=== PATIENT | female | born 1955 | race Caucasian/White ===

== ENCOUNTER 2019-04-24 08:18 | Observation (INO) | payer OTHER, SELFPAY ==
[2019-04-24] VITALS (26 sets, daily range): BP systolic 116–131; BP diastolic 45–70; PULSE 64–82; RESP 9–18; TEMP 36.6; O2SAT 97; BMI 36.1
--- NOTE | 2019-04-24 06:00 | XACV_ITS ---
Ht: 152 cm Wt: 84 kg BSA: 1.93 m2 Gender: Female : 1955 Any Known Allergies: Other Exam Priority: Routine Procedure(s): Procedure Description: Diagnostic procedure Procedure Description: Left ventriculography Procedure Description: Coronary Angiography Diagnostic Cath Status: Elective Diagnostic Findings LM was practically absent. The left anterior descending artery and the circumflex artery were found to have separate ostia. LAD is a medium caliber vessel which appears to bifurcate at the mid segment. The LAD proper tapers off to his LV apex. The diagonal branch appears to be a larger caliber vessel than the LAD proper. Right after the diagonal branch, the stented segment of the LAD was found to be widely patent. No significant stenotic lesions. CX arteries relatively large dominant vessel which gives off a high obtuse marginal branch(the intermedius artery) patient has a proximal stented segment which is widely patent. The distal artery patient had no significant stenotic lesion. The circumflex artery proper and its branches were found to have no significant stenotic lesions. Ramus: Minimal luminal irregularities, JARON: 3 flow. The proximal stented segment appears to be widely patent. The right coronary artery is a relatively small nondominant vessel which has an ostial narrowing of 50%. The pressure was dampening with a catheter engagement. Coronary angiography shows left dominance. Conclusions 64-year-old white female with multiple risk factors of coronary disease, status post PCI of the LAD and intermedius artery, present with increasing episodes of chest pain. She had a myocardial perfusion imaging which revealed areas of fixed defects witha small area of reversible defect around the apex. Because of the worsening symptoms, in order to further evaluate her coronary status, a repeat cardiac catheterization was recommended. Patient underwent left heart catheterization with left and right coronary angiogram and LV angiogram today. The findings are as follows. The stented segments of the LAD and the high obtuse marginal branch were found to be patent. There was a 50% ostial narrowing in the nondominant right coronary artery. No other significant stenotic lesions were noted. The LVEDP was found to be elevated at 24 mmHg. Normal left ventricular systolic function. Ejection fraction of 55%. Recommendations Continue current medical management and risk factor modification. Diagnostic RX Recommendation: medical therapy and/or counseling LV EDP: 24 mmHg Ejection Fraction: 55.0 % Left Ventriculography Findings: The LV gram was performed in the GOLDMAN projection. The LV cavity appears to be of normal size. No filling defects were noted. The overall ejection fraction was around 55%. Pressures Phase:Rest AO : 0 mmHg / -1 mmHg ( -1 mmHg ) @ 1:37:00 AM 109 mmHg / 90 mmHg ( 91 mmHg ) @ 1:39:00 AM 90 mmHg / 60 mmHg ( 74 mmHg ) @ 1:46:00 AM 89 mmHg / 50 mmHg ( 70 mmHg ) @ 1:47:00 AM 95 mmHg / 55 mmHg ( 75 mmHg ) @ 1:51:00 AM 152 mmHg / 55 mmHg ( 62 mmHg ) @ 1:58:00 AM 142 mmHg / 69 mmHg ( 103 mmHg ) @ 1:59:00 AM 139 mmHg / 63 mmHg ( 93 mmHg ) @ 1:59:00 AM LV : 146 mmHg / 3 mmHg / @ 1:56:00 AM 153 mmHg / 11 mmHg / @ 1:58:00 AM 143 mmHg / 3 mmHg / @ 1:59:00 AM 142 mmHg / 6 mmHg / @ 1:59:00 AM Valves Phase:DefaultPhase AV : 2.0 mmHg @ 8:11:04 AM AV Mean Gradient: 0.0 mmHg @ 8:11:04 AM Clinical Evaluation EBL: 5mL-10mL Procedural Details [facility] time/date stamp having technical issues. all doucmentation and procedure done on 04/24/2019. start time 0700. Dr. Barksdale scrubbed out to review films. [id number]. Procedure Consent Obtained. Pre-Procedure Time Out. Identified patient by full name and date of as verbalized by the patient/guarantor. Does the consent match the physician's order: Yes. Accurate & Complete Informed Consent: Yes. Inpatient/Outpatient History & Physical on Chart: Yes. If H&P is completed, is and addenduem needed: N/A; If yes, is the addendum complete: N/A. Visualize and Verify Site with Patient/Guarantor: N/A. Relevant Radiology Images available: Yes. Pre-op teaching completed and patient verbalized understanding. The risks, benefits, and alternatives of sedation and/or procedure were discussed by physician. The patient agrees to continue. Procedure started. Correct patient, site and procedure confirmed by cath team. PERRLA. 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 Lungs clear x 5 lobes. IV Site on Arrival: 20 gauge in the right anticubital. IV Fluids: 0.9% NaCl at KVO. 0 mL infused prior to blood bank laboratory technician. Pre Procedural Pulses: bilateral dorsalis pedis was 3+. Pre Procedural Pulses: bilateral posterior tibial was 3+. Pre Procedural Pulses: bilateral radial was 3+. Oxygen started at 2liters/min via nasal canula. right groin was prepped with chloroprep then draped in the usual sterile fashion. right radial was prepped with chloroprep then draped in the usual sterile fashion. Physician notified. Baseline sample Acquired. HR: 69 BPM. Equipment: 6F - Radial. Cardiac Cath Pack. ACIST Manifold Kit Model BT 2000. Heparinized Saline (2 units/mL), 1000 mL bag. Physician arrived. Physician scrubbed in. Immediate Pre-Procedure Time Out. Correct Patient: Yes; Correct Procedure: Yes; Correct Site: Yes; Correct Patient Position: Yes; Correct Supplies: Yes; Dried Flammable Prep: Yes; Blood Products Available: No;. Lidocaine 1% infiltrated to the right radial. Arterial access obtained. A 5 hungarian Manan catheter in over wire. Multiple views taken of left coronary artery. Catheter out. Multiple views taken of left coronary artery. Catheter redirected to the RCA. Catheter out. A 5 hungarian JR4 catheter in over wire. Multiple views taken of right coronary artery. Catheter out. A 5 hungarian Angled Pig catheter in over wire. EDP Sample taken: LV 146/3,24; HR: 84 BPM; SpO2: 98%. LV gram performed in GOLDMAN @ 10 mL/second for a total of 30 mL. EDP Sample taken: LV 153/11,32; HR: 86 BPM; SpO2: 98%. Pullback taken: LV Off; AO Off; Mean: , Peak to Peak: , SEP: ; HR: 85 BPM; SpO2: 98%. EDP Sample taken: LV 143/3,25; HR: 83 BPM; SpO2: 98%. Pullback taken: LV 142/6,25; AO 142/69(103); Mean: 0mmHg, Peak to Peak: 2mmHg, SEP: 18sec/min; HR: 83 BPM; SpO2: 98%. Catheter out. A TR Band was successful obtaining hemostatsis at the Right Radial artery insertion site. TR band placed. Hemostasis obtained. Post Procedure: Pulses reassessed and unchanged. PERRLA. 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 No VTE prophylaxis required. Medication's Wasted: Heparin = 1000 units. Medication's Wasted: Other = versed 1 mg. Medication's Wasted: Nitro = 49.8 units. Medication's Wasted: Lidocaine 1% = 18 mL. Total IV fluids: 57.7 mL. Fluoro: 11:06. Contrast type used: Omnipaque 300 mgI/mL, 500 mL bottle. Post-op diagnosis: patent stents high LVEDP. Complications: none. Estimated blood loss: 5mL-10mL. Procedure completed. Patient transferred by wheelchair to 1st floor. [facility] Clinical Fraility Score: 3: Managing Well. Manufacturing Supervisor Indications: Worsening Angina. Chest Pain Symptom Assessment: Atypical Angina. Cardiovascular Instability: No. Site: Right Radial artery Sheath Size: 6 Fr Hemostasis Method: TR Band Hemostasis Success: Successful Procedure Medications Start: 7:29 AM Stop: 7:29 AM Medication: Versed Amount: 1 mg Route: I.V. Start: 7:29 AM Stop: 7:29 AM Medication: Fentanyl Amount: 50 mcg Route: I.V. Start: 7:34 AM Stop: 7:34 AM Medication: Versed Amount: 1 mg Route: I.V. Start: 7:34 AM Stop: 7:34 AM Medication: Fentanyl Amount: 25 mcg Route: I.V. Start: 7:35 AM Stop: 7:35 AM Medication: Verapamil Amount: 5 mg Route: I.A. Start: 7:35 AM Stop: 7:35 AM Medication: Nitrogylcerin Amount: 200 mcg Route: I.A. Start: 7:40 AM Stop: 7:40 AM Medication: Heparin Amount: 5000 units Route: I.V. Start: 7:41 AM Stop: 7:41 AM Medication: Versed Amount: 1 mg Route: I.V. Start: 7:41 AM Stop: 7:41 AM Medication: Fentanyl Amount: 25 mcg Route: I.V. I, the attending physician, have reviewed and verified all procedure medications. Yes, all medications given per verbal order History/Risk Factors Hypertension: Yes Dyslipidemia: Yes Diabetic Therapy: Insulin Peripheral Arterial Disease (PAD): No Myocardial Infarction (WV): No Obesity: No Renal Disease: No Tobacco Use: Former Prior Interventions PCI: Yes CABG: No Valve Surgery: No Date of PCI: 11/02/2016 Report Signatures Finalized by:Dr Kathryn Barksdale MD [facility] on 04/24/2019 10:15:46 AM
[2019-04-24] MEDS: diphenhydrAMINE 50 mg Capsule PO (06:26)
[2019-04-24 06:51] LABS: Basophils % 0.4 %; Eosinophils # 0.3 10^3/uL (0.0-0.8); Eosinophils % 3.1 %; Hemoglobin 11.5 g/dL (11.5-15.3); Lymphocytes # 2.1 10^3/uL (0.8-4.8); Lymphocytes % 23.4 %; Mean Corpuscular HGB Conc 31.9 g/dL (30.0-36.0); Mean Corpuscular Hemoglobin 27.6 pg (28.0-34.0); Mean Corpuscular Volume 86.5 fL (81-99); Mean Platelet Volume 10.3 fL (7.4-10.4); Monocytes # 0.7 10^3/uL (0.2-0.9); Monocytes % 7.3 %; Neutrophils # 5.8 10^3/uL (1.8-7.7); Neutrophils % 65.2 %; Nucleated Red Blood Cells % 0 %; Platelet Count 286 10^3/cmm (130-400); Red Blood Count 4.16 10^6/uL (4.1-5.3); Red Cell Distribution Width 13.8 % (12.1-15.1); White Blood Count 8.9 10^3/uL (4.0-10.0)
[2019-04-24 07:05] LABS: Anion Gap 15.3 (5-19); Blood Urea Nitrogen 15 mg/dL (8-23); Calcium 8.8 mg/dL (8.5-10.5); Carbon Dioxide 23 mmol/L (22-29); Chloride 99 mmol/L (98-107); Glomerular Filtration Rate 84.2 mL/min (90-130); Glucose 351 mg/dL (74-106); Osmolality Calculated 286 mOsm/kg (285-295); Potassium 4.3 mmol/L (3.5-5.1); Sodium 133 mmol/L (136-145)
[2019-04-24 07:18] LABS: INR 0.97 (0.8-1.2)
[2019-04-24] MEDS: cyanocobalamin 1,000 mcg Tablet 1000 MCG PO (09:14)
[2019-04-24] MEDS: pantoprazole DR 40 mg Tablet PO (09:14)
[2019-04-24] MEDS: meloxicam 7.5 mg tablet 15 MG PO (09:15)
[2019-04-24] MEDS: carvedilol 6.25 mg Tablet PO (09:15)
[2019-04-24] MEDS: aspirin 81 mg EC Tablet PO (09:15)
[2019-04-24] MEDS: clopidogrel 75 mg Tablet PO (09:15)
--- NOTE | 2019-04-24 14:43 | PC.NURSE ---
PATIENT GIVEN DISCHARGE INSTRUCTIONS AND VERBALIZED UNDERSTANDING ; PATIENT RIGHT WRIST LHC SITE DRESSING C/D/I WITH DISTAL PULSES PRESENT ; PATIENT REQUESTED TO AMBULATE TO EXIT TO POV WITH NO ISSUES
== END 2019-04-24 14:36 | disposition home or self-care (01) ==
LOC: CSU 08:21
PROVIDERS: Admitting Provider Internal Medicine Cardiovascular Disease; Family Provider Family Medicine; PCP Family Medicine; Visit Provider Internal Medicine Cardiovascular Disease
DX: I25.118 Atherosclerotic heart disease of native coronary artery with other forms of angina pectoris (principal); I25.9 Chronic ischemic heart disease, unspecified; R07.9 Chest pain, unspecified; Z79.82 Long term (current) use of aspirin; E11.40 Type 2 diabetes mellitus with diabetic neuropathy, unspecified; Z79.4 Long term (current) use of insulin; E78.2 Mixed hyperlipidemia; I10 Essential (primary) hypertension
CPT/HCPCS: 36415; 80048; 85025; 85610; 86850; 86900; 93452; C1769; C1887; C1894; G0378; J1644; J2001; J2250; J3010; J3490; J7030; Q0163; Q9967

== ENCOUNTER 2019-08-07 14:50 | Emergency (ER) | payer OTHER, SELFPAY ==
[2019-08-07 15:00] VITALS: BP 112/67; PULSE 92; RESP 14; TEMP 36.6; O2SAT 97; BMI 37.0
--- NOTE | 2019-08-07 15:10 | ED_ITS ---
HPI - Abdominal Pain General: Chief Complaint: Abdominal Pain Stated Complaint: abd pain Time Seen by Provider: 08/07/19 15:10 History of Present Illness: HPI narrative: 64-year-old female presents with complaints of left lower quadrant pain for the last 2 days with nausea and loose stools she denies any hematochezia or melanotic stools. She denies any fever no dysuria urgency or frequency or hematuria. Seems to worsen if the pain lying down seems to make it a little bit better she denies any cough or shortness of breath associated with it. MD elicited complaint: abdominal pain Onset (ago): day(s) Pain Consistency: intermittent Location: LLQ Severity: moderate Quality: cramping Radiation: none Migration to: no migration Relieving factors: rest Associated Symptoms: Reports anorexia, diarrhea, heartburn and nausea; Denies chills, coffee ground emesis, constipation, GI cramping, dysuria, fever(s), hematochezia, hematuria, hematemesis, melena, syncope and vomiting Review of Systems Const: Denies: fever(s), chills, body aches, fatigue, malaise or night sweats Eyes: Denies: change in vision or blurry vision ENMT: Denies: throat pain, oral sores, dental pain, nasal discharge or nasal congestion Card: Denies: chest pain, palpitations, irregular heart rhythm, edema, syncope, dyspnea on exertion, orthopnea or leg pain with exertion Resp: Denies: dyspnea, productive cough, non-productive cough or wheezing GI: Reports: abdominal pain, nausea, heartburn and diarrhea; Denies: vomiting, hematemesis, coffee ground emesis, dysphagia, constipation, GI cramping, hematochezia or melena : Denies: flank pain, dysuria, urinary frequency, urinary urgency, urinary incontinence or hematuria Musc: Denies: neck pain, back pain, extremity pain, extremity swelling, joint pain or joint swelling Skin/Breast: Denies: rash, pruritus or erythema Neuro: Denies: headache(s), numbness in extremities, weakness in extremities, sensory changes, lack of coordination, difficulty walking, frequent falls, dizziness, vertigo or confusion Psych: Denies: anxiety, depression, loss of interest, visual hallucinations, auditory hallucinations, suicidal ideation or homicidal ideation Endo: Denies: polyuria, polydipsia, tired all the time or cold intolerance José Miguel/Lymph: Denies: easy bruising, easy bleeding, petechiae, enlarged lymph nodes or tender lymph nodes PFSH ED PFSH: Medical History Arteriosclerosis of coronary artery Had PCI of the Diagonal and OM1 on 10/23/[address] Verdin Chest pain Diabetes Hyperlipemia Hypertension Surgical History H/O abdominal hysterectomy H/O dilation and curettage H/O foot surgery H/O laparoscopy H/O shoulder surgery Stented coronary artery Family History Other CAD (coronary artery disease) Cancer Diabetes Stroke Social History Smoking and tobacco status: never smoked Alcohol intake: never Physical Exam Const: COMMON NORMALS: no acute distress GENERAL APPEARANCE: cooperative and comfortable ORIENTATION/CONSCIOUSNESS: Yes awake, Yes oriented to person, Yes oriented to place and Yes oriented to time HENMT: COMMON NORMALS: normocephalic, atraumatic, hearing grossly normal bilaterally, external ears normal, EAC's normal, TM's normal bilaterally, Normal nasal mucous membranes and turbinates present, moist oral mucous membranes and oropharynx normal HEAD & SCALP: normocephalic and atraumatic NOSE: Normal nasal mucous membranes and turbinates present EXTERNAL EAR: Yes external ears normal EXTERNAL AUDITORY CANAL: EAC's normal TYMPANIC MEMBRANE: TM's normal bilaterally Eye: COMMON NORMALS: Equal, round and reactive pupils present, EOMs intact bilaterally, conjunctivae normal and no scleral icterus CONJUNCTIVA: Yes conjunctivae normal PUPIL: Yes Equal, round and reactive pupils present Neck/C-Spine: COMMON NORMALS: full ROM, no lymphadenopathy, supple and no JVD Lymph: LYMPHATIC: no lymphadenopathy noted and no lymphedema noted Resp: COMMON NORMALS: normal respiratory effort, No retractions, No use of accessory muscles and clear to auscultation bilaterally AUSCULTATION: clear to auscultation bilaterally Cardio: COMMON NORMALS: no JVD, regular rate, regular rhythm and No murmurs present (Cardio) RATE: regular rate RHYTHM: regular rhythm GI: COMMON NORMALS: Soft to palpation and No hepatosplenomegaly present AUSCULTATION: Yes Hypoactive bowel sounds present PALPATION: Yes Soft to p alpation, Yes Tenderness to palpation present (GI) Details: LLQ, No Guarding due to palpation present (GI) and Yes No hepatosplenomegaly present Extremity: COMMON NORMALS: normal to inspection, capillary refill normal, no clubbing, cyanosis or edema, no calf tenderness and no pedal edema Neuro: SENSORIUM/ORIENTATION: Yes oriented to person, Yes oriented to place and Yes oriented to time Skin: COMMON NORMALS: no rashes or lesions noted GENERAL SKIN EXAM: no rashes or lesions noted Course Vital Signs: Vital signs: Vital Signs Temperature 97.8 F 08/07/19 15:00 Pulse Rate 81 08/07/19 18:59 Respiratory Rate 17 08/07/19 18:59 Blood Pressure 123/66 08/07/19 18:59 Pulse Oximetry 97 08/07/19 18:59 MDM - Abdominal Pain MDM Narrative: Medical decision making narrative: Patient has a mild colitis suspect is diverticular in nature additionally she also has a small mild cystitis. We will start her on Augmentin and have her follow-up with her primary care doctor return if worsens, Lab Data: Labs: Lab Results 08/07/19 08/07/19 08/07/19 Range/Units 15:20 15:56 15:56 WBC 10.9 H (4.0-10.0) 10^3/ uL RBC 4.07 L (4.1-5.3) 10^6/u L Hgb 11.5 (11.5-15.3) g/dL Hct 36.4 L (37.0-47.0) % MCV 89.4 (81-99) fL MCH 28.3 (28.0-34.0) pg MCHC 31.6 (30.0-36.0) g/dL RDW 14.3 (12.1-15.1) % Plt Count 290 (130-400) 10^3/c mm MPV 10.5 H (7.4-10.4) fL Neut % (Auto) 73.6 % Lymph % (Auto) 17.2 % [place] % (Auto) 6.4 % Eos % (Auto) 1.8 % Baso % (Auto) 0.6 % Neut # (Auto) 8.0 H (1.8-7.7) 10^3/u L Lymph # (Auto) 1.9 (0.8-4.8) 10^3/u L [place] # (Auto) 0.7 (0.2-0.9) 10^3/u L Eos # (Auto) 0.2 (0.0-0.8) 10^3/u L Baso # (Auto) 0.1 (0.0-0.1) 10^3/u L Nucleated RBC % (a uto) 0 % Nucleated RBCs # 0.0 /100WBC Sodium 136 (136-145) mmol/L Potassium 4.1 (3.5-5.1) mmol/L Chloride 99 (98-107) mmol/L Carbon Dioxide 21 L (22-29) mmol/L Anion Gap 20.1 H (5-19) BUN 18 (8-23) mg/dL Creatinine 0.9 (0.5-0.9) mg/dL GFR Calculation 63.0 L (90-130) mL/min Glucose 382 H (65-115) mg/dL Calculated Osmolal ity 294 (285-295) mOsm/k g Lactate (0.5-2.2) mmol/L Calcium 9.0 (8.5-10.5) mg/dL Total Bilirubin 0.2 (0.15-1.2) mg/dL AST 16 (0-32) U/L ALT 14 (0-33) U/L Alkaline Phosphata se 112 H (35-105) IU/L Total Protein 6.8 (6.6-8.7) g/dL Albumin 3.9 (3.5-5.2) g/dL Globulin 2.9 (1.3-4.6) g/dL Lipase 34 (13-60) U/L Urine Color Yellow (Yellow) Urine Appearance Hazy A (CLEAR) Urine pH 5 (5-7) Ur Specific Gravit y 1.015 (1.005-1.030) Urine Protein Neg (Negative) Urine Glucose (UA) 4+ H (Normal) Urine Ketones Negative (Negative) Urine Blood 3+ H (Negative) Urine Nitrate Positive H (Negative) Urine Bilirubin Neg (NEGATIVE) Urine Urobilinogen Norm (Negative) mg/dL Ur Leukocyte Loretta ase 1+ H (Negative) Urine RBC 5-10 H (0-2) /hpf Urine WBC 40-55 H (0-5) /hpf Ur Squamous Epith Cells 0-4 H (0-5) Ur Transition Epit h Cell 0-4 /hpf Urine Bacteria 2+ H (NONE) 08/07/19 Range/Units 15:56 WBC (4.0-10.0) 10^3/ uL RBC (4.1-5.3) 10^6/u L Hgb (11.5-15.3) g/dL Hct (37.0-47.0) % MCV (81-99) fL MCH (28.0-34.0) pg MCHC (30.0-36.0) g/dL RDW (12.1-15.1) % Plt Count (130-400) 10^3/c mm MPV (7.4-10.4) fL Neut % (Auto) % Lymph % (Auto) % [place] % (Auto) % Eos % (Auto) % Baso % (Auto) % Neut # (Auto) (1.8-7.7) 10^3/u L Lymph # (Auto) (0.8-4.8) 10^3/u L [place] # (Auto) (0.2-0.9) 10^3/u L Eos # (Auto) (0.0-0.8) 10^3/u L Baso # (Auto) (0.0-0.1) 10^3/u L Nucleated RBC % (a uto) % Nucleated RBCs # /100WBC Sodium (136-145) mmol/L Potassium (3.5-5.1) mmol/L Chloride (98-107) mmol/L Carbon Dioxide (22-29) mmol/L Anion Gap (5-19) BUN (8-23) mg/dL Creatinine (0.5-0.9) mg/dL GFR Calculation (90-130) mL/min Glucose (65-115) mg/dL Calculated Osmolal ity (285-295) mOsm/k g Lactate 3.0 H (0.5-2.2) mmol/L Calcium (8.5-10.5) mg/dL Total Bilirubin (0.15-1.2) mg/dL AST (0-32) U/L ALT (0-33) U/L Alkaline Phosphata se (35-105) IU/L Total Protein (6.6-8.7) g/dL Albumin (3.5-5.2) g/dL Globulin (1.3-4.6) g/dL Lipase (13-60) U/L Urine Color (Yellow) Urine Appearance (CLEAR) Urine pH (5-7) Ur Specific Gravit y (1.005-1.030) Urine Protein (Negative) Urine Glucose (UA) (Normal) Urine Ketones (Negative) Urine Blood (Negative) Urine Nitrate (Negative) Urine Bilirubin (NEGATIVE) Urine Urobilinogen (Negative) mg/dL Ur Leukocyte Loretta ase (Negative) Urine RBC (0-2) /hpf Urine WBC (0-5) /hpf Ur Squamous Epith Cells (0-5) Ur Transition Epit h Cell /hpf Urine Bacteria (NONE) Discharge Plan Discharge Patient Disposition: Home, Self-Care Clinical Impression: Cystitis, Diverticulitis Condition: Stable Prescriptions: New Augmentin 875-125 mg tablet 1 tab PO BID Qty: 20 RF: 0 No Action ibuprofen 800 mg tablet 800 mg PO Q8H PRN (Reason: Pain) Qty: 15 RF: 0 carvedilol 6.25 mg tablet 6.25 mg PO BID RF: 0 isosorbide mononitrate 30 mg tablet extended release 24 hr 30 mg PO QAM RF: 0 clopidogrel 75 mg tablet 75 mg PO DAILY RF: 0 nitroglycerin 0.4 mg tablet, sublingual 0.4 mg SUBLINGUAL Q5M PRN (Reason: Chest Pain) RF: 0 citalopram 20 mg tablet 20 mg PO DAILY RF: 0 Humulin N NPH U-100 Insulin 100 unit/mL suspension See Rx Instructions .ROUTE .COMPLEX RF: 0 lovastatin 40 mg tablet 40 mg PO DAILY RF: 0 glipizide 10 mg tablet extended release 24hr 10 mg PO BID RF: 0 metformin 1,000 mg tablet extended release 24hr 1,000 mg PO BID RF: 0 Hold Instructions: Resume on 04/27/19. May restart the medicine on the seventh at the current dose aspirin 81 mg tablet,delayed release (DR/EC) 81 mg PO DAILY RF: 0 cyanocobalamin (vitamin B-12) [Vitamin B-12] 1,000 mcg Tablet 1,000 mcg PO DAILY RF: 0 Discharge Orders: Discharge Order (Routine); Ordered 08/07/19 Ordered By: Rosas Ortiz Referrals: Desean Conteh DO [Primary Care Provider] - Discharge Diet: Clear Liquid Discharge Activity: Increase activity as tolerated Patient Instructions: Diverticulitis (ED), Urinary Tract Infection in Women (ED) Activity Restrictions/Additional Instructions: Up with your primary care doctor if not improvingFollow-up with your primary care doctor within a week Interventions: ED Discharge Assessment Last Done: 08/07/19 18:59 ED Charges Last Done: 08/07/19 18:31 Discharge Date/Time: 08/07/19 19:30 Coding Level of Care Code ED Wood Inspector for Chg Fwd Exam Comprehensive
[2019-08-07 15:28] VITALS: BP 166/109; PULSE 88; RESP 17; O2SAT 96
--- NOTE | 2019-08-07 15:33 | CTR_ITS ---
PROCEDURE INFORMATION: Exam: CT Abdomen And Pelvis With Contrast Exam date and time: 08/07/2019 4:43 PM Age: 64 years old Clinical indication: Abdominal pain; Additional info: Abd pain TECHNIQUE: Imaging protocol: Computed tomography of the abdomen and pelvis with intravenous contrast. Radiation optimization: All CT scans at this facility use at least one of these dose optimization techniques: automated exposure control; mA and/or kV adjustment per patient size (includes targeted exams where dose is matched to clinical indication); or iterative reconstruction. Contrast material: OMNI 300; Contrast volume: 95 ml; Contrast route: IV; COMPARISON: CT Abdomen/Pelvis Renal [id number] 01/26/2016 4:33 PM RADIATION DOSE METRICS: Total DLP: 1482.84 mGy-cm FINDINGS: Lungs: There is mild ground-glass opacity in the lung bases compatible with mild pneumonitis or atelectasis. Mediastinum: There is an unchanged small hiatal hernia. Liver: There is unchanged mild fatty infiltration liver. Gallbladder and bile ducts: Normal. No calcified stones. No ductal dilation. Pancreas: Normal. No ductal dilation. Spleen: Normal. No splenomegaly. Adrenals: Normal. No mass. Kidneys and ureters: There is no evidence of hydronephrosis. There is no evidence of renal calcifications. Stomach and bowel: There is mild wall thickening in the distal descending colon and sigmoid colon concerning for mild distal colitis. Stomach and duodenum have an appropriate appearance. Some of the loops of small bowel are filled with fluid with very mild wall thickening that may reflect some very mild enteritis. Appendix: A normal appendix is identified. Intraperitoneal space: Unremarkable. No free air. No significant fluid collection. Vasculature: The aorta demonstrates mild atherosclerotic calcification. Lymph nodes: Unremarkable.No enlarged lymph nodes. Bladder: The bladder is normal. Reproductive: Unremarkable as visualized. There has been a hysterectomy. Bones/joints: There are moderate degenerative changes in the spine. No acute bony abnormality. Soft tissues: There is a fat-containing umbilical hernia. Other findings: There is no ileus or obstruction. CT/CT abdomen pelvis w con* [id number] IMPRESSION: 1. There is mild wall thickening in the distal descending colon and sigmoid colon concerning for mild distal colitis. 2. Probable mild enteritis of the small bowel. Radiation Dose CTDIVOL = (mGy): DLP = 1482.84 (mGy-cm)
[2019-08-07 16:03] LABS: Basophils # 0.1 10^3/uL (0.0-0.1); Basophils % 0.6 %; Eosinophils # 0.2 10^3/uL (0.0-0.8); Eosinophils % 1.8 %; Hematocrit 36.4 % (37.0-47.0); Hemoglobin 11.5 g/dL (11.5-15.3); Lymphocytes # 1.9 10^3/uL (0.8-4.8); Lymphocytes % 17.2 %; Mean Corpuscular HGB Conc 31.6 g/dL (30.0-36.0); Mean Corpuscular Hemoglobin 28.3 pg (28.0-34.0); Mean Corpuscular Volume 89.4 fL (81-99); Mean Platelet Volume 10.5 fL (7.4-10.4); Monocytes # 0.7 10^3/uL (0.2-0.9); Monocytes % 6.4 %; Neutrophils % 73.6 %; Nucleated Red Blood Cells % 0 %; Platelet Count 290 10^3/cmm (130-400); Red Blood Count 4.07 10^6/uL (4.1-5.3); Red Cell Distribution Width 14.3 % (12.1-15.1); White Blood Count 10.9 10^3/uL (4.0-10.0)
[2019-08-07] MEDS: sodium chloride 0.9% 1,000 ML 999 ML IV ×2 (16:06→18:18)
[2019-08-07 16:08] VITALS: RESP 17
[2019-08-07] MEDS: ondansetron 2 mg/ML SDV 2 mL 4 MG IVP (16:08)
[2019-08-07] MEDS: morphine 4 mg/mL SDV 1 mL IVP (16:08)
[2019-08-07 16:16] LABS: Alanine Aminotransferase 14 U/L (0-33); Albumin Level 3.9 g/dL (3.5-5.2); Alkaline Phosphatase 112 IU/L (35-105); Anion Gap 20.1 (5-19); Aspartate Amino Transferase 16 U/L (0-32); Blood Urea Nitrogen 18 mg/dL (8-23); Carbon Dioxide 21 mmol/L (22-29); Chloride 99 mmol/L (98-107); Globulin 2.9 g/dL (1.3-4.6); Glucose 382 mg/dL (65-115); Lipase 34 U/L (13-60); Osmolality Calculated 294 mOsm/kg (285-295); Potassium 4.1 mmol/L (3.5-5.1); Sodium 136 mmol/L (136-145); Total Bilirubin 0.2 mg/dL (0.15-1.2); Total Protein 6.8 g/dL (6.6-8.7)
[2019-08-07 16:20] VITALS: BP 139/66; PULSE 87; RESP 15; O2SAT 95
[2019-08-07 16:34] LABS: Urine Appearance Hazy (CLEAR); Urine Color Yellow (Yellow); pH Urine 5 (5-7)
[2019-08-07 16:35] LABS: Add Urine Microscopic? YES; Bilirubin Urine Neg (NEGATIVE); Blood Urine 3+ (Negative); Glucose Urine UA 4+ (Normal); Ketones Urine Negative (Negative); Leukocyte Esterase Urine 1+ (Negative); Nitrate Urine Positive (Negative); Protein Urine Neg (Negative); Specific Gravity, Urine 1.015 (1.005-1.030); Urobilinogen Urine Norm (Negative)
[2019-08-07 16:45] VITALS: RESP 15; O2SAT 93
[2019-08-07 16:48] LABS: Add Urine Culture? Yes; Bacteria Urine 2+; Squamous Epithelial Cell Urine 0-4 (0-5); Transitional Epi Cells Urine 0-4 /hpf; WBC Urine 40-55 /hpf (0-5)
[2019-08-07] MEDS: iohexol 300 mg/mL 100 mL Btl IV (17:37)
[2019-08-07] MEDS: cefTRIAXone 1,000 MG in sodium chloride 0.9% (plus) 50 ML 100 MG IV (18:18)
[2019-08-07 18:59] VITALS: BP 123/66; PULSE 81; RESP 17; O2SAT 97
== END 2019-08-07 19:30 | disposition home or self-care (01) ==
PROVIDERS: Emergency Provider Family Medicine; PCP Family Medicine
DX: N30.90 Cystitis, unspecified without hematuria (principal); K57.92 Diverticulitis of intestine, part unspecified, without perforation or abscess without bleeding; Z79.02 Long term (current) use of antithrombotics/antiplatelets; Z79.4 Long term (current) use of insulin; Z79.82 Long term (current) use of aspirin; E11.9 Type 2 diabetes mellitus without complications; E78.5 Hyperlipidemia, unspecified; I10 Essential (primary) hypertension
CPT/HCPCS: 12345; 36415; 74177; 80053; 81001; 83605; 83690; 85025; 87040; 87077; 87086; 87186; 96361; 96365; 96375; 99283; J0696; J2270; J2405; J7030; Q9967

== ENCOUNTER → 2019-08-14 11:30 | Outpatient (BNVA) | payer OTHER, SELFPAY | PROVIDERS: Family Provider Family Medicine; PCP Family Medicine; Visit Provider Internal Medicine Cardiovascular Disease | DX: I10 Essential (primary) hypertension (principal); E78.5 Hyperlipidemia, unspecified; E78.2 Mixed hyperlipidemia; I25.10 Atherosclerotic heart disease of native coronary artery without angina pectoris; E11.40 Type 2 diabetes mellitus with diabetic neuropathy, unspecified; Z79.4 Long term (current) use of insulin | CPT/HCPCS: 80061 ==

== ENCOUNTER 2019-11-07 16:03 | Emergency (ER) | payer OTHER, SELFPAY ==
[2019-11-07 16:12] VITALS: BMI 36.3
[2019-11-07 16:16] VITALS: BP 144/78; PULSE 83; RESP 16; TEMP 36.7; O2SAT 98
--- NOTE | 2019-11-07 16:23 | CT_ITS ---
WS: [id number] EXAM: CT head wo con* [id number] DATE OF EXAMINATION: 11/07/2019, 1745 hours COMPARISON: Head CT from 04/02/2016 HISTORY: 64 years old with dizziness for the last 3 days. Complaining of a headache with nausea and vomiting. TECHNIQUE: Thin slice imaging obtained through the brain. Viewed in brain, subdural and bone window with reconst ructions. DLP: 756.[address] scans at [facility] use at least one of these dose optimization techniques: automat ed exposure control; mA and/or kV adjustment per patient size (includes targeted exams where dose is matched to clinical indication); or iterative reconstruction. FINDINGS: There are generalized changes of age-related atrophy. Rankin-white differentiation is normal. There are slight changes of decreased attenuation within the white matter felt to represent sequelae from chronometer tester jamil small vessel white matter microangiopathic change. No findings of hemorrhage, hydrocephalus, mass , mass effect or abnormal extra-axial fluid collection is seen. No acute skull abnormality is demons trated. Extracalvarial soft tissues are unremarkable. Minimal chronic sinusitis changes seen. CT/CT head wo con* [id number] IMPRESSION: Atrophy and slight chronic white matter changes. No acute intracranial process.
--- NOTE | 2019-11-07 16:23 | CT_ITS ---
WS: [id number] EXAM: CT OF THE ABDOMEN AND PELVIS WITH CONTRAST DATE OF EXAMINATION: 11/07/2019, 1753 hours COMPARISON: Prior CT from 08/07/2019. HISTORY: 64 years old with nausea and vomiting para TECHNIQUE: Transaxial computed tomography images obtained through the abdomen and pelvis utilizing 95 mL of Omni paque 300 IV contrast with images acquired in the portal phase. Images viewed in multiple windows wit h reconstructions. DLP: 1284.[address] scans at [facility] use at least one of these dose optimization techniques: automat ed exposure control; mA and/or kV adjustment per patient size (includes targeted exams where dose is matched to clinical indication); or iterative reconstruction. FINDINGS: There are findings of slight infiltrate suggesting atelectasis within the medial segment of the middl e lobe and lingula. Lung bases are otherwise clear. Heart size is normal. The aorta is normal in phyllis suraj and opacifies normally. Liver attenuation is decreased consistent with some degree of fatty infiltration. There appears to be a lesion within the left lobe of the liver with vessels running through this lesion most likely a fo carlo area of more severe fatty infiltration. No definite mass lesion is seen. The gallbladder is normally distended without identifiable stones or pericholecystic inflammatory kiara nge. No biliary dilatation is seen. The portal vein is patent. Spleen is normal in size and enhancement. Pancreas is normal in appearance. Adrenal glands are normal in appearance. Both kidneys enhance normally. No mass lesion is seen. No renal or ureteral calculus or obstructive u ropathy. The bowel is normal in caliber. No bowel obstruction, free air, free fluid or inflammatory process is identified. Normal appendix in the right paracolic gutter. No intraperitoneal or retroperitoneal adenopathy or mass is identified. No umbilical hernia is seen. No inguinal hernia is seen. Uterus is absent. No adnexal mass The bladder is normal in appearance. Scattered degenerative changes are seen in the spine. No acute bony abnormality. CT/CT abdomen pelvis w con* [id number] IMPRESSION: No findings of acute intra-abdominal or retroperitoneal abnormality. Progressively worsening fatty infiltration in the liver. Other nonemergent find ings as described in the body of the report.
--- NOTE | 2019-11-07 16:36 | W.ED.DIZZY ---
HPI - Dizziness General: Chief Complaint: Dizziness Stated Complaint: vomiting/n dizzy Time Seen by Provider: 11/07/19 16:17 Source: patient Mode of arrival: ambulatory Limitations: no limitations History of Present Illness: HPI Narrative: Judy is a 64-year-old female who comes in complaining of a months worth of dizziness. She describes the dizziness as a room spinning dizziness. She has associated nausea but no vomiting. She denies any headache, blurry vision, or unilateral numbness or weakness. Patient went to see Dr. Corona today for this and because of the chronicity of this he had her present here for concern of a stroke. Patient also has been complaining of some lower abdominal pain. She has history of diverticulosis. Patient denies any other diarrhea, constipation, urinary symptoms or fever. In regards to her dizziness the patient does state that moving her head or body in certain positions makes the symptoms worse. Associated symptoms: Denies change in hearing, chest pain, chills, diaphoresis, ear discharge, headache(s), malaise, palpitations, syncope or vomiting Associated neuro symptoms: Deny confusion or numbness in extremities Review of Systems Const: Denies: fever(s), chills, body aches, fatigue, malaise or diaphoresis Eyes: Denies: change in vision, blurry vision, photophobia, eye discomfort, eye discharge or eye redness ENMT: Denies: throat pain, odynophagia, hoarseness, swelling of lips/tongue, ear or mastoid pain, ear discharge, change in hearing or nasal discharge Card: Denies: chest pain, palpitations, irregular heart rhythm, edema, lightheadedness, syncope, pre-syncope, dyspnea on exertion or orthopnea Resp: Denies: dyspnea, productive cough, non-productive cough, wheezing, hemoptysis or chest congestion GI: Denies: vomiting, hematemesis, coffee ground emesis, heartburn, diarrhea, constipation, GI cramping, hematochezia or melena : Denies: flank pain, dysuria, urinary frequency, urinary urgency or hematuria Musc: Denies: neck pain, back pain, extremity pain, extremity swelling, joint pain, joint swelling, joint redness, joint warmth or joint stiffness Skin/Breast: Denies: rash, pruritus, erythema or skin tenderness Neuro: Denies: headache(s), numbness in extremities, weakness in extremities, sensory changes, lack of coordination, difficulty walking, confusion, Slurred speech present or seizure-like activity José Miguel/Lymph: Denies: easy bruising, easy bleeding, petechiae, purpura or enlarged lymph nodes All/Imm: Denies: urticaria, throat swelling, tongue swelling, facial swelling or acute wheezing PFSH ED PFSH: Medical History Arteriosclerosis of coronary artery Had PCI of the Diagonal and OM1 on 10/23/[address] Veridn Chest pain Diabetes Hyperlipemia Hypertension Surgical History H/O abdominal hysterectomy H/O dilation and curettage H/O foot surgery H/O laparoscopy H/O shoulder surgery Stented coronary artery Family History Other CAD (coronary artery disease) Cancer Diabetes Stroke Social History Smoking and tobacco status: never smoked Alcohol intake: never Physical Exam Const: COMMON NORMALS: no acute distress, patient oriented x3, no limitations, healthy appearing and well nourished GENERAL APPEARANCE: cooperative, well kempt and well developed HENMT: COMMON NORMALS: normocephalic, atraumatic, external ears normal, EAC's normal and Normal external nose present HEAD & SCALP: normal to inspection, normocephalic and atraumatic FACE & SINUS: normal facial exam and face symmetric NOSE: Normal external nose present and Normal nares present EXTERNAL EAR: Yes external ears normal EXTERNAL AUDITORY CANAL: EAC's normal MOUTH: Normal oral and palatal mucosa present, lip normal and tongue normal Eye: COMMON NORMALS: Equal, round and reactive pupils present and conjunctivae normal GENERAL EYE: appearance normal, both eyes and all related structures ALIGNMENT: Yes alignment normal PERIORBITAL: periorbital findings normal EYELID: eyelids normal CONJUNCTIVA: Yes conjunctivae normal SCLERA: sclerae normal PUPIL: Yes Equal, round and reactive pupils present Neck/C-Spine: COMMON NORMALS: full ROM, no lymphadenopathy, supple, no meningeal signs and no JVD GENERAL: Yes normal visual inspection and Yes trachea midline Chest: COMMONS NORMALS: normal inspection of the chest and normal palpation of entire chest wall Resp: COMMON NORMALS: normal respiratory effort, No retractions, No use of accessory muscles and clear to auscultation bilaterally EFFORT & INSPECTION: Yes able to speak in complete sentences and Yes symmetric chest movement AUSCULTATION: clear to auscultation bilaterally, no crackles, no rales, no rhonchi and no wheezes Cardio: COMMON NORMALS: no JVD, regular rate, regular rhythm, S1 normal heart sound present and S2 normal heart sound present RATE: regular rate RHYTHM: regular rhythm HEART SOUNDS: S1 normal heart sound present, S2 normal heart sound present, no click, no gallops, no murmurs, no rubs and abnormal split S2 GI: COMMON NORMALS: Soft to palpation and No hepatosplenomegaly present PALPATION: Yes Soft to palpation, No Tenderness to palpation present (GI), No Guarding due to palpation present (GI), No Rigid due to palpation, Yes No hepatosplenomegaly present, No Hernia present, No Palpable mass present and No Pulsatile mass present : COMMON NORMALS: Yes no CVA tenderness BLADDER/KIDNEY EXAM: Yes no CVA tenderness EXTERNAL FEMALE EXAM: No Hernia present Back/Pelvis: COMMON NORMALS: no CVA tenderness, thoracic and lumbar spine normal to inspection, no thoracic nor lumbar tenderness and thoraco-lumbar ROM normal Extremity: COMMON NORMALS: normal to inspection, full ROM, capillary refill normal, no joint enlargement, no clubbing, cyanosis or edema and no calf tenderness Neuro: COMMON NORMALS: patient oriented x3, CN's II-XII intact bilaterally, moves all extremities, no focal motor deficits and no sensory deficits noted MENINGEAL SIGNS: Yes no meningeal signs COORDINATION/BALANCE: other (Nystagmus present) SPEECH: speech normal COORDINATION: other (Nystagmus present) Psych: COMMON NORMALS: mental status grossly normal, Normal thought process present, cooperative, normal affect, speech normal and activity/motor behavior normal APPEARANCE: Yes well kempt SPEECH: Yes normal speech THOUGHT PROCESS: Normal thought process present Skin: COMMON NORMALS: no rashes or lesions noted, turgor normal, no jaundice, no petechiae and no mottling GENERAL SKIN EXAM: no rashes or lesions noted and turgor normal Course Vital Signs: Vital signs: Vital Signs Temperature 98.0 F 11/07/19 16:16 Pulse Rate 83 08/19/20 16:16 Respiratory Rate 16 11/07/19 16:16 Blood Pressure 144/78 11/07/19 16:16 Pulse Oximetry 98 11/07/19 16:16 MDM - Dizziness MDM Narrative: Medical decision making narrative: Judy is a nice 64-year-old female who comes in complaining of room spinning dizziness for the past month. The patient does admit now that this is somewhat like her dizziness that she is had in the past. She received Valium here by mouth and is feeling much better. She states her dizziness is markedly improved although not completely gone. CT scan of her brain is normal and after a month I would expect something to show on MRI if there was a cerebellar infarct. Nonetheless I have offered to admit her for MRI but she declines. She wants to go on a vacation that is been planned for some time. I did review the case in full with Dr. Corona feels the patient can go home and if necessary an MRI can be performed as an outpatient basis. Patient agrees to do so and return here if she worsens but at this time she is ready for discharge. Lab Data: Attestation: I reviewed the patient's lab results. Labs: Lab Results 11/07/19 11/07/19 Range/Units 16:37 16:37 WBC 10.1 H (4.0-10.0) 10^3/ uL RBC 4.36 (4.1-5.3) 10^6/u L Hgb 12.6 (11.5-15.3) g/dL Hct 39.9 (37.0-47.0) % MCV 91.5 (81-99) fL MCH 28.9 (28.0-34.0) pg MCHC 31.6 (30.0-36.0) g/dL RDW 14.1 (12.1-15.1) % Plt Count 301 (130-400) 10^3/c mm MPV 10.7 H (7.4-10.4) fL Neut % (Auto) 70.4 % Lymph % (Auto) 19.7 % [place] % (Auto) 5.3 % Eos % (Auto) 3.6 % Baso % (Auto) 0.8 % Neut # (Auto) 7.11 (1.8-7.7) 10^3/u L Lymph # (Auto) 2.0 (0.8-4.8) 10^3/u L [place] # (Auto) 0.5 (0.2-0.9) 10^3/u L Eos # (Auto) 0.4 (0.0-0.8) 10^3/u L Baso # (Auto) 0.1 (0.0-0.1) 10^3/u L Nucleated RBC % (a uto) 0 % Nucleated RBCs # 0.0 /100WBC Sodium 137 (136-145) mmol/L Potassium 3.6 (3.5-5.1) mmol/L Chloride 103 (98-107) mmol/L Carbon Dioxide 22 (22-29) mmol/L Anion Gap 15.6 (5-19) BUN 15 (8-23) mg/dL Creatinine 0.6 (0.5-0.9) mg/dL GFR Calculation 100.6 (90-130) mL/min Glucose 104 (65-115) mg/dL Calculated Osmolal ity 281 L (285-295) mOsm/k g Calcium 9.1 (8.5-10.5) mg/dL Magnesium 1.1 L (1.7-2.3) mg/dL Total Bilirubin 0.3 (0.15-1.2) mg/dL AST 39 H (0-32) U/L ALT 28 (0-33) U/L Alkaline Phosphata se 97 (35-105) IU/L Total Protein 7.3 (6.6-8.7) g/dL Albumin 3.8 (3.5-5.2) g/dL Globulin 3.5 (1.3-4.6) g/dL Imaging Data^: CT Head: Radiologist's impression: [place] [address] CT Scan Report Signed Patient: Judy Rincon Unit #: [id number] : 1955 Age/Sex: 64 / F ADM Date: 11/07/19 Loc: ER Room/Bed: Attending Dr: Ordering Provider/Ordering MD: Kelsey Valenzuela DO Date of Service: 11/07/19 Procedure(s): CT head wo con* [id number] Accession Number(s): [id number] Report Number: [id number] WS: [id number] EXAM: CT head wo con* [id number] DATE OF EXAMINATION: 11/07/2019, 1745 hours COMPARISON: Head CT from 04/02/2016 HISTORY: 64 years old with dizziness for the last 3 days. Complaining of a headache with nausea and vomiting. TECHNIQUE: Thin slice imaging obtained through the brain. Viewed in brain, subdural and bone window with reconstructions. DLP: 756.[address] scans at [facility] use at least one of these dose optimization techniques: automated exposure control; mA and/or kV adjustment per patient size (includes targeted exams where dose is matched to clinical indication); or iterative reconstruction. FINDINGS: There are generalized changes of age-related atrophy. Rankin-white differentiation is normal. There are slight changes of decreased attenuation within the white matter felt to represent sequelae from chronic small vessel white matter microangiopathic change. No findings of hemorrhage, hydrocephalus, mass, mass effect or abnormal extra-axial fluid collection is seen. No acute skull abnormality is demonstrated. Extracalvarial soft tissues are unremarkable. Minimal chronic sinusitis changes seen. CT/CT head wo con* [id number] IMPRESSION: Atrophy and slight chronic white matter changes. No acute intracranial process. Dictated By: Adama Bowser MD Signed By: Adaam Bowser MD Signed Date/Time: 11/07/19 180 DD/ 1800 CT Abd/Pel: Radiologist's impression: [address] [address] [address] Scan Report Signed Patient: Judy Rincon Unit #: [id number] : 1955 Age/Sex: 64 / F ADM Date: 11/07/19 Loc: ER Room/Bed: Attending Dr: Ordering Provider/Ordering MD: Kelsey Valenzuela DO Date of Service: 11/07/19 Procedure(s): CT abdomen pelvis w con* [id number] Accession Number(s): [id number] Report Number: [id number] WS: [id number] EXAM: CT OF THE ABDOMEN AND PELVIS WITH CONTRAST DATE OF EXAMINATION: 11/07/2019, 1753 hours COMPARISON: Prior CT from 08/07/2019. HISTORY: 64 years old with nausea and vomiting para TECHNIQUE: Transaxial computed tomography images obtained through the abdomen and pelvis utilizing 95 mL of Omnipaque 300 IV contrast with images acquired in the portal phase. Images viewed in multiple windows with reconstructions. DLP: 1284.[address] scans at [facility] use at least one of these dose optimization techniques: automated exposure control; mA and/or kV adjustment per patient size (includes targeted exams where dose is matched to clinical indication); or iterative reconstruction. FINDINGS: There are findings of slight infiltrate suggesting atelectasis within the medial segment of the middle lobe and lingula. Lung bases are otherwise clear. Heart size is normal. The aorta is normal in caliber and opacifies normally. Liver attenuation is decreased consistent with some degree of fatty infiltration. There appears to be a lesion within the left lobe of the liver with vessels running through this lesion most likely a focal area of more severe fatty infiltration. No definite mass lesion is seen. The gallbladder is normally distended without identifiable stones or pericholecystic inflammatory change. No biliary dilatation is seen. The portal vein is patent. Spleen is normal in size and enhancement. Pancreas is normal in appearance. Adrenal glands are normal in appearance. Both kidneys enhance normally. No mass lesion is seen. No renal or ureteral calculus or obstructive uropathy. The bowel is normal in caliber. No bowel obstruction, free air, free fluid or inflammatory process is identified. Normal appendix in the right paracolic gutter. No intraperitoneal or retroperitoneal adenopathy or mass is identified. No umbilical hernia is seen. No inguinal hernia is seen. Uterus is absent. No adnexal mass The bladder is normal in appearance. Scattered degenerative changes are seen in the spine. No acute bony abnormality. CT/CT abdomen pelvis w con* [id number] IMPRESSION: No findings of acute intra-abdominal or retroperitoneal abnormality. Progressively worsening fatty infiltration in the liver. Other nonemergent findings as described in the body of the report. Dictated By: Adama Bowser MD Signed By: Adama Bowser MD Signed Date/Time: 11/07/191805 DD/ 01 Discharge Plan Discharge Patient Disposition: Home Clinical Impression: Vertigo Abdominal pain Qualifiers: Abdominal location: lower abdomen, unspecified Qualified Code(s): R10.30 - Lower abdominal pain, unspecified Condition: Stable Prescriptions: New diazepam 2 mg tablet 2 mg PO QID PRN (Reason: dizziness or vertigo) Qty: 30 RF: 0 No Action ibuprofen 800 mg tablet 800 mg PO Q8H PRN (Reason: Pain) Qty: 15 RF: 0 isosorbide mononitrate 30 mg tablet extended release 24 hr 30 mg PO QAM RF: 0 clopidogrel 75 mg tablet 75 mg PO DAILY RF: 0 nitroglycerin 0.4 mg tablet, sublingual 0.4 mg SUBLINGUAL Q5M PRN (Reason: Chest Pain) RF: 0 citalopram 20 mg tablet 20 mg PO DAILY RF: 0 Humulin N NPH U-100 Insulin 100 unit/mL suspension See Rx Instructions .ROUTE .COMPLEX RF: 0 lovastatin 40 mg tablet 40 mg PO DAILY RF: 0 glipizide 10 mg tablet extended release 24hr 10 mg PO BID RF: 0 metformin 1,000 mg tablet extended release 24hr 1,000 mg PO BID RF: 0 Hold Instructions: Resume on 04/27/19. May restart the medicine on the seventh at the current dose aspirin 81 mg tablet,delayed release (DR/EC) 81 mg PO DAILY RF: 0 fenofibrate nanocrystallized 48 mg tablet 48 mg PO DAILY Qty: 90 RF: 0 carvedilol 6.25 mg tablet 6.25 mg PO BID 90 Days Qty: 180 RF: 3 cyanocobalamin (vitamin B-12) [Vitamin B-12] 1,000 mcg Tablet 1,000 mcg PO DAILY RF: 0 Augmentin 875-125 mg tablet 1 tab PO BID Qty: 20 RF: 0 Discharge Orders: Discharge Order (Routine); Ordered 11/07/19 Ordered By: Kelsey Valenzuela Referrals: Desean Conteh DO [Primary Care Provider] - 1-3 days Discharge Diet: Advance as tolerated Discharge Activity: Increase activity as tolerated Patient Instructions: Vertigo (ED), Abdominal Pain (ED) Activity Restrictions/Additional Instructions: Please return to the ER immediately for any of the signs or symptoms listed on your discharge instruction sheets, worsening/changing of your symptoms, you are not getting better as quickly as expected, or for ANY other cause or concerns. Do not take meclizine while you are taking the diazepam. Return to the ER for worsening of your dizziness, double vision, or for any other cause for concerns. Be certain to follow-up with Dr. Augustine for further evaluation and care as he may want to perform further work-up including MRI to rule out stroke or other abnormalities for your vertigo. 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
[2019-11-07 16:44] LABS: Basophils # 0.1 10^3/uL (0.0-0.1); Basophils % 0.8 %; Eosinophils # 0.4 10^3/uL (0.0-0.8); Eosinophils % 3.6 %; Hematocrit 39.9 % (37.0-47.0); Hemoglobin 12.6 g/dL (11.5-15.3); Lymphocytes % 19.7 %; Mean Corpuscular HGB Conc 31.6 g/dL (30.0-36.0); Mean Corpuscular Hemoglobin 28.9 pg (28.0-34.0); Mean Corpuscular Volume 91.5 fL (81-99); Mean Platelet Volume 10.7 fL (7.4-10.4); Monocytes # 0.5 10^3/uL (0.2-0.9); Monocytes % 5.3 %; Neutrophils # 7.11 10^3/uL (1.8-7.7); Neutrophils % 70.4 %; Nucleated Red Blood Cells % 0 %; Platelet Count 301 10^3/cmm (130-400); Red Blood Count 4.36 10^6/uL (4.1-5.3); Red Cell Distribution Width 14.1 % (12.1-15.1); White Blood Count 10.1 10^3/uL (4.0-10.0)
[2019-11-07] MEDS: sodium chloride 0.9% 1,000 ML 999 ML IV (17:24)
[2019-11-07] MEDS: ondansetron 2 mg/ML SDV 2 mL 4 MG IVP (17:24)
[2019-11-07] MEDS: diazePAM 5 mg Tablet PO (17:24)
[2019-11-07 17:26] LABS: Alanine Aminotransferase 28 U/L (0-33); Albumin Level 3.8 g/dL (3.5-5.2); Alkaline Phosphatase 97 IU/L (35-105); Aspartate Amino Transferase 39 U/L (0-32); Blood Urea Nitrogen 15 mg/dL (8-23); Calcium 9.1 mg/dL (8.5-10.5); Carbon Dioxide 22 mmol/L (22-29); Chloride 103 mmol/L (98-107); Globulin 3.5 g/dL (1.3-4.6); Glomerular Filtration Rate 100.6 mL/min (90-130); Glucose 104 mg/dL (65-115); Magnesium 1.1 mg/dL (1.7-2.3); Osmolality Calculated 281 mOsm/kg (285-295); Sodium 137 mmol/L (136-145); Total Bilirubin 0.3 mg/dL (0.15-1.2); Total Protein 7.3 g/dL (6.6-8.7)
[2019-11-07 17:41] LABS: Anion Gap 15.6 (5-19); Potassium 3.6 mmol/L (3.5-5.1)
[2019-11-07] MEDS: iohexol 300 mg/mL 100 mL Btl IV (17:56)
[2019-11-07 19:24] VITALS: BP 142/72; PULSE 81; RESP 18; TEMP 36.8; O2SAT 94
== END 2019-11-07 19:26 | disposition home or self-care (01) ==
PROVIDERS: Emergency Provider Emergency Medicine; PCP Family Medicine
DX: R42 Dizziness and giddiness (principal); R10.30 Lower abdominal pain, unspecified; Z79.02 Long term (current) use of antithrombotics/antiplatelets; Z79.82 Long term (current) use of aspirin; Z79.4 Long term (current) use of insulin; E11.9 Type 2 diabetes mellitus without complications; E78.5 Hyperlipidemia, unspecified; I10 Essential (primary) hypertension
CPT/HCPCS: 12345; 36415; 70450; 74177; 80053; 83735; 85025; 96361; 96374; 96375; 99282; 99284; J2405; J7030; Q9967

== ENCOUNTER 2019-11-18 14:30 | Observation (INO) | payer OTHER, SELFPAY ==
--- NOTE | 2019-11-18 14:41 | XRR_ITS ---
PROCEDURE INFORMATION: Exam: XR Chest, 1 View Exam date and time: 11/18/2019 2:42 PM Age: 64 years old Clinical indication: Shortness of breath; Additional info: SOB TECHNIQUE: Imaging protocol: XR of the chest Views: 1 view. COMPARISON: CR Chest 2 views* [id number] 11/09/2017 10:46 AM FINDINGS: Lungs: Unremarkable. No consolidation. Pleural space: Unremarkable. No pleural effusion. No pneumothorax. Heart/Mediastinum: Unremarkable. No cardiomegaly. Bones/joints: Unremarkable. XR/XR chest 1V portable [id number] IMPRESSION: No acute findings.
[2019-11-18 14:43] VITALS: BP 139/66; PULSE 89; RESP 16; TEMP 36.9; O2SAT 99; BMI 35.9
[2019-11-18 15:29] LABS: Add Urine Microscopic? NO
[2019-11-18 15:37] LABS: Bilirubin Urine Neg (NEGATIVE); Blood Urine Neg (Negative); Glucose Urine UA 4+ (Normal); Ketones Urine Negative (Negative); Leukocyte Esterase Urine Negative (Negative); Nitrate Urine Negative (Negative); Protein Urine Neg (Negative); Urine Appearance Clear (CLEAR); Urine Color Straw (Yellow); Urobilinogen Urine Norm (Negative); pH Urine 6.5 (5-7)
[2019-11-18 16:45] LABS: Basophils # 0.1 10^3/uL (0.0-0.1); Basophils % 0.7 %; Eosinophils # 0.3 10^3/uL (0.0-0.8); Hematocrit 44.7 % (37.0-47.0); Hemoglobin 13.8 g/dL (11.5-15.3); Lymphocytes # 1.9 10^3/uL (0.8-4.8); Lymphocytes % 19.3 %; Mean Corpuscular HGB Conc 30.9 g/dL (30.0-36.0); Mean Corpuscular Volume 90.9 fL (81-99); Mean Platelet Volume 11.2 fL (7.4-10.4); Monocytes # 0.6 10^3/uL (0.2-0.9); Monocytes % 5.6 %; Neutrophils # 7.15 10^3/uL (1.8-7.7); Nucleated Red Blood Cells % 0 %; Platelet Count 330 10^3/cmm (130-400); Red Blood Count 4.92 10^6/uL (4.1-5.3); Red Cell Distribution Width 14.2 % (12.1-15.1); White Blood Count 10.1 10^3/uL (4.0-10.0)
--- NOTE | 2019-11-18 16:58 | W.ED.DIZZY ---
Documented by User: Pat Krause MD 11/21/19 18:26 HPI - Dizziness General: Chief Complaint: Dizziness Stated Complaint: SOB, DIZZINESS Time Seen by Provider: 11/18/19 16:29 History of Present Illness: HPI Narrative: This patient is a 64-year-old female who comes in today with fatigue and shortness of breath for 2 days. Additionally she has had dizziness for a month that is been worked up with CT. She is taking meclizine and something for nausea which she said helped sometimes but not usually. The dizziness continues today and is unchanged from how it has been however she has new symptoms of her head and shoulders feeling heavy and feeling short of breath and tired. She has woken up during the night trying to catch her breath but it also happens during the day when she is more sitting up. She denies chest pain. No back pain. She also has been having abdominal pain and constipation and that has also been worked up with a CT. That is improved after she took some magnesium citrate a few days ago and has been having regular bowel movements. She denies urinary symptoms. No fever and no exposure to COVID that she knows of. MD elicited complaint: dizziness and other (Weakness, shortness of breath) Pertinent past history: BPPV Onset (ago): day(s) (Dizziness for 1 month, shortness of breath and fatigue for 2 days) Timing: gradual onset Severity: moderate Description: room spinning Context: change in body position History of similar symptoms: Yes Exacerbating factors: movement/ambulation and keeping eyes open Relieving factors: keeping eyes closed Associated symptoms: Denies chest pain, chills, headache(s), malaise, nausea or vomiting Associated neuro symptoms: Deny numbness in extremities Review of Systems General: Reports: 10 or more systems reviewed and unremarkable except in HPI and below Const: Reports: fatigue; Denies: fever(s), chills or malaise Eyes: Denies: change in vision ENMT: Denies: odynophagia Card: Reports: pre-syncope and orthopnea; Denies: chest pain or swelling of feet/ankles Resp: Reports: dyspnea; Denies: productive cough or non-productive cough GI: Reports: abdominal pain and constipation; Denies: nausea or vomiting : Denies: flank pain or difficulty voiding Musc: Denies: neck pain or back pain Skin/Breast: Denies: rash Neuro: Denies: headache(s), numbness in extremities or weakness in extremities José Miguel/Lymph: Denies: easy bruising or easy bleeding PFSH ED PFSH: Medical History Arteriosclerosis of coronary artery Had PCI of the Diagonal and OM1 on 10/23/[address] Verdin Chest pain Diabetes Hyperlipemia Hypertension Surgical History H/O abdominal hysterectomy H/O dilation and curettage H/O foot surgery H/O laparoscopy H/O shoulder surgery Stented coronary artery Family History Other CAD (coronary artery disease) Cancer Diabetes Stroke Denies family history of Anesthesia complication Bleeding disorder Social History Smoking and tobacco status: never smoked Alcohol intake: never Household members: spouse Marital status: Current occupational status: employed History of recent travel: Yes Details: Went to [place] Out of state: Yes Physical Exam Const: COMMON NORMALS: no acute distress, patient oriented x3, no limitations and alert GENERAL APPEARANCE: cooperative and comfortable HENMT: HEAD & SCALP: normal to inspection FACE & SINUS: normal facial exam Eye: GENERAL EYE: appearance normal, both eyes and all related structures Neck/C-Spine: COMMON NORMALS: supple, no meningeal signs and no JVD Chest: COMMONS NORMALS: normal inspection of the chest Resp: COMMON NORMALS: normal respiratory effort, No use of accessory muscles and clear to auscultation bilaterally AUSCULTATION: clear to auscultation bilaterally Cardio: COMMON NORMALS: no JVD, regular rate, regular rhythm and No murmurs present (Cardio) RATE: regular rate RHYTHM: regular rhythm GI: COMMON NORMALS: Normal to inspection, nondistended, normoactive bowel sounds present and Soft to palpation INSPECTION: Yes normal to inspection AUSCULTATION: Yes normoactive bowel sounds PALPATION: Yes Soft to palpation and Yes Tenderness to palpation present (GI) Details: RUQ and other (Epigastric) Back/Pelvis: COMMON NORMALS: thoracic and lumbar spine normal to inspection Extremity: COMMON NORMALS: normal to inspection Neuro: COMMON NORMALS: patient oriented x3, moves all extremities, no focal motor deficits and no sensory deficits noted SENSORIUM/ORIENTATION: Yes alert MENINGEAL SIGNS: Yes no meningeal signs Psych: COMMON NORMALS: mental status grossly normal, cooperative and normal affect Skin: COMMON NORMALS: no rashes or lesions noted and turgor normal GENERAL SKIN EXAM: no rashes or lesions noted and turgor normal Course ED course: Patient comes in with multiple vague complaints. She tells me that she stopped her metformin 2 weeks ago and she is not sure why that was done. She does take glipizide and insulin. She does not check her blood sugars at home. She has had increased thirst and urination. Her blood sugar here was 700 with glucose in the urine but no ketones. Her anion gap was only 17. Her CO2 is 23. I gave her a liter of fluid and 10 units of IV insulin. I consulted Dr. Casas for admission and he requested that we wait and see how responsive she is to the insulin boluses. We do not have ICU beds and if she ends up requiring an insulin drip she will have to be transferred. He also requested that we hold the admission for Dr. Rojas as they are close to shift change and he has another admission to do. Vital Signs: Vital signs: Vital Signs Temperature 97.6 F 11/20/19 11:38 Pulse Rate 78 11/20/19 11:38 Respiratory Rate 20 H 11/20/19 11:38 Blood Pressure 153/72 11/20/19 11:38 Pulse Oximetry 97 11/20/19 11:38 MDM - Dizziness Lab Data: Labs: Lab Results 11/18/19 11/18/19 11/18/19 Range/Units 15:15 16:37 16:37 WBC 10.1 H (4.0-10.0) 10^3/ uL RBC 4.92 (4.1-5.3) 10^6/u L Hgb 13.8 (11.5-15.3) g/dL Hct 44.7 (37.0-47.0) % MCV 90.9 (81-99) fL MCH 28.0 (28.0-34.0) pg MCHC 30.9 (30.0-36.0) g/dL RDW 14.2 (12.1-15.1) % Plt Count 330 (130-400) 10^3/c mm MPV 11.2 H (7.4-10.4) fL Neut % (Auto) 71.0 % Lymph % (Auto) 19.3 % [place] % (Auto) 5.6 % Eos % (Auto) 3.0 % Baso % (Auto) 0.7 % Neut # (Auto) 7.15 (1.8-7.7) 10^3/u L Lymph # (Auto) 1.9 (0.8-4.8) 10^3/u L [place] # (Auto) 0.6 (0.2-0.9) 10^3/u L Eos # (Auto) 0.3 (0.0-0.8) 10^3/u L Baso # (Auto) 0.1 (0.0-0.1) 10^3/u L Nucleated RBC % (a uto) 0 % Nucleated RBCs # 0.0 /100WBC Sodium 128 L (136-145) mmol/L Potassium 4.4 (3.5-5.1) mmol/L Chloride 92 L (98-107) mmol/L Carbon Dioxide 23 (22-29) mmol/L Anion Gap 17.4 (5-19) BUN 18 (8-23) mg/dL Creatinine 1.0 H (0.5-0.9) mg/dL GFR Calculation 55.8 L (90-130) mL/min Glucose 700 H* (65-115) mg/dL POC Glucose (70-110) mg/dL Estimat Average Gl ucose Hemoglobin A1c (4.0-6.0) % Calculated Osmolal ity 296 H (285-295) mOsm/k g Calcium 9.8 (8.5-10.5) mg/dL Total Bilirubin 0.2 (0.15-1.2) mg/dL AST 25 (0-32) U/L ALT 29 (0-33) U/L Alkaline Phosphata se 171 H (35-105) IU/L Troponin T Baselin e (0-10) ng/L Troponin T 120 Min [place] (0-10) ng/L Delta Troponin T (0-10) ABS# Total Protein 7.9 (6.6-8.7) g/dL Albumin 3.8 (3.5-5.2) g/dL Globulin 4.1 (1.3-4.6) g/dL Triglycerides (0-150) mg/dL LDL Cholesterol Di rect (0-100) mg/dL Lipase (13-60) U/L Urine Color Straw (Yellow) Urine Appearance Clear (CLEAR) Urine pH 6.5 (5-7) Ur Specific Gravit y 1.010 (1.005-1.030) Urine Protein Neg (Negative) Urine Glucose (UA) 4+ H (Normal) Urine Ketones Negative (Negative) Urine Blood Neg (Negative) Urine Nitrate Negative (Negative) Urine Bilirubin Neg (NEGATIVE) Urine Urobilinogen Norm (Negative) mg/dL Ur Leukocyte Loretta ase Negative (Negative) 11/18/19 11/18/19 11/18/19 Range/Units 16:37 16:37 16:37 WBC (4.0-10.0) 10^3/ uL RBC (4.1-5.3) 10^6/u L Hgb (11.5-15.3) g/dL Hct (37.0-47.0) % MCV (81-99) fL MCH (28.0-34.0) pg MCHC (30.0-36.0) g/dL RDW (12.1-15.1) % Plt Count (130-400) 10^3/c mm MPV (7.4-10.4) fL Neut % (Auto) % Lymph % (Auto) % [place] % (Auto) % Eos % (Auto) % Baso % (Auto) % Neut # (Auto) (1.8-7.7) 10^3/u L Lymph # (Auto) (0.8-4.8) 10^3/u L [place] # (Auto) (0.2-0.9) 10^3/u L Eos # (Auto) (0.0-0.8) 10^3/u L Baso # (Auto) (0.0-0.1) 10^3/u L Nucleated RBC % (a uto) % Nucleated RBCs # /100WBC Sodium (136-145) mmol/L Potassium (3.5-5.1) mmol/L Chloride (98-107) mmol/L Carbon Dioxide (22-29) mmol/L Anion Gap (5-19) BUN (8-23) mg/dL Creatinine (0.5-0.9) mg/dL GFR Calculation (90-130) mL/min Glucose (65-115) mg/dL POC Glucose (70-110) mg/dL Estimat Average Gl ucose 255 Hemoglobin A1c 10.5 H (4.0-6.0) % Calculated Osmolal ity (285-295) mOsm/k g Calcium (8.5-10.5) mg/dL Total Bilirubin (0.15-1.2) mg/dL AST (0-32) U/L ALT (0-33) U/L Alkaline Phosphata se (35-105) IU/L Troponin T Baselin e 10 (0-10) ng/L Troponin T 120 Min [place] (0-10) ng/L Delta Troponin T (0-10) ABS# Total Protein (6.6-8.7) g/dL Albumin (3.5-5.2) g/dL Globulin (1.3-4.6) g/dL Triglycerides 489 H (0-150) mg/dL LDL Cholesterol Di rect 82 (0-100) mg/dL Lipase 53 (13-60) U/L Urine Color (Yellow) Urine Appearance (CLEAR) Urine pH (5-7) Ur Specific Gravit y (1.005-1.030) Urine Protein (Negative) Urine Glucose (UA) (Normal) Urine Ketones (Negative) Urine Blood (Negative) Urine Nitrate (Negative) Urine Bilirubin (NEGATIVE) Urine Urobilinogen (Negative) mg/dL Ur Leukocyte Loretta ase (Negative) 11/18/19 11/18/19 Range/Units 18:40 18:53 WBC (4.0-10.0) 10^3/ uL RBC (4.1-5.3) 10^6/u L Hgb (11.5-15.3) g/dL Hct (37.0-47.0) % MCV (81-99) fL MCH (28.0-34.0) pg MCHC (30.0-36.0) g/dL RDW (12.1-15.1) % Plt Count (130-400) 10^3/c mm MPV (7.4-10.4) fL Neut % (Auto) % Lymph % (Auto) % [place] % (Auto) % Eos % (Auto) % Baso % (Auto) % Neut # (Auto) (1.8-7.7) 10^3/u L Lymph # (Auto) (0.8-4.8) 10^3/u L [place] # (Auto) (0.2-0.9) 10^3/u L Eos # (Auto) (0.0-0.8) 10^3/u L Baso # (Auto) (0.0-0.1) 10^3/u L Nucleated RBC % (a uto) % Nucleated RBCs # /100WBC Sodium (136-145) mmol/L Potassium (3.5-5.1) mmol/L Chloride (98-107) mmol/L Carbon Dioxide (22-29) mmol/L Anion Gap (5-19) BUN (8-23) mg/dL Creatinine (0.5-0.9) mg/dL GFR Calculation (90-130) mL/min Glucose (65-115) mg/dL POC Glucose 437 (70-110) mg/dL Estimat Average Gl ucose Hemoglobin A1c (4.0-6.0) % Calculated Osmolal ity (285-295) mOsm/k g Calcium (8.5-10.5) mg/dL Total Bilirubin (0.15-1.2) mg/dL AST (0-32) U/L ALT (0-33) U/L Alkaline Phosphata se (35-105) IU/L Troponin T Baselin e (0-10) ng/L Troponin T 120 Min [place] 11.18 H (0-10) ng/L Delta Troponin T 1.18 (0-10) ABS# Total Protein (6.6-8.7) g/dL Albumin (3.5-5.2) g/dL Globulin (1.3-4.6) g/dL Triglycerides (0-150) mg/dL LDL Cholesterol Di rect (0-100) mg/dL Lipase (13-60) U/L Urine Color (Yellow) Urine Appearance (CLEAR) Urine pH (5-7) Ur Specific Gravit y (1.005-1.030) Urine Protein (Negative) Urine Glucose (UA) (Normal) Urine Ketones (Negative) Urine Blood (Negative) Urine Nitrate (Negative) Urine Bilirubin (NEGATIVE) Urine Urobilinogen (Negative) mg/dL Ur Leukocyte Loretta ase (Negative) Discharge Plan Discharge Admit Provider: Kristin Rojas Condition: Stable Discharge Orders: Discharge Order (Routine); Ordered 11/20/19 Ordered By: Kelley Mitchell Discharge Diet: Diabetic Discharge Activity: Increase activity as tolerated Discharge Date/Time: 11/18/19 20:40 Coding Level of Care Code ED Ear Nose And Throat Specialist for Chg Fwd Exam Comprehensive Documented by User: Kaiser Khan DO 11/18/19 19:53 HPI - Dizziness General: Chief Complaint: Dizziness Stated Complaint: SOB, DIZZINESS Time Seen by Provider: 11/18/19 16:29 PFSH ED PFSH: Medical History Arteriosclerosis of coronary artery Had PCI of the Diagonal and OM1 on 10/23/[address] Verdin Chest pain Diabetes Hyperlipemia Hypertension Surgical History H/O abdominal hysterectomy H/O dilation and curettage H/O foot surgery H/O laparoscopy H/O shoulder surgery Stented coronary artery Family History Other CAD (coronary artery disease) Cancer Diabetes Stroke Denies family history of Anesthesia complication Bleeding disorder Social History Smoking and tobacco status: never smoked Alcohol intake: never Household members: spouse Marital status: Current occupational status: employed History of recent travel: Yes Details: Went to [place] Out of state: Yes Course Vital Signs: Vital signs: Vital Signs Temperature 97.6 F 11/20/19 11:38 Pulse Rate 78 11/20/19 11:38 Respiratory Rate 20 H 11/20/19 11:38 Blood Pressure 153/72 11/20/19 11:38 Pulse Oximetry 97 11/20/19 11:38 MDM - Dizziness MDM Narrative: Medical decision making narrative: 64-year-old female checked out to me by Dr. Krause at shift change. This lady had a blood sugar of 700 and was dizzy. She is not acidotic. She is awake and talking. After 10 units of IV insulin, and IV fluid, her blood sugar is now 437. I talked to Dr. Rojas, who agrees we can manage this patient on the floor with a sliding scale insulin IV fluid. He has agreed to take the admission. Lab Data: Labs: Lab Results 11/18/19 11/18/19 11/18/19 Range/Units 15:15 16:37 16:37 WBC 10.1 H (4.0-10.0) 10^3/ uL RBC 4.92 (4.1-5.3) 10^6/u L Hgb 13.8 (11.5-15.3) g/dL Hct 44.7 (37.0-47.0) % MCV 90.9 (81-99) fL MCH 28.0 (28.0-34.0) pg MCHC 30.9 (30.0-36.0) g/dL RDW 14.2 (12.1-15.1) % Plt Count 330 (130-400) 10^3/c mm MPV 11.2 H (7.4-10.4) fL Neut % (Auto) 71.0 % Lymph % (Auto) 19.3 % [place] % (Auto) 5.6 % Eos % (Auto) 3.0 % Baso % (Auto) 0.7 % Neut # (Auto) 7.15 (1.8-7.7) 10^3/u L Lymph # (Auto) 1.9 (0.8-4.8) 10^3/u L [place] # (Auto) 0.6 (0.2-0.9) 10^3/u L Eos # (Auto) 0.3 (0.0-0.8) 10^3/u L Baso # (Auto) 0.1 (0.0-0.1) 10^3/u L Nucleated RBC % (a uto) 0 % Nucleated RBCs # 0.0 /100WBC Sodium 128 L (136-145) mmol/L Potassium 4.4 (3.5-5.1) mmol/L Chloride 92 L (98-107) mmol/L Carbon Dioxide 23 (22-29) mmol/L Anion Gap 17.4 (5-19) BUN 18 (8-23) mg/dL Creatinine 1.0 H (0.5-0.9) mg/dL GFR Calculation 55.8 L (90-130) mL/min Glucose 700 H* (65-115) mg/dL POC Glucose (70-110) mg/dL Estimat Average Gl ucose Hemoglobin A1c (4.0-6.0) % Calculated Osmolal ity 296 H (285-295) mOsm/k g Calcium 9.8 (8.5-10.5) mg/dL Total Bilirubin 0.2 (0.15-1.2) mg/dL AST 25 (0-32) U/L ALT 29 (0-33) U/L Alkaline Phosphata se 171 H (35-105) IU/L Troponin T Baselin e (0-10) ng/L Troponin T 120 Min [place] (0-10) ng/L Delta Troponin T (0-10) ABS# Total Protein 7.9 (6.6-8.7) g/dL Albumin 3.8 (3.5-5.2) g/dL Globulin 4.1 (1.3-4.6) g/dL Triglycerides (0-150) mg/dL LDL Cholesterol Di rect (0-100) mg/dL Lipase (13-60) U/L Urine Color Straw (Yellow) Urine Appearance Clear (CLEAR) Urine pH 6.5 (5-7) Ur Specific Gravit y 1.010 (1.005-1.030) Urine Protein Neg (Negative) Urine Glucose (UA) 4+ H (Normal) Urine Ketones Negative (Negative) Urine Blood Neg (Negative) Urine Nitrate Negative (Negative) Urine Bilirubin Neg (NEGATIVE) Urine Urobilinogen Norm (Negative) mg/dL Ur Leukocyte Loretta ase Negative (Negative) 11/18/19 11/18/19 11/18/19 Range/Units 16:37 16:37 16:37 WBC (4.0-10.0) 10^3/ uL RBC (4.1-5.3) 10^6/u L Hgb (11.5-15.3) g/dL Hct (37.0-47.0) % MCV (81-99) fL MCH (28.0-34.0) pg MCHC (30.0-36.0) g/dL RDW (12.1-15.1) % Plt Count (130-400) 10^3/c mm MPV (7.4-10.4) fL Neut % (Auto) % Lymph % (Auto) % [place] % (Auto) % Eos % (Auto) % Baso % (Auto) % Neut # (Auto) (1.8-7.7) 10^3/u L Lymph # (Auto) (0.8-4.8) 10^3/u L [place] # (Auto) (0.2-0.9) 10^3/u L Eos # (Auto) (0.0-0.8) 10^3/u L Baso # (Auto) (0.0-0.1) 10^3/u L Nucleated RBC % (a uto) % Nucleated RBCs # /100WBC Sodium (136-145) mmol/L Potassium (3.5-5.1) mmol/L Chloride (98-107) mmol/L Carbon Dioxide (22-29) mmol/L Anion Gap (5-19) BUN (8-23) mg/dL Creatinine (0.5-0.9) mg/dL GFR Calculation (90-130) mL/min Glucose (65-115) mg/dL POC Glucose (70-110) mg/dL Estimat Average Gl ucose 255 Hemoglobin A1c 10.5 H (4.0-6.0) % Calculated Osmolal ity (285-295) mOsm/k g Calcium (8.5-10.5) mg/dL Total Bilirubin (0.15-1.2) mg/dL AST (0-32) U/L ALT (0-33) U/L Alkaline Phosphata se (35-105) IU/L Troponin T Baselin e 10 (0-10) ng/L Troponin T 120 Min [place] (0-10) ng/L Delta Troponin T (0-10) ABS# Total Protein (6.6-8.7) g/dL Albumin (3.5-5.2) g/dL Globulin (1.3-4.6) g/dL Triglycerides 489 H (0-150) mg/dL LDL Cholesterol Di rect 82 (0-100) mg/dL Lipase 53 (13-60) U/L Urine Color (Yellow) Urine Appearance (CLEAR) Urine pH (5-7) Ur Specific Gravit y (1.005-1.030) Urine Protein (Negative) Urine Glucose (UA) (Normal) Urine Ketones (Negative) Urine Blood (Negative) Urine Nitrate (Negative) Urine Bilirubin (NEGATIVE) Urine Urobilinogen (Negative) mg/dL Ur Leukocyte Loretta ase (Negative) 11/18/19 11/18/19 Range/Units 18:40 18:53 WBC (4.0-10.0) 10^3/ uL RBC (4.1-5.3) 10^6/u L Hgb (11.5-15.3) g/dL Hct (37.0-47.0) % MCV (81-99) fL MCH (28.0-34.0) pg MCHC (30.0-36.0) g/dL RDW (12.1-15.1) % Plt Count (130-400) 10^3/c mm MPV (7.4-10.4) fL Neut % (Auto) % Lymph % (Auto) % [place] % (Auto) % Eos % (Auto) % Baso % (Auto) % Neut # (Auto) (1.8-7.7) 10^3/u L Lymph # (Auto) (0.8-4.8) 10^3/u L [place] # (Auto) (0.2-0.9) 10^3/u L Eos # (Auto) (0.0-0.8) 10^3/u L Baso # (Auto) (0.0-0.1) 10^3/u L Nucleated RBC % (a uto) % Nucleated RBCs # /100WBC Sodium (136-145) mmol/L Potassium (3.5-5.1) mmol/L Chloride (98-107) mmol/L Carbon Dioxide (22-29) mmol/L Anion Gap (5-19) BUN (8-23) mg/dL Creatinine (0.5-0.9) mg/dL GFR Calculation (90-130) mL/min Glucose (65-115) mg/dL POC Glucose 437 (70-110) mg/dL Estimat Average Gl ucose Hemoglobin A1c (4.0-6.0) % Calculated Osmolal ity (285-295) mOsm/k g Calcium (8.5-10.5) mg/dL Total Bilirubin (0.15-1.2) mg/dL AST (0-32) U/L ALT (0-33) U/L Alkaline Phosphata se (35-105) IU/L Troponin T Baselin e (0-10) ng/L Troponin T 120 Min [place] 11.18 H (0-10) ng/L Delta Troponin T 1.18 (0-10) ABS# Total Protein (6.6-8.7) g/dL Albumin (3.5-5.2) g/dL Globulin (1.3-4.6) g/dL Triglycerides (0-150) mg/dL LDL Cholesterol Di rect (0-100) mg/dL Lipase (13-60) U/L Urine Color (Yellow) Urine Appearance (CLEAR) Urine pH (5-7) Ur Specific Gravit y (1.005-1.030) Urine Protein (Negative) Urine Glucose (UA) (Normal) Urine Ketones (Negative) Urine Blood (Negative) Urine Nitrate (Negative) Urine Bilirubin (NEGATIVE) Urine Urobilinogen (Negative) mg/dL Ur Leukocyte Loretta ase (Negative) Discharge Plan Discharge Admit Provider: Kristin Rojas Condition: Stable Discharge Orders: Discharge Order (Routine); Ordered 11/20/19 Ordered By: Kelley Mitchell Discharge Diet: Diabetic Discharge Activity: Increase activity as tolerated Discharge Date/Time: 11/18/19 20:40 Coding Level of Care Code ED Ear Nose And Throat Specialist for Chg Fwd Exam Comprehensive
[2019-11-18 17:09] LABS: Alanine Aminotransferase 29 U/L (0-33); Albumin Level 3.8 g/dL (3.5-5.2); Alkaline Phosphatase 171 IU/L (35-105); Anion Gap 17.4 (5-19); Aspartate Amino Transferase 25 U/L (0-32); Blood Urea Nitrogen 18 mg/dL (8-23); Calcium 9.8 mg/dL (8.5-10.5); Carbon Dioxide 23 mmol/L (22-29); Chloride 92 mmol/L (98-107); Globulin 4.1 g/dL (1.3-4.6); Glomerular Filtration Rate 55.8 mL/min (90-130); Osmolality Calculated 296 mOsm/kg (285-295); Potassium 4.4 mmol/L (3.5-5.1); Sodium 128 mmol/L (136-145); Total Bilirubin 0.2 mg/dL (0.15-1.2); Total Protein 7.9 g/dL (6.6-8.7)
[2019-11-18 17:13] LABS: Glucose 700 mg/dL (65-115)
--- NOTE | 2019-11-18 17:29 | ECG_ITS ---
[facility] Test Date: 2019-11-18 Pat Name: Judy Rincon Department: Room: Gender: Female [employer]: : 1955 Requested By: Pat Nunes Order Number: [id number] Yolanda MD: Kathryn Barksdale M.D. Measurements Intervals [place] Rate: 86 P: 46 WI: 127 QRS: 56 QRSD: 91 T: 61 QT: 383 QTc: 459 Interpretive Statements SINUS RHYTHM No previous ECG available for comparison Electronically Signed On 11-19-2019 0:20:25 CDT by Kathryn Barksdale M.D. [email or web address]
[2019-11-18] MEDS: insulin regular-human 100 units/1 mL 10 UNIT IVP (17:51)
[2019-11-18 17:52] LABS: Troponin(5th) Baseline 10 ng/L (0-10)
[2019-11-18] MEDS: sodium chloride 0.9% 1,000 ML 999 ML IV ×2 (17:52→21:24)
[2019-11-18 18:57] LABS: Glucose Point of Care 437 mg/dL (70-110)
[2019-11-18 19:11] LABS: Troponin 5 2HR 11.18 ng/L (0-10); Troponin 5 2HR Delta 1.18 ABS# (0-10)
--- NOTE | 2019-11-18 19:27 | PM.HP ---
Providers/Chief Complaint Primary Care Provider: Desean Conteh DO Chief Complaint: SOB, DIZZINESS History of Present Illness Judy Rincon is a 64 year old female who carries history of type 2 diabetes, recent hemoglobin A1c level 11, patient is not on Lantus, currently managing with intermediate acting insulin and oral antihyperglycemic agents, came in with chief complaint of dizziness. She is stating that for last 1 months she has been having dizzy spells which she is describing as surroundings are spinning , mostly gets worse on changing position of head. He has started meclizine. No recent strokelike symptoms, fever, nausea, vomiting, dysuria. She is also feeling very fatigued, lethargic, polyuria, without polyphagia. She does not check her blood sugar on daily basis. She is stating that her PCP removed Lantus from her home regimen in the past. No recent falls, she is endorsing tachypnea, extreme fatigue and lethargy, mild activities would make her extremely short of breath, she feels heavy in her chest and has noticed chest discomfort on certain occasions. Currently chest pain-free Diagnosis in the ER revealed hyperglycemia, hyperosmolar, patient is not acidotic, bicarb 23, DAR, pseudohyponatremia No source of infection identified, she is afebrile, not septic, chest pain-free, urinalysis unremarkable Niels-Hallpike maneuver positive in the ER on the right Review of Systems Const: Reports: chills, body aches and fatigue; Denies: fever(s) Eyes: Denies: change in vision ENMT: Reports: disequilibrium; Denies: throat pain Card: Reports: chest pain and dyspnea on exertion; Denies: palpitations, irregular heart rhythm, pre-syncope or orthopnea Resp: Reports: dyspnea; Denies: productive cough GI: Denies: abdominal pain, nausea, vomiting, diarrhea or constipation : Denies: flank pain Musc: Denies: neck pain Skin/Breast: Denies: rash Neuro: Denies: headache(s) Psych: Reports: anxiety Endo: Reports: polyuria José Miguel/Lymph: Denies: easy bruising All/Imm: Denies: urticaria Medications/Allergies Home Medications Medication Instructions Recorded Confirmed Last Taken Type aspirin 81 mg tablet,delayed 81 mg PO DAILY tab 03/28/19 11/18/19 11/18/19 History release citalopram 20 mg tablet 40 mg PO DAILY tab 03/28/19 11/18/19 11/18/19 History clopidogrel 75 mg tablet 75 mg PO DAILY tab 03/28/19 11/18/19 11/18/19 History glipizide 10 mg tablet, extended 10 mg PO BID 03/28/19 11/18/19 08/07/19 History release 24 hr lovastatin 40 mg tablet 80 mg PO DAILY 03/28/19 11/18/19 11/17/19 History nitroglycerin 0.4 mg sublingual 0.4 mg SUBLINGUAL Q5M PRN 03/28/19 11/18/19 Unknown History tablet cyanocobalamin (vitamin B-12) 1,000 mcg PO DAILY PRN 04/23/19 11/18/19 08/06/19 History [Vitamin B-12] ibuprofen 800 mg tablet 800 mg PO Q8H PRN #15 tab 05/26/19 11/18/19 Unknown Rx fenofibrate nanocrystallized 48 mg 48 mg PO DAILY #90 tab 08/16/19 11/18/19 Unknown Rx tablet carvedilol 6.25 mg tablet 6.25 mg PO BID 90 Days #180 tab 09/19/19 11/18/19 11/18/19 04:30 Rx diazepam 2 mg PO QID PRN #30 tab 11/07/19 11/18/19 Unknown Rx insulin NPH and regular human See Rx Instructions .ROUTE .COMPLEX 11/18/19 11/18/19 11/18/19 History [Humulin 70/30 U-100 KwikPen] 50 UNITS meclizine 25 mg PO QID PRN 11/18/19 11/18/19 11/17/19 History multivitamin [Multiple Vitamins] 1 tab PO DAILY 11/18/19 11/18/19 Unknown History omeprazole 20 mg PO DAILY 11/18/19 11/18/19 11/18/19 History promethazine 25 mg PO Q4H PRN 11/18/19 11/18/19 Unknown History tramadol [Ultram] 50 - 100 mg PO PRN 11/18/19 11/18/19 Unknown History vitamin E 1 cap PO DAILY 11/18/19 11/18/19 Unknown History Allergies Allergy/AdvReac Type Severity Reaction Status Date / Time acetaminophen Allergy unknown Verified 11/14/19 13:48 [From Darvocet-N] canagliflozin [From Invokana] Allergy Unknown Verified 11/18/19 17:25 Corticosteroids Allergy nausea Verified 11/14/19 13:48 (Glucocorticoids) vomiting hydrocodone [From Vicodin] Allergy dizziness Verified 11/14/19 13:48 nausea levofloxacin [From Levaquin] Allergy dizziness Verified 11/14/19 13:48 nausea lisinopril Allergy difficulty Verified 11/14/19 13:48 breathing oxycodone [From Percocet] Allergy Unknown Verified 11/18/19 17:25 pregabalin [From Lyrica] Allergy Unknown Verified 11/18/19 17:25 propoxyphene Allergy unknown Verified 11/14/19 13:48 [From Darvocet-N] STEROIDS Allergy Unknown Uncoded 11/18/19 17:25 PFSH Acute PFSH: Medical History Arteriosclerosis of coronary artery Had PCI of the Diagonal and OM1 on 10/23/[address] Verdin Chest pain Diabetes Hyperlipemia Hypertension Surgical History H/O abdominal hysterectomy H/O dilation and curettage H/O foot surgery H/O laparoscopy H/O shoulder surgery Stented coronary artery Family History Other CAD (coronary artery disease) Cancer Diabetes Stroke Denies family history of Anesthesia complication Bleeding disorder Social History Smoking and tobacco status: never smoked Alcohol intake: never Household members: spouse Marital status: Current occupational status: employed History of recent travel: Yes Details: Went to [place] Out of state: Yes Vitals/I&O/Wt Last Vital Signs Temp 98.4 F 11/18/19 14:43 Pulse 89 11/18/19 14:43 Resp 16 11/18/19 14:43 BP 139/66 11/18/19 14:43 Pulse Ox 99 11/18/19 14:43 Weight last 48 hrs Weight 83.461 kg Physical Exam Narrative: EXAM NARRATIVE: Obese female No active chest pain Sitting at the bedside Niels-Hallpike maneuver positive Does not look fluid overloaded or dehydrated S1, S2 no tachycardia heart failure Abdomen soft nontender bowel sound present, distended Neurologically nonfocal exam no signs of neurological deficit EOMI, PERRLA GCS 15 Lower extremity no signs of edema gangrene or ulcer Appropriate mood and affect Data : 11/18/19 16:37 11/18/19 16:37 A&P Assessment and plan (1) BPPV (benign paroxysmal positional vertigo): Status: Acute (2) Hyperglycemia due to type 2 diabetes mellitus: Status: Acute (3) Hyponatremia: Status: Acute Additional A&P Information Poorly controlled type 2 diabetes causing hyperosmolar hyperglycemia without ketosis No source of infection identified, I would request lipase level, troponin X, nonsignificant delta troponin, currently chest pain-free Most likely cause of hypoglycemia is unregulated hyperglycemia, I would start her home Lantus 10 units, she had responded very well to insulin infusion in the ER her blood sugar decreased from 700-430 in 3 hours Will manage her hyperglycemia with sliding scale and long-acting insulin, continue IV insulin until her blood sugar is less than 250 Check A1c level I will give her 2 L of normal saline bolus for hyperglycemia correction Pseudohyponatremia secondary to hyperglycemia Corrected sodium is within normal range, sodium 138 Continue fluid resuscitation for now Niels-Hallpike maneuver positive, BPPV Continue meclizine, physical therapy to teach her Rosy's maneuver Full code DVT prophylaxis: Lovenox Consistent carbohydrate diet Attestations Medical Necessity Statement*: Anticipating discharge in less than 48 hours blood glucose responded very well to IV insulin in the ER, I will switch her to subcutaneous insulin along with long-acting Lantus Time Spent in Patient Care: (>than 50% of time spent in counselling and/or direct pt care on unit). 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
--- NOTE | 2019-11-18 19:29 | ECG_ITS ---
[facility] Test Date: 2019-11-18 Pat Name: Judy Rincon Department: Room: Gender: Female On Site Coordinator: : 1955 Requested By: Pat Nunes Order Number: [id number] Yolanda MD: Kathryn Barksdale M.D. Measurements Intervals [place] Rate: 78 P: 60 AK: 127 QRS: 59 QRSD: 94 T: 62 QT: 410 QTc: 467 Interpretive Statements SINUS RHYTHM Compared to ECG 11/18/2019 14:52:22 No significant changes Electronically Signed On 11-19-2019 0:42:30 CDT by Kathryn Barksdale M.D. [id number]
[2019-11-18 19:33] VITALS: BP 159/73; PULSE 83; RESP 16; O2SAT 100
--- NOTE | 2019-11-18 19:33 | PC.NURSE ---
ASSUMED CARE OF PT AT 1900.
[2019-11-18] MEDS: insulin regular-human 100 units/1 mL 6 UNIT IVP (19:43)
[2019-11-18] MEDS: ondansetron 2 mg/ML SDV 2 mL 4 MG IVP (19:45)
[2019-11-18 21:00] VITALS: BP 129/74; PULSE 84; RESP 18; TEMP 36.8; O2SAT 95
[2019-11-18 21:05] VITALS: BP 129/74; PULSE 84; RESP 18; TEMP 36.8
[2019-11-18 21:09] LABS: Glucose Point of Care 320 mg/dL (70-110)
[2019-11-18] MEDS: insulin glargine 100 units/1 mL 10 UNIT SUBCUT (21:24)
[2019-11-18] MEDS: enoxaparin 40 mg/0.4 mL Syringe SUBCUT (21:25)
[2019-11-18 21:51] LABS: Lipase 53 U/L (13-60); Triglycerides 489 mg/dL (0-150)
[2019-11-18 22:02] LABS: Estmated Average Glucose 255; Hemoglobin A1C 10.5 % (4.0-6.0)
[2019-11-18] MEDS: sodium chloride 0.9% 1,000 ML 75 ML IV (22:20)
[2019-11-18 22:30] LABS: LDL Cholesterol Direct 82 mg/dL (0-100)
[2019-11-18 23:14] LABS: Troponin 5 6HR 10.48 ng/L (0-10); Troponin 5 6HR Delta 0.48 ng/L (0-12)
[2019-11-19] VITALS: BP 124/68; PULSE 79; RESP 17; TEMP 37; O2SAT 94
[2019-11-19 00:26] LABS: Glucose Point of Care 260 mg/dL (70-110)
[2019-11-19 04:00] VITALS: BP 132/73; PULSE 73; RESP 18; TEMP 36.9; O2SAT 94
[2019-11-19 07:01] LABS: Basophils # 0.1 10^3/uL (0.0-0.1); Basophils % 0.9 %; Eosinophils # 0.4 10^3/uL (0.0-0.8); Eosinophils % 4.4 %; Hematocrit 37.1 % (37.0-47.0); Hemoglobin 11.8 g/dL (11.5-15.3); Lymphocytes # 2.3 10^3/uL (0.8-4.8); Mean Corpuscular HGB Conc 31.8 g/dL (30.0-36.0); Mean Corpuscular Volume 87.9 fL (81-99); Mean Platelet Volume 10.9 fL (7.4-10.4); Monocytes # 0.6 10^3/uL (0.2-0.9); Monocytes % 6.6 %; Neutrophils # 5.41 10^3/uL (1.8-7.7); Neutrophils % 61.6 %; Nucleated Red Blood Cells % 0 %; Platelet Count 251 10^3/cmm (130-400); Red Blood Count 4.22 10^6/uL (4.1-5.3); Red Cell Distribution Width 13.7 % (12.1-15.1); White Blood Count 8.8 10^3/uL (4.0-10.0)
[2019-11-19 07:21] LABS: Anion Gap 12.6 (5-19); Blood Urea Nitrogen 16 mg/dL (8-23); Calcium 8.9 mg/dL (8.5-10.5); Carbon Dioxide 23 mmol/L (22-29); Chloride 107 mmol/L (98-107); Glomerular Filtration Rate 84.2 mL/min (90-130); Glucose 203 mg/dL (65-115); Osmolality Calculated 290 mOsm/kg (285-295); Potassium 3.6 mmol/L (3.5-5.1); Sodium 139 mmol/L (136-145)
[2019-11-19 07:31] LABS: Glucose Point of Care 220 mg/dL (70-110)
[2019-11-19 07:44] VITALS: BP 138/76; PULSE 87; RESP 18; TEMP 36.5; O2SAT 94
[2019-11-19] MEDS: carvedilol 6.25 mg Tablet PO ×2 (08:34→16:51)
[2019-11-19] MEDS: atorvastatin 40 mg Tablet 20 MG PO (08:34)
[2019-11-19] MEDS: clopidogrel 75 mg Tablet PO (08:34)
[2019-11-19] MEDS: citalopram 20 mg Tablet 40 MG PO (08:34)
[2019-11-19] MEDS: aspirin 81 mg EC Tablet PO (08:34)
[2019-11-19] MEDS: pantoprazole DR 40 mg Tablet PO (08:34)
[2019-11-19] MEDS: sodium chloride 0.9% 1,000 ML 75 ML IV (08:43)
[2019-11-19] MEDS: fenofibrate 48 mg Tablet PO (08:44)
[2019-11-19 10:49] LABS: Glucose Point of Care 474 mg/dL (70-110)
[2019-11-19 11:22] VITALS: BP 151/70; PULSE 85; RESP 18; TEMP 36.7; O2SAT 98
--- NOTE | 2019-11-19 12:57 | PC.RESP ---
PATIENT DOES NOT HAVE A QUALIFYING HX OF LUNG DISEASE AND DOES NOT QUALIFY FOR PULMONARY REHAB AT THIS TIME.
[2019-11-19 15:26] VITALS: BP 139/64; PULSE 71; RESP 20; TEMP 36.6; O2SAT 96
[2019-11-19 16:26] LABS: Glucose Point of Care 335 mg/dL (70-110)
[2019-11-19 19:34] VITALS: BP 147/78; PULSE 80; RESP 21; TEMP 36.7; O2SAT 98
--- NOTE | 2019-11-19 20:33 | PM.PN ---
Subjective Subjective: Interval history: Chart reviewed, Accu-Cheks noted with blood sugars in the 262-470 range. Renal function and electrolytes normalized, leukocytosis resolved. Seen ambulating to and from the bathroom independently. Hemodynamically stable. Medications: Reviewed: Yes Medication Review Details: Active Medications Generic Name Dose Route Start Last Admin Trade Name Freq PRN Reason Stop Dose Admin Aspirin 81 mg 11/19/19 09:00 11/19/19 08:34 Aspirin Ec PO 81 mg DAILY TOMAS Administration Atorvastatin Calci um 20 mg 11/19/19 09:00 11/19/19 08:34 Lipitor PO 20 mg DAILY TOMAS Administration Carvedilol 6.25 mg 11/19/19 09:00 11/19/19 16:51 Coreg PO 6.25 mg BID TOMAS Administration Citalopram Hydrobr omide 40 mg 11/19/19 09:00 11/19/19 08:34 Celexa PO 40 mg DAILY TOMAS Administration Clopidogrel Bisulf ate 75 mg 11/19/19 09:00 11/19/19 08:34 Plavix PO 75 mg DAILY TOMAS Administration Cyanocobalamin 1,000 mcg 11/18/19 21:10 Vitamin B-12 PO DAILY PRN UNKNOWN Dextrose 25 ml 11/18/19 21:10 D50w IVP ONCE PRN hypoglycemia prot ocol Protocol Dextrose 50 ml 11/18/19 21:10 D50w IVP PRN PRN hypoglycemia prot ocol Protocol Dextrose 25 ml 11/18/19 21:10 D50w IVP ONCE PRN hypoglycemia prot ocol Protocol Dextrose 50 ml 11/18/19 21:10 D50w IVP PRN PRN hypoglycemia prot ocol Protocol Enoxaparin Sodium 40 mg 11/18/19 22:00 11/18/19 21:25 Lovenox SUBCUT 40 mg Q24H TOMAS Administration Fenofibrate 48 mg 11/19/19 09:00 11/19/19 08:44 Tricor PO 48 mg DAILY TOMAS Administration Glucagon 1 mg 11/18/19 21:10 Glucagen IM ONCE PRN Adult Acute Hypog lycemia Prot. Protocol Glucagon 1 mg 11/18/19 21:10 Glucagen IM ONCE PRN Adult Acute Hypog lycemia Prot Protocol Dextrose 500 mls @ 100 mls /hr 11/18/19 21:10 D5w IV ONCE PRN Adult Acute Hypog lycemia Prot Protocol Dextrose 500 mls @ 100 mls /hr 11/18/19 21:10 D5w IV ONCE PRN Adult Acute Hypog lycemia Prot Protocol Sodium Chloride 1,000 mls @ 75 ml s/hr 11/18/19 21:10 11/19/19 08:43 Sodium Chloride 0.9% IV 75 mls/hr .[id number] TOMAS Administration Insulin Aspart 0 unit 11/18/19 21:10 11/19/19 16:50 Novolog SUBCUT 14 unit WM&BEDTIME TOMAS Administration Protocol Insulin Aspart 5 unit 11/20/19 08:00 Novolog SUBCUT TIDWM TOMAS Insulin Glargine 10 unit 11/19/19 21:00 Lantus SUBCUT BEDTIME TOMAS Meclizine HCl 25 mg 11/18/19 21:10 Antivert PO QID PRN DIZZY Pantoprazole Sodiu m 40 mg 11/19/19 09:00 11/19/19 08:34 Protonix PO 40 mg DAILY TOAMS Administration Tramadol HCl 50 mg 11/18/19 21:10 Ultram PO PRN PRN PAIN acetaminophen [From Darvocet-N] Allergy (Verified 11/14/19 13:48) unknown canagliflozin [From Invokana] Allergy (Verified 11/18/19 17:25) Unknown Corticosteroids (Glucocorticoids) Allergy (Verified 11/14/19 13:48) nausea vomiting hydrocodone [From Vicodin] Allergy (Verified 11/14/19 13:48) dizziness nausea levofloxacin [From Levaquin] Allergy (Verified 11/14/19 13:48) dizziness nausea lisinopril Allergy (Verified 11/14/19 13:48) difficulty breathing oxycodone [From Percocet] Allergy (Verified 11/18/19 17:25) Unknown pregabalin [From Lyrica] Allergy (Verified 11/18/19 17:25) Unknown propoxyphene [From Darvocet-N] Allergy (Verified 11/14/19 13:48) unknown STEROIDS Allergy (Uncoded 11/18/19 17:25) Unknown Vitals/I&O/Wt Last Vital Signs Temp 98.0 F 11/19/19 19:34 Pulse 80 11/19/19 19:34 Resp 21 H 11/19/19 19:34 BP 147/78 11/19/19 19:34 Pulse Ox 98 11/19/19 19:34 11/19/19 11/19/19 11/19/19 06:59 14:59 22:59 Intake Total 1498.75 / 1498.75 240 / 1738.75 Balance 1498.75 / 1498.75 240 / 1738.75 Weight last 48 hrs Weight 83.461 kg Physical Exam Const: COMMON NORMALS: no acute distress, patient oriented x3 and alert GENERAL APPEARANCE: cooperative and comfortable ORIENTATION/CONSCIOUSNESS: Yes awake HENMT: COMMON NORMALS: normocephalic, atraumatic, hearing grossly normal bilaterally and moist oral mucous membranes HEAD & SCALP: normocephalic and atraumatic Eye: COMMON NORMALS: Equal, round and reactive pupils present, EOMs intact bilaterally and conjunctivae normal CONJUNCTIVA: Yes conjunctivae normal PUPIL: Yes Equal, round and reactive pupils present Neck/C-Spine: COMMON NORMALS: full ROM GENERAL: Yes normal visual inspection and Yes trachea midline Resp: COMMON NORMALS: normal respiratory effort, No retractions, No use of accessory muscles and clear to auscultation bilaterally EFFORT & INSPECTION: Yes able to speak in complete sentences, Yes symmetric chest movement and No tachypneic AUSCULTATION: clear to auscultation bilaterally Cardio: COMMON NORMALS: regular rate, regular rhythm, S1 normal heart sound present, S2 normal heart sound present and No murmurs present (Cardio) RATE: regular rate RHYTHM: regular rhythm HEART SOUNDS: S1 normal heart sound present and S2 normal heart sound present GI: COMMON NORMALS: Normal to inspection, nondistended, normoactive bowel sounds present, Soft to palpation and non-tender INSPECTION: Yes central obesity PALPATION: Yes Soft to palpation Extremity: COMMON NORMALS: normal to inspection, full ROM and no clubbing, cyanosis or edema; negative for no pedal edema Neuro: COMMON NORMALS: patient oriented x3, moves all extremities, no focal motor deficits, no sensory deficits noted and gait normal SENSORIUM/ORIENTATION: Yes alert Psych: COMMON NORMALS: mental status grossly normal, Normal thought process present, cooperative, normal affect and speech normal SPEECH: Yes normal speech THOUGHT PROCESS: Normal thought process present Skin: COMMON NORMALS: no rashes or lesions noted, no jaundice, no petechiae and no mottling GENERAL SKIN EXAM: no rashes or lesions noted Data : 11/19/19 06:52 08/31/20 06:52 A&P Assessment and plan (1) Hyperglycemia due to type 2 diabetes mellitus: -A1c-10.5 -Noted hyperglycemia, continue Accu-Cheks, ISS. 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 Qualified Code(s): E11.65 - Type 2 diabetes mellitus with hyperglycemia; Z79.4 - senior living (current) use of insulin (2) Hyponatremia: -Pseudohyponatremia secondary to significant hyperglycemia, now resolved Status: Resolved (3) Hypertension: -Vital signs stable, continue to monitor -Continue oral antihypertensives Status: Acute Qualifiers: Hypertension type: essential hypertension Qualified Code(s): I10 - Essential (primary) hypertension (4) Hyperlipemia: -Continue statin -Noted hypertriglyceridemia Status: Chronic Qualifiers: Hyperlipidemia type: mixed hyperlipidemia Qualified Code(s): E78.2 - Mixed hyperlipidemia (5) Diabetes: -As noted above Status: Chronic Qualifiers: Diabetes mellitus type: type 2 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: with mcfp use Diabetes mellitus complication status: with neurologic complications Diabetes mellitus complication detail: with unspecified neuropathy Qualified Code(s): E11.40 - Type 2 diabetes mellitus with diabetic neuropathy, unspecified; Z79.4 - senior living (current) use of insulin (6) Arteriosclerosis of coronary artery: -On aspirin, Plavix, statin, BB Status: Chronic Additional A&P Information -Morbid obesity: BMI-36 kg/m2 -GI ppx with PPI -DVT ppx with lovenox -Dispo: home -Code status: FULL code Attestations Medical Necessity Statement*: Patient requires hospitalization for continued monitoring and management of hyperglycemia. Time Spent in Patient Care: Greater than 35 minutes (>than 50% of time spent in counselling and/or direct pt care on unit). 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
[2019-11-19 20:47] LABS: Glucose Point of Care 312 mg/dL (70-110)
[2019-11-19] MEDS: insulin glargine 100 units/1 mL 10 UNIT SUBCUT (20:59)
[2019-11-19] MEDS: enoxaparin 40 mg/0.4 mL Syringe SUBCUT (21:00)
[2019-11-20] VITALS: BP 127/66; PULSE 80; RESP 17; TEMP 36.6; O2SAT 96
[2019-11-20 04:00] VITALS: BP 130/71; PULSE 85; RESP 18; TEMP 37; O2SAT 95
[2019-11-20 06:22] LABS: Glucose Point of Care 278 mg/dL (70-110)
[2019-11-20 07:15] VITALS: BP 126/70; PULSE 78; RESP 18; TEMP 36.8; O2SAT 97
[2019-11-20] MEDS: carvedilol 6.25 mg Tablet PO (09:22)
[2019-11-20] MEDS: citalopram 20 mg Tablet 40 MG PO (09:22)
[2019-11-20] MEDS: atorvastatin 40 mg Tablet 20 MG PO (09:22)
[2019-11-20] MEDS: clopidogrel 75 mg Tablet PO (09:22)
[2019-11-20] MEDS: pantoprazole DR 40 mg Tablet PO (09:23)
[2019-11-20] MEDS: fenofibrate 48 mg Tablet PO (09:25)
--- NOTE | 2019-11-20 09:54 | P.DS_ITS ---
Discharge Providers Date of Admission: 11/18/19 19:42 Date of Discharge: November 20, 2019 Attending Provider at Admission: Kristin Rojas MD Attending Provider at Discharge: Kelley Mitchell MD Consults: None Primary Care Provider: Desean Conteh DO Diagnoses at Discharge Discharge Diagnosis (1) Hyperglycemia due to type 2 diabetes mellitus: Status: Chronic Problem details: -A1c-10.5 -Noted hyperglycemia, continue Accu-Cheks, ISS. Add mealtime and long-acting insulin for better control -Consistent carb diet as tolerated -Hypoglycemia precautions -Has had good oral intake so off IVF Qualifiers: Diabetes mellitus longterm insulin use: with longterm use Qualified Code(s): E11.65 - Type 2 diabetes mellitus with hyperglycemia; Z79.4 - nursing home (current) use of insulin (2) Hyponatremia: Status: Resolved Problem details: -Pseudohyponatremia secondary to significant hyperglycemia resolved (3) Hypertension: Status: Chronic Problem details: -Vital signs stable, continue to monitor -Continue oral antihypertensives Qualifiers: Hypertension type: essential hypertension Qualified Code(s): I10 - Essential (primary) hypertension (4) Hyperlipemia: Status: Chronic Problem details: -Continue statin -Noted hypertriglyceridemia Qualifiers: Hyperlipidemia type: mixed hyperlipidemia Qualified Code(s): E78.2 - Mixed hyperlipidemia (5) Diabetes: Status: Chronic Problem details: -As noted above Qualifiers: Diabetes mellitus type: type 2 Diabetes mellitus intermediate accountant insulin use: with intermediate accountant use Diabetes mellitus complication status: with neurologic complications Diabetes mellitus complication detail: with unspecified neuropathy Qualified Code(s): E11.40 - Type 2 diabetes mellitus with diabetic neuropathy, unspecified; Z79.4 - nursing home (current) use of insulin (6) Arteriosclerosis of coronary artery: Status: Chronic Problem details: -Had PCI of the Diagonal and OM1 on 10/23/[address] Verdin -On aspirin, Plavix, statin, BB Other Information Additional DC diagnoses/information: -Morbid obesity: BMI-36 kg/m2 Reason for Visit Reason for Visit: SOB, DIZZINESS Hospital Course Hospital Course: Patient was admitted to the medical surgical floor and blood glucose closely monitored due to noted significant hyperglycemia on admission. She received some IV fluid hydration secondary to acute kidney injury with noted normalization of her renal function. With improved oral intake IV fluids were discontinued. With introduction of long-acting and meal time insulin her blood glucose has been more consistently controlled and A1c of 10.5 indicates that she has been poorly controlled for some time. She has been educated on need to continue to monitor her blood glucose at home consistently and to adhere to the insulin regimen. She is instructed to keep a log of her blood glucose to review with her primary care provider to determine if further adjustments to her insulin regimen are needed. She has been hemodynamically stable, afebrile, tolerating oral intake without difficulty. She will need to follow-up with her primary care physician within 1 week. Discharge Summary: -Patient to follow-up with primary care physician within 1 week Physical Exam Const: COMMON NORMALS: no acute distress, patient oriented x3 and alert GENERAL APPEARANCE: cooperative and comfortable ORIENTATION/CONSCIOUSNESS: Yes awake HENMT: COMMON NORMALS: normocephalic, atraumatic, hearing grossly normal bilaterally and moist oral mucous membranes HEAD & SCALP: normocephalic and atraumatic Eye: COMMON NORMALS: Equal, round and reactive pupils present, EOMs intact bilaterally and conjunctivae normal CONJUNCTIVA: Yes conjunctivae normal PUPIL: Yes Equal, round and reactive pupils present Neck/C-Spine: COMMON NORMALS: full ROM GENERAL: Yes normal visual inspection and Yes trachea midline Resp: COMMON NORMALS: normal respiratory effort, No retractions, No use of accessory muscles and clear to auscultation bilaterally EFFORT & INSPECTION: Yes able to speak in complete sentences, Yes symmetric chest movement and No tachypneic AUSCULTATION: clear to auscultation bilaterally Cardio: COMMON NORMALS: regular rate, regular rhythm, S1 normal heart sound present, S2 normal heart sound present and No murmurs present (Cardio) RATE: regular rate RHYTHM: regular rhythm HEART SOUNDS: S1 normal heart sound present and S2 normal heart sound present GI: COMMON NORMALS: Normal to inspection, nondistended, normoactive bowel sounds present, Soft to palpation and non-tender INSPECTION: Yes central obesity PALPATION: Yes Soft to palpation Extremity: COMMON NORMALS: normal to inspection, full ROM and no clubbing, cyanosis or edema; negative for no pedal edema Neuro: COMMON NORMALS: patient oriented x3, moves all extremities, no focal motor deficits, no sensory deficits noted and gait normal SENSORIUM/ORIENTATION: Yes alert Psych: COMMON NORMALS: mental status grossly normal, Normal thought process present, cooperative, normal affect and speech normal SPEECH: Yes normal speech THOUGHT PROCESS: Normal thought process present Skin: COMMON NORMALS: no rashes or lesions noted, no jaundice, no petechiae and no mottling GENERAL SKIN EXAM: no rashes or lesions noted Discharge Data Data Completed and Pending: Completed Studies During Hospitalization Category Date Time Status XR chest 1V jono ble [id number] Stat Exams 11/18/19 14:41 Completed Labs from last 24 hours 11/20/19 11/19/19 11/19/19 06:15 20:31 16:22 POC Glucose 278 312 335 11/19/19 10:38 POC Glucose 474 Vitals: Last Vital Signs Temp 98.3 F 11/20/19 07:15 Pulse 78 11/20/19 07:15 Resp 18 11/20/19 07:15 BP 126/70 11/20/19 07:15 Pulse Ox 97 11/20/19 07:15 Discharge Plan Discharge Patient Disposition: Home Condition: Stable Prescriptions: Continued ibuprofen 800 mg tablet 800 mg PO Q8H PRN (Reason: Pain) Qty: 15 RF: 0 clopidogrel 75 mg tablet 75 mg PO DAILY RF: 0 nitroglycerin 0.4 mg tablet, sublingual 0.4 mg SUBLINGUAL Q5M PRN (Reason: Chest Pain) RF: 0 citalopram 20 mg tablet 40 mg PO DAILY RF: 0 lovastatin 40 mg tablet 80 mg PO DAILY RF: 0 glipizide 10 mg tablet extended release 24hr 10 mg PO BID RF: 0 aspirin 81 mg tablet,delayed release (DR/EC) 81 mg PO DAILY RF: 0 fenofibrate nanocrystallized 48 mg tablet 48 mg PO DAILY Qty: 90 RF: 0 carvedilol 6.25 mg tablet 6.25 mg PO BID 90 Days Qty: 180 RF: 3 cyanocobalamin (vitamin B-12) [Vitamin B-12] 1,000 mcg Tablet 1,000 mcg PO DAILY PRN (Reason: UNKNOWN) RF: 0 diazepam 2 mg tablet 2 mg PO QID PRN (Reason: dizziness or vertigo) Qty: 30 RF: 0 Multiple Vitamins Tablet 1 tab PO DAILY RF: 0 Ultram 50 mg Tablet 50 - 100 mg PO PRN RF: 0 meclizine 25 mg Tablet 25 mg PO QID PRN (Reason: DIZZY) RF: 0 promethazine 25 mg Tablet 25 mg PO Q4H PRN (Reason: Nausea) RF: 0 omeprazole 20 mg Tablet,Delayed Release (Dr/Ec) 20 mg PO DAILY RF: 0 vitamin E 1 cap PO DAILY RF: 0 Humulin 70/30 U-100 KwikPen 100 unit/mL (70-30) insulin pen See Rx Instructions .ROUTE .COMPLEX Qty: 15 RF: 0 Discharge Orders: Discharge Order (Routine); Ordered 11/20/19 Ordered By: Kelley Mitchell Referrals: Desean Conteh DO [Primary Care Provider] - 4-7 days (Post hospital discharge follow up. ) Discharge Diet: Diabetic Discharge Activity: Increase activity as tolerated Patient Instructions: Type 2 Diabetes, How to Check Your Blood Sugar (DC), Diabetic Foot Care (DC), Basic Carbohydrate Counting (DC), Managing Diabetes During Sick Days (DC), Oral Health and Diabetes Activity Restrictions/Additional Instructions: -Please continue to monitor your blood glucose at home and keep a log for review with your primary care physician -You may return to work on Tuesday10/26/19 without restrictions Discharge Attestations Time Spent in Discharge Care*: less than 30 min Specific Discharge Activities: Specific discharge activities: educating patient, discussing with trimming caser/social workers/dc planners, documenting/other paperwork and evaluating patient/reviewing data Status at Discharge: Cognitive status at discharge: cognitively intact , Behavioral status at discharge: cooperative , Functional status at discharge: independent ambulation Overall status at discharge: patient is progressing back to baseline Quality Metrics Clinical Quality Measures During this hospital stay, did patient experience: None Coding Level of Care Code Acute Manager Intermediate for [facility] Fwd Diagnoses Hyperglycemia due to type 2 diabetes mellitus E11.65; Z79.4 Diabetes mellitus longterm insulin use: with intermediate accountant use Hyponatremia E87.1 Hypertension I10 Hypertension type: essential hypertension Hyperlipemia E78.2 Hyperlipidemia type: mixed hyperlipidemia Diabetes E11.40; Z79.4 Diabetes mellitus type: type 2 Diabetes mellitus intermediate accountant insulin use: with longterm use Diabetes mellitus complication status: with neurologic complications Diabetes mellitus complication detail: with unspecified neuropathy Arteriosclerosis of coronary artery I25.10
[2019-11-20] MEDS: aspirin 81 mg EC Tablet PO (10:24)
[2019-11-20 10:55] LABS: Glucose Point of Care 489 mg/dL (70-110)
[2019-11-20 11:02] VITALS: BP 153/72; PULSE 78; RESP 20; TEMP 36.4; O2SAT 97
[2019-11-20 11:38] VITALS: BP 153/72; PULSE 78; RESP 20; TEMP 36.4; O2SAT 97
== END 2019-11-20 11:55 | disposition home or self-care (01) ==
LOC: ER 19:52 → MEDSURG 20:00
PROVIDERS: Emergency Medicine; Nurse Practitioner Family; Admitting Provider Internal Medicine; Emergency Provider Emergency Medicine; PCP Family Medicine; Visit Provider Family Medicine
DX: E11.65 Type 2 diabetes mellitus with hyperglycemia (principal); H81.10 Benign paroxysmal vertigo, unspecified ear; E87.1 Hypo-osmolality and hyponatremia; I25.10 Atherosclerotic heart disease of native coronary artery without angina pectoris; E78.5 Hyperlipidemia, unspecified; I10 Essential (primary) hypertension; Z79.4 Long term (current) use of insulin; Z79.82 Long term (current) use of aspirin; Z82.49 Family history of ischemic heart disease and other diseases of the circulatory system; Z95.5 Presence of coronary angioplasty implant and graft; E78.2 Mixed hyperlipidemia; E11.40 Type 2 diabetes mellitus with diabetic neuropathy, unspecified; E66.01 Morbid (severe) obesity due to excess calories; Z68.36 Body mass index [BMI] 36.0-36.9, adult
CPT/HCPCS: 12345; 36415; 36416; 71045; 80048; 80053; 81003; 82962; 83036; 83690; 83721; 84478; 84484; 85025; 93005; 96360; 96361; 96372; 96374; 96375; 96376; 97110; 97112; 97161; 99283; 99285; G0378; J1650; J1815 ×2; J2405; J7030

== ENCOUNTER → 2019-12-03 08:48 | Outpatient (BNVA) | payer OTHER, SELFPAY | PROVIDERS: PCP Family Medicine; Visit Provider Internal Medicine | DX: Z11.59 Encounter for screening for other viral diseases (principal) | CPT/HCPCS: 87635 ==

== ENCOUNTER 2019-12-05 08:22 | Day surgery (SDC) | payer OTHER, SELFPAY ==
[2019-12-03 10:01] VITALS: BMI 35.7
[2019-12-05] MEDS: sodium chloride 0.9% 1,000 ML 30 ML IV (08:38)
[2019-12-05 08:39] VITALS: BP 124/79; PULSE 78; RESP 18; TEMP 36.1; O2SAT 100
[2019-12-05 08:58] LABS: Glucose Point of Care 192 mg/dL (70-110)
--- NOTE | 2019-12-05 09:01 | ANES.PREANE2 ---
Pre-Anesthetic Assessment Pre-Anesthetic Assessment: Height/Weight: Height 1.52 m Weight 83.007 kg Temp Pulse Resp BP Pulse Ox 97.0 F L 78 18 124/79 100 12/05/19 08:39 12/05/19 08:39 12/05/19 08:39 12/05/19 08:39 12/05/19 08:39 Preop Diagnosis: History of colitis Proposed Procedure: Operation Date: 12/05/19 09:30 Proposed Procedures p Colonoscopy 08708 Z87.19(Not Applicable) - David Boogie MD Familial anesthetic complications: No problems Was Beta Chip taken within 24 hours: Yes Last intake: NPO > 8 hrs Social: Social History: No alcohol and No tobacco Exam: Pre-Anes Outpt Exam: alert, oriented x 3, clear to auscultation bilaterally and regular rate & rhythm Airway: Cervical ROM: WNL MP: 3 Dentition: False CV/HEM: CV/HEM: CAD (PCI in 2016) and HTN GI: GI: GERD Metabolic: Metabolic: DM (poorly controlled) and Morbid obesity Anesthetic Plan: ASA status: 3 Anesthesia: MAC Risk of > 500 ml blood loss (7ml/kg in children): No Meds/Allergies Current Medications: Current Medications Generic Name Dose Route Start Last Admin Trade Name Freq PRN Reason Stop Dose Admin Sodium Chloride 1,000 mls @ 30 ml s/hr 12/05/19 08:30 12/05/19 08:38 Sodium Chloride 0.9% IV 12/06/19 08:29 30 mls/hr .Q24H TOMAS Administration PFSH Anesthesia PFSH: Medical History (Updated 11/21/19 @ 00:01 by ) Arteriosclerosis of coronary artery -Had PCI of the Diagonal and OM1 on 10/23/[address] Verdin -On aspirin, Plavix, statin, BB BPPV (benign paroxysmal positional vertigo) Chest pain Diabetes -As noted above Hyperglycemia due to type 2 diabetes mellitus -A1c-10.5 -Noted hyperglycemia, continue Accu-Cheks, ISS. Add mealtime and long-acting insulin for better control -Consistent carb diet as tolerated -Hypoglycemia precautions -Has had good oral intake so off IVF Hyperlipemia -Continue statin -Noted hypertriglyceridemia Hypertension -Vital signs stable, continue to monitor -Continue oral antihypertensives Surgical History H/O abdominal hysterectomy H/O dilation and curettage H/O foot surgery H/O laparoscopy H/O shoulder surgery Stented coronary artery Family History Other CAD (coronary artery disease) Cancer Diabetes Stroke Denies family history of Anesthesia complication Bleeding disorder Social History Smoking and tobacco status: never smoked Alcohol intake: never Household members: spouse Marital status: Current occupational status: employed History of recent travel: Yes Details: Went to [place] Out of state: Yes Data Anesthesia Other Labs: Laboratory Results - last 48 hr 12/05/19 08:55 POC Glucose 192 Cardiac Studies: No Data to Display
--- NOTE | 2019-12-05 09:08 | W.PM.OPSUD ---
Surgery/Procedure H&P Update DATE OF PROCEDURE: December 05, 2019 DATE H&P PERFORMED: 11/14/19 H&P UPDATE INFORMATION: I have reviewed H&P completed within last 30 days, I have examined patient prior to procedure and No changes to prior documentation PREOP DIAGNOSIS: History of colitis PRIMARY INDICATION FOR PROCEDURE: The same PLANNED PROCEDURE: Operation Date: 12/05/19 09:30 Proposed Procedures p Colonoscopy 23437 Z87.19(Not Applicable) - David Boogie MD
--- NOTE | 2019-12-05 10:05 | SUR.OPER ---
clip placed at transverse colon polyp bx site.
[2019-12-05 10:13] VITALS: BP 110/52; PULSE 72; RESP 16; TEMP 36.4; O2SAT 98
--- NOTE | 2019-12-05 10:14 | ANE.PACU2 ---
Inpatient post-anesthesia follow up: Airway intact: Yes Vital signs: Temperature 97.0 F Pulse Rate 78 Respiratory Rate 18 Blood Pressure 124/79 Pulse Oximetry 100 Oxygen Delivery Me thod Room Air Oxygen Flow Rate Fraction of Inspir ed Oxygen Hydration adequate: Yes Nausea and vomiting: No Pain level: 1 Mental status: Baseline
== END 2019-12-05 10:40 | disposition home or self-care (01) ==
PROVIDERS: PCP Family Medicine; Visit Provider Surgery
PROC: 0DJD8ZZ Inspection of Lower Intestinal Tract, Via Natural or Artificial Opening Endoscopic (ICD-10-PCS; CPT 45378; principal; 2019-12-05 09:30)
DX: Z12.11 Encounter for screening for malignant neoplasm of colon (principal); Z87.19 Personal history of other diseases of the digestive system; I10 Essential (primary) hypertension; E11.9 Type 2 diabetes mellitus without complications; I25.10 Atherosclerotic heart disease of native coronary artery without angina pectoris; E78.5 Hyperlipidemia, unspecified; E66.01 Morbid (severe) obesity due to excess calories; Z68.37 Body mass index [BMI] 37.0-37.9, adult; Z79.82 Long term (current) use of aspirin; Z79.02 Long term (current) use of antithrombotics/antiplatelets; Z88.5 Allergy status to narcotic agent; Z88.1 Allergy status to other antibiotic agents; Z79.84 Long term (current) use of oral hypoglycemic drugs
CPT/HCPCS: 12345; 36416; 45380; 82962; 88305; J2704; J7030

== ENCOUNTER 2020-01-18 18:03 | Emergency (ER) | payer OTHER, SELFPAY ==
[2020-01-18 18:10] VITALS: BP 141/70; PULSE 85; RESP 20; TEMP 36.8; O2SAT 99; BMI 36.0
--- NOTE | 2020-01-18 21:37 | ED_ITS ---
HPI - Extremity Problem General: Chief complaint: Extremity Injury, Upper Stated complaint: lac, left middle finger Time Seen by Provider: 01/18/20 18:40 History of Present Illness: HPI Narrative: 64-year-old female patient presents to the emergency department with laceration to the third digit of the left hand. She reports trying to cut vegetables when she cut her finger with a sharp knife. She reports bleeding did not stop while at home and came to the emergency department for assistance. Onset (ago): minute(s) (45) Location: left and upper extremity Relieving factors: other (pressure dressing applied) Associated symptoms: Reports no associated symptoms; Deny chest pain, fever(s) or rash Review of Systems General: Reports: 10 or more systems reviewed and unremarkable except in HPI and below Const: Denies: fever(s), chills or diaphoresis Eyes: Denies: blurry vision or eye redness ENMT: Denies: throat pain, dental pain or disequilibrium Card: Denies: chest pain, palpitations or irregular heart rhythm Resp: Denies: dyspnea, productive cough, non-productive cough or wheezing GI: Denies: abdominal pain, nausea or vomiting : Denies: difficulty voiding or dysuria Musc: Denies: back pain Skin/Breast: Reports: skin tenderness (laceration to the left 3rd digit); Denies: rash or pruritus Neuro: Denies: headache(s), weakness in extremities or behavioral changes José Miguel/Lymph: Denies: easy bruising [facility] ED PFSH: Medical History (Updated 01/18/20 @ 19:19 by ZAK Mcbride) Arteriosclerosis of coronary artery -Had PCI of the Diagonal and OM1 on 10/23/[address] Verdin -On aspirin, Plavix, statin, BB BPPV (benign paroxysmal positional vertigo) Chest pain Colon polyp Diabetes -As noted above History of colitis Hyperglycemia due to type 2 diabetes mellitus -A1c-10.5 -Noted hyperglycemia, continue Accu-Cheks, ISS. Add mealtime and long-acting insulin for better control -Consistent carb diet as tolerated -Hypoglycemia precautions -Has had good oral intake so off IVF Hyperlipemia -Continue statin -Noted hypertriglyceridemia Hypertension -Vital signs stable, continue to monitor -Continue oral antihypertensives Surgical History H/O abdominal hysterectomy H/O dilation and curettage H/O foot surgery H/O laparoscopy H/O shoulder surgery S/P colonoscopic polypectomy Stented coronary artery Family History Other CAD (coronary artery disease) Cancer Diabetes Stroke Denies family history of Anesthesia complication Bleeding disorder Social History Smoking and tobacco status: never smoked Alcohol intake: never Household members: spouse Marital status: Current occupational status: employed History of recent travel: Yes Details: Went to [place] Out of state: Yes Physical Exam Const: COMMON NORMALS: no acute distress, patient oriented x3, healthy appearing and alert GENERAL APPEARANCE: cooperative, comfortable and well hydrated HENMT: COMMON NORMALS: normocephalic, Normal external nose present and moist oral mucous membranes HEAD & SCALP: normocephalic NOSE: Normal external nose present Eye: COMMON NORMALS: Equal, round and reactive pupils present and EOMs intact bilaterally GENERAL EYE: appearance normal, both eyes and all related structures PUPIL: Yes Equal, round and reactive pupils present Neck/C-Spine: COMMON NORMALS: full ROM GENERAL: Yes normal visual inspection and Yes trachea midline Resp: COMMON NORMALS: normal respiratory effort and clear to auscultation bilaterally AUSCULTATION: clear to auscultation bilaterally Cardio: COMMON NORMALS: regular rhythm, S1 normal heart sound present, S2 normal heart sound present and Peripheral pulses 2+ throughout RHYTHM: regular rhythm HEART SOUNDS: S1 normal heart sound present and S2 normal heart sound present PERIPHERAL PULSES: Peripheral pulses 2+ throughout GI: COMMON NORMALS: Soft to palpation and non-tender INSPECTION: Yes normal to inspection PALPATION: Yes Soft to palpation : COMMON NORMALS: Yes no CVA tenderness BLADDER/KIDNEY EXAM: Yes no CVA tenderness Back/Pelvis: COMMON NORMALS: no CVA tenderness and thoracic and lumbar spine normal to inspection Extremity: COMMON NORMALS: normal to inspection and capillary refill normal GENERAL: Yes normal exam except as noted LEFT UPPER EXTREMITY: Yes hand & digits (Small laceration to the radial side distal tip third digit left hand. No bleeding, half-barreto shaped. 1 cm in length, full flexion-extension of the third PIP noted.) Neuro: COMMON NORMALS: patient oriented x3 and no focal motor deficits SENSORIUM/ORIENTATION: Yes alert Psych: COMMON NORMALS: mental status grossly normal, Normal thought process present and cooperative ACTIVITY/MOTOR BEHAVIOR: Yes appropriate eye contact THOUGHT PROCESS: Normal thought process present Skin: COMMON NORMALS: no rashes or lesions noted and turgor normal GENERAL SKIN EXAM: no rashes or lesions noted and turgor normal Procedures Laceration Laceration 1: Site: hand Side (If applicable): left Size (cm): 1 Description: linear and clean Depth: simple, single layer Pre-repair: wound explored, irrigated extensively and deep structures intact Size (cm): other (skin adhesive applied) Course Vital Signs: Vital signs: Vital Signs Temperature 98.3 F 01/18/20 18:10 Pulse Rate 85 01/18/20 18:10 Respiratory Rate 20 H 01/18/20 18:10 Blood Pressure 141/70 01/18/20 18:10 Pulse Oximetry 99 01/18/20 18:10 Discharge Plan Discharge Patient Disposition: Home Clinical Impression: Laceration of finger of left hand Qualifiers: Encounter type: initial encounter Finger: middle finger Damage to nail status: without damage Foreign body presence: without foreign body Qualified Code(s): S61.213A - Laceration without foreign body of left middle finger without damage to nail, initial encounter Condition: Stable Prescriptions: No Action ibuprofen 800 mg tablet 800 mg PO Q8H PRN (Reason: Pain) Qty: 15 RF: 0 Hold Instructions: Resume on 12/10/19. clopidogrel 75 mg tablet 75 mg PO DAILY RF: 0 Hold Instructions: Resume on 12/10/19. nitroglycerin 0.4 mg tablet, sublingual 0.4 mg SUBLINGUAL Q5M PRN (Reason: Chest Pain) RF: 0 citalopram 20 mg tablet 40 mg PO DAILY RF: 0 lovastatin 40 mg tablet 80 mg PO DAILY RF: 0 glipizide 10 mg tablet extended release 24hr 10 mg PO BID RF: 0 aspirin 81 mg tablet,delayed release (DR/EC) 81 mg PO DAILY RF: 0 Hold Instructions: Resume on 12/10/19. fenofibrate nanocrystallized 48 mg tablet 48 mg PO DAILY Qty: 90 RF: 0 carvedilol 6.25 mg tablet 6.25 mg PO BID 90 Days Qty: 180 RF: 3 cyanocobalamin (vitamin B-12) [Vitamin B-12] 1,000 mcg Tablet 1,000 mcg PO DAILY PRN (Reason: UNKNOWN) RF: 0 Lantus Solostar U-100 Insulin 100 unit/mL (3 mL) Insulin Pen 15 unit SUBCUT QPM RF: 0 diazepam 2 mg tablet 2 mg PO QID PRN (Reason: dizziness or vertigo) Qty: 30 RF: 0 multivitamin [Multiple Vitamins] Tablet 1 tab PO DAILY RF: 0 tramadol [Ultram] 50 mg Tablet 50 - 100 mg PO PRN RF: 0 meclizine 25 mg Tablet 25 mg PO QID PRN (Reason: DIZZY) RF: 0 promethazine 25 mg Tablet 25 mg PO Q4H PRN (Reason: Nausea) RF: 0 omeprazole 20 mg Tablet,Delayed Release (Dr/Ec) 20 mg PO DAILY RF: 0 vitamin E 1 cap PO DAILY RF: 0 Humulin 70/30 U-100 KwikPen 100 unit/mL (70-30) insulin pen See Rx Instructions .ROUTE .COMPLEX Qty: 15 RF: 0 Discharge Orders: Discharge Order (Routine); Ordered 01/18/20 Ordered By: Zeinab Villarreal Referrals: Desean Conteh DO [Primary Care Provider] - Discharge Diet: Usual diet Discharge Activity: Limit activity as instructed Patient Instructions: Finger Laceration (ED), Skin Adhesive Care (ED) Activity Restrictions/Additional Instructions: Monitor for signs and symptoms of infection Keep the finger dry for the next several days, do not submerge in water, may keep covered Return to the emergency department if you develop bleeding, symptoms of infection or other concerning symptoms. Discharge Date/Time: 01/18/20 19:32 Coding Level of Care Code ED Forming Process Line Worker for Brady Gu
== END 2020-01-18 19:32 | disposition home or self-care (01) ==
PROVIDERS: Emergency Provider Nurse Practitioner Family; PCP Family Medicine
DX: S61.213A Laceration without foreign body of left middle finger without damage to nail, initial encounter (principal); Z79.02 Long term (current) use of antithrombotics/antiplatelets; Z79.82 Long term (current) use of aspirin; Z79.4 Long term (current) use of insulin; E11.9 Type 2 diabetes mellitus without complications; E78.5 Hyperlipidemia, unspecified; I10 Essential (primary) hypertension; W26.0XXA Contact with knife, initial encounter
CPT/HCPCS: 12001; 12345; 99281

== ENCOUNTER 2020-02-01 13:57 | Emergency (ER) | payer OTHER, SELFPAY ==
[2020-02-01 14:28] VITALS: BP 136/59; PULSE 68; RESP 18; TEMP 36.9; O2SAT 98; BMI 35.9
--- NOTE | 2020-02-01 15:01 | ECG_ITS ---
[facility] Test Date: 2020-02-01 Pat Name: Judy Rincon Department: Room: Gender: Female Insurance Sales Specialist: : 1955 Requested By: Tarsha Wen Order Number: [id number] Yolanda MD: Anmol Gardiner M.D. Measurements Intervals [place] Rate: 71 P: 51 OR: 141 QRS: 60 QRSD: 104 T: 53 QT: 419 QTc: 458 Interpretive Statements SINUS RHYTHM Compared to ECG 11/18/2019 19:17:42 No significant changes Electronically Signed On 02-01-2020 19:48:25 DISTRIBUTION OPERATIONS SUPERVISOR by Anmol Gardiner M.D. [email or web address]
--- NOTE | 2020-02-01 15:01 | W.ED.BACK ---
HPI - Back Pain/Injury General: Chief Complaint: Back Pain/Injury Stated Complaint: BACK PAIN Time Seen by Provider: 02/01/20 14:37 Source: patient Mode of arrival: ambulatory Limitations: no limitations History of Present Illness: HPI Narrative: 64 yo female patient states she did a lot of lifting and twisting yesterday while at work and woke up today with right side back pain that radiates down her rght leg. Pt c/o nausea. Pt denies any hx of cancer, IV drug abuse, loss of bowel or bladder does have histroy of HTn. pt denies any fever. Pt denies any urinary symptoms MD elicited complaint: back pain Quality: burning and sharp Location: lumbar spine Radiation: right upper leg Exacerbating factors: none Relieving factors: none Context: while lifting and turning/twisting Associated symptoms: Reports nausea; Deny no associated symptoms, abdominal pain, arthralgias, chills, change in bowel habits, difficulty walking, dysuria, fatigue, fecal incontinence, hematuria, myalgias, numbness, syncope, tingling/numbness/burning, urinary urgency, vomiting or weakness Review of Systems Const: Denies: chills, body aches, change in appetite, change in weight, fatigue, malaise or diaphoresis Card: Denies: chest pain, palpitations, irregular heart rhythm, edema, swelling of feet/ankles, syncope, pre-syncope, dyspnea on exertion or orthopnea Resp: Denies: dyspnea, productive cough, non-productive cough or wheezing GI: Reports: nausea; Denies: abdominal pain, vomiting, fecal incontinence or change in bowel habits : Denies: dysuria, urinary urgency or hematuria Neuro: Denies: difficulty walking PFSH ED PFSH: Medical History (Updated 02/01/20 @ 16:37 by Tarsha Wen) Arteriosclerosis of coronary artery -Had PCI of the Diagonal and OM1 on 10/23/[address] Verdin -On aspirin, Plavix, statin, BB BPPV (benign paroxysmal positional vertigo) Chest pain Colon polyp Diabetes -As noted above History of colitis Hyperglycemia due to type 2 diabetes mellitus -A1c-10.5 -Noted hyperglycemia, continue Accu-Cheks, ISS. Add mealtime and long-acting insulin for better control -Consistent carb diet as tolerated -Hypoglycemia precautions -Has had good oral intake so off IVF Hyperlipemia -Continue statin -Noted hypertriglyceridemia Hypertension -Vital signs stable, continue to monitor -Continue oral antihypertensives Surgical History H/O abdominal hysterectomy H/O dilation and curettage H/O foot surgery H/O laparoscopy H/O shoulder surgery S/P colonoscopic polypectomy Stented coronary artery Family History Other CAD (coronary artery disease) Cancer Diabetes Stroke Denies family history of Anesthesia complication Bleeding disorder Social History Smoking and tobacco status: never smoked Alcohol intake: never Household members: spouse Marital status: Current occupational status: employed History of recent travel: Yes Details: Went to [place] Out of state: Yes Physical Exam Const: COMMON NORMALS: no acute distress and no limitations GENERAL APPEARANCE: cooperative ORIENTATION/CONSCIOUSNESS: Yes awake, Yes oriented to person, Yes oriented to place and Yes oriented to time HENMT: COMMON NORMALS: normocephalic, atraumatic and hearing grossly normal bilaterally HEAD & SCALP: normocephalic and atraumatic FACE & SINUS: normal facial exam MOUTH: Normal oral and palatal mucosa present Eye: COMMON NORMALS: Equal, round and reactive pupils present, EOMs intact bilaterally and conjunctivae normal CONJUNCTIVA: Yes conjunctivae normal PUPIL: Yes Equal, round and reactive pupils present Neck/C-Spine: COMMON NORMALS: full ROM and no lymphadenopathy Lymph: LYMPHATIC: no lymphadenopathy noted Chest: COMMONS NORMALS: normal inspection of the chest and normal palpation of entire chest wall Resp: COMMON NORMALS: normal respiratory effort, No retractions, No use of accessory muscles and clear to auscultation bilaterally AUSCULTATION: clear to auscultation bilaterally Cardio: COMMON NORMALS: regular rate and regular rhythm RATE: regular rate RHYTHM: regular rhythm GI: COMMON NORMALS: Normal to inspection, nondistended, normoactive bowel sounds present, Soft to palpation and non-tender PALPATION: Yes Soft to palpation : COMMON NORMALS: Yes no CVA tenderness and Yes normal external appearance BLADDER/KIDNEY EXAM: Yes no CVA tenderness Back/Pelvis: COMMON NORMALS: no CVA tenderness and thoracic and lumbar spine normal to inspection; negative for no thoracic nor lumbar tenderness GENERAL BACK: Yes tenderness (right lower lumbar) THORACIC SPINE/UPPER BACK: Yes normal to inspection and No thoracic spinal tenderness LUMBAR SPINE/LOWER BACK: Yes normal to inspection and No lumbar spinal tenderness PELVIS: Yes buttocks normal SACROILIAC JOINTS: Yes SI joints normal SACRUM: no ecchymosis Neuro: SENSORIUM/ORIENTATION: Yes oriented to person, Yes oriented to place and Yes oriented to time Course Vital Signs: Vital signs: Vital Signs Temperature 98.5 F 02/01/20 14:28 Pulse Rate 68 02/01/20 14:28 Respiratory Rate 18 02/01/20 14:28 Blood Pressure 136/59 02/01/20 14:28 Pulse Oximetry 98 02/01/20 14:28 MDM - Back Pain/Injury MDM Narrative: Medical decision making narrative: Pt is well appearing non toxic and in no acute distress. 64 yo female patient states she did a lot of lifting and twisting yesterday while at work and woke up today with right side back pain that radiates down her rght leg. Pt c/o nausea. Pt denies any hx of cancer, IV drug abuse, loss of bowel or bladder does have histroy of HTn. pt denies any fever. Pt denies any urinary symptoms. Pt urine was negative for infection or blood. Renal calculi was considered but patients states her pain started after excessie twisting and lifting at workk and does not want to have CT. I discussed with patient prompt return to ER if she is unable to urinate or pain worsens or develops abd pain Pt was given pain meds while here and had clinical improvement of pain. I will send home with short course of pain meds and lidocaine patch. Lab Data: Labs: Lab Results 02/01/20 Range/Units 16:00 Urine Color Yellow (Yellow) Urine Appearance Clear (CLEAR) Urine pH 7 (5-7) Ur Specific Gravit y 1.015 (1.005-1.030) Urine Protein Neg (Negative) Urine Glucose (UA) Norm (Normal) Urine Ketones Negative (Negative) Urine Blood Neg (Negative) Urine Nitrate Negative (Negative) Urine Bilirubin Neg (Negative) Urine Urobilinogen Norm (Negative) mg/dL Ur Leukocyte Loretta ase Negative (Negative) Discharge Plan Discharge Patient Disposition: Home Clinical Impression: Strain of lumbar region Qualifiers: Encounter type: initial encounter Qualified Code(s): S39.012A - Strain of muscle, fascia and tendon of lower back, initial encounter Condition: Stable Prescriptions: New tramadol 50 mg tablet 50 mg PO BID PRN (Reason: pain) Qty: 20 RF: 0 lidocaine 5 % adhesive patch,medicated 1 patch topical DAILY Qty: 15 RF: 0 No Action ibuprofen 800 mg tablet 800 mg PO Q8H PRN (Reason: Pain) Qty: 15 RF: 0 Hold Instructions: Resume on 12/10/19. clopidogrel 75 mg tablet 75 mg PO DAILY RF: 0 Hold Instructions: Resume on 12/10/19. nitroglycerin 0.4 mg tablet, sublingual 0.4 mg SUBLINGUAL Q5M PRN (Reason: Chest Pain) RF: 0 citalopram 20 mg tablet 40 mg PO DAILY RF: 0 lovastatin 40 mg tablet 80 mg PO DAILY RF: 0 glipizide 10 mg tablet extended release 24hr 10 mg PO BID RF: 0 aspirin 81 mg tablet,delayed release (DR/EC) 81 mg PO DAILY RF: 0 Hold Instructions: Resume on 12/10/19. fenofibrate nanocrystallized 48 mg tablet 48 mg PO DAILY Qty: 90 RF: 0 carvedilol 6.25 mg tablet 6.25 mg PO BID 90 Days Qty: 180 RF: 3 cyanocobalamin (vitamin B-12) [Vitamin B-12] 1,000 mcg Tablet 1,000 mcg PO DAILY PRN (Reason: UNKNOWN) RF: 0 Lantus Solostar U-100 Insulin 100 unit/mL (3 mL) Insulin Pen 15 unit SUBCUT QPM RF: 0 diazepam 2 mg tablet 2 mg PO QID PRN (Reason: dizziness or vertigo) Qty: 30 RF: 0 multivitamin [Multiple Vitamins] Tablet 1 tab PO DAILY RF: 0 tramadol [Ultram] 50 mg Tablet 50 - 100 mg PO PRN RF: 0 meclizine 25 mg Tablet 25 mg PO QID PRN (Reason: DIZZY) RF: 0 promethazine 25 mg Tablet 25 mg PO Q4H PRN (Reason: Nausea) RF: 0 omeprazole 20 mg Tablet,Delayed Release (Dr/Ec) 20 mg PO DAILY RF: 0 vitamin E 1 cap PO DAILY RF: 0 Humulin 70/30 U-100 KwikPen 100 unit/mL (70-30) insulin pen See Rx Instructions .ROUTE .COMPLEX Qty: 15 RF: 0 Discharge Orders: Discharge Order (Routine); Ordered 02/01/20 Ordered By: Tarsha Wen Referrals: Desean Conteh, [Primary Care Provider] - Discharge Diet: Advance as tolerated Activity Restrictions/Additional Instructions: Please return to the ER with fever, numbness or tingling, loss of bowel or bladder or any other concerning symptoms Please take meds as prescribed Coding Level of Care Code ED Client Strategist for Chg Fwd Exam Comprehensive
[2020-02-01] MEDS: diazePAM 5 mg Tablet PO (15:08)
[2020-02-01] MEDS: ketorolac 30 mg/mL INJ IM (15:09)
[2020-02-01 16:12] LABS: Add Urine Microscopic? NO
[2020-02-01 16:14] LABS: Bilirubin Urine Neg (Negative); Blood Urine Neg (Negative); Glucose Urine UA Norm (Normal); Ketones Urine Negative (Negative); Leukocyte Esterase Urine Negative (Negative); Nitrate Urine Negative (Negative); Protein Urine Neg (Negative); Specific Gravity, Urine 1.015 (1.005-1.030); Urine Appearance Clear (CLEAR); Urine Color Yellow (Yellow); Urobilinogen Urine Norm (Negative); pH Urine 7 (5-7)
[2020-02-01] MEDS: TRAMadol 50 mg Tablet PO (17:02)
== END 2020-02-01 17:04 | disposition home or self-care (01) ==
PROVIDERS: Emergency Provider Registered Nurse; PCP Family Medicine
DX: S39.012A Strain of muscle, fascia and tendon of lower back, initial encounter (principal); Z79.02 Long term (current) use of antithrombotics/antiplatelets; Z79.82 Long term (current) use of aspirin; Z79.4 Long term (current) use of insulin; I25.10 Atherosclerotic heart disease of native coronary artery without angina pectoris; E11.9 Type 2 diabetes mellitus without complications; E78.5 Hyperlipidemia, unspecified; I10 Essential (primary) hypertension; X50.9XXA Other and unspecified overexertion or strenuous movements or postures, initial encounter
CPT/HCPCS: 12345; 81003; 93005; 96372; 99281; 99283; J1885

== ENCOUNTER 2020-02-05 13:32 | Outpatient (CLI) | payer OTHER, SELFPAY ==
--- NOTE | 2020-02-05 13:39 | MM_ITS ---
WS: [id number] Exam: [id number] Date/Time of Exam: 02/05/2020 2:02 PM Reason For Exam: SCREENING VIEWS: MLO and CC views both breasts. Comparison made with prior exam of 07/30/2016. Findings: There was no sign of mass, architectural distortion or suspicious calcification in either breast. Sc attered fibroglandular densities MM/[id number] Impression: BI-RADS: 2-Benign FOLLOW-UP: 1 Year Follow-up This mammogram was also analyzed by the Computer Aided Detection System [employer] Supply Chain Director.
== END 2020-02-05 13:33 | disposition home or self-care (01) ==
LOC: RADSHAW 13:37
PROVIDERS: PCP Family Medicine; Visit Provider Family Medicine
DX: Z12.31 Encounter for screening mammogram for malignant neoplasm of breast (principal)
CPT/HCPCS: 77067

== ENCOUNTER 2020-02-06 14:35 | Outpatient (CLI) | payer OTHER, SELFPAY ==
--- NOTE | 2020-02-06 14:41 | XR_ITS ---
WS: [id number] Exam: XR lumbar spine 2-3V* [id number] Date/Time of Exam: 02/06/2020 3:28 PM Reason For Exam: RIGHT LUMBAR RADICULOPATHY Comparison 04/02/2016. No acute fracture or dislocation. Mild degenerative anterolisthesis of L4 on L5. Marked facet DJD at L4-5 and L5-S1. Degenerative narrowing of the L5-S1 disc. Spondylosis. Minimal levoscoliosis. DJD of the SI joints. Osteopenia. XR/XR lumbar spine 2-3V* [id number] IMPRESSION: 1. Degenerative changes. 2. No fracture or malalignment.
== END 2020-02-06 14:36 | disposition home or self-care (01) ==
LOC: RAD 14:39
PROVIDERS: PCP Family Medicine; Visit Provider Family Medicine
DX: M54.16 Radiculopathy, lumbar region (principal)
CPT/HCPCS: 72100

== ENCOUNTER 2020-03-11 07:18 | Outpatient (CLI) | payer OTHER, SELFPAY ==
--- NOTE | 2020-03-11 07:25 | MR_ITS ---
WS: [id number] MRI LUMBAR SPINE NONCONTRAST HISTORY: RIGHT LUMBAR RADICULOPATHY COMPARISON: None available. TECHNIQUE: Sagittal and axial multisequence imaging is submitted. Less than 2 mm anterolisthesis of L4. Otherwise alignment is normal. Mild disc space narrowing and desiccation. No fractures or marrow edema. Small endplate osteophytes t hroughout the lumbar spine. Conus terminates normally at L1-2 disc level. L1-L2: Mild ligamentum flavum hypertrophy. No stenosis. L2-L3: Mild facet and ligamentum flavum hypertrophy. Mild narrowing of the RIGHT foramen. L3-L4: Mild annular disc bulging with mild facet and ligamentum flavum arthritis. Mild encroachment u yobani the central canal and foramen. L4-L5: Mild annular disc bulging with moderate facet and ligamentum flavum hypertrophy. Asymmetric di sc space narrowing to the RIGHT with significant encroachment upon the RIGHT subarticular recess. Sma ll amount of fluid in the facet joints bilaterally. Mild central stenosis with moderate bilateral for aminal stenosis and RIGHT subarticular recess stenosis. L5-S1: Mild annular disc bulging with facet hypertrophy. Mild bilateral foraminal stenosis. MR/MR lumbar spine wo con* [id number] IMPRESSION: 1. Mild central with moderate bilateral foraminal and moderate RIGHT subarticu lar recess stenosis at L4-5. 2. Mild central and bilateral foraminal stenosis at L3-4. 3. Mild bilateral foraminal stenosis at L5-S1 and on the RIGHT at L2-3.
== END 2020-03-11 07:19 | disposition home or self-care (01) ==
PROVIDERS: PCP Family Medicine; Visit Provider Family Medicine
DX: M54.16 Radiculopathy, lumbar region (principal); M48.061 Spinal stenosis, lumbar region without neurogenic claudication; M48.07 Spinal stenosis, lumbosacral region
CPT/HCPCS: 72148

== ENCOUNTER 2020-04-08 15:33 | Emergency (ER) | payer MEDICARE, SELFPAY ==
[2020-04-08 15:42] VITALS: BP 107/55; PULSE 83; TEMP 36.6; O2SAT 100; BMI 35.2
[2020-04-08 18:50] VITALS: BP 125/61; PULSE 78; RESP 16; O2SAT 95
--- NOTE | 2020-04-08 19:03 | W.ED.BACK ---
HPI - Back Pain/Injury General: Chief Complaint: Back Pain/Injury Stated Complaint: SEVERE BACK AND RIGHT HIP PAIN Time Seen by Provider: 04/08/20 18:45 Source: patient Mode of arrival: ambulatory Limitations: no limitations History of Present Illness: HPI Narrative: 65-year old female comes in today with right lower back pain radiating into her right lower leg. Patient reports a pinched nerve in her back and she is awaiting follow-up with neurosurgery. Patient takes gabapentin for her discomfort. Patient reports since yesterday she has had increasing pain and discomfort to her back and lower extremity with difficulty ambulating. Patient denies fever or change in bowel or bladder habits. Patient appears well. Patient appears in no acute distress. Review of Systems General: Reports: 10 or more systems reviewed and unremarkable except in HPI and below Musc: Reports: back pain [facility] ED PFSH: Medical History (Updated 04/08/20 @ 19:03 by DEMETRIUS Pickens) Arteriosclerosis of coronary artery -Had PCI of the Diagonal and OM1 on 10/23/[address] Verdin -On aspirin, Plavix, statin, BB BPPV (benign paroxysmal positional vertigo) Chest pain Colon polyp Diabetes -As noted above History of colitis Hyperglycemia due to type 2 diabetes mellitus -A1c-10.5 -Noted hyperglycemia, continue Accu-Cheks, ISS. Add mealtime and long-acting insulin for better control -Consistent carb diet as tolerated -Hypoglycemia precautions -Has had good oral intake so off IVF Hyperlipemia -Continue statin -Noted hypertriglyceridemia Hypertension -Vital signs stable, continue to monitor -Continue oral antihypertensives Surgical History H/O abdominal hysterectomy H/O dilation and curettage H/O foot surgery H/O laparoscopy H/O shoulder surgery S/P colonoscopic polypectomy Stented coronary artery Family History Other CAD (coronary artery disease) Cancer Diabetes Stroke Denies family history of Anesthesia complication Bleeding disorder Social History Smoking and tobacco status: never smoked Alcohol intake: never Household members: spouse Marital status: Current occupational status: employed History of recent travel: Yes Details: Went to [place] Out of state: Yes Physical Exam Const: COMMON NORMALS: no acute distress and patient oriented x3 GENERAL APPEARANCE: cooperative HENMT: COMMON NORMALS: normocephalic and Normal external nose present HEAD & SCALP: normal to inspection and normocephalic NOSE: Normal external nose present MOUTH: Normal oral and palatal mucosa present Eye: GENERAL EYE: appearance normal, both eyes and all related structures Neck/C-Spine: COMMON NORMALS: full ROM Chest: COMMONS NORMALS: normal inspection of the chest Resp: COMMON NORMALS: normal respiratory effort EFFORT & INSPECTION: Yes able to speak in complete sentences Cardio: COMMON NORMALS: regular rate and regular rhythm RATE: regular rate RHYTHM: regular rhythm GI: COMMON NORMALS: non-tender : COMMON NORMALS: Yes no CVA tenderness BLADDER/KIDNEY EXAM: Yes no CVA tenderness Back/Pelvis: COMMON NORMALS: no CVA tenderness OTHER: Muscle tenderness in the right lower back, no vertebral tenderness. Extremity: COMMON NORMALS: normal to inspection Neuro: COMMON NORMALS: patient oriented x3 and moves all extremities Psych: COMMON NORMALS: mental status grossly normal and cooperative Skin: COMMON NORMALS: no rashes or lesions noted GENERAL SKIN EXAM: no rashes or lesions noted Course Vital Signs: Vital signs: Vital Signs Temperature 97.9 F 04/08/20 15:42 Pulse Rate 78 04/08/20 18:50 Respiratory Rate 16 04/08/20 18:50 Blood Pressure 125/61 04/08/20 18:50 Pulse Oximetry 95 04/08/20 18:50 MDM - Back Pain/Injury MDM Narrative: Medical decision making narrative: 65-year-old female comes in today for complaints of low back pain. This back pain is chronic but for the last 2 days she has had increasing pain and discomfort radiating down her leg. Patient denies any fever or loss of bowel or bladder control. Differential diagnosis includes lumbar radiculopathy, intervertebral disc disease, facet arthropathy. No signs of cauda equina syndrome was noted. Patient was treated for with Toradol and orphenadrine for her pain and discomfort. Patient will be continued on some tramadol for further pain relief. Also will give her a muscle relaxer for further comfort. Discussed need for follow-up or return to the ER. Patient reported understanding. Discharge Plan Discharge Patient Disposition: Home Clinical Impression: Lumbar radiculopathy Condition: Stable Prescriptions: New tramadol 50 mg tablet 50 mg PO Q6H PRN (Reason: pain) Qty: 14 RF: 0 tizanidine 4 mg tablet 4 mg PO Q8H PRN (Reason: muscle spasticity) Qty: 14 RF: 0 Discontinued diazepam 2 mg tablet 2 mg PO QID PRN (Reason: dizziness or vertigo) Qty: 30 RF: 0 tramadol [Ultram] 50 mg Tablet 50 - 100 mg PO PRN RF: 0 tramadol 50 mg tablet 50 mg PO BID PRN (Reason: pain) Qty: 20 RF: 0 No Action ibuprofen 800 mg tablet 800 mg PO Q8H PRN (Reason: Pain) Qty: 15 RF: 0 Hold Instructions: Resume on 12/10/19. clopidogrel 75 mg tablet 75 mg PO DAILY RF: 0 Hold Instructions: Resume on 12/10/19. nitroglycerin 0.4 mg tablet, sublingual 0.4 mg SUBLINGUAL Q5M PRN (Reason: Chest Pain) RF: 0 citalopram 20 mg tablet 40 mg PO DAILY RF: 0 lovastatin 40 mg tablet 80 mg PO DAILY RF: 0 glipizide 10 mg tablet extended release 24hr 10 mg PO BID RF: 0 aspirin 81 mg tablet,delayed release (DR/EC) 81 mg PO DAILY RF: 0 Hold Instructions: Resume on 12/10/19. fenofibrate nanocrystallized 48 mg tablet 48 mg PO DAILY Qty: 90 RF: 0 carvedilol 6.25 mg tablet 6.25 mg PO BID 90 Days Qty: 180 RF: 3 cyanocobalamin (vitamin B-12) [Vitamin B-12] 1,000 mcg Tablet 1,000 mcg PO DAILY PRN (Reason: UNKNOWN) RF: 0 Lantus Solostar U-100 Insulin 100 unit/mL (3 mL) Insulin Pen 15 unit SUBCUT QPM RF: 0 multivitamin [Multiple Vitamins] Tablet 1 tab PO DAILY RF: 0 meclizine 25 mg Tablet 25 mg PO QID PRN (Reason: DIZZY) RF: 0 promethazine 25 mg Tablet 25 mg PO Q4H PRN (Reason: Nausea) RF: 0 omeprazole 20 mg Tablet,Delayed Release (Dr/Ec) 20 mg PO DAILY RF: 0 vitamin E 1 cap PO DAILY RF: 0 Humulin 70/30 U-100 KwikPen 100 unit/mL (70-30) insulin pen See Rx Instructions .ROUTE .COMPLEX Qty: 15 RF: 0 lidocaine 5 % adhesive patch,medicated 1 patch topical DAILY Qty: 15 RF: 0 Discharge Orders: Discharge ED (Routine); Ordered 04/08/20 Ordered By: Kyle Merrill Referrals: Desean Conteh DO [Primary Care Provider] - Discharge Diet: Usual diet Discharge Activity: Increase activity as tolerated Patient Instructions: Sciatica (ED) Activity Restrictions/Additional Instructions: Activity as tolerated. Gentle stretching and range of motion exercises. Ice or heat for further pain relief. Drink plenty of water with medication. Follow-up with primary care for further treatment. Return to the emergency department for new concerns. Coding Level of Care Code ED Stock Order Lister for Brady Gu
[2020-04-08 19:16] VITALS: BP 142/67; PULSE 83; O2SAT 90
== END 2020-04-08 19:17 | disposition home or self-care (01) ==
PROVIDERS: Emergency Provider Nurse Practitioner Family; PCP Family Medicine
DX: M54.16 Radiculopathy, lumbar region (principal); Z79.02 Long term (current) use of antithrombotics/antiplatelets; Z79.82 Long term (current) use of aspirin; Z79.4 Long term (current) use of insulin; I25.10 Atherosclerotic heart disease of native coronary artery without angina pectoris; E11.9 Type 2 diabetes mellitus without complications; E78.5 Hyperlipidemia, unspecified; I10 Essential (primary) hypertension
CPT/HCPCS: 12345; 99281

== ENCOUNTER → 2020-09-16 13:13 | Outpatient (BNVA) | payer MEDICARE, SELFPAY | PROVIDERS: PCP Family Medicine; Visit Provider Orthopaedic Surgery | DX: M47.896 Other spondylosis, lumbar region (principal); M54.5 Low back pain | CPT/HCPCS: 72110 ==

== ENCOUNTER 2020-11-08 22:42 | Emergency (ER) | payer MEDICARE, SELFPAY ==
--- NOTE | 2020-11-08 23:04 | CTR_ITS ---
PROCEDURE INFORMATION: Exam: CT Abdomen And Pelvis With Contrast Exam date and time: 11/08/2020 11:04 PM Age: 65 years old Clinical indication: Abdominal pain; Left; Prior surgery; Surgery date: 6+ months; Surgery type: Hyst, bladder; Patient HX: L flank pain; Additional info: Rule out aorta/renal pathologies R side TECHNIQUE: Imaging protocol: Computed tomography of the abdomen and pelvis with contrast. Radiation optimization: All CT scans at this facility use at least one of these dose optimization techniques: automated exposure control; mA and/or kV adjustment per patient size (includes targeted exams where dose is matched to clinical indication); or iterative reconstruction. Contrast material: OMNI 300; Contrast volume: 95 ml; Contrast route: INTRAVENOUS (IV); COMPARISON: CT abdomen pelvis w con* [id number] 11/07/2019 5:49 PM RADIATION DOSE METRICS: Total DLP (mGy-cm): 1607.95 FINDINGS: Liver: There is hypoattenuation adjacent to the falciform fissure, findings compatible with focal fatty infiltration. Gallbladder and bile ducts: Is some mild thickening and enhancement of the gallbladder wall within the fundus findings that could represent some inflammatory changes and acalculous cholecystitis. Pancreas: Normal. No ductal dilation. Spleen: Normal. No splenomegaly. Adrenal glands: Normal. No mass. Kidneys and ureters: Normal. No hydronephrosis. Stomach and bowel: Unremarkable. No obstruction. No mucosal thickening. Appendix: No evidence of appendicitis. Intraperitoneal space: Unremarkable. No free air. No significant fluid collection. Vasculature: The calcifications are seen within the thoracic and abdominal aorta, iliac arteries bilaterally. Lymph nodes: Unremarkable. No enlarged lymph nodes. Urinary bladder: Unremarkable as visualized. Reproductive: Unremarkable as visualized. Bones/joints: Unremarkable. No acute fracture. Soft tissues: Unremarkable. CT/CT abdomen pelvis w con* [id number] IMPRESSION: 1. There are no acute abdominal findings. 2. Mild gallbladder wall thickening within the gallbladder fundus, findings that could represent mild inflammatory changes and acalculous cholecystitis. Radiation Dose CTDIVOL = (mGy): DLP = 1607.95 (mGy-cm)
[2020-11-08 23:08] VITALS: BP 131/83; PULSE 88; RESP 18; TEMP 36.4; O2SAT 96; BMI 34.0
[2020-11-08 23:35] LABS: Add Urine Microscopic? NO; Charge for UA Resulting for Rev
[2020-11-08 23:40] LABS: Bilirubin Urine Neg (Negative); Blood Urine Neg (Negative); Glucose Urine UA 4+ (Normal); Ketones Urine Negative (Negative); Leukocyte Esterase Urine Negative (Negative); Nitrate Urine Negative (Negative); Protein Urine Neg (Negative); Urine Appearance Clear (CLEAR); Urine Color Yellow (Yellow); Urobilinogen Urine Norm (Negative); pH Urine 7 (5-7)
[2020-11-09 00:34] LABS: Basophils # 0.1 10^3/uL (0.0-0.1); Basophils % 0.7 %; Eosinophils # 0.2 10^3/uL (0.0-0.8); Eosinophils % 1.9 %; Hematocrit 45.6 % (37.0-47.0); Hemoglobin 14.8 g/dL (11.5-15.3); Lymphocytes # 2.7 10^3/uL (0.8-4.8); Lymphocytes % 26.3 %; Mean Corpuscular HGB Conc 32.5 g/dL (30.0-36.0); Mean Corpuscular Hemoglobin 28.6 pg (28.0-34.0); Mean Corpuscular Volume 88.2 fl (81-99); Mean Platelet Volume 11.2 fL (7.4-10.4); Monocytes # 0.7 10^3/uL (0.2-0.9); Monocytes % 6.3 %; Neutrophils # 6.68 10^3/uL (1.8-7.7); Neutrophils % 64.4 %; Nucleated Red Blood Cells % 0 %; Platelet Count 315 10^3/cmm (130-400); Red Blood Count 5.17 10^6/uL (4.1-5.3); Red Cell Distribution Width 13.5 % (12.1-15.1); White Blood Count 10.4 10^3/uL (4.0-10.0)
[2020-11-09 00:50] LABS: Alanine Aminotransferase 13 U/L (0-33); Albumin Level 3.8 g/dL (3.5-5.2); Alkaline Phosphatase 121 IU/L (35-105); Aspartate Amino Transferase 16 U/L (0-32); Blood Urea Nitrogen 14 mg/dL (8-23); Calcium 9.6 mg/dL (8.5-10.5); Carbon Dioxide 24 mmol/L (22-29); Chloride 100 mmol/L (98-107); Globulin 3.8 g/dL (1.3-4.6); Glucose 322 mg/dL (65-115); Lipase 15 U/L (13-60); Osmolality Calculated 297 mOsm/kg (285-295); Sodium 137 mmol/L (136-145); Total Bilirubin 0.3 mg/dL (0.15-1.2); Total Protein 7.6 g/dL (6.6-8.7)
[2020-11-09] MEDS: iohexol 300 mg/mL 100 mL Btl IV (01:00)
--- NOTE | 2020-11-09 01:06 | ED_ITS ---
HPI - Back Pain/Injury General: Chief Complaint: Back Pain/Injury Stated Complaint: SIDE/BACK PAIN/N/V Time Seen by Provider: 11/09/20 00:00 History of Present Illness: HPI Narrative: Patient states her left flank's been hurting since yesterday and got worse tonight. Denies any hematuria. No problems with urination no dysuria. Patient is scheduled for back surgery but she said that affects her right side which she has sciatica on. MD elicited complaint: other (Left flank pain) Onset (ago): day(s) Timing: constant and progressively worsening Severity: moderate Similar Symptoms Previously: No Quality: sharp Location: left flank Radiation: none Exacerbating factors: movement Relieving factors: immobilization Associated symptoms: Reports no associated symptoms; Deny abdominal pain, chills, fever(s), nausea or vomiting Review of Systems Const: Denies: fever(s), chills or body aches Eyes: Denies: change in vision or blurry vision ENMT: Denies: throat pain or nasal congestion Card: Denies: chest pain or dyspnea on exertion Resp: Denies: dyspnea, productive cough or non-productive cough GI: Denies: abdominal pain, nausea or vomiting : Reports: flank pain (Left side) Musc: Denies: extremity pain Skin/Breast: Denies: rash Neuro: Denies: headache(s) Psych: Denies: anxiety or depression José Miguel/Lymph: Denies: easy bruising PFS ED PFSH: Medical History (Updated 11/09/20 @ 01:59 by DEMETRIUS Devi) Arteriosclerosis of coronary artery -Had PCI of the Diagonal and OM1 on 10/23/[address] Verdin -On aspirin, Plavix, statin, BB BPPV (benign paroxysmal positional vertigo) Chest pain Colon polyp Diabetes -As noted above History of colitis Hyperglycemia due to type 2 diabetes mellitus -A1c-10.5 -Noted hyperglycemia, continue Accu-Cheks, ISS. Add mealtime and long-acting insulin for better control -Consistent carb diet as tolerated -Hypoglycemia precautions -Has had good oral intake so off IVF Hyperlipemia -Continue statin -Noted hypertriglyceridemia Hypertension -Vital signs stable, continue to monitor -Continue oral antihypertensives Surgical History H/O abdominal hysterectomy H/O dilation and curettage H/O foot surgery H/O laparoscopy H/O shoulder surgery S/P colonoscopic polypectomy Stented coronary artery Family History Other CAD (coronary artery disease) Cancer Diabetes Stroke Denies family history of Anesthesia complication Bleeding disorder Social History Smoking and tobacco status: current every day smoker (1pack per day ) Alcohol intake: never Household members: spouse Marital status: Current occupational status: employed History of recent travel: Yes Details: Went to [place] Out of state: Yes Physical Exam Const: COMMON NORMALS: no acute distress, average body habitus and patient oriented x3 HENMT: COMMON NORMALS: normocephalic HEAD & SCALP: normal to inspection and normocephalic FACE & SINUS: normal facial exam Eye: COMMON NORMALS: conjunctivae normal GENERAL EYE: appearance normal, both eyes and all related structures CONJUNCTIVA: Yes conjunctivae normal Neck/C-Spine: COMMON NORMALS: no JVD Chest: COMMONS NORMALS: normal inspection of the chest Resp: COMMON NORMALS: normal respiratory effort and clear to auscultation bilaterally AUSCULTATION: clear to auscultation bilaterally Cardio: COMMON NORMALS: no JVD, regular rate and regular rhythm RATE: regular rate RHYTHM: regular rhythm GI: COMMON NORMALS: Normal to inspection, nondistended, normoactive bowel sounds present : BLADDER/KIDNEY EXAM: Yes CVA tenderness on the left Back/Pelvis: GENERAL BACK: Yes CVA tenderness Extremity: COMMON NORMALS: normal to inspection and full ROM Neuro: COMMON NORMALS: patient oriented x3 Course Vital Signs: Vital signs: Vital Signs Temperature 97.6 F 11/08/20 23:08 Pulse Rate 88 11/08/20 23:08 Respiratory Rate 18 11/08/20 23:08 Blood Pressure 131/83 11/08/20 23:08 Pulse Oximetry 96 11/08/20 23:08 MDM - Back Pain/Injury MDM Narrative: Medical decision making narrative: Radiology study was negative. Labs look good urine showed 4+ glucose which would be consistent with her serum glucose 322. Her sugar was 114 this morning at home did not take her medicine today. Patient encouraged take her medicine follow-up Dr. Nascimento concerning her back pain that she has. I feel that her left flank pain is primarily radiating out from her lumbar spine she is to have surgery here soon. Lab Data: Labs: Lab Results 11/08/20 11/08/20 11/08/20 Range/Units 00:27 23:22 23:30 WBC Cancelled Corrected WBC Cancelled RBC Cancelled Hgb Cancelled Hct Cancelled MCV Cancelled MCH Cancelled MCHC Cancelled RDW Cancelled Plt Count Cancelled MPV Cancelled Gran % Cancelled Neut % (Auto) Cancelled Lymph % (Auto) Cancelled [place] % (Auto) Cancelled Eos % (Auto) Cancelled Baso % (Auto) Cancelled Neut # (Auto) Cancelled Lymph # (Auto) Cancelled [place] # (Auto) Cancelled Eos # (Auto) Cancelled Baso # (Auto) Cancelled Absolute Gran (aut o) Cancelled Nucleated RBC % (a uto) Cancelled Nucleated RBCs # Cancelled Sodium 137 (136-145) mmol/L Potassium 4.0 (3.5-5.1) mmol/L Chloride 100 (98-107) mmol/L Carbon Dioxide 24 (22-29) mmol/L Anion Gap 17.0 (5-19) BUN 14 (8-23) mg/dL Creatinine 0.7 (0.5-0.9) mg/dL GFR Calculation 84.0 L (90-130) mL/min Glucose 322 H (65-115) mg/dL Calculated Osmolal ity 297 H (285-295) mOsm/k g Calcium 9.6 (8.5-10.5) mg/dL Total Bilirubin 0.3 (0.15-1.2) mg/dL AST 16 (0-32) U/L ALT 13 (0-33) U/L Alkaline Phosphata se 121 H (35-105) IU/L Total Protein 7.6 (6.6-8.7) g/dL Albumin 3.8 (3.5-5.2) g/dL Globulin 3.8 (1.3-4.6) g/dL Lipase 15 (13-60) U/L Urine Color Yellow (Yellow) Urine Appearance Clear (CLEAR) Urine pH 7 (5-7) Ur Specific Gravit y 1.010 (1.005-1.030) Urine Protein Neg (Negative) Urine Glucose (UA) 4+ H (Normal) Urine Ketones Negative (Negative) Urine Blood Neg (Negative) Urine Nitrate Negative (Negative) Urine Bilirubin Neg (Negative) Urine Urobilinogen Norm (Negative) mg/dL Ur Leukocyte Loretta ase Negative (Negative) 11/09/20 Range/Units 00:27 WBC 10.4 H Corrected WBC RBC 5.17 Hgb 14.8 Hct 45.6 MCV 88.2 MCH 28.6 MCHC 32.5 RDW 13.5 Plt Count 315 MPV 11.2 H Gran % Neut % (Auto) 64.4 Lymph % (Auto) 26.3 [place] % (Auto) 6.3 Eos % (Auto) 1.9 Baso % (Auto) 0.7 Neut # (Auto) 6.68 Lymph # (Auto) 2.7 [place] # (Auto) 0.7 Eos # (Auto) 0.2 Baso # (Auto) 0.1 Absolute Gran (aut o) Nucleated RBC % (a uto) 0 Nucleated RBCs # 0.0 Sodium (136-145) mmol/L Potassium (3.5-5.1) mmol/L Chloride (98-107) mmol/L Carbon Dioxide (22-29) mmol/L Anion Gap (5-19) BUN (8-23) mg/dL Creatinine (0.5-0.9) mg/dL GFR Calculation (90-130) mL/min Glucose (65-115) mg/dL Calculated Osmolal ity (285-295) mOsm/k g Calcium (8.5-10.5) mg/dL Total Bilirubin (0.15-1.2) mg/dL AST (0-32) U/L ALT (0-33) U/L Alkaline Phosphata se (35-105) IU/L Total Protein (6.6-8.7) g/dL Albumin (3.5-5.2) g/dL Globulin (1.3-4.6) g/dL Lipase (13-60) U/L Urine Color (Yellow) Urine Appearance (CLEAR) Urine pH (5-7) Ur Specific Gravit y (1.005-1.030) Urine Protein (Negative) Urine Glucose (UA) (Normal) Urine Ketones (Negative) Urine Blood (Negative) Urine Nitrate (Negative) Urine Bilirubin (Negative) Urine Urobilinogen (Negative) mg/dL Ur Leukocyte Loretta ase (Negative) Discharge Plan Discharge Patient Disposition: Home Clinical Impression: Back pain Qualifiers: Back pain location: low back pain Chronicity: chronic Back pain laterality: left Sciatica presence: without sciatica Qualified Code(s): M54.5 - Low back pain Sinusitis Qualifiers: Sinusitis location: maxillary Chronicity: acute Recurrence: non-recurrent Qualified Code(s): J01.00 - Acute maxillary sinusitis, unspecified Condition: Stable Prescriptions: New tramadol 50 mg tablet 50 mg PO TID PRN (Reason: pain) Qty: 7 RF: 0 cephalexin 500 mg capsule 500 mg PO Q8H 7 Days Qty: 21 RF: 0 No Action ibuprofen 800 mg tablet 800 mg PO Q8H PRN (Reason: Pain) Qty: 15 RF: 0 Hold Instructions: Resume on 12/10/19. ondansetron 4 mg tablet,disintegrating 4 mg PO Q6H PRN (Reason: nausea and vomiting) Qty: 20 RF: 0 guaifenesin 400 mg tablet 400 mg PO TID 10 Days Qty: 30 RF: 0 clopidogrel 75 mg tablet 75 mg PO DAILY RF: 0 Hold Instructions: Resume on 12/10/19. nitroglycerin 0.4 mg tablet, sublingual 0.4 mg SUBLINGUAL Q5M PRN (Reason: Chest Pain) RF: 0 citalopram 20 mg tablet 40 mg PO DAILY RF: 0 lovastatin 40 mg tablet 80 mg PO DAILY RF: 0 glipizide 10 mg tablet extended release 24hr 10 mg PO BID RF: 0 aspirin 81 mg tablet,delayed release (DR/EC) 81 mg PO DAILY RF: 0 Hold Instructions: Resume on 12/10/19. fenofibrate nanocrystallized 48 mg tablet 48 mg PO DAILY Qty: 90 RF: 0 carvedilol 6.25 mg tablet See Rx Instructions .ROUTE .COMPLEX Qty: 60 RF: 0 cyanocobalamin (vitamin B-12) [Vitamin B-12] 1,000 mcg Tablet 1,000 mcg PO DAILY PRN (Reason: UNKNOWN) RF: 0 Lantus Solostar U-100 Insulin 100 unit/mL (3 mL) Insulin Pen 15 unit SUBCUT QPM RF: 0 multivitamin [Multiple Vitamins] Tablet 1 tab PO DAILY RF: 0 meclizine 25 mg Tablet 25 mg PO QID PRN (Reason: DIZZY) RF: 0 promethazine 25 mg Tablet 25 mg PO Q4H PRN (Reason: Nausea) RF: 0 omeprazole 20 mg Tablet,Delayed Release (Dr/Ec) 20 mg PO DAILY RF: 0 vitamin E 1 cap PO DAILY RF: 0 Humulin 70/30 U-100 KwikPen 100 unit/mL (70-30) insulin pen See Rx Instructions .ROUTE .COMPLEX Qty: 15 RF: 0 lidocaine 5 % adhesive patch,medicated 1 patch topical DAILY Qty: 15 RF: 0 tramadol 50 mg tablet 50 mg PO Q6H PRN (Reason: pain) Qty: 14 RF: 0 tizanidine 4 mg tablet 4 mg PO Q8H PRN (Reason: muscle spasticity) Qty: 14 RF: 0 Discharge Orders: Discharge ED (Routine); Ordered 11/09/20 Ordered By: Ion Antunez Referrals: Desean Conteh, [Primary Care Provider] - Discharge Diet: Usual diet Discharge Activity: Increase activity as tolerated Patient Instructions: Sinusitis (ED) Activity Restrictions/Additional Instructions: Follow-up with medical provider as directed. Take medications as prescribed. Return to the ER or your medical provider if condition worsens. Please read and understand discharge instructions. If any questions ask please. Monitor sugars. Follow-up with your back doctor as scheduled. 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
[2020-11-09] MEDS: ondansetron 2 mg/ML SDV 2 mL 4 MG IVP (01:38)
[2020-11-09] MEDS: TRAMadol 50 mg Tablet PO (02:21)
[2020-11-09] MEDS: cephALEXin 500 mg Capsule PO (02:21)
[2020-11-09 02:27] VITALS: BP 127/82; PULSE 82; RESP 17; O2SAT 96
== END 2020-11-09 02:27 | disposition home or self-care (01) ==
PROVIDERS: Emergency Medicine; Emergency Provider Nurse Practitioner Family; PCP Family Medicine
DX: M54.5 Low back pain (principal); J01.00 Acute maxillary sinusitis, unspecified; E11.65 Type 2 diabetes mellitus with hyperglycemia; E78.5 Hyperlipidemia, unspecified; I10 Essential (primary) hypertension; I25.10 Atherosclerotic heart disease of native coronary artery without angina pectoris; F17.210 Nicotine dependence, cigarettes, uncomplicated; Z79.4 Long term (current) use of insulin; Z79.82 Long term (current) use of aspirin
CPT/HCPCS: 74177; 80053; 81003; 83690; 85025; 96374; 99283; J2405; Q9967

== ENCOUNTER → 2020-11-19 10:13 | Day surgery (SDC) | payer MEDICARE, SELFPAY | PROVIDERS: PCP Family Medicine; Visit Provider Orthopaedic Surgery | DX: Z01.818 Encounter for other preprocedural examination (principal) | CPT/HCPCS: 93005 ==

== ENCOUNTER → 2020-11-21 12:26 | Outpatient (BNVA) | payer MEDICARE, SELFPAY | PROVIDERS: PCP Family Medicine; Visit Provider Orthopaedic Surgery | DX: Z01.812 Encounter for preprocedural laboratory examination (principal); Z20.822 Contact with and (suspected) exposure to COVID-19 | CPT/HCPCS: 87635 ==

== ENCOUNTER 2020-11-26 17:08 | Inpatient (IN) | payer MEDICARE, SELFPAY ==
[2020-11-19 10:08] VITALS: BMI 33.7
--- NOTE | 2020-11-19 10:13 | ECG_ITS ---
[facility] Test Date: 2020-11-19 Pat Name: Judy Rincon Department: Room: Gender: Female [employer]: : 1955 Requested By: Lizbeth Saleh Order Number: [id number] Yolanda MD: Kathryn Barksdale M.D. Measurements Intervals Bivalve Rate: 72 P: 34 AL: 119 QRS: 59 QRSD: 89 T: 64 QT: 391 QTc: 430 Interpretive Statements SINUS RHYTHM WITH SHORT AL INTERVAL Early repolarization change Compared to ECG 02/01/2020 15:51:52 Short AL interval now present Electronically Signed On 11-19-2020 19:42:08 CDT by Kathryn Barksdale M.D. [id number]
--- NOTE | 2020-11-19 10:27 | P.ANESASSM_ITS ---
Pre-Anesthetic Assessment Pre-Anesthetic Assessment: Height/Weight: Height 1.52 m Weight 78.471 kg Preop Diagnosis: l4/5 spondylolisthesis Proposed Procedure: Operation Date: 11/26/20 07:00 Proposed Procedures p L4/5 Interbody fusion with posterolateral fusion, instrumentation L4/5, cage at L4/5 70650, 55163, 33327, 13406, 22737 m3.16 m48.061(Not Applicable) - Luis Alberto Nascimento, Familial anesthetic complications: none Social: Social History: Tobacco and No alcohol Airway: MP: 3 Dentition: False CV/HEM: CV/HEM: CAD (stents > 1 year ) and HTN GI: GI: GERD Metabolic: Metabolic: DM and Hyperlipidemia Musc/skel: Musc/skel: Lower Back Pain Anesthetic Plan: ASA status: 3 Anesthesia: General Risk of > 500 ml blood loss (7ml/kg in children): No PFSH Anesthesia PFSH: Medical History (Updated 11/17/20 @ 00:01 by ) Arteriosclerosis of coronary artery -Had PCI of the Diagonal and OM1 on 10/23/[address] Verdin -On aspirin, Plavix, statin, BB BPPV (benign paroxysmal positional vertigo) Chest pain Colon polyp Diabetes -As noted above History of colitis Hyperglycemia due to type 2 diabetes mellitus -A1c-10.5 -Noted hyperglycemia, continue Accu-Cheks, ISS. Add mealtime and long-acting insulin for better control -Consistent carb diet as tolerated -Hypoglycemia precautions -Has had good oral intake so off IVF Hyperlipemia -Continue statin -Noted hypertriglyceridemia Hypertension -Vital signs stable, continue to monitor -Continue oral antihypertensives Surgical History H/O abdominal hysterectomy H/O dilation and curettage H/O foot surgery H/O laparoscopy H/O shoulder surgery S/P colonoscopic polypectomy Stented coronary artery Family History Other CAD (coronary artery disease) Cancer Diabetes Stroke Denies family history of Anesthesia complication Bleeding disorder Social History Smoking and tobacco status: current every day smoker (1pack per day ) Alcohol intake: never Household members: spouse Marital status: Current occupational status: employed History of recent travel: Yes Details: Went to [place] Out of state: Yes Data Anesthesia Cardiac Studies: No Data to Display
[2020-11-26] VITALS (21 sets, daily range): BP systolic 113–145; BP diastolic 53–72; PULSE 68–84; RESP 12–20; TEMP 36.3–36.9; O2SAT 92–100; BMI 34.4
--- NOTE | 2020-11-26 | XR_ITS ---
WS: [id number] Lumbar spine, C-arm fluoroscopy, 11/26/2020 Clinical Data: L4/5 Interbody fusion with posterolateral fusion, Laminectom Comparison: None. Findings: There are pedicle screws at L4-L5 and an interbody device at L4-L5. XR/XR lumbar spine 2-3V* [id number] Impression: L4-L5 posterior fusion and interbody fusion.
--- NOTE | 2020-11-26 | SCC_ITS ---
Procedure Done: 1. L4/5 Interbody fusion with posterolateral fusion 2. Instrumentation L4/5 3. Cage at L4/5 4. Laminectomy L4 5. use of autograft from same incision 6. allograft 7. Bone marrow aspirate from right iliac crest through separate incision in fascia 8. Use of computer navigation/stereotactic for spine Fluoroscopic guidance was provided to Dr. Nascimento by the radiology department. C-arm images of the lumbar spine were saved for the patient's permanent record. JACQUES
--- NOTE | 2020-11-26 10:58 | PM.HP ---
Providers/Chief Complaint Primary Care Provider: Desean Conteh DO Chief Complaint: L4/5 Interbody fusion with posterolateral fusion 2 History of Present Illness Judy Rincon is a 65 year old female Details: New 65 year old female here for evaluation of low back pain. Patient states her A1c is 6.7. Chief Complaint: low back pain Onset: 2018 she slipped on ice and landed on her back Duration: years Characteristics: throbbing, digging Severity: 09/27 Location: low back Radiating symptoms:right leg anterior Aggravating factors: anything Alleviating factors: none Neuro deficits: denies incontinence of bowel/bladder, saddle anesthesia. Prior tx: Injections with relief for two days Review of Systems Narrative: General ROS: negative for weight changes, fever ENT ROS: negative for nasal congestion, drainage or bleeding, sore throat, dysphagia or ear pain Eyes: PERRL Hematological and Lymphatic ROS: negative for swollen glands or abnormal bleeding Endocrine ROS: negative for polyuria/polydpsia or new changes in weight Respiratory ROS: negative for cough, shortness of breath, or wheezing Cardiovascular ROS: negative for chest pain or dyspnea on exertion Gastrointestinal ROS: negative for reflux, abdominal pain, change in bowel habits, or black or bloody stools Musculoskeletal ROS: negative for back pain, neck pain, or joint pain or swelling except for current problem Neurological ROS: negative for TIA or stoke symptoms Skin: no rashe Medications/Allergies Home Medications Medication Instructions Recorded Confirmed Last Taken Type aspirin 81 mg tablet,delayed 81 mg PO DAILY tab 03/28/19 11/19/20 12/03/19 History release clopidogrel 75 mg tablet 75 mg PO DAILY tab 03/28/19 11/19/20 12/02/19 History glipizide 10 mg tablet, extended 10 mg PO BID 03/28/19 11/19/20 12/04/19 History release 24 hr lovastatin 40 mg tablet 80 mg PO DAILY 03/28/19 11/19/20 12/04/19 History nitroglycerin 0.4 mg sublingual 0.4 mg SUBLINGUAL Q5M PRN 03/28/19 11/19/20 Unknown History tablet cyanocobalamin (vitamin B-12) 1,000 mcg PO DAILY PRN 04/23/19 11/19/20 08/06/19 History [Vitamin B-12] ibuprofen 800 mg tablet 800 mg PO Q8H PRN #15 tab 05/26/19 11/19/20 Unknown Rx meclizine 25 mg PO QID PRN 11/18/19 11/19/20 12/05/19 07:30 History multivitamin [Multiple Vitamins] 1 tab PO DAILY 11/18/19 11/19/20 12/04/19 History omeprazole 20 mg PO DAILY 11/18/19 11/19/20 12/05/19 07:30 History promethazine 25 mg PO Q4H PRN 11/18/19 11/19/20 Unknown History vitamin E 1 cap PO DAILY 11/18/19 11/19/20 12/04/19 History Humulin 70/30 U-100 KwikPen See Rx Instructions .ROUTE 11/20/19 11/19/20 12/05/19 07:30 Rx .COMPLEX #15 ml Lantus Solostar U-100 Insulin 15 unit SUBCUT QPM PRN 12/03/19 11/19/20 12/04/19 History lidocaine 1 patch TOPICAL DAILY #15 ea 02/01/20 11/19/20 Unknown Rx tizanidine 4 mg PO Q8H PRN #14 tab 04/08/20 11/19/20 Unknown Rx tramadol 50 mg PO Q6H PRN #14 tab 04/08/20 11/19/20 Unknown Rx ondansetron 4 mg disintegrating 4 mg PO Q6H PRN #20 tab 08/22/20 11/19/20 Unknown Rx tablet carvedilol 6.25 mg tablet See Rx Instructions .ROUTE 10/09/20 11/19/20 Unknown Rx .COMPLEX #60 tab Allergies Allergy/AdvReac Type Severity Reaction Status Date / Time acetaminophen Allergy unknown Verified 11/19/20 09:59 [From Darvocet-N] amoxicillin Allergy rash Verified 11/19/20 09:59 canagliflozin [From Invokana] Allergy Unknown Verified 11/19/20 09:59 Corticosteroids Allergy nausea Verified 11/19/20 09:59 (Glucocorticoids) vomiting hydrocodone [From Vicodin] Allergy dizziness Verified 11/19/20 09:59 nausea levofloxacin [From Levaquin] Allergy dizziness Verified 11/19/20 09:59 nausea lisinopril Allergy difficulty Verified 11/19/20 09:59 breathing oxycodone [From Percocet] Allergy Unknown Verified 11/19/20 09:59 pregabalin [From Lyrica] Allergy Unknown Verified 11/19/20 09:59 propoxyphene Allergy unknown Verified 11/19/20 09:59 [From Darvocet-N] STEROIDS Allergy Unknown Uncoded 08/22/20 15:38 PFSH Acute PFSH: Medical History (Updated 11/26/20 @ 10:59 by Luis Alberto Nascimento, DO) Arteriosclerosis of coronary artery -Had PCI of the Diagonal and OM1 on 10/23/[address] Verdin -On aspirin, Plavix, statin, BB BPPV (benign paroxysmal positional vertigo) Chest pain Colon polyp Diabetes -As noted above History of colitis Hyperglycemia due to type 2 diabetes mellitus -A1c-10.5 -Noted hyperglycemia, continue Accu-Cheks, ISS. Add mealtime and long-acting insulin for better control -Consistent carb diet as tolerated -Hypoglycemia precautions -Has had good oral intake so off IVF Hyperlipemia -Continue statin -Noted hypertriglyceridemia Hypertension -Vital signs stable, continue to monitor -Continue oral antihypertensives Surgical History H/O abdominal hysterectomy H/O dilation and curettage H/O foot surgery H/O laparoscopy H/O shoulder surgery S/P colonoscopic polypectomy Stented coronary artery Family History Other CAD (coronary artery disease) Cancer Diabetes Stroke Denies family history of Anesthesia complication Bleeding disorder Social History Smoking and tobacco status: current every day smoker (1pack per day ) Alcohol intake: never Household members: spouse Marital status: Current occupational status: employed History of recent travel: Yes Details: Went to [place] Out of state: Yes Physical Exam Narrative: EXAM NARRATIVE: CONSTITUTIONAL: The patient is a normal appearing [] in no apparent distress. GENERAL: Patient in no acute distress. CARDIAC: Regular rate and rhythm. CHEST: Normal inspiratory effort, normal respiratory rate. ABDOMEN: Soft and nontender. SKIN: Clear, warm and intact. NEURO?PSYCH: The patient is alert and oriented to person, place and time. Sensorv /SILT Motor StrengthShoulder abduction C5 5/5Wrist extension C6 5/5Elbow extension C7 5/5Hand Airborne Operations Superintendent C8 5/5Finger abduction T15/5 Radial/ Ulnar/ Median n intact LowerSensory (SILT)Motor StrengthHin flexion L2/3Ant/inner thigh 5/5Hip adduction L2/3 5/5Knee extension L4 Lat thigh, 5/5Toe dorsiflexion L5 5/5Ankle dorsiflexion L5/ [id number] flexion S1 5/5 DTRBleeps 2+Triceps 2+Brachioradialis 2+Patellar 2+Achilles 2+ MUSCULOSKELETAL: [] UPPEREXTREMITIES: The patient had full active ROM in fingers, wrist, elbow, and shoulder. The patient demonstrated ability to fully flex/extend/abduct/adduct fingers, make ok sign, cross 2nd/3rd digits, extend 1st digit fully.. Radial pulse 2+, CR<2 seconds. LOWER EXTREMITIES: Pt has full, active ROM of toes, ankle, knee, and hip. Dorsalis pedis/posterior tibialis pulses 2+, CR<2 seconds. SPINE: Skin warm, dry, intact. A&P Assessment and plan (1) Spondylolisthesis at L4-L5 level: L4/5 PLIF Status: Acute Attestations Medical Necessity Statement*: failed conservative tx Coding Level of Care Code Acute Ssas Developer for [facility] Santiagod Diagnoses Spondylolisthesis at L4-L5 level M43.16
--- NOTE | 2020-11-26 10:59 | W.PM.OPSUD ---
Surgery/Procedure H&P Update DATE OF PROCEDURE: November 26, 2020 DATE H&P PERFORMED: 11/26/20 H&P UPDATE INFORMATION: I have reviewed H&P completed within last 30 days, I have examined patient prior to procedure and No changes to prior documentation PREOP DIAGNOSIS: l4/5 spondylolisthesis PLANNED PROCEDURE: Operation Date: 11/26/20 12:10 Proposed Procedures p L4/5 Interbody fusion with posterolateral fusion, instrumentation L4/5, cage at L4/5 96920, 61532, 64787, 06902, 38777 m3.16 m48.061(Not Applicable) - Luis Alberto Nascimento, DO
[2020-11-26 11:34] LABS: Glucose Point of Care 227 mg/dL (70-110)
--- NOTE | 2020-11-26 11:43 | P.ANESUD_ITS ---
Pre-Anesthetic Update Pre-Anesthetic Assessment: Date of Surgery/Procedure: 11/26/20 Preop Peggy gnosis: l4/5 spondylolisthesis Proposed Procedure: Operation Date: 11/26/20 12:10 Proposed Procedures p L4/5 Interbody fusion with posterolateral fusion, instrumentation L4/5, cage at L4/5 84859, 98170, 94044, 80745, 53231 m3.16 m48.061(Not Applicable) - Luis Alberto Nascimento, DO Any changes to Pre-Anesthetic Assessment?: No Last Intake: Intake Last Liquid Date 11/25/20 Last Liquid Time 21:00 Last Solid Date 11/25/20 Last Solid Time 21:00 Labs Last 48hrs: Laboratory Results - last 48 hr 11/26/20 11:24 POC Glucose 227 H Vitals: Temperature 98.5 F 11/26/20 11:31 Temperature Source Temporal Artery S can 11/26/20 11:31 Pulse Rate 75 11/26/20 11:31 Pulse Rhythm 11/26/20 11:11 Pulse Strength 3+ Normal 11/26/20 11:11 Respiratory Rate 18 11/26/20 11:31 Blood Pressure 115/53 11/26/20 11:31 Blood Pressure Nette n 73 11/26/20 11:31 Pulse Oximetry 96 11/26/20 11:31 Oxygen Delivery Me thod 11/26/20 11:31 Exam: Pre-Anes Outpt Exam: alert, oriented x 3, clear to auscultation bilaterally and regular rate & rhythm Cardiac Studies: No Data to Display
[2020-11-26] MEDS: sodium chloride 0.9% 1,000 ML 30 ML IV (11:47)
[2020-11-26] MEDS: insulin regular-human 100 units/1 mL 10 UNIT IVP (11:54)
[2020-11-26 12:51] LABS: Glucose Point of Care 158 mg/dL (70-110)
[2020-11-26] MEDS: clindamycin 900 MG/50 ML PREMIX 100 MG IV ×2 (13:19→20:36)
[2020-11-26] MEDS: heparin, porcine 1,000 unit/mL INJ 10 mL 10000 UNIT INJECTION (14:29)
[2020-11-26] MEDS: vancomycin 1,000 MG SDV 1000 MG XX (14:31)
--- NOTE | 2020-11-26 16:11 | P.OP_ITS ---
Operative Report Date of procedure: November 26, 2020 Pre-op Diagnosis: l4/5 spondylolisthesis Post-op diagnosis: same Procedure Done: 1. L4/5 Interbody fusion with posterolateral fusion 2. Instrumentation L4/5 3. Cage at L4/5 4. Laminectomy L4 5. use of autograft from same incision 6. allograft 7. Bone marrow aspirate from right iliac crest through separate incision in fascia 8. Use of computer navigation/stereotactic for spine Surgeon: Luis Alberto Nascimento Anesthesia: General Estimated blood loss (mL): 150 Condition: stable Disposition: PACU Procedure: Patient is brought to the operative suite. After undergoing anesthesia, the patient had neuro monitoring attached. Patient was then placed in the prone position on the Devan table. All areas of impingement were well- padded. Patient was then prepped and draped in the normal sterile fashion. Skin incision was then made over the L4/5 Disk space. Subperiosteal dissection was made out to the transverse processes of L4 and L5. Once the exposure was complete attention was then brought to placing the pedicle screws. Prior to placing the pedicle screws the fiducial for the computer navigation was attached to the right iliac crest. The computer information was linked in and the C arm send was not completed and the data was downloaded in the computer. Prior to placing the pedicle screws the [employer] bone marrow aspirate kit was used to aspirate bone marrow aspirate from right iliac crest. This was done by using the sharp probe to open up the bone. Aspiration was performed and then the blunt probe was then used to dissect down to through the bone tunnel. An aspirating well drawn back a millimeter approximately 20 cc of bone marrow aspirate was used. Admixed with the allograft and autograft bone that will be used. The technique for placing the pedicle screws was to use a drill followed by the gearshift probe attached to the computer navigation. Followed by the ball probe to feel the superior inferior medial lateral hopper of the pedicles. Then placement of the screws using computer navigation. Was done at each pedicle. Screws were placed at L4 bilaterally and L5. Next attention was brought to performing the laminectomy ofL4. This was done using the high-speed bur Kerrisons and curettes. Once the lamina was removed and then attention was brought to performing a partial facetectomy on the contralateral side. This was done again using the high-speed bur curettes and Kerrisons. The ligamentum flavum was taken down bilaterally from L4 to L5. Attention was then brought to the facet on the ipsilateral side. The facet was taken down. The L5 nerve was decompressed as it passed around the L5 pedicle. The laminectomy was done for purposes of decompressing the nerve as well as placement of the cage. The L4 nerve was identified as it traversed through the L4/5 foramen. The thecal sac was identified and retracted. The L4/5 disc base was identified. Using a knife the disc base was opened. And then sequential teresa were placed. The first shaver was a 6 and the last shaver was a 10. Using a pituitary and down going curette the endplates were scraped and disc material was removed from the space. Once adequate decompression of the disc base was felt to be had. Osteoamp sponge was packed into the anterior aspect of the disc base. Then a size 10 cage from [employer] was placed after packing osteoamp into the cage. While placing the cage the thecal sac and L5 nerve was protected. C arm was used to ensure that the cages placed in the appropriate position. Attention was then brought to attaching the rods to the screws placed in the L4 and L5 bilaterally. Caps were torqued into position. Locking the construct in place. Wound was copiously irrigated and then attention was brought to decorticating the facets and transverse processes laterally. Bone that was taken down from the lamina was used along with osteoamp fibers and sponges were packed into the lateral gutters along the facet joints. This was done bilaterally. Wound was then closed in a layered fashion starting with the thoracolumbar fascia. 0-strata fix was used the sub cutaneous tissue was closed with 2-0 vicryl and 2 oh strata fix and skin with 3-0 nylon. G Silverlon dressing was used seal the skin and a steril dressing was applied. Patient was then placed in the supine position. The endotracheal tube was removed and patient was transferred to the PACU in stable condition.
--- NOTE | 2020-11-26 16:22 | PM.CONSULT ---
Providers/Reason For Consult Consulting Physician/Specialty*: MD Nany/internal medicine Reason for Consult*: Medical management Attending Physician: Luis Alberto Nascimento DO Primary Care Provider: Desean Conteh DO History of Present Illness History of Present Illness Judy Rincon is a 65 year old female with past medical history of type 2 diabetes mellitus, hypertension, hyperlipidemia, post PCI to OM1 in 2017 who was admitted to the hospital for L4-L5 interbody fusion with posterior lateral fusion. Patient is postoperative and internal medicine has been consulted for medical management. On examination patient lying comfortably in bed, mildly drowsy postoperatively. No labs done by the day today. She states she takes her medications regularly. Checks her blood sugars in usual numbers are postprandial around 140 and fasting less than 100. Denies any nausea, matting, headache, fever, recent exposure to COVID-19. Does not check her blood pressure at home. Reports no changes in medication recently Review of Systems General: Reports: 10 or more systems reviewed and unremarkable except in HPI and below Const: Denies: fever(s), chills, body aches, change in appetite, change in weight, malaise, night sweats, diaphoresis, change in sleep pattern, daytime sleepiness or snoring Eyes: Denies: change in vision, blurry vision, photophobia, eye discomfort or eye discharge ENMT: Denies: throat pain, enlarged tonsils, hoarseness, mouth pain, oral sores, dry mouth, tinnitus, nasal congestion or post nasal drip Card: Denies: chest pain, palpitations, irregular heart rhythm, edema, swelling of feet/ankles, lightheadedness, syncope, pre-syncope, dyspnea on exertion, orthopnea, leg pain with exertion or acrocyanosis Resp: Denies: dyspnea, productive cough, non-productive cough, wheezing, stridor, pain on inspiration, change in phlegm color, hemoptysis or chest congestion GI: Denies: abdominal pain, nausea, vomiting, hematemesis, coffee ground emesis, dysphagia, heartburn, diarrhea, constipation, bloating, GI cramping, change in bowel habits, pain on defecation, hematochezia or melena : Denies: flank pain, dysuria, urinary frequency, urinary urgency, urinary hesitancy, nocturia or hematuria Musc: Denies: neck pain, back pain, extremity pain, joint pain, joint swelling, joint redness, joint stiffness or limited range of motion Neuro: Denies: headache(s), numbness in extremities, weakness in extremities, sensory changes, lack of coordination, difficulty walking, frequent falls, dizziness, vertigo, confusion, Slurred speech present, difficulty communicating thoughts or seizure-like activity Psych: Denies: anxiety, depression, mood swings, panic attacks, hopelessness or irritability Endo: Denies: polyuria, polydipsia, tired all the time, cold intolerance, excessive sweating, flushing or heat intolerance José Miguel/Lymph: Denies: easy bruising or easy bleeding All/Imm: Denies: tongue swelling, facial swelling or acute wheezing Meds/Allergies Home Medications and Allergies Home Medications Medication Instructions Recorded Confirmed Last Taken Type aspirin 81 mg tablet,delayed 81 mg PO DAILY tab 03/28/19 11/26/20 11/19/20 History release clopidogrel 75 mg tablet 75 mg PO DAILY tab 03/28/19 11/26/20 11/20/20 History glipizide 10 mg tablet, extended 10 mg PO BID 03/28/19 11/26/20 11/24/20 History release 24 hr lovastatin 40 mg tablet 80 mg PO DAILY 03/28/19 11/26/20 11/25/20 History nitroglycerin 0.4 mg sublingual 0.4 mg SUBLINGUAL Q5M PRN 03/28/19 11/19/20 Unknown History tablet cyanocobalamin (vitamin B-12) 1,000 mcg PO DAILY PRN 04/23/19 11/26/20 11/20/20 History [Vitamin B-12] ibuprofen 800 mg tablet 800 mg PO Q8H PRN #15 tab 05/26/19 11/26/20 11/25/20 Rx meclizine 25 mg PO QID PRN 11/18/19 11/26/20 11/20/20 History multivitamin [Multiple Vitamins] 1 tab PO DAILY 11/18/19 11/26/20 11/20/20 History omeprazole 20 mg PO DAILY 11/18/19 11/26/20 11/20/20 History promethazine 25 mg PO Q4H PRN 11/18/19 11/26/20 11/20/20 History vitamin E 1 cap PO DAILY 11/18/19 11/26/20 11/20/20 History Humulin 70/30 U-100 KwikPen See Rx Instructions .ROUTE 11/20/19 11/26/20 11/25/20 Rx .COMPLEX #15 ml Lantus Solostar U-100 Insulin 15 unit SUBCUT QPM PRN 12/03/19 11/26/20 11/25/20 History lidocaine 1 patch TOPICAL DAILY #15 ea 02/01/20 11/19/20 Unknown Rx tizanidine 4 mg PO Q8H PRN #14 tab 04/08/20 11/26/20 11/20/20 Rx tramadol 50 mg PO Q6H PRN #14 tab 04/08/20 11/26/20 11/20/20 Rx ondansetron 4 mg disintegrating 4 mg PO Q6H PRN #20 tab 08/22/20 11/26/20 11/20/20 Rx tablet carvedilol [Coreg] 3.125 mg PO BID #60 tab 11/27/20 Unknown Rx cyclobenzaprine 10 mg PO TID PRN 7 Days #30 tab 11/27/20 Unknown Rx tramadol 50 mg PO Q6H PRN 7 Days #40 tab 11/27/20 Unknown Rx Allergies Allergy/AdvReac Type Severity Reaction Status Date / Time acetaminophen Allergy unknown Verified 11/19/20 09:59 [From Darvocet-N] amoxicillin Allergy rash Verified 11/19/20 09:59 canagliflozin [From Invokana] Allergy Unknown Verified 11/19/20 09:59 Corticosteroids Allergy nausea Verified 11/19/20 09:59 (Glucocorticoids) vomiting hydrocodone [From Vicodin] Allergy dizziness Verified 11/19/20 09:59 nausea levofloxacin [From Levaquin] Allergy dizziness Verified 11/19/20 09:59 nausea lisinopril Allergy difficulty Verified 11/19/20 09:59 breathing oxycodone [From Percocet] Allergy Unknown Verified 11/19/20 09:59 pregabalin [From Lyrica] Allergy Unknown Verified 11/19/20 09:59 propoxyphene Allergy unknown Verified 11/19/20 09:59 [From Darvocet-N] STEROIDS Allergy Unknown Uncoded 08/22/20 15:38 Current Medications Current Medications Generic Name Dose Route Start Last Admin Trade Name Freq PRN Reason Stop Dose Admin Sodium Chloride 1,000 mls @ 30 mls/hr 11/26/20 11:30 11/26/20 11:47 Sodium Chloride 0.9% IV 11/27/20 11:29 30 mls/hr .Q24H TOMAS Administration PFSH Acute PFSH: Medical History (Updated 11/26/20 @ 16:57 by Sagar Ayon MD) Arteriosclerosis of coronary artery -Had PCI of the Diagonal and OM1 on 10/23/[address] Verdin -On aspirin, Plavix, statin, BB BPPV (benign paroxysmal positional vertigo) Chest pain Colon polyp Diabetes -As noted above History of colitis Hyperglycemia due to type 2 diabetes mellitus -A1c-10.5 -Noted hyperglycemia, continue Accu-Cheks, ISS. Add mealtime and long-acting insulin for better control -Consistent carb diet as tolerated -Hypoglycemia precautions -Has had good oral intake so off IVF Hyperlipemia -Continue statin -Noted hypertriglyceridemia Hypertension -Vital signs stable, continue to monitor -Continue oral antihypertensives Surgical History H/O abdominal hysterectomy H/O dilation and curettage H/O foot surgery H/O laparoscopy H/O shoulder surgery S/P colonoscopic polypectomy Stented coronary artery Family History Other CAD (coronary artery disease) Cancer Diabetes Stroke Denies family history of Anesthesia complication Bleeding disorder Social History Smoking and tobacco status: current every day smoker (1pack per day ) Alcohol intake: never Household members: spouse Marital status: Current occupational status: employed History of recent travel: Yes Details: Went to [place] Out of state: Yes Vitals/I&O/Wt Last Vital Signs Temp 98.5 F 11/26/20 11:31 Pulse 75 11/26/20 11:31 Resp 18 11/26/20 11:31 BP 115/53 11/26/20 11:31 Pulse Ox 96 11/26/20 11:31 11/26/20 11/26/20 11/26/20 06:59 14:59 22:59 Intake Total 50 / 50 Balance 50 / 50 Physical Exam Narrative: EXAM NARRATIVE: EXAM NARRATIVE: General: No acute distress, AO x3, drowsy, NC oxygen supplementation HEENT: PERRLA, pupils bilaterally equal and reactive Chest:Bronchial breath sounds b/l ,decreased air entry, equal good air entry bilaterally, no more fine basal crackles CVS: S1-S2 regular, no murmurs, no tachycardia, no gallops, no rubs Abdomen: Soft, nontender, no organomegaly, bowel sounds present, morbidly obese Neuro: No focal deficits, no facial deformity, AO x3, . Urinary Catheter Management^: Leonardo: Cath Placed During This Visit: yes Urinary Catheter Date of Insertion: 11/26/20 Urinary Catheter Time of Insertion: 13:58 A&P Assessment and plan (1) Spondylolisthesis at L4-L5 level: Status: Acute (2) Diabetes: Status: Acute Qualifiers: Diabetes mellitus complication detail: with unspecified neuropathy Diabetes mellitus complication status: with neurologic complications Diabetes mellitus longterm insulin use: with long term care pharmacist use Diabetes mellitus type: type 2 Qualified Code(s): E11.40 - Type 2 diabetes mellitus with diabetic neuropathy, unspecified; Z79.4 - salvage determiner (current) use of insulin (3) Arteriosclerosis of coronary artery: Status: Acute (4) Hypertension: Status: Acute Qualifiers: Hypertension type: essential hypertension Qualified Code(s): I10 - Essential (primary) hypertension (5) Hyperlipemia: Status: Acute Qualifiers: Hyperlipidemia type: mixed hyperlipidemia Qualified Code(s): E78.2 - Mixed hyperlipidemia Additional A&P Information Check stat labs including CBC and CMP. Post spinal fusion: Postoperative day 0. Continue physical therapy, anticoagulation, pain management as per primary team. Type 2 diabetes mellitus: Most recent A1c from November 07 8.1. Repeat HbA1c. Stop OHA. Lantus 15 units every afternoon. Start sliding scale at moderate dose before meals and at bedtime. Cardiac carb consistent diet. Hypertension: Goal blood pressure less than 140/90 mmHg. Continue with home dose of carvedilol. CAD: Post PCI. No active chest pain. Continue with aspirin, Plavix, statin. Continue other chronic medication. Check HbA1c, lipid panel, TSH, TIBC. Full code. Anticoagulation per primary team. Cardiac carb consistent diet. Thank you for giving us opportunity to take care of Ms. Rincon. We will continue to follow. Consult Attestations Medical Necessity Statement: As per primary team. Time Spent in Patient Care: Greater than 35 minutes (>than 50% of time spent in counselling and/or direct pt care on unit). Coding Level of Care Code Acute Tack Puller Machine for Chg Fwd Diagnoses Spondylolisthesis at L4-L5 level M43.16 Diabetes E11.40; Z79.4 Diabetes mellitus complication detail: with unspecified neuropathy Diabetes mellitus complication status: with neurologic complications Diabetes mellitus long term care pharmacist insulin use: with longterm use Diabetes mellitus type: type 2 Arteriosclerosis of coronary artery I25.10 Hypertension I10 Hypertension type: essential hypertension Hyperlipemia E78.2 Hyperlipidemia type: mixed hyperlipidemia
[2020-11-26] MEDS: fentaNYL 50 mcg/mL INJ 2mL IVP ×2 (16:47→16:52)
[2020-11-26 16:49] LABS: Glucose Point of Care 211 mg/dL (70-110)
--- NOTE | 2020-11-26 17:00 | ANE.PACU2 ---
Inpatient post-anesthesia follow up: Airway intact: Yes Vital signs: Temperature 98.5 F Pulse Rate 75 Respiratory Rate 18 Blood Pressure 115/53 Pulse Oximetry 96 Oxygen Delivery Me thod Room Air Oxygen Flow Rate Fraction of Inspir ed Oxygen Hydration adequate: Yes Nausea and vomiting: No Pain level: 2 Mental status: Baseline
[2020-11-26] MEDS: HYDROmorphone 1 mg/mL INJ 1 mL 0.5 MG IVP ×2 (17:10→17:20)
[2020-11-26 18:29] LABS: Glucose Point of Care 251 mg/dL (70-110)
[2020-11-26] MEDS: carvedilol 6.25 mg Tablet PO (18:45)
[2020-11-26] MEDS: docusate sodium 100 mg Capsule PO (18:45)
[2020-11-26] MEDS: ketorolac 30 mg/mL INJ IVP (18:46)
[2020-11-26] MEDS: insulin glargine 100 units/1 mL 15 UNIT SUBCUT (18:48)
[2020-11-26] MEDS: lactated ringers 1,000 ML 90 ML IV (18:49)
[2020-11-26 20:28] LABS: Glucose Point of Care 235 mg/dL (70-110)
[2020-11-26] MEDS: TRAMadol 50 mg Tablet PO (20:37)
[2020-11-26] MEDS: tizanidine 4 mg Tablet PO (20:38)
[2020-11-26] MEDS: morphine 4 mg/mL SDV 1 mL 2 MG IVP (21:42)
[2020-11-27] VITALS (8 sets, daily range): BP systolic 70–114; BP diastolic 40–60; PULSE 74–85; RESP 14–17; TEMP 36.4–36.8; O2SAT 91–97
[2020-11-27 02:26] LABS: Basophils # 0.1 10^3/uL (0.0-0.1); Basophils % 0.5 %; Eosinophils # 0.1 10^3/uL (0.0-0.8); Eosinophils % 1.1 %; Hematocrit 35.5 % (37.0-47.0); Hemoglobin 11.4 g/dL (11.5-15.3); Lymphocytes % 18.5 %; Mean Corpuscular HGB Conc 32.1 g/dL (30.0-36.0); Mean Corpuscular Hemoglobin 28.8 pg (28.0-34.0); Mean Corpuscular Volume 89.6 fl (81-99); Mean Platelet Volume 11.2 fL (7.4-10.4); Monocytes # 0.8 10^3/uL (0.2-0.9); Neutrophils % 72.4 %; Nucleated Red Blood Cells % 0 %; Platelet Count 265 10^3/cmm (130-400); Red Blood Count 3.96 10^6/uL (4.1-5.3); Red Cell Distribution Width 13.9 % (12.1-15.1); White Blood Count 10.9 10^3/uL (4.0-10.0)
[2020-11-27 02:43] LABS: Estmated Average Glucose 151; Hemoglobin A1C 6.9 % (4.0-6.0)
[2020-11-27 02:48] LABS: Alanine Aminotransferase 14 U/L (0-33); Albumin Level 3.3 g/dL (3.5-5.2); Alkaline Phosphatase 83 IU/L (35-105); Anion Gap 14.2 (5-19); Aspartate Amino Transferase 27 U/L (0-32); Blood Urea Nitrogen 23 mg/dL (8-23); Calcium 7.8 mg/dL (8.5-10.5); Carbon Dioxide 26 mmol/L (22-29); Chloride 105 mmol/L (98-107); Globulin 2.7 g/dL (1.3-4.6); Glomerular Filtration Rate 55.6 mL/min (90-130); Glucose 62 mg/dL (65-115); Osmolality Calculated 294 mOsm/kg (285-295); Potassium 4.2 mmol/L (3.5-5.1); Sodium 141 mmol/L (136-145); Total Bilirubin 0.3 mg/dL (0.15-1.2)
[2020-11-27 03:35] LABS: Iron 40 ug/dL (37-145); Percent Saturation 16.4 % (20-50); Thyroid Stimulating Hormone 1.09 uIU/mL (0.27-4.20); Total Iron Binding Capacity 243 mcg/dl; Unsaturated Iron Binding 203 ug/dL (112-347)
[2020-11-27] MEDS: lactated ringers 1,000 ML 90 ML IV (04:20)
[2020-11-27] MEDS: clindamycin 900 MG/50 ML PREMIX 100 MG IV (04:35)
[2020-11-27] MEDS: TRAMadol 50 mg Tablet PO ×2 (04:48→13:48)
[2020-11-27 05:49] LABS: Glucose Point of Care 70 mg/dL (70-110)
[2020-11-27] MEDS: promethazine 25 mg Tablet PO (05:52)
--- NOTE | 2020-11-27 05:55 | PC.NURSE ---
PT GIVEN/TAKEN OJ BY ARIANNA D/T BS OF 70 THIS MORNING
--- NOTE | 2020-11-27 06:01 | PC.NURSE ---
V/S COMPLETED BY JEEP DRIVER, CHARTED BY THIS NURSE
--- NOTE | 2020-11-27 07:57 | P.DS_ITS ---
Discharge Providers Date of Admission: 11/26/20 17:08 Date of Discharge: November 27, 2020 Attending Provider at Admission: Luis Alberto Nascimento DO Attending Provider at Discharge: Luis Alberto Nascimento DO Primary Care Provider: Desean Conteh DO Diagnoses at Discharge Discharge Diagnosis (1) Spondylolisthesis at L4-L5 level: Status: Acute (2) Diabetes: Status: Acute Permanent problem details: -As noted above Qualifiers: Diabetes mellitus type: type 2 Diabetes mellitus chcf insulin use: with chcf use Diabetes mellitus complication status: with neurologic complications Diabetes mellitus complication detail: with unspecified neuropathy Qualified Code(s): E11.40 - Type 2 diabetes mellitus with diabetic neuropathy, unspecified; Z79.4 - contract 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 manager (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) use of insulin (3) Arteriosclerosis of coronary artery: Status: Acute Permanent problem details: -Had PCI of the Diagonal and OM1 on 10/23/[address] Verdin -On aspirin, Plavix, statin, BB (4) Hypertension: Status: Acute Permanent problem details: -Vital signs stable, continue to monitor -Continue oral antihypertensives Qualifiers: Hypertension type: essential hypertension Qualified Code(s): I10 - Essential (primary) hypertension (5) Hyperlipemia: Status: Acute Permanent problem details: -Continue statin -Noted hypertriglyceridemia Qualifiers: Hyperlipidemia type: mixed hyperlipidemia Qualified Code(s): E78.2 - Mixed hyperlipidemia Reason for Visit Reason for Visit: L4/5 Interbody fusion with posterolateral fusion 2 Hospital Course Hospital Course Patient is admitted on 11/26/2020 and discharged on 11/27/2020 the hospital stay was uneventful. Physical Exam Narrative: EXAM NARRATIVE: Patient resting comfortably in bed 5-5 strength bilateral lower extremities. Controlled with Ultram. Urinary Catheter Management^: Leonardo: Cath Placed During This Visit: yes Urinary Catheter Date of Insertion: 11/26/20 Urinary Catheter Time of Insertion: 13:58 Discharge Data Data Completed and Pending: Pending at discharge Category Date Time Status C-arm Fluoroscopy [id number] Routine Exams 11/26/20 10:45 Taken XR lumbar spine 2 -3V* [id number] Routine Exams 11/26/20 Taken Labs from last 24 hours 11/27/20 11/27/20 11/27/20 05:29 02:00 02:00 WBC RBC Hgb Hct MCV MCH MCHC RDW Plt Count MPV Neut % (Auto) Lymph % (Auto) [place] % (Auto) Eos % (Auto) Baso % (Auto) Neut # (Auto) Lymph # (Auto) [place] # (Auto) Eos # (Auto) Baso # (Auto) Nucleated RBC % (a uto) Nucleated RBCs # Sodium 141 Potassium 4.2 Chloride 105 Carbon Dioxide 26 Anion Gap 14.2 BUN 23 Creatinine 1.0 H GFR Calculation 55.6 L Glucose 62 L POC Glucose 70 Estimat Average Gl ucose 151 Hemoglobin A1c 6.9 H Calculated Osmolal ity 294 Calcium 7.8 L Iron 40 TIBC 243 % Saturation 16.4 L Unsat Iron Binding 203 Total Bilirubin 0.3 AST 27 ALT 14 Alkaline Phosphata se 83 Total Protein 6.0 L Albumin 3.3 L Globulin 2.7 TSH 1.09 11/27/20 11/26/20 11/26/20 02:00 20:08 18:09 WBC 10.9 H RBC 3.96 L Hgb 11.4 L Hct 35.5 L MCV 89.6 MCH 28.8 MCHC 32.1 RDW 13.9 Plt Count 265 MPV 11.2 H Neut % (Auto) 72.4 Lymph % (Auto) 18.5 [place] % (Auto) 7.0 Eos % (Auto) 1.1 Baso % (Auto) 0.5 Neut # (Auto) 7.90 H Lymph # (Auto) 2.0 Daggett # (Auto) 0.8 Eos # (Auto) 0.1 Baso # (Auto) 0.1 Nucleated RBC % (a uto) 0 Nucleated RBCs # 0.0 Sodium Potassium Chloride Carbon Dioxide Anion Gap BUN Creatinine GFR Calculation Glucose POC Glucose 235 H 251 H Estimat Average Gl ucose Hemoglobin A1c Calculated Osmolal ity Calcium Iron TIBC % Saturation Unsat Iron Binding Total Bilirubin AST ALT Alkaline Phosphata se Total Protein Albumin Globulin TSH 11/26/20 11/26/20 11/26/20 16:43 12:48 11:24 WBC RBC Hgb Hct MCV MCH MCHC RDW Plt Count MPV Neut % (Auto) Lymph % (Auto) [place] % (Auto) Eos % (Auto) Baso % (Auto) Neut # (Auto) Lymph # (Auto) [place] # (Auto) Eos # (Auto) Baso # (Auto) Nucleated RBC % (a uto) Nucleated RBCs # Sodium Potassium Chloride Carbon Dioxide Anion Gap BUN Creatinine GFR Calculation Glucose POC Glucose 211 H 158 H 227 H Estimat Average Gl ucose Hemoglobin A1c Calculated Osmolal ity Calcium Iron TIBC % Saturation Unsat Iron Binding Total Bilirubin AST ALT Alkaline Phosphata se Total Protein Albumin Globulin TSH Vitals: Last Vital Signs Temp 98.2 F 11/27/20 07:33 Pulse 74 11/27/20 07:33 Resp 14 11/27/20 07:33 BP 114/49 11/27/20 07:33 Pulse Ox 95 11/27/20 07:33 Discharge Plan Discharge Patient Disposition: Home Condition: Stable Prescriptions: New tramadol 50 mg tablet 50 mg PO Q6H PRN (Reason: pain) 7 Days Qty: 40 RF: 0 cyclobenzaprine 10 mg tablet 10 mg PO TID PRN (Reason: muscle spasm) 7 Days Qty: 30 RF: 0 Continued ibuprofen 800 mg tablet 800 mg PO Q8H PRN (Reason: Pain) Qty: 15 RF: 0 Hold Instructions: Resume on 12/10/19. ondansetron 4 mg tablet,disintegrating 4 mg PO Q6H PRN (Reason: nausea and vomiting) Qty: 20 RF: 0 clopidogrel 75 mg tablet 75 mg PO DAILY RF: 0 Hold Instructions: Resume on 12/10/19. nitroglycerin 0.4 mg tablet, sublingual 0.4 mg SUBLINGUAL Q5M PRN (Reason: Chest Pain) RF: 0 lovastatin 40 mg tablet 80 mg PO DAILY RF: 0 glipizide 10 mg tablet extended release 24hr 10 mg PO BID RF: 0 aspirin 81 mg tablet,delayed release (DR/EC) 81 mg PO DAILY RF: 0 Hold Instructions: Resume on 12/10/19. carvedilol 6.25 mg tablet See Rx Instructions .ROUTE .COMPLEX Qty: 60 RF: 0 cyanocobalamin (vitamin B-12) [Vitamin B-12] 1,000 mcg Tablet 1,000 mcg PO DAILY PRN (Reason: UNKNOWN) RF: 0 Lantus Solostar U-100 Insulin 100 unit/mL (3 mL) Insulin Pen 15 unit SUBCUT QPM PRN (Reason: high blood sugar) RF: 0 multivitamin [Multiple Vitamins] Tablet 1 tab PO DAILY RF: 0 meclizine 25 mg Tablet 25 mg PO QID PRN (Reason: DIZZY) RF: 0 promethazine 25 mg Tablet 25 mg PO Q4H PRN (Reason: Nausea) RF: 0 omeprazole 20 mg Tablet,Delayed Release (Dr/Ec) 20 mg PO DAILY RF: 0 vitamin E 1 cap PO DAILY RF: 0 Humulin 70/30 U-100 KwikPen 100 unit/mL (70-30) insulin pen See Rx Instructions .ROUTE .COMPLEX Qty: 15 RF: 0 lidocaine 5 % adhesive patch,medicated 1 patch topical DAILY Qty: 15 RF: 0 tramadol 50 mg tablet 50 mg PO Q6H PRN (Reason: pain) Qty: 14 RF: 0 tizanidine 4 mg tablet 4 mg PO Q8H PRN (Reason: muscle spasticity) Qty: 14 RF: 0 Discharge Orders: Discharge Order (Routine); Ordered 11/27/20 Ordered By: Luis Alberto Nascimento Discharge Diet: Advance as tolerated Discharge Activity: Limit activity as instructed Patient Instructions: Opioid Safety Activity Restrictions/Additional Instructions: Thank you for [facility] for your care! The following is a list of instructions, from your provider, to follow upon your discharge to ensure you have the optimal recovery from your recent injury orsurgery. Follow-up care is a yepez part of your treatment and safety. Be sure to make and go to all appointments, and call your doctor if you are having problems. If you do not already have a follow-up appointment made, call Dr. Nascimento office in the next 1-3 days to make follow up appointment for 1 weeks at [phone]. It is also a good idea to know your test results and keep a list of the medicines you take. Medications will be prescribed for you at your provider's discretion. These medications are to be used as instructed; if they are taken more often that prescribed they will not be refilled early and in most cases will not be refilled at all. > When a refill is needed,you should contact mikhail pedersen 2-3 business days before your prescription runs out. Medications will NOT be refilled by certification and selection specialist providers after hours! > Many pain medications contain Tylenol (Acetaminophen). Do not consume more than 4,000 mg of Tylenol per day in total with any combination ofmedications. > Pain medications can cause constipation. Please use an over the counter stool softener as directed, while taking pain medications. Consulty our local pharmacist with questions or recommendations on stool softeners. If constipation persists, contact our office or your primary care provider. > While under our care,you are not to receive pain medications or other controlled substances from any other provider unless our office is notified and approves. Any attempts to do so will result in refusal to prescribe any further pain medications and possible dismissal from our practice. ? KEEP DRESSING ON UNTIL SEEN IN CLINIC ? Walking is essential for the healing process after surgery. We would like you to slowly advance your walking. This should be done on relatively flat clear ground (inside or out) or can be done on a treadmill. Remember this goal does not have to happen all at once, slowly increase your distance and duration. This can be broken into more more than one walk per day as tolerated. Patients who walk as directed after surgery rarely require Physical Therapy. In the unlikely event this issue arises your provider will direct hospital staff to make the appropriate arrangements. ? No lifting over 5 pounds {a gallon of milk) or bending/twisting until further notice. Each of these activities places an unnecessary amount of stress onto the body and can impede the delicate healing process. > Instead of bending at the waist, keep your back straight and bend at the knees. > Instead of twisting your torso, keep your back straight and turn your entire body with your feet. ? You may sleep in any position which makes you comfortable. Many patients find comfort sleeping in a reclining chair. It is not abnormal to have difficulty sleeping for the first several weeks following your surgery. We recommend trying Benadry! or Tylenol PM as directed to help with your sleeping difficulties. Both medications are over the counter and available withoutprescription. ? NO SMOKING!!! Smoking dramatically increases the probability of developing postoperative wound infections. ? Common complaints after lumbar and/or thoracic spine surgery include, but are not limited to: numbness and/or tingling in the legs, pain around the incision and surrounding tissues, muscle spasms, or stiffness of the middle to low back. Contact our office if these symptoms persist or if an acute change occurs. ? No driving for the first 3-5days, and not while taking narcotics [] until seen at your follow-up appointment and cleared. There are no restrictions for riding on short trips, however if you take a longer trip, arrangements should be made to make regular stops to get out of the vehicle and stretch . ? Swelling is an unfortunate event that will take place with any surgery and is the primary source of your postoperative discomfort. While walking and regular approved activities helps control inflammation, there are a dditional steps you can take to minimizeswelling. > Place ice over the surgical site and surrounding tissue for twenty minutes, followed by applying a low/medium heat (heating pad) for an additional twenty minutes every 1-2 hours as needed for painrelief. > You may use of over the counter anti-inflammatory medications (Ibuprofen, Motrin, Aleve, Advil, etc) as directed on the package label. These types of medicines wm significantly reduce the amount of discomfort you experience after surgery from swelling. It should be noted that if you have and allergy to any of these medications, or a history of ulcers or kidney disease you should consult you primary care provider prior to starting these medications. Discharge Attestations 2 Time Spent in Discharge Care*: less than 30 min Status at Discharge: Cognitive status at discharge: cognitively intact , Behavioral status at discharge: cooperative , Quality Metrics Clinical Quality Measures During this hospital stay, did patient experience: None Coding Level of Care Code Acute [facility] [place] note Diagnoses Spondylolisthesis at L4-L5 level M43.16 Diabetes E11.40; Z79.4 Diabetes mellitus type: type 2 Diabetes mellitus chcf insulin use: with senior analyst programmer use Diabetes mellitus complication status: with neurologic complications Diabetes mellitus complication detail: with unspecified neuropathy Arteriosclerosis of coronary artery I25.10 Hypertension I10 Hypertension type: essential hypertension Hyperlipemia E78.2 Hyperlipidemia type: mixed hyperlipidemia
[2020-11-27] MEDS: aspirin 81 mg EC Tablet PO (08:03)
[2020-11-27] MEDS: atorvastatin 40 mg Tablet 20 MG PO (08:03)
[2020-11-27] MEDS: tizanidine 4 mg Tablet PO (08:03)
[2020-11-27] MEDS: multivitamin therapeutic Tablet 1 TAB PO (08:03)
[2020-11-27] MEDS: carvedilol 6.25 mg Tablet PO (08:04)
[2020-11-27] MEDS: ketorolac 30 mg/mL INJ IVP (08:04)
[2020-11-27] MEDS: clopidogrel 75 mg Tablet PO (08:04)
[2020-11-27] MEDS: docusate sodium 100 mg Capsule PO (08:04)
[2020-11-27] MEDS: pantoprazole DR 40 mg Tablet PO (08:04)
[2020-11-27] MEDS: lidocaine 5% Patch 1 PATCH TOPICAL (08:05)
--- NOTE | 2020-11-27 08:23 | PC.NURSE ---
dcd hemovac removed per orders. pt tolerated it well.
[2020-11-27] MEDS: morphine 4 mg/mL SDV 1 mL 2 MG IVP (10:05)
[2020-11-27] MEDS: ondansetron 2 mg/ML SDV 2 mL 4 MG IVP (10:06)
--- NOTE | 2020-11-27 10:23 | PC.CHAP ---
Pastoral Care Encounter/Spiritual Assessment Type of Contact [] Declined plastic extruding machine operator visit [] Patient/Family/Request visit [] Outpatient visit [] Follow-up visit [] Physician referral [] Code/Alert [x] Routine visit [] Staff referral [] Actively dying [] Patient sleeping [] Family support [] [] Out of room [] Palliative care [] [x] Receiving care in room [] Pre-surgical visit [] Trauma [x] Long length of stay [] ICU visit [] Other: Relational/Emotional Strength [x] Patient feels connected with others/family/visitors/staff [] Distress [] Loneliness/isolation [] Abandonment Spirituality of Patient [x] Person of [place] [] Attends Congregational of their [place] [x] Believes in Prayer [] Reads Bible or Gnosticist materials [] There are Spiritual issues to be addressed Aix System Administrator Interventions [x] Prayer [x] Active listening [x] Non-anxious presence [x] Spiritual/emotional support [] Crisis/trauma care [x] Spiritual counseling [] Bereavement support [] Provided bereavement packet [] Provided Bible/devotional materials [] Provided toy/stuffed animal, coloring book to patient or family member [] Provided Communion [] Anointing/[place] [] Salvation [] Completed spiritual assessment [] Other: Impact on Illness or Injury [] Angry [] Fearful [x] Anxious [] Often cries [] Exhaustion [xdealing with ] Unable to work [] Unable to attend mormonism [] Unable to walk/stand [] Unable to read [] Unable to drive [] Unable to eat/drink [] Unable to sleep [] Unable to be with family [] Patient intubated [] Other: Summary dealing with infection and doesn't feel good, doen't know about her health has negative attitude doesn't when shw wiull be able to go home Time spent with patient 10 mins
[2020-11-27 12:00] LABS: Glucose Point of Care 283 mg/dL (70-110)
[2020-11-27] MEDS: sodium chloride 0.9% 500 ML 999 ML IV (12:19)
--- NOTE | 2020-11-27 12:46 | PM.PN ---
Subjective Subjective: Interval history: No events overnight. Patient has remained hemodynamically stable. On examination today complaining of mild back pain. Plan to be discharged as per orthopedic team. And often will repeat blood pressure check after giving her morphine she was found to have a systolic blood pressure of 75 the patient was completely asymptomatic without dizziness or nausea vomiting. She was given a bolus of 500 cc of normal saline. Nursing staff was advised not to give any more morphine. Vitals/I&O/Wt Last Vital Signs Temp 97.6 F 11/27/20 10:50 Pulse 76 11/27/20 10:50 Resp 14 11/27/20 10:50 BP 70/40 11/27/20 11:57 Pulse Ox 91 11/27/20 10:50 11/26/20 11/27/20 11/27/20 22:59 06:59 14:59 Intake Total 850 / 900 1597.5 / 2497.5 120 / 120 Output Total 500 / 500 240 / 740 310 / 310 Balance 350 / 400 1357.5 / 1757.5 -190 / -190 Weight last 48 hrs Weight 80.059 kg Physical Exam Narrative: EXAM NARRATIVE: EXAM NARRATIVE: General: No acute distress, AO x3, drowsy, NC oxygen supplementation HEENT: PERRLA, pupils bilaterally equal and reactive Chest:Bronchial breath sounds b/l ,decreased air entry, equal good air entry bilaterally, no more fine basal crackles CVS: S1-S2 regular, no murmurs, no tachycardia, no gallops, no rubs Abdomen: Soft, nontender, no organomegaly, bowel sounds present, morbidly obese Neuro: No focal deficits, no facial deformity, AO x3, . Urinary Catheter Management^: Leonardo: Cath Placed During This Visit: yes Urinary Catheter Date of Insertion: 11/26/20 Urinary Catheter Time of Insertion: 13:58 Data : 11/27/20 02:00 11/27/20 02:00 A&P Assessment and plan (1) Spondylolisthesis at L4-L5 level: Status: Acute (2) Diabetes: Status: Acute Qualifiers: Diabetes mellitus type: type 2 Diabetes mellitus alf insulin use: with superintendent marine oil terminal use Diabetes mellitus complication status: with neurologic complications Diabetes mellitus complication detail: with unspecified neuropathy Qualified Code(s): E11.40 - Type 2 diabetes mellitus with diabetic neuropathy, unspecified; Z79.4 - care home (current) use of insulin (3) Arteriosclerosis of coronary artery: Status: Acute (4) Hypertension: Status: Acute Qualifiers: Hypertension type: essential hypertension Qualified Code(s): I10 - Essential (primary) hypertension (5) Hyperlipemia: Status: Acute Qualifiers: Hyperlipidemia type: mixed hyperlipidemia Qualified Code(s): E78.2 - Mixed hyperlipidemia Additional A&P Information Post spinal fusion: Postoperative day 1. Continue physical therapy, anticoagulation, pain management as per primary team. Type 2 diabetes mellitus: HbA1c 6.9. Stop OHA. Lantus 15 units every afternoon. Start sliding scale at moderate dose before meals and at bedtime. Cardiac carb consistent diet. Hypertension: Goal blood pressure less than 140/90 mmHg. Decrease home dose of Coreg to 3.125 mg twice daily. Hypotension: Most likely because of excessive pain medication. Patient asymptomatic. Bolus 500 cc normal saline. Repeat blood pressure in 30 minutes. CAD: Post PCI. No active chest pain. Continue with aspirin, Plavix, statin. Continue other chronic medication. Check HbA1c, lipid panel, TSH, TIBC. Full code. Anticoagulation per primary team. Cardiac carb consistent diet. Thank you for giving us opportunity to take care of Ms. Rincon. We will continue to follow. Attestations Medical Necessity Statement*: As per primary team. Time Spent in Patient Care: Greater than 35 minutes (>than 50% of time spent in counselling and/or direct pt care on unit). Coding Level of Care Code [facility] Spondylolisthesis at L4-L5 level M43.16 Diabetes E11.40; Z79.4 Diabetes mellitus type: type 2 Diabetes mellitus superintendent marine oil terminal insulin use: with superintendent marine oil terminal use Diabetes mellitus complication status: with neurologic complications Diabetes mellitus complication detail: with unspecified neuropathy Arteriosclerosis of coronary artery I25.10 Hypertension I10 Hypertension type: essential hypertension Hyperlipemia E78.2 Hyperlipidemia type: mixed hyperlipidemia
--- NOTE | 2020-11-28 09:17 | PC.SOCIAL ---
discharge follow up call made. patient picked up medications and is taking as prescribed. patient is aware of follow up appointment with Dr. Nascimento. No questions or concerns voiced.
--- NOTE | 2020-11-28 18:13 | PC.RESP ---
SMOKING CESSATION INFORMATION SENT TO PATIENT.
== END 2020-11-27 14:40 | disposition home or self-care (01) | DRG 460 ==
LOC: MEDSURG 17:21
PROVIDERS: Student in an Organized Health Care Education/Training Program; Admitting Provider Orthopaedic Surgery; PCP Family Medicine; Visit Provider Orthopaedic Surgery
PROC: 0SG00AJ Fusion of Lumbar Vertebral Joint with Interbody Fusion Device, Posterior Approach, Anterior Column, Open Approach (ICD-10-PCS; principal; 2020-11-26 12:10)
DX: M43.16 Spondylolisthesis, lumbar region (principal); I25.10 Atherosclerotic heart disease of native coronary artery without angina pectoris; Z95.5 Presence of coronary angioplasty implant and graft; H81.10 Benign paroxysmal vertigo, unspecified ear; E11.65 Type 2 diabetes mellitus with hyperglycemia; E11.40 Type 2 diabetes mellitus with diabetic neuropathy, unspecified; E78.2 Mixed hyperlipidemia; I10 Essential (primary) hypertension; F17.210 Nicotine dependence, cigarettes, uncomplicated; I95.2 Hypotension due to drugs; T40.2X5A Adverse effect of other opioids, initial encounter; Z79.4 Long term (current) use of insulin; Z79.02 Long term (current) use of antithrombotics/antiplatelets; Z79.82 Long term (current) use of aspirin
CPT/HCPCS: 36416; 72100; 76000; 80053; 82962; 83036; 83540; 83550; 84443; 85025; 96372; 96374; 97161; C1713; J1170; J1644; J1815 ×2; J1885; J2270; J2405; J2704; J3010; J3370; J3490; J7030; J7040; Q0169

== ENCOUNTER → 2021-01-15 09:48 | Outpatient (BNVA) | payer MEDICARE, SELFPAY | PROVIDERS: PCP Family Medicine; Visit Provider Physician Assistant | DX: Z48.89 Encounter for other specified surgical aftercare (principal) | CPT/HCPCS: 72100 ==

== ENCOUNTER → 2021-04-14 14:12 | Outpatient (BNVA) | payer MEDICARE, SELFPAY | PROVIDERS: PCP Family Medicine; Visit Provider Physician Assistant | DX: Z47.89 Encounter for other orthopedic aftercare (principal); Z98.1 Arthrodesis status | CPT/HCPCS: 72100 ==

== ENCOUNTER 2021-05-27 18:01 | Emergency (ER) | payer MEDICARE, SELFPAY ==
[2021-05-27 18:11] VITALS: BP 144/77; PULSE 71; RESP 18; TEMP 36.8; O2SAT 97; BMI 33.7
--- NOTE | 2021-05-27 18:19 | CTR_ITS ---
PROCEDURE INFORMATION: Exam: CT Cervical Spine Without Contrast Exam date and time: 05/27/2021 6:19 PM Age: 66 years old Clinical indication: Injury or trauma; Fall; Blunt trauma TECHNIQUE: Imaging protocol: Computed tomography images of the cervical spine without contrast. Radiation optimization: All CT scans at this facility use at least one of these dose optimization techniques: automated exposure control; mA and/or kV adjustment per patient size (includes targeted exams where dose is matched to clinical indication); or iterative reconstruction. COMPARISON: MRI Cervical Spine w/o* [id number] 09/07/2017 7:01 AM RADIATION DOSE METRICS: Total DLP (mGy-cm): 582.93 FINDINGS: Bones/joints: No acute fracture. Normal alignment. Discs/Spinal canal/Neural foramina: There is multilevel uncovertebral and facet hypertrophy with neural foramina narrowing. Lungs: Lung apices are normal. Soft tissues: Unremarkable. CT/CT cervical spin wo con* [id number] IMPRESSION: No acute abnormality.
--- NOTE | 2021-05-27 18:19 | CTR_ITS ---
PROCEDURE INFORMATION: Exam: CT Head Without Contrast Exam date and time: 05/27/2021 6:19 PM Age: 66 years old Clinical indication: Injury or trauma; Blunt trauma (contusions or hematomas); Without loss of consciousness; Injury details: Fall. Hit back of pain. GIBSON and neck pain TECHNIQUE: Imaging protocol: Computed tomography of the head without contrast. Radiation optimization: All CT scans at this facility use at least one of these dose optimization techniques: automated exposure control; mA and/or kV adjustment per patient size (includes targeted exams where dose is matched to clinical indication); or iterative reconstruction. COMPARISON: CT head wo con* [id number] 11/07/2019 5:44 PM RADIATION DOSE METRICS: Total DLP (mGy-cm): 826.52 FINDINGS: Brain: Normal. No hemorrhage. Unremarkable white matter. No mass effect. Cerebral ventricles: No ventriculomegaly. Paranasal sinuses: Visualized sinuses are unremarkable. No fluid levels. Mastoid air cells: Visualized mastoid air cells are well aerated. Bones/joints: Unremarkable. No acute fracture. Soft tissues: Unremarkable. CT/CT head wo con* [id number] IMPRESSION: No acute intracranial abnormality.
--- NOTE | 2021-05-27 18:51 | W.ED.FALL ---
HPI - Fall General: Chief Complaint: Fall Stated Complaint: Fall Time Seen by Provider: 05/27/21 18:22 History of Present Illness: 66-year-old female comes in today with complaints of low back pain and left forearm pain. Patient was in the garden working when she lost her balance and fell landing on her left side and striking the back of her head. Patient has a history of lumbar fusion and is worried that she may have disrupted her hardware. Patient has been ambulatory without assistance. Patient denied loss of consciousness. Patient does have a hematoma and abrasion to the back of the head. Patient also has a superficial abrasion to the left forearm. Patient moves all extremities without any difficulty. Patient does take Plavix, and has a history of diabetes mellitus Associated symptoms-after fall: Reports neck pain Review of Systems General: Reports: 10 or more systems reviewed and unremarkable except in HPI and below Musc: Reports: neck pain, back pain and extremity pain PFS ED PFSH: Medical History Arteriosclerosis of coronary artery -Had PCI of the Diagonal and OM1 on 10/23/[address] Verdin -On aspirin, Plavix, statin, BB BPPV (benign paroxysmal positional vertigo) Chest pain Colon polyp Diabetes History of colitis Hyperglycemia due to type 2 diabetes mellitus -A1c-10.5 -Noted hyperglycemia, continue Accu-Cheks, ISS. Add mealtime and long-acting insulin for better control -Consistent carb diet as tolerated -Hypoglycemia precautions -Has had good oral intake so off IVF Hyperlipemia Hypertension Surgical History H/O abdominal hysterectomy H/O dilation and curettage H/O foot surgery H/O laparoscopy H/O shoulder surgery S/P colonoscopic polypectomy Stented coronary artery Family History Father CAD (coronary artery disease), Onset Age: 60 Diabetes Mother Cancer Denies family history of Clotting disorder Dementia Chronic kidney disease (CKD) Suicide Anesthesia complication Bleeding disorder Lung disease Stroke Social History Smoking and tobacco status: former smoker Alcohol intake: never Household members: spouse Marital status: Current occupational status: employed History of recent travel: Yes Details: Went to [place] Out of state: Yes Physical Exam Const: COMMON NORMALS: alert HENMT: COMMON NORMALS: TM's normal bilaterally and Normal external nose present HEAD & SCALP: abrasion (Occipital scalp) and contusion (2 cm occipital scalp) NOSE: Normal external nose present TYMPANIC MEMBRANE: TM's normal bilaterally THROAT: posterior oropharynx normal Neck/C-Spine: COMMON NORMALS: full ROM (Painless) Chest: COMMONS NORMALS: normal palpation of entire chest wall Resp: COMMON NORMALS: normal respiratory effort and clear to auscultation bilaterally AUSCULTATION: clear to auscultation bilaterally Cardio: COMMON NORMALS: regular rate and regular rhythm RATE: regular rate RHYTHM: regular rhythm GI: COMMON NORMALS: Soft to palpation and non-tender PALPATION: Yes Soft to palpation Back/Pelvis: THORACIC SPINE/UPPER BACK: Yes normal to inspection LUMBAR SPINE/LOWER BACK: Yes lumbar spinal tenderness and Yes paraspinal muscle tenderness Extremity: LEFT UPPER EXTREMITY: Yes lower arm (Superficial abrasion, normal range of motion, no deformity.) Neuro: SENSORIUM/ORIENTATION: Yes alert Psych: COMMON NORMALS: cooperative Skin: TRAUMA: abrasion (Occipital scalp, left forearm, superficial) Course Vital Signs: Vital signs: Vital Signs Temperature 98.2 F 05/27/21 18:11 Pulse Rate 69 05/27/21 18:52 Respiratory Rate 16 05/27/21 18:52 Blood Pressure 149/67 05/27/21 18:52 Pulse Oximetry 97 05/27/21 18:52 MDM - Fall Medical Decision Making 66-year-old female comes in today with injury sustained during a fall while in the garden working. Patient has reports of an abrasion to her occipital scalp, and abrasion to her left forearm, and some low back pain. Patient was ambulatory with minimal to no deficits. Patient was concerned due to the fact that she has had a fusion in her low back. On exam patient has some tenderness in the lumbar spine. We do note the abrasion to the occipital scalp with a small hematoma. Patient also has a superficial abrasion to left forearm with no signs of deformity or reduction in movement or bony tenderness. Differential diagnosis includes fracture, contusion, intracranial bleeding. X-rays of lumbar spine was negative for any acute fracture or displacement of hardware from fusion of spine. CT of the head and cervical spine were negative for any acute injury. Reviewed exam with patient with recommendations for treatment and follow-up. Patient reported understanding and agreed to plan. Lab Data Radiology Impressions Cervical Spine CT 05/27/21 18:19 IMPRESSION: No acute abnormality. Head CT 05/27/21 18:19 IMPRESSION: No acute intracranial abnormality. Discharge Plan Discharge Patient Disposition: Home Clinical Impression: Fall Qualifiers: Encounter type: initial encounter Qualified Code(s): W19.XXXA - Unspecified fall, initial encounter Contusion of occipital region of scalp Qualifiers: Encounter type: initial encounter Qualified Code(s): S00.03XA - Contusion of scalp, initial encounter Abrasion forearm Qualifiers: Encounter type: initial encounter Laterality: left Qualified Code(s): S50.812A - Abrasion of left forearm, initial encounter Low back pain Qualifiers: Chronicity: acute Back pain laterality: midline Sciatica presence: without sciatica Qualified Code(s): M54.50 - Low back pain, unspecified Condition: Stable Prescriptions: No Action ibuprofen 800 mg tablet 800 mg PO Q8H PRN (Reason: Pain) Qty: 15 0RF Hold Instructions: Resume on 12/10/19. citalopram 40 mg tablet 40 mg PO DAILY 0RF gabapentin 300 mg capsule 300 mg PO DAILY PRN0RF Coreg 3.125 mg tablet 6.25 mg PO BID 90 Days Qty: 360 3RF Rx Instructions: must administer with a meal/food clopidogrel 75 mg tablet 75 mg PO DAILY 0RF Hold Instructions: Resume on 12/10/19. Rx Instructions: MEDICATION ON LIST PT BROUGHT [facility] NOT OPEN TO VERIFY MEDICATION-PT STATES SHE TAKES THIS MEDICATION nitroglycerin 0.4 mg tablet, sublingual 0.4 mg SUBLINGUAL Q5M PRN (Reason: Chest Pain) 0RF lovastatin 40 mg tablet 80 mg PO DAILY 0RF Rx Instructions: MEDICATION ON LIST PT BROUGHT [facility] NOT OPEN TO VERIFY MEDICATION-PT STATES SHE TAKES THIS MEDICATION glipizide 10 mg tablet extended release 24hr 10 mg PO BID 0RF Rx Instructions: MEDICATION ON LIST PT BROUGHT [facility] NOT OPEN TO VERIFY MEDICATION-PT STATES SHE TAKES THIS MEDICATION-THIS MEDICATION WAS ENTERED ON A PREVIOUS MED LIST aspirin 81 mg tablet,delayed release (DR/EC) 81 mg PO DAILY 0RF Hold Instructions: Resume on 12/10/19. tizanidine 4 mg tablet 4 mg PO Q8H PRN (Reason: muscle spasticity) Qty: 14 0RF cyanocobalamin (vitamin B-12) [Vitamin B-12] 1,000 mcg Tablet 1,000 mcg PO DAILY PRN (Reason: UNKNOWN) 0RF Rx Instructions: PT STATES SHE TAKES PRN Lantus Solostar U-100 Insulin 100 unit/mL (3 mL) Insulin Pen 15 unit SUBCUT QPM PRN (Reason: high blood sugar) 0RF Rx Instructions: as needed for bs over 150 multivitamin [Multiple Vitamins] Tablet 1 tab PO DAILY 0RF Rx Instructions: PT STATES SHE TAKES THIS MEDICATION meclizine 25 mg Tablet 25 mg PO QID PRN (Reason: DIZZY) 0RF Rx Instructions: RX FILLED ON 10/23/2019-PT STATES SHE TAKES THIS MEDICATION promethazine 25 mg Tablet 25 mg PO Q4H PRN (Reason: Nausea) 0RF Rx Instructions: RX FILLED ON 10/25/2019 omeprazole 20 mg Tablet,Delayed Release (Dr/Ec) 20 mg PO DAILY 0RF Rx Instructions: PT STATES SHE TAKES THIS MEDICATION vitamin E 1 cap PO DAILY 0RF Rx Instructions: PT STATES SHE TAKES THIS MEDICATION Humulin 70/30 U-100 KwikPen 100 unit/mL (70-30) insulin pen See Rx Instructions .ROUTE .COMPLEX Qty: 15 0RF Rx Instructions: 50 UNITS subcutaneously QAM AND 25 UNITS QPM tramadol 50 mg tablet 50 mg PO Q6H PRN (Reason: pain) Qty: 14 0RF Discharge Orders: Discharge ED (Routine); Ordered 05/27/21 Ordered By: Kyle Merrill Referrals: Desean Conteh DO [Primary Care Provider] - Discharge Diet: Usual diet Discharge Activity: Increase activity as tolerated Patient Instructions: Back Pain (ED) Activity Restrictions/Additional Instructions: Continue with routine medication for pain. Use acetaminophen for control of pain. Activity as tolerated. Follow-up with primary care for further instruction. Return to ER for new concerns. Coding Level of Care Code ED Fender Mechanic for Brady Fwd Exam Comprehensive
[2021-05-27 18:52] VITALS: BP 149/67; PULSE 69; RESP 16; O2SAT 97
--- NOTE | 2021-05-27 18:57 | XRR_ITS ---
PROCEDURE INFORMATION: Exam: XR Lumbosacral Spine Exam date and time: 05/27/2021 6:57 PM Age: 66 years old Clinical indication: Low back pain; Prior surgery; Surgery date: 6+ months; Additional info: Fall, low back pain TECHNIQUE: Imaging protocol: XR of the lumbosacral spine. Views: 2 or 3 views. COMPARISON: CT abdomen pelvis w con* [id number] 11/09/2020 12:58 AM FINDINGS: Bones/joints: Diffuse osseous demineralization. Negative for acute lumbar spine fracture. There is L4-L5 posterior fusion hardware with fusion rods and pedicle screws which grossly have unremarkable alignment. However, there is an intervertebral disc spacer device at L4-L5 which demonstrates posterior displacement significantly into the spinal canal with about 50% of the spacer device protruding into the spinal canal causing severe spinal canal stenosis. There is grade 1 L4-L5 spondylolisthesis which is unchanged from prior imaging. Soft tissues: Unremarkable. Vasculature: Diffuse abdominal aorta atherosclerosis. XR/XR lumbar spine 2-3V* [id number] IMPRESSION: 1. The L4-L5 intervertebral level disc spacer device shows substantial posterior displacement protruding into the spinal canal causing severe spinal canal stenosis. 2. Negative for acute lumbar spine fracture.
--- NOTE | 2021-05-27 19:04 | PC.NURSE ---
report given to KACEY Montenegro
--- NOTE | 2021-06-01 09:26 | DCPLANNER ---
Addendum entered by Marie Gallagher 06/18/21 08:45: Patient had a follow up appointment scheduled for 06.02.[address] Nascimento at ortho - patient did attend appointment. Addendum entered by Marie Gallagher 06/02/21 05:42: Patient has a follow up appointment scheduled for Wednesday, June 02, 2021 at 8:[address] Nascimento at ortho. Clinic will call patient with appointment information. Original Note: cadd manager had message to schedule a follow up appointment for patient with ortho. cadd manager called the ortho clinic, spoke with Janis, gave clinic patients information. cadd manager was told that patients information would be printed and reviewed. Clinic will call patient with appointment information.
== END 2021-05-27 19:42 | disposition home or self-care (01) ==
PROVIDERS: Emergency Provider Nurse Practitioner Family; PCP Family Medicine
DX: S00.03XA Contusion of scalp, initial encounter (principal); S50.812A Abrasion of left forearm, initial encounter; M54.50 Low back pain, unspecified; Z79.84 Long term (current) use of oral hypoglycemic drugs; Z79.02 Long term (current) use of antithrombotics/antiplatelets; Z79.82 Long term (current) use of aspirin; Z79.4 Long term (current) use of insulin; I25.10 Atherosclerotic heart disease of native coronary artery without angina pectoris; E11.9 Type 2 diabetes mellitus without complications; E78.5 Hyperlipidemia, unspecified; I10 Essential (primary) hypertension; Z87.891 Personal history of nicotine dependence; W01.0XXA Fall on same level from slipping, tripping and stumbling without subsequent striking against object, initial encounter
CPT/HCPCS: 70450; 72100; 72125; 99282

== ENCOUNTER → 2021-06-05 08:24 | Outpatient (BNVA) | payer MEDICARE, SELFPAY | PROVIDERS: PCP Family Medicine; Visit Provider Orthopaedic Surgery | DX: Z20.822 Contact with and (suspected) exposure to COVID-19 (principal); Z01.818 Encounter for other preprocedural examination | CPT/HCPCS: 87635; 87801 ==

== ENCOUNTER → 2021-06-11 00:01 | Outpatient (BNVA) | payer MEDICARE, SELFPAY | PROVIDERS: PCP Family Medicine | DX: Z20.822 Contact with and (suspected) exposure to COVID-19 (principal); Z01.812 Encounter for preprocedural laboratory examination | CPT/HCPCS: 87635 ==

== ENCOUNTER 2021-06-15 15:21 | Inpatient (IN) | payer MEDICARE, SELFPAY ==
--- NOTE | 2021-06-11 13:12 | ECG_ITS ---
[facility] Test Date: 2021-06-11 Pat Name: Judy Rincon Department: Room: Gender: Female [employer] Tender: : 1955 Requested By: Lizbeth Saleh Order Number: [id number] Yolanda MD: Anmol Gardiner M.D. Measurements Intervals [place] Rate: 77 P: 61 UT: 141 QRS: 68 QRSD: 88 T: 60 QT: 401 QTc: 454 Interpretive Statements SINUS RHYTHM WITH OCCASIONAL VENTRICULAR PREMATURE COMPLEXES Compared to ECG 11/19/2020 10:34:55 Ventricular premature complex(es) now present Short UT interval no longer present Early repolarization no longer present Electronically Signed On 06-11-2021 18:00:07 CDT by Anmol Gardiner M.D. [email or web address] hospitalFlanagan Freight Transportmet[email or web address].[id number]
[2021-06-11 13:18] VITALS: BMI 33.7
--- NOTE | 2021-06-11 13:59 | ANES.PREANE2 ---
Pre-Anesthetic Assessment Height/Weight: Height 1.52 m Weight 78.471 kg Preop Diagnosis: Failed Lumbar Hardware Operation Date: 06/15/21 11:50 Proposed Procedures p L3-S1 PSF with hardware removal & reinsertion [id number]/m96.0(Not Applicable) - Luis Alberto Nascimento, Familial anesthetic complications: None Social Tobacco and No alcohol Exam alert, oriented x 3, clear to auscultation bilaterally and regular rate & rhythm Airway Mallampati: Class I Dentition: false CV/HEM Coronary Artery Disease (2 stents > 1 year ago) and Hypertension None reported Hepatic None reported GI Gastroesophageal Reflux Disease Metabolic Diabetes Mellitus and Hyperlipidemia [facility] Lower Back Pain Neuropsych None reported Anesthetic Plan ASA status: 3 Anesthesia: General Risk of > 500 ml blood loss (7ml/kg in children): Yes, adequate IV access and fluids planned Medications/Allergies Home Medications Medication Instructions Recorded Confirmed Last Taken Type aspirin 81 mg tablet,delayed 81 mg PO DAILY tab 03/28/19 06/11/21 11/19/20 History release clopidogrel 75 mg tablet 75 mg PO DAILY tab 03/28/19 06/11/21 06/03/21 History glipizide 10 mg tablet, extended 10 mg PO BID 03/28/19 06/11/21 11/24/20 History release 24 hr lovastatin 40 mg tablet 80 mg PO DAILY 03/28/19 06/11/21 11/25/20 History nitroglycerin 0.4 mg sublingual 0.4 mg SUBLINGUAL Q5M PRN 03/28/19 06/11/21 Unknown History tablet cyanocobalamin (vitamin B-12) 1,000 mcg PO DAILY PRN 04/23/19 06/11/21 11/20/20 History 1,000 mcg tablet (Vitamin B-12) ibuprofen 800 mg tablet 800 mg PO Q8H PRN #15 tab 05/26/19 06/11/21 11/25/20 Rx meclizine 25 mg tablet 25 mg PO QID PRN 11/18/19 06/11/21 11/20/20 History multivitamin (Multiple Vitamins) 1 tab PO DAILY 11/18/19 06/11/21 11/20/20 History omeprazole 20 mg tablet,delayed 20 mg PO DAILY 11/18/19 06/11/21 11/20/20 History release promethazine 25 mg tablet 25 mg PO Q4H PRN 11/18/19 06/11/21 11/20/20 History vitamin E 1 cap PO DAILY 11/18/19 06/11/21 11/20/20 History insulin NPH-regular 70-30 U-100 See Rx Instructions .ROUTE 11/20/19 06/11/21 11/25/20 Rx insulin 100 unit/mL subcutaneous .COMPLEX #15 ml pen (Humulin 70/30 U-100 KwikPen) insulin glargine 100 unit/mL (3 15 unit SUBCUT QPM PRN 12/03/19 06/11/21 11/25/20 History mL) subcutaneous pen (Lantus Solostar U-100 Insulin) tramadol 50 mg tablet 50 mg PO Q6H PRN #14 tab 04/08/20 06/11/21 11/20/20 Rx carvedilol 3.125 mg tablet (Coreg) 6.25 mg PO BID 90 Days #360 tab 02/17/21 06/11/21 Unknown Rx citalopram 40 mg tablet 40 mg PO DAILY tab 02/17/21 06/11/21 Unknown History gabapentin 300 mg capsule 300 mg PO DAILY PRN cap 02/17/21 06/11/21 Unknown History Allergies Allergy/AdvReac Type Severity Reaction Status Date / Time amoxicillin Allergy rash Verified 06/02/21 08:08 canagliflozin [From Invokana] Allergy Unknown Verified 06/02/21 08:08 Corticosteroids Allergy nausea Verified 06/02/21 08:08 (Glucocorticoids) vomiting hydrocodone [From Vicodin] Allergy dizziness Verified 06/02/21 08:08 nausea levofloxacin [From Levaquin] Allergy dizziness Verified 06/02/21 08:08 nausea lisinopril Allergy difficulty Verified 06/02/21 08:08 breathing oxycodone [From Percocet] Allergy Unknown Verified 06/02/21 08:08 pregabalin [From Lyrica] Allergy Unknown Verified 06/02/21 08:08 propoxyphene Allergy unknown Verified 06/02/21 08:08 [From Darvocet-N] tizanidine Allergy ADR-Dizzine Verified 06/02/21 08:08 ss STEROIDS Allergy Unknown Uncoded 06/02/21 08:08 [facility] Anesthesia Medical History Arteriosclerosis of coronary artery -Had PCI of the Diagonal and OM1 on 10/23/[address] Verdin -On aspirin, Plavix, statin, BB BPPV (benign paroxysmal positional vertigo) Chest pain Colon polyp Diabetes History of colitis Hyperglycemia due to type 2 diabetes mellitus -A1c-10.5 -Noted hyperglycemia, continue Accu-Cheks, ISS. Add mealtime and long-acting insulin for better control -Consistent carb diet as tolerated -Hypoglycemia precautions -Has had good oral intake so off IVF Hyperlipemia Hypertension Surgical History H/O abdominal hysterectomy H/O dilation and curettage H/O foot surgery H/O laparoscopy H/O shoulder surgery S/P colonoscopic polypectomy Stented coronary artery Family History Father CAD (coronary artery disease), Onset Age: 60 Diabetes Mother Cancer Denies family history of Clotting disorder Dementia Chronic kidney disease (CKD) Suicide Anesthesia complication Bleeding disorder Lung disease Stroke Social History Smoking and tobacco status: former smoker Alcohol intake: never Household members: spouse Marital status: Current occupational status: employed History of recent travel: Yes Details: Went to [place] Out of state: Yes Data Anesthesia Cardiac Studies: No Data to Display
[2021-06-11 14:14] LABS: Basophils # 0.1 10^3/uL (0.0-0.1); Basophils % 0.9 %; Eosinophils # 0.3 10^3/uL (0.0-0.8); Eosinophils % 3.3 %; Hemoglobin 14.7 g/dL (11.5-15.3); Lymphocytes # 1.6 10^3/uL (0.8-4.8); Mean Corpuscular HGB Conc 33.4 g/dL (30.0-36.0); Mean Corpuscular Hemoglobin 30.1 pg (28.0-34.0); Mean Platelet Volume 11.5 fL (7.4-10.4); Monocytes # 0.5 10^3/uL (0.2-0.9); Monocytes % 6.7 %; Neutrophils # 5.13 10^3/uL (1.8-7.7); Neutrophils % 67.7 %; Nucleated Red Blood Cells % 0 %; Platelet Count 275 10^3/cmm (130-400); Red Blood Count 4.89 10^6/uL (4.1-5.3); Red Cell Distribution Width 14.6 % (12.1-15.1); White Blood Count 7.6 10^3/uL (4.0-10.0)
[2021-06-11 14:51] LABS: Anion Gap 17.1 (5-19); Blood Urea Nitrogen 15 mg/dL (8-23); Calcium 10.1 mg/dL (8.5-10.5); Carbon Dioxide 21 mmol/L (22-29); Chloride 100 mmol/L (98-107); Glomerular Filtration Rate 83.7 mL/min (90-130); Glucose 354 mg/dL (65-115); Osmolality Calculated 293 mOsm/kg (285-295); Potassium 4.1 mmol/L (3.5-5.1); Sodium 134 mmol/L (136-145)
[2021-06-15] VITALS (22 sets, daily range): BP systolic 107–137; BP diastolic 41–75; PULSE 72–84; RESP 14–18; TEMP 36.3–36.7; O2SAT 91–98; BMI 33.7
--- NOTE | 2021-06-15 | SCC_ITS ---
Procedure done: 1. Removal of deep hardware from spine (cage) 2. Instrumentation L4-L5 44.1 seconds of fluoroscopic guidance, for a cumulative dose of 24.73 mGy, was provided to Dr. Nascimento by the radiology department. C-arm images of the lumbar spine were saved for the patient's permanent record. [facility]
--- NOTE | 2021-06-15 10:05 | P.ANESUD_ITS ---
Pre-Anesthetic Update Pre-Anesthetic Assessment: Date of Surgery/Procedure: 06/15/21 Preop Peggy gnosis: Failed Lumbar Hardware Proposed Procedure: Operation Date: 06/15/21 11:05 Proposed Procedures p L3-S1 PSF with hardware removal & reinsertion [id number]/[id number](Not Applicable) - Luis Alberto Nascimento, DO Any changes to Pre-Anesthetic Assessment?: Yes Changes from Pre-Anesthetic Assessment: Patient had GI upset with food with nausea and vomiting and one BM of diarrhea and sinus congestion. No fevers, sore throat, SOB, cough. Resolved this morning with normal BM, no fevers. I discussed w/ patient potential for increased risk of respiratory or metabolic complications as well as infection of hardware. Patient aware of potential for increased risk but feels the episode was very transient, diet related and she emphatically would like to proceed. Last Intake: Intake Last Liquid Date 06/14/21 Last Liquid Time 21:00 Last Solid Date 06/14/21 Last Solid Time 12:00 Vitals: Temperature 97.4 F L 06/15/21 09:48 Pulse Rate 82 06/15/21 09:48 Respiratory Rate 16 06/15/21 09:48 Blood Pressure 109/63 06/15/21 09:48 Blood Pressure Nette n 78 06/15/21 09:48 Pulse Oximetry 97 06/15/21 09:48 Oxygen Delivery Me thod 06/15/21 09:48 Exam: Pre-Anes Outpt Exam: alert, oriented x 3, clear to auscultation bilaterally and regular rate & rhythm Cardiac Studies: No Data to Display
[2021-06-15] MEDS: sodium chloride 0.9% 1,000 ML 30 ML IV (10:22)
[2021-06-15 10:34] LABS: Glucose Point of Care 220 mg/dL (70-110)
--- NOTE | 2021-06-15 11:00 | PM.HP ---
Documented by User: Randy Staley PA-C 06/15/21 11:03 Providers/Chief Complaint Admitting Physician: shayne Primary Care Provider: Desean Conteh DO Chief Complaint: pseudoarthrosis after fusion or arthrodesis History of Present Illness Judy Rincon is a 66 year old female here for evaluation of low back pain after a fall on 05/27 while working in her garden. She describes pain to her low back. She rates this pain 8/10 today. She has a history of pervious ?L4/5 Interbody fusion with posterolateral fusion DOS: 11/26/20. She had posterior lateral cage at L4-5 that had displaced. She said increased pain following that event. Review of Systems General: Reports: 10 or more systems reviewed and unremarkable except in HPI and below Const: Denies: fever(s) Eyes: Denies: change in vision or photophobia ENMT: Denies: enlarged tonsils Card: Denies: chest pain Resp: Denies: dyspnea GI: Denies: abdominal pain or fecal incontinence : Denies: flank pain or urinary incontinence Musc: Reports: back pain; Denies: joint warmth Skin/Breast: Denies: rash Neuro: Denies: numbness in extremities Psych: Denies: anxiety or depression Endo: Denies: polyuria All/Imm: Denies: acute wheezing Medications/Allergies Home Medications Medication Instructions Recorded Confirmed Last Taken Type aspirin 81 mg tablet,delayed 81 mg PO DAILY tab 03/28/19 06/15/21 2 Weeks Ago History release ~06/01/21 clopidogrel 75 mg tablet 75 mg PO DAILY tab 03/28/19 06/15/21 06/03/21 History glipizide 10 mg tablet, extended 10 mg PO BID 03/28/19 06/15/21 06/14/21 History release 24 hr lovastatin 40 mg tablet 80 mg PO DAILY 03/28/19 06/15/21 06/13/21 History nitroglycerin 0.4 mg sublingual 0.4 mg SUBLINGUAL Q5M PRN 03/28/19 06/15/21 Unknown History tablet cyanocobalamin (vitamin B-12) 1,000 mcg PO DAILY PRN 04/23/19 06/15/21 1 Month Ago History 1,000 mcg tablet (Vitamin B-12) ~05/18/21 ibuprofen 800 mg tablet 800 mg PO Q8H PRN #15 tab 05/26/19 06/15/21 1 Month Ago Rx ~05/18/21 meclizine 25 mg tablet 25 mg PO QID PRN 11/18/19 06/15/21 06/14/21 History multivitamin (Multiple Vitamins) 1 tab PO DAILY 11/18/19 06/15/21 06/14/21 History omeprazole 20 mg tablet,delayed 20 mg PO DAILY 11/18/19 06/15/21 06/14/21 History release promethazine 25 mg tablet 25 mg PO Q4H PRN 11/18/19 06/15/21 1 Month Ago History ~05/18/21 vitamin E 1 cap PO DAILY 11/18/19 06/15/21 1 Month Ago History ~05/18/21 insulin NPH-regular 70-30 U-100 See Rx Instructions .ROUTE 11/20/19 06/15/21 06/14/21 Rx insulin 100 unit/mL subcutaneous .COMPLEX #15 ml pen (Humulin 70/30 U-100 KwikPen) insulin glargine 100 unit/mL (3 15 unit SUBCUT QPM PRN 12/03/19 06/15/21 1 Week Ago History mL) subcutaneous pen (Lantus ~06/08/21 Solostar U-100 Insulin) tramadol 50 mg tablet 50 mg PO Q6H PRN #14 tab 04/08/20 06/15/21 2 Days Ago Rx ~06/13/21 carvedilol 3.125 mg tablet (Coreg) 6.25 mg PO BID 90 Days #360 tab 02/17/21 06/15/21 06/15/21 Rx 0800 citalopram 40 mg tablet 40 mg PO DAILY tab 02/17/21 06/15/21 06/14/21 History Allergies Allergy/AdvReac Type Severity Reaction Status Date / Time lisinopril Allergy Severe difficulty Verified 06/15/21 10:09 breathing amoxicillin Allergy rash Verified 06/15/21 10:09 canagliflozin [From Invokana] AdvReac Mild ADR-Dizzine Verified 06/15/21 10:09 ss Corticosteroids AdvReac nausea Verified 06/15/21 10:09 (Glucocorticoids) vomiting hydrocodone [From Vicodin] AdvReac dizziness Verified 06/15/21 10:09 nausea levofloxacin [From Levaquin] AdvReac dizziness Verified 06/15/21 10:09 nausea oxycodone [From Percocet] AdvReac ADR-Dizzine Verified 06/15/21 10:09 ss pregabalin [From Lyrica] AdvReac ADR-Nausea Verified 06/15/21 10:09 propoxyphene AdvReac ADR-Dizzine Verified 06/15/21 10:09 [From Darvocet-N] ss tizanidine AdvReac ADR-Dizzine Verified 06/15/21 10:09 ss STEROIDS AdvReac ADR-Dizzine Uncoded 06/15/21 10:09 ss PFSH Acute PFSH: Medical History Arteriosclerosis of coronary artery -Had PCI of the Diagonal and OM1 on 10/23/[address] Verdin -On aspirin, Plavix, statin, BB BPPV (benign paroxysmal positional vertigo) Chest pain Colon polyp Diabetes History of colitis Hyperglycemia due to type 2 diabetes mellitus -A1c-10.5 -Noted hyperglycemia, continue Accu-Cheks, ISS. Add mealtime and long-acting insulin for better control -Consistent carb diet as tolerated -Hypoglycemia precautions -Has had good oral intake so off IVF Hyperlipemia Hypertension Surgical History H/O abdominal hysterectomy H/O dilation and curettage H/O foot surgery H/O laparoscopy H/O shoulder surgery S/P colonoscopic polypectomy Stented coronary artery Family History Father CAD (coronary artery disease), Onset Age: 60 Diabetes Mother Cancer Denies family history of Clotting disorder Dementia Chronic kidney disease (CKD) Suicide Anesthesia complication Bleeding disorder Lung disease Stroke Social History Smoking and tobacco status: former smoker Alcohol intake: never Household members: spouse Marital status: Current occupational status: employed History of recent travel: Yes Details: Went to [place] Out of state: Yes Vitals/I&O/Wt Last Vital Signs Temp 97.4 F L 06/15/21 09:48 Pulse 82 06/15/21 09:48 Resp 16 06/15/21 09:48 BP 109/63 06/15/21 09:48 Pulse Ox 97 06/15/21 09:48 Physical Exam Narrative: Well-healed incision feet are warm good cap refill calves are supple. Positive straight leg raise. Normal station to light touch to both lower extremities. HENMT: COMMON NORMALS: normocephalic Data : 06/15/21 10:55 06/15/21 10:55 A&P Assessment and plan (1) Status post lumbar spinal fusion: We will proceed with removal discussed with the patient agrees the above-stated plan. Interbody cage at L4-5. Status: Acute (2) DDD (degenerative disc disease), lumbosacral: Status: Acute Attestations Medical Necessity Statement*: home today Coding Level of Care Code Acute Hotel Lobby Concierge for Chg Fwd Exam Problem Focused Diagnoses Status post lumbar spinal fusion Z98.1 DDD (degenerative disc disease), lumbosacral M51.37
[2021-06-15 11:02] LABS: Basophils % 0.3 %; Eosinophils # 0.2 10^3/uL (0.0-0.8); Eosinophils % 1.9 %; Hematocrit 47.5 % (37.0-47.0); Hemoglobin 15.5 g/dL (11.5-15.3); Lymphocytes # 1.5 10^3/uL (0.8-4.8); Lymphocytes % 16.4 %; Mean Corpuscular HGB Conc 32.6 g/dL (30.0-36.0); Mean Corpuscular Hemoglobin 29.2 pg (28.0-34.0); Mean Corpuscular Volume 89.5 fl (81-99); Mean Platelet Volume 11.4 fL (7.4-10.4); Monocytes # 0.4 10^3/uL (0.2-0.9); Monocytes % 4.8 %; Neutrophils # 6.87 10^3/uL (1.8-7.7); Neutrophils % 76.2 %; Nucleated Red Blood Cells % 0 %; Platelet Count 285 10^3/cmm (130-400); Red Blood Count 5.31 10^6/uL (4.1-5.3); Red Cell Distribution Width 14.6 % (12.1-15.1)
[2021-06-15] MEDS: clindamycin 900 MG/50 ML PREMIX 100 MG IV (11:03)
[2021-06-15 11:48] LABS: Blood Urea Nitrogen 18 mg/dL (8-23); Calcium 9.7 mg/dL (8.5-10.5); Carbon Dioxide 22 mmol/L (22-29); Chloride 101 mmol/L (98-107); Glomerular Filtration Rate 71.8 mL/min (90-130); Glucose 210 mg/dL (65-115); Osmolality Calculated 292 mOsm/kg (285-295); Sodium 137 mmol/L (136-145)
[2021-06-15] MEDS: vancomycin 1,000 MG SDV 1000 MG XX (11:49)
[2021-06-15 11:51] LABS: Anion Gap 18.3 (5-19); Potassium 4.3 mmol/L (3.5-5.1)
--- NOTE | 2021-06-15 13:01 | PM.OP ---
Operative Report Date of procedure: June 15, 2021 Pre-op diagnosis: Preop Diagnosis Failed Lumbar Hardware Post-op diagnosis: same Procedure done: 1. Removal of deep hardware from spine (cage) 2. Instrumentation L4-L5 Surgeon: Luis Alberto Nascimento It Security Manager: Randy Staley It Security Manager: The surgical appliance fitter, Randy Staley, SAHARA was needed for his expertise under the microscope. He was important and necessary throughout the procedure to complete in a safe and timely manner. He assisted with patient positioning prepping and draping tissue retraction suctioning of the operative field protection of the dural sac and tissue closure Estimated blood loss (mL): 50 Procedure: 1. Removal of deep hardware from spine (cage) 2. Instrumentation L4-L5 Patient is brought to the operative suite after going anesthesia was placed on the table in the prone position. All areas impingement well-padded. Patient was prepped and draped normal sterile fashion. Skin screws made using previous skin incision. Dissection was made down to the left side side the cage was inserted on. The hardware was identified. The caps were the L4 and L5 screws were removed. The screws were also removed because they were loose. One screws removed then 10 was brought to identify the cage. Dissection was made down through the scar tissue along the superior medial border of the L5 pedicle on the left. And then slowly dissected over medially in order to identify where the cage was inserted. The L4-5 interbody cage was identified. The extraction bolt was attached to the cage. And then the cage was back sapped out after freeing all 4 sides of it. Once the cages removed wound was irrigated. Tension was brought to redirecting the L4 and L5 pedicle screws. The gearshift was placed to the L4 pedicle. And then this was brought down under C-arm guidance. Pedicle probe was used to feel the size the pedicle. And then a 6.5 Radha screw was inserted. This process was also repeated at the L5 level. This again was a size 50 screw. Yogesh was attached and caps were attached and DuraSeal was placed underneath there was no evidence of any leak at the time of closure. However with the cage being where it was I wanted to place some DuraSeal just for prophylaxis. Wounds irrigated and closed in layered fashion with 0 Vicryl 2-0 Vicryl and Monocryl suture. Sterile dressings applied patient transferred to the PACU in stable condition.
--- NOTE | 2021-06-15 13:26 | XR_ITS ---
WS: [id number] Exam: XR lumbar spine 1V [id number] Date/Time of Exam: 06/15/2021 1:27 PM Reason For Exam: or pics Limited intraoperative AP and lateral C-arm images of the lower lumbar spine are submitted for evalua tion. Images depict pedicle screws positioned in the L4 and L5 vertebra. Surgical retractors are noted in t he operative field. Previously noted disc spacer at L4-5 appears to have been removed. Posterior jorge on the right has been removed. No other significant finding on this limited study.
--- NOTE | 2021-06-15 14:27 | ANE.PACU2 ---
Inpatient post-anesthesia follow up: Airway intact: Yes Vital signs: Temperature 98.0 F Pulse Rate 77 Respiratory Rate 16 Blood Pressure 119/62 Pulse Oximetry 95 Oxygen Delivery Me thod Room Air Oxygen Flow Rate 6 Fraction of Inspir ed Oxygen Hydration adequate: Yes Nausea and vomiting: No Pain level: 3 Mental status: Baseline
[2021-06-15 14:45] LABS: Glucose Point of Care 188 mg/dL (70-110)
[2021-06-15] MEDS: TRAMadol 50 mg Tablet PO (15:04)
[2021-06-15] MEDS: morphine 4 mg/mL SDV 1 mL 2 MG IVP ×2 (16:21→19:29)
[2021-06-15] MEDS: lactated ringers 1,000 ML 90 ML IV (16:22)
[2021-06-15] MEDS: docusate sodium 100 mg Capsule PO (18:46)
[2021-06-15] MEDS: clindamycin 600 MG/50 ML PREMIX 100 MG IV (18:46)
[2021-06-15] MEDS: carvedilol 6.25 mg Tablet PO (20:12)
[2021-06-16] MEDS: TRAMadol 50 mg Tablet PO (00:09)
[2021-06-16 00:45] VITALS: RESP 20
[2021-06-16] MEDS: morphine 4 mg/mL SDV 1 mL 2 MG IVP (00:45)
[2021-06-16] MEDS: lactated ringers 1,000 ML 90 ML IV (02:47)
[2021-06-16] MEDS: clindamycin 600 MG/50 ML PREMIX 100 MG IV ×2 (02:51→09:58)
[2021-06-16 03:33] VITALS: BP 137/65; PULSE 91; RESP 16; TEMP 36.7; O2SAT 93
[2021-06-16] MEDS: ketorolac 30 mg/mL INJ IVP (04:16)
[2021-06-16] MEDS: enoxaparin 40 mg/0.4 mL Syringe SUBCUT (05:51)
[2021-06-16] MEDS: insulin aspart 70/30 100 units/1 mL 50 UNIT SUBCUT (05:51)
[2021-06-16 05:52] LABS: Glucose Point of Care 200 mg/dL (70-110)
[2021-06-16 07:13] VITALS: BP 134/68; PULSE 64; RESP 17; TEMP 36.8; O2SAT 98
--- NOTE | 2021-06-16 08:01 | PM.PN ---
Subjective Subjective: POD 1 Patient resting comfortably. Reports some mild back pain. Denies any shortness of breath, chest pain, headaches. Patient is wanting to be discharged home. Vitals/I&O/Wt Last Vital Signs Temp 98.3 F 06/16/21 07:13 Pulse 64 06/16/21 07:13 Resp 17 06/16/21 07:13 BP 134/68 06/16/21 07:13 Pulse Ox 98 06/16/21 07:13 06/15/21 06/16/21 06/16/21 22:59 06:59 14:59 Intake Total 530 / 1980 1227.5 / 3207.5 Output Total 250 / 450 Balance 530 / 1780 977.5 / 2757.5 Weight last 48 hrs Weight 173 lb Physical Exam Narrative: Patient presents alert and oriented x3 with a good general appearance normal mood and affect. Mild tenderness around the incisional site with the incision mild bloody discharge. No signs of infection. Patient denies any fevers or chills. 5/5 motor strength both lower extremities with negative straight leg raise bilaterally. Calves are supple no medial thigh tenderness. Pulses are 2+ at the dorsalis pedis and posterior tibial region. Good capillary refill throughout normal sensation light touch both lower extremities. Urinary Catheter Management: Leonardo Latex: Cath Placed During This Visit: yes, but has since been removed by the nurse Urinary Catheter Date of Insertion: 06/15/21 Urinary Catheter Time of Insertion: 11:20 Date Urinary Catheter Removed: 06/15/21 Time Urinary Catheter Discontinued: 13:20 Data : 06/15/21 10:55 06/15/21 10:55 A&P Assessment and plan (1) Status post lumbar spinal fusion: Discontinue Leonardo catheter. Physical therapy to work with mobilization. Will discharge home this morning. Have her follow-up in the office in 1 week. No bending lifting or twisting activities. Continue walking program. Keep the incision clean and dry. 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
[2021-06-16] MEDS: docusate sodium 100 mg Capsule PO (09:23)
[2021-06-16] MEDS: atorvastatin 40 mg Tablet 20 MG PO (09:23)
[2021-06-16] MEDS: aspirin 81 mg EC Tablet PO (09:23)
[2021-06-16] MEDS: carvedilol 6.25 mg Tablet PO (09:23)
[2021-06-16] MEDS: citalopram 20 mg Tablet 40 MG PO (09:24)
[2021-06-16] MEDS: clopidogrel 75 mg Tablet PO (09:24)
[2021-06-16] MEDS: pantoprazole DR 40 mg Tablet PO (09:24)
[2021-06-16] MEDS: cyanocobalamin 1,000 mcg Tablet 1000 MCG PO (09:24)
[2021-06-16] MEDS: multivitamin therapeutic Tablet 1 TAB PO (09:24)
--- NOTE | 2021-06-16 09:53 | PC.CHAP ---
Pastoral Care Encounter/Spiritual Assessment Type of Contact [] Declined quiller tender visit [] Patient/Family/Request visit [] Outpatient visit [] Follow-up visit [] Physician referral [] Code/Alert [x] Routine visit [] Staff referral [] Actively dying [] Patient sleeping [] Family support [] [] Out of room [] Palliative care [] [] Receiving care in room [] Pre-surgical visit [] Trauma [] Long length of stay [] ICU visit [] Other: Relational/Emotional Strength [x] Patient feels connected with others/family/visitors/staff [] Distress [] Loneliness/isolation [] Abandonment Spirituality of Patient [x] Person of [place] [x] Attends Moravian of their [place] [x] Believes in Prayer [x] Reads Bible or Sikhism materials [] There are Spiritual issues to be addressed Ship[employer]S Carpenter Interventions [x] Prayer [x] Active listening [x] Non-anxious presence [x] Spiritual/emotional support [] Crisis/trauma care [] Spiritual counseling [] Bereavement support [] Provided bereavement packet [] Provided Bible/devotional materials [] Provided toy/stuffed animal, coloring book to patient or family member [] Provided Communion [] Anointing/[place] [] Salvation [x] Completed spiritual assessment [] Other: Impact on Illness or Injury [] Angry [] Fearful [] Anxious [] Often cries [] Exhaustion [] Unable to work [] Unable to attend mandaen [] Unable to walk/stand [] Unable to read [] Unable to drive [] Unable to eat/drink [] Unable to sleep [] Unable to be with family [] Patient intubated [] Other: Summary Pt is expecting to go home today. Pt's in room. They have been together 7 years. He is from [place] and moved up here. They met on the internet. Pt has numerous children, grandchildren, and other family who are concerned about her and provide emotional support. Pt described her mother as a strict southern restorationism but Pt attended a yazdanism school. Time spent with patient 15m
--- NOTE | 2021-06-19 06:42 | P.DS_ITS ---
Discharge Providers Date of Admission: 06/15/21 15:21 Date of Discharge: June 16, 2021 Attending Provider at Admission: Luis Alberto Nascimento DO Attending Provider at Discharge: Luis Alberto Nascimento DO Primary Care Provider: Desean Conteh DO Diagnoses at Discharge Discharge Diagnosis (1) Status post lumbar spinal fusion: Status: Acute Reason for Visit Reason for Visit: pseudoarthrosis after fusion or arthrodesis Hospital Course Hospital Course uneventful Physical Exam Urinary Catheter Management: Leonardo Latex: Cath Placed During This Visit: yes, but has since been removed by the nurse Urinary Catheter Date of Insertion: 06/15/21 Urinary Catheter Time of Insertion: 11:20 Date Urinary Catheter Removed: 06/15/21 Time Urinary Catheter Discontinued: 13:20 Discharge Data Studies Completed and Pending Completed Studies During Hospitalization Category Date Time Status XR lumbar spine 1V 14178 Routine Exams 06/15/21 13:26 Completed Laboratory Results WBC 9.0 10^3/uL (4.0-10.0) 06/15/21 10:55 RBC 5.31 10^6/uL (4.1-5.3) H 06/15/21 10:55 Hgb 15.5 g/dL (11.5-15.3) H 06/15/21 10:55 Hct 47.5 % (37.0-47.0) H 06/15/21 10:55 MCV 89.5 fl (81-99) 06/15/21 10:55 MCH 29.2 pg (28.0-34.0) 06/15/21 10:55 MCHC 32.6 g/dL (30.0-36.0) 06/15/21 10:55 RDW 14.6 % (12.1-15.1) 06/15/21 10:55 Plt Count 285 10^3/cmm (130-400) 06/15/21 10:55 MPV 11.4 fL (7.4-10.4) H 06/15/21 10:55 Neut % (Auto) 76.2 % 06/15/21 10:55 Lymph % (Auto) 16.4 % 06/15/21 10:55 [place] % (Auto) 4.8 % 06/15/21 10:55 Eos % (Auto) 1.9 % 06/15/21 10:55 Baso % (Auto) 0.3 % 06/15/21 10:55 Neut # (Auto) 6.87 10^3/uL (1.8-7.7) 06/15/21 10:55 Lymph # (Auto) 1.5 10^3/uL (0.8-4.8) 06/15/21 10:55 [place] # (Auto) 0.4 10^3/uL (0.2-0.9) 06/15/21 10:55 Eos # (Auto) 0.2 10^3/uL (0.0-0.8) 06/15/21 10:55 Baso # (Auto) 0.0 10^3/uL (0.0-0.1) 06/15/21 10:55 Nucleated RBC % (auto) 0 % 06/15/21 10:55 Nucleated RBCs # 0.0 /100WBC 06/15/21 10:55 Sodium 137 mmol/L (136-145) 06/15/21 10:55 Potassium 4.3 mmol/L (3.5-5.1) 06/15/21 10:55 Chloride 101 mmol/L (98-107) 06/15/21 10:55 Carbon Dioxide 22 mmol/L (22-29) 06/15/21 10:55 Anion Gap 18.3 (5-19) 06/15/21 10:55 BUN 18 mg/dL (8-23) 06/15/21 10:55 Creatinine 0.8 mg/dL (0.5-0.9) 06/15/21 10:55 GFR Calculation 71.8 mL/min (90-130) L 06/15/21 10:55 Glucose 210 mg/dL (65-115) H 06/15/21 10:55 POC Glucose 200 mg/dL (70-110) H 06/16/21 05:47 Calculated Osmolality 292 mOsm/kg (285-295) 06/15/21 10:55 Calcium 9.7 mg/dL (8.5-10.5) 06/15/21 10:55 Vitals Last Vital Signs Temp 98.3 F 06/16/21 07:13 Pulse 64 06/16/21 07:13 Resp 17 06/16/21 07:13 BP 134/68 06/16/21 07:13 Pulse Ox 98 06/16/21 07:13 Discharge Plan Discharge Patient Disposition: Home Condition: Stable Prescriptions: New hydrocodone-acetaminophen 5-325 mg tablet 1 - 2 tab PO .Q4-6H Qty: 40 0RF Continued ibuprofen 800 mg tablet 800 mg PO Q8H PRN (Reason: Pain) Qty: 15 0RF Hold Instructions: Resume on 12/10/19. citalopram 40 mg tablet 40 mg PO DAILY 0RF Coreg 3.125 mg tablet 6.25 mg PO BID 90 Days Qty: 360 3RF Rx Instructions: must administer with a meal/food clopidogrel 75 mg tablet 75 mg PO DAILY 0RF Hold Instructions: Resume on 12/10/19. Rx Instructions: MEDICATION ON LIST [facility] OPEN TO VERIFY MEDICATION-PT STATES SHE TAKES THIS MEDICATION nitroglycerin 0.4 mg tablet, sublingual 0.4 mg SUBLINGUAL Q5M PRN (Reason: Chest Pain) 0RF lovastatin 40 mg tablet 80 mg PO DAILY 0RF Rx Instructions: MEDICATION ON LIST PT BROUGHT [facility] NOT OPEN TO VERIFY MEDICATION-PT STATES SHE TAKES THIS MEDICATION glipizide 10 mg tablet extended release 24hr 10 mg PO BID 0RF Rx Instructions: MEDICATION ON LIST PT BROUGHT [facility] NOT OPEN TO VERIFY MEDICATION-PT STATES SHE TAKES THIS MEDICATION-THIS MEDICATION WAS ENTERED ON A PREVIOUS MED LIST aspirin 81 mg tablet,delayed release (DR/EC) 81 mg PO DAILY 0RF Hold Instructions: Resume on 12/10/19. cyanocobalamin (vitamin B-12) [Vitamin B-12] 1,000 mcg Tablet 1,000 mcg PO DAILY PRN (Reason: UNKNOWN) 0RF Rx Instructions: PT STATES SHE TAKES PRN Lantus Solostar U-100 Insulin 100 unit/mL (3 mL) Insulin Pen 15 unit SUBCUT QPM PRN (Reason: high blood sugar) 0RF Rx Instructions: as needed for bs over 150 multivitamin [Multiple Vitamins] Tablet 1 tab PO DAILY 0RF Rx Instructions: PT STATES SHE TAKES THIS MEDICATION meclizine 25 mg Tablet 25 mg PO QID PRN (Reason: DIZZY) 0RF Rx Instructions: RX FILLED ON 10/23/2019-PT STATES SHE TAKES THIS MEDICATION promethazine 25 mg Tablet 25 mg PO Q4H PRN (Reason: Nausea) 0RF Rx Instructions: RX FILLED ON 10/25/2019 omeprazole 20 mg Tablet,Delayed Release (Dr/Ec) 20 mg PO DAILY 0RF Rx Instructions: PT STATES SHE TAKES THIS MEDICATION vitamin E 1 cap PO DAILY 0RF Rx Instructions: PT STATES SHE TAKES THIS MEDICATION Humulin 70/30 U-100 KwikPen 100 unit/mL (70-30) insulin pen See Rx Instructions .ROUTE .COMPLEX Qty: 15 0RF Rx Instructions: 50 UNITS subcutaneously QAM AND 25 UNITS QPM tramadol 50 mg tablet 50 mg PO Q6H PRN (Reason: pain) Qty: 14 0RF Discharge Orders: Discharge Order (Routine); Ordered 06/16/21 Ordered By: Randy Staley Referrals: Luis Alberto Nascimento DO [Physician] - 06/25/21 1:15 pm Discharge Diet: Advance as tolerated Discharge Activity: Limit activity as instructed Patient Instructions: Hydrocodone/Acetaminophen (By mouth), Pain Management After Surgery (GEN), Surgical Site Infections (GEN), Opioid Safety Activity Restrictions/Additional Instructions: Thank you for [facility] for your care! The following is a list of instructions, from your provider, to follow upon your discharge to ensure you have the optimal recovery from your recent injury orsurgery. Follow-up care is a yepez part of your treatment and safety. Be sure to make and go to all appointments, and call your doctor if you are having problems. If you do not already have a follow-up appointment made, call Dr. Nascimento office in the next 1-3 days to make follow up appointment for 1 weeks at [phone]. It is also a good idea to know your test results and keep a list of the medicines you take. Medications will be prescribed for you at your provider's discretion. These medications are to be used as instructed; if they are taken more often that prescribed they will not be refilled early and in most cases will not be refilled at all. > When a refill is needed,you should contact mikhail pedersen 2-3 business days before your prescription runs out. Medications will NOT be refilled by marketing communications manager providers after hours! > Many pain medications contain Tylenol (Acetaminophen). Do not consume more than 4,000 mg of Tylenol per day in total with any combination ofmedications. > Pain medications can cause constipation. Please use an over the counter stool softener as directed, while taking pain medications. Consulty our local pharmacist with questions or recommendations on stool softeners. If constipation persists, contact our office or your primary care provider. > While under our care,you are not to receive pain medications or other controlled substances from any other provider unless our office is notified and approves. Any attempts to do so will result in refusal to prescribe any further pain medications and possible dismissal from our practice. ? Keep dressing on until seen in the clinic ? Showering is permitted, however we ask that you do not take a bath, sit in a whirlpool / Jacuzzi, or go swimming for 1 month. For only the first 2 days after surgery, lt wilt be necessary for you to cover your wound/dressing with plastic and tape to keep it dry. ? Walking is essential for the healing process after surgery. We would like you to slowly advance your walking. This should be done on relatively flat clear ground (inside or out) or can be done on a treadmill. R emember this goal does not have to happen all at once, slowly increase your distance and duration. This can be broken into more more than one walk per day as tolerated. Patients who walk as directed after surgery rarely require Physical Therapy. In the unlikely event this issue arises your provider will direct hospital staff to make the appropriate arrangements. ? No lifting over 5 pounds {a gallon of milk) or bending/twisting until further notice. Each of these activities places an unnecessary amount of stress onto the body and can impede the delicate healing process. > Instead of bending at the waist, keep your back straight and bend at the knees. > Instead of twisting your torso, keep your back straight and turn your entire body with your feet. ? You may sleep in any position which makes you comfortable. Many patients find comfort sleeping in a reclining chair. It is not abnormal to have difficulty sleeping for the first several weeks following your surgery. We recommend trying Benadry! or Tylenol PM as directed to help with your sleeping difficulties. Both medications are over the counter and available withoutprescription. ? NO SMOKING!!! Smoking dramatically increases the probability of developing postoperative wound infections. ? Common complaints after lumbar and/or thoracic spine surgery include, but are not limited to: numbness and/or tingling in the legs, pain around the incision and surrounding tissues, muscle spasms, or stiffness of the middle to low back. Contact our office if these symptoms persist or if an acute change occurs. ? No driving for the first 3-5days, and not while taking narcotics until seen at your follow-up appointment and cleared. There are no restrictions for riding on short trips, however if you take a longer trip, arrangements should be made to make regular stops to get out of the vehicle and stretch . ? Swelling is an unfortunate event that will take place with any surgery and is the primary source of your postoperative discomfort. While walking and regular approved activities helps control inflammation, there are additional steps you can take to minimizeswelling. > Place ice over the surgical site and surrounding tissue for twenty minutes, followed by applying a low/medium heat (heating pad) for an additional twenty minutes every 1-2 hours as needed for painrelief. > You may use of over the counter anti-inflammatory medications (Ibuprofen, Motrin, Aleve, Advil, etc) as directed on the package label. These types of medicines wm significantly reduce the amount of discomfort you experience after surgery from swelling. It should be noted that if you have and allergy to any of these medications, or a history of ulcers or kidney disease you should consult you primary care provider prior to starting these medications. Discharge Attestations Time Spent in Discharge Care*: less than 30 min Status at Discharge: Cognitive status at discharge: cognitively intact , Behavioral status at discharge: cooperative , Quality Metrics Clinical Quality Measures [ No reported AMI, CVA or VTE this stay] Coding Level of Care Code Acute Chg FW DC note Diagnoses Status post lumbar spinal fusion Z98.1
== END 2021-06-16 13:16 | disposition home or self-care (01) | DRG 460 ==
LOC: MEDSURG 22:12
PROVIDERS: Anesthesiology; Admitting Provider Orthopaedic Surgery; PCP Family Medicine; Visit Provider Orthopaedic Surgery
PROC: 0SG00J1 Fusion of Lumbar Vertebral Joint with Synthetic Substitute, Posterior Approach, Posterior Column, Open Approach (ICD-10-PCS; CPT 22612; principal; 2021-06-15 10:55)
DX: T84.9XXA Unspecified complication of internal orthopedic prosthetic device, implant and graft, initial encounter (principal); Y79.2 Prosthetic and other implants, materials and accessory orthopedic devices associated with adverse incidents; M51.37 Other intervertebral disc degeneration, lumbosacral region; I25.10 Atherosclerotic heart disease of native coronary artery without angina pectoris; I10 Essential (primary) hypertension; K21.9 Gastro-esophageal reflux disease without esophagitis; E11.9 Type 2 diabetes mellitus without complications; E78.5 Hyperlipidemia, unspecified; M54.50 Low back pain, unspecified; Z79.82 Long term (current) use of aspirin; Z79.4 Long term (current) use of insulin; Z79.02 Long term (current) use of antithrombotics/antiplatelets; Z87.891 Personal history of nicotine dependence
CPT/HCPCS: 36415; 36416; 51702; 72020; 76000; 80048; 82962; 85025; 93005; 96372; 97116; 97161; 97530; C1713; J1100; J1170; J1200; J1650; J1815; J1885; J2250; J2270; J2405; J2704; J2710; J3010; J3370; J3490; J7030

== ENCOUNTER → 2021-06-25 12:46 | Outpatient (BNVA) | payer MEDICARE, SELFPAY | PROVIDERS: PCP Family Medicine; Visit Provider Orthopaedic Surgery | DX: Z47.89 Encounter for other orthopedic aftercare (principal); Z98.890 Other specified postprocedural states; Z98.1 Arthrodesis status | CPT/HCPCS: 99024 ==

== ENCOUNTER → 2021-07-02 13:09 | Outpatient (BNVA) | payer MEDICARE, SELFPAY | PROVIDERS: PCP Family Medicine; Visit Provider Orthopaedic Surgery | DX: Z98.890 Other specified postprocedural states; Z98.1 Arthrodesis status; Z47.89 Encounter for other orthopedic aftercare | CPT/HCPCS: 99024 ==

== ENCOUNTER → 2021-07-08 12:52 | Outpatient (BNVA) | payer MEDICARE, SELFPAY | PROVIDERS: PCP Family Medicine; Referring Provider Family Medicine; Visit Provider Orthopaedic Surgery | DX: M65.332 Trigger finger, left middle finger (principal) | CPT/HCPCS: 99203; 99204 ==

== ENCOUNTER 2021-07-16 08:55 | Day surgery (SDC) | payer MEDICARE, SELFPAY ==
[2021-07-15 12:26] VITALS: BMI 33.2
[2021-07-16 09:31] LABS: Glucose Point of Care 176 mg/dL (70-110)
--- NOTE | 2021-07-16 09:53 | ANES.PREANE2 ---
Pre-Anesthetic Assessment Height/Weight: Height 1.52 m Weight 77.111 kg Preop Diagnosis: Trigger finger Operation Date: 07/16/21 10:20 Proposed Procedures p Trigger Finger Release digit [id number]/trigger finger M65.30(Left) - Tio Hager MD Familial anesthetic complications: None Was Beta Chip taken within 24 hours: Yes Was Clonidine taken within 24 hours: N/A Last intake: Intake Last Liquid Date 07/15/21 Last Liquid Time 23:00 Last Solid Date 07/15/21 Last Solid Time 21:00 Social Tobacco and No alcohol Exam alert, oriented x 3 and regular rate & rhythm b/l wheezing Airway Submandibular: within normal limits Cervical ROM: within normal limits Mallampati: Class II Dentition: false Pulmonary Chronic Obstructive Pulmonary Disease CV/HEM Coronary Artery Disease and Hypertension METS = 4 None reported Hepatic None reported GI Gastroesophageal Reflux Disease (well controlled ) Metabolic Diabetes Mellitus [facility] [place] None reported Neuropsych vertigo Anesthetic Plan ASA status: 3 Anesthesia: Anesthesia Evaluation, General and Regional (specify below) ([place] block) Other: We discussed risk and benefits of general anesthesia including PONV, sore throat (sometimes severe), corneal abrasion, positioning and peripheral nerve injuries, life threatening allergic reaction, post operative ICU admission requiring prolonged intubation, stroke, heart attack, , and rare incidences of recall. Patient consents to proceed with general anesthesia. Plan sedation with [place] block Risk of > 500 ml blood loss (7ml/kg in children): No Medications/Allergies Home Medications Medication Instructions Recorded Confirmed Last Taken Type aspirin 81 mg tablet,delayed 81 mg PO DAILY tab 03/28/19 07/16/21 2 Days Ago History release ~07/14/21 clopidogrel 75 mg tablet 75 mg PO DAILY tab 03/28/19 07/16/21 07/13/21 History glipizide 10 mg tablet, extended 10 mg PO BID 03/28/19 07/16/21 2 Days Ago History release 24 hr ~07/14/21 lovastatin 40 mg tablet 80 mg PO DAILY 03/28/19 07/16/21 1 Day Ago History ~07/15/21 nitroglycerin 0.4 mg sublingual 0.4 mg SUBLINGUAL Q5M PRN 03/28/19 07/15/21 Unknown History tablet cyanocobalamin (vitamin B-12) 1,000 mcg PO DAILY PRN 04/23/19 07/16/21 1 Month Ago History 1,000 mcg tablet (Vitamin B-12) ~05/18/21 ibuprofen 800 mg tablet 800 mg PO Q8H PRN #15 tab 05/26/19 07/16/21 1 Day Ago Rx ~07/15/21 meclizine 25 mg tablet 25 mg PO QID PRN 11/18/19 07/16/21 06/14/21 History multivitamin (Multiple Vitamins) 1 tab PO DAILY 11/18/19 07/16/21 1 Day Ago History ~07/15/21 omeprazole 20 mg tablet,delayed 20 mg PO DAILY 11/18/19 07/16/21 1 Day Ago History release ~07/15/21 promethazine 25 mg tablet 25 mg PO Q4H PRN 11/18/19 07/15/21 1 Month Ago History ~05/18/21 vitamin E 1 cap PO DAILY 11/18/19 07/15/21 1 Month Ago History ~05/18/21 insulin NPH-regular 70-30 U-100 See Rx Instructions .ROUTE 11/20/19 07/16/21 1 Day Ago Rx insulin 100 unit/mL subcutaneous .COMPLEX #15 ml ~07/15/21 pen (Humulin 70/30 U-100 KwikPen) insulin glargine 100 unit/mL (3 15 unit SUBCUT QPM PRN 12/03/19 07/16/21 4 Days Ago History mL) subcutaneous pen (Lantus ~07/12/21 Solostar U-100 Insulin) tramadol 50 mg tablet 50 mg PO Q6H PRN #14 tab 04/08/20 07/16/21 1 Day Ago Rx ~07/15/21 carvedilol 3.125 mg tablet (Coreg) 6.25 mg PO BID 90 Days #360 tab 02/17/21 07/16/21 07/16/21 06:30 Rx citalopram 40 mg tablet 40 mg PO DAILY tab 02/17/21 07/16/21 1 Day Ago History ~07/15/21 hydrocodone 5 mg-acetaminophen 325 1 - 2 tab PO .Q4-6H PRN 7 Days #40 07/02/21 07/16/21 1 Day Ago Rx mg tablet tab ~07/15/21 pregabalin 50 mg capsule (Lyrica) 50 mg PO TID 30 Days #90 cap 07/02/21 07/16/21 Unknown Rx Allergies Allergy/AdvReac Type Severity Reaction Status Date / Time lisinopril Allergy Severe difficulty Verified 07/16/21 09:15 breathing amoxicillin Allergy rash Verified 07/16/21 09:15 canagliflozin [From Invokana] AdvReac Mild ADR-Dizzine Verified 07/16/21 09:15 ss Corticosteroids AdvReac nausea Verified 07/16/21 09:15 (Glucocorticoids) vomiting levofloxacin [From Levaquin] AdvReac dizziness Verified 07/16/21 09:15 nausea propoxyphene AdvReac ADR-Dizzine Verified 07/16/21 09:15 [From Darvocet-N] ss tizanidine AdvReac ADR-Dizzine Verified 07/16/21 09:15 ss STEROIDS AdvReac ADR-Dizzine Uncoded 07/16/21 09:15 ss [facility] Anesthesia Medical History Arteriosclerosis of coronary artery -Had PCI of the Diagonal and OM1 on 10/23/[address] Verdin -On aspirin, Plavix, statin, BB BPPV (benign paroxysmal positional vertigo) Chest pain Colon polyp Diabetes History of colitis Hyperglycemia due to type 2 diabetes mellitus -A1c-10.5 -Noted hyperglycemia, continue Accu-Cheks, ISS. Add mealtime and long-acting insulin for better control -Consistent carb diet as tolerated -Hypoglycemia precautions -Has had good oral intake so off IVF Hyperlipemia Hypertension Surgical History H/O abdominal hysterectomy H/O dilation and curettage H/O foot surgery H/O laparoscopy H/O shoulder surgery S/P colonoscopic polypectomy Stented coronary artery Family History Father CAD (coronary artery disease), Onset Age: 60 Diabetes Mother Cancer Denies family history of Clotting disorder Dementia Chronic kidney disease (CKD) Suicide Anesthesia complication Bleeding disorder Lung disease Stroke Social History Smoking and tobacco status: never smoked Alcohol intake: never Household members: spouse Marital status: Current occupational status: employed History of recent travel: Yes Details: Went to [place] Out of state: Yes Data Anesthesia Cardiac Studies: No Data to Display
--- NOTE | 2021-07-16 10:37 | P.OP_ITS ---
Operative Report Date of procedure: July 16, 2021 Pre-op diagnosis: Preop Diagnosis left long trigger finger Post-op diagnosis: same Pathology: none sent Surgeon: Tio Hager Anesthesia: Nerve Block ([place] block) Estimated blood loss (mL): 2 Tourniquet time (min): 20 Findings: The patient degeneration at the level of the A1 jeannie and the tendon sheath but the flexor tendons that level appeared healthy Procedure: The patient's hand was prepped in the usual fashion. A timeout was performed. I transverse incision was made over the level of a 1 jeannie in the palm over a distance of approximately a centimeter and a half. Under loupe magnification blunt dissection was accomplished down to the A1 jeannie. With adequate visualization a scalpel was used to divide the central 8 mm of that structure. Blunt scissors were then used to extend the release approximately 5 mm proximally and 5 mm distally. Tendons were pulled the road and inspected to assure there health. Skin edges were infiltrated with 4 cc of 0.5%n Marcaine. The skin edges were closed with 3-0 Prolene compressive dressings were applied.
--- NOTE | 2021-07-16 10:38 | W.PM.OPSUD ---
Surgery/Procedure H&P Update DATE OF PROCEDURE: July 16, 2021 DATE H&P PERFORMED: 07/08/21 H&P UPDATE INFORMATION: I have reviewed H&P completed within last 30 days PREOP DIAGNOSIS: Trigger finger left long finger PLANNED PROCEDURE: Operation Date: 07/16/21 10:20 Proposed Procedures p Trigger Finger Release digit [id number]/trigger finger M65.30(Left) - Tio Hager MD
[2021-07-16 10:39] VITALS: BP 138/67; PULSE 78; RESP 16; TEMP 37; O2SAT 94
[2021-07-16] MEDS: sodium chloride 0.9% 1,000 ML 30 ML (10:40)
[2021-07-16 10:45] VITALS: BP 139/60; PULSE 75; RESP 16; O2SAT 94
[2021-07-16 10:46] VITALS: BP 146/66; PULSE 74; RESP 16; O2SAT 95
--- NOTE | 2021-07-16 10:46 | SUR.PHASEI ---
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 LT HAND ELEVATED TO CHEST. IV TO RT HAND #20 WITH NS 500ML UP AT KVO RATE PER GRAVITY. SCDS ON BILATERALLY, ID BRACELET TO RT WRIST ,PT ID'D WITH 2 IDENTIFIERS, WARM BLANKETS TO PT.
[2021-07-16 10:50] VITALS: BP 146/66; PULSE 74; RESP 20; O2SAT 92
--- NOTE | 2021-07-16 10:57 | SUR.PHASEI ---
PT MORE AWAKE, PT STATES SHE CAN FEEL TOUCH TO LT HAND FINGERS, THEY REMAIN PINK WARM WITH CAP REFILL LESS THAN 3 SECONDS. LT HAND ELEVATED , PT TAKING ICE CHIPS HOB AT 40 DEGREES PT ENCOURAGED TO COUGH AND DEEP BREATH WITH SATS 89-92% NO DISTRESS NOTED
--- NOTE | 2021-07-16 11:01 | SUR.PHASEI ---
PT REMAINS ALERT TALKATIVE, PT SAT PROBE TO EAR AND SATS 93-95% ON RA NO DISTRESS NOTED. PT TO GO TO OPS PHASE 2 RECOVERY.
[2021-07-16 11:12] VITALS: BP 126/56; PULSE 70; RESP 18; TEMP 36.1; O2SAT 98
[2021-07-16 11:31] VITALS: BP 145/75; PULSE 69; RESP 18; O2SAT 97
--- NOTE | 2021-07-16 12:20 | ANE.PACU2 ---
Inpatient post-anesthesia follow up: Airway intact: Yes Vital signs: Temperature 97 F Pulse Rate 69 Respiratory Rate 18 Blood Pressure 145/75 Pulse Oximetry 97 Oxygen Delivery Me thod Room Air Oxygen Flow Rate 8 Fraction of Inspir ed Oxygen Hydration adequate: Yes Nausea and vomiting: No Pain level: 1 Mental status: Baseline
== END 2021-07-16 11:57 | disposition home or self-care (01) ==
PROVIDERS: PCP Family Medicine; Visit Provider Orthopaedic Surgery
PROC: (CPT 26055; principal; 2021-07-16 10:10)
DX: M65.332 Trigger finger, left middle finger (principal); J44.9 Chronic obstructive pulmonary disease, unspecified; I25.10 Atherosclerotic heart disease of native coronary artery without angina pectoris; I10 Essential (primary) hypertension; K21.9 Gastro-esophageal reflux disease without esophagitis; E11.9 Type 2 diabetes mellitus without complications; Z79.82 Long term (current) use of aspirin; Z79.4 Long term (current) use of insulin; E78.5 Hyperlipidemia, unspecified; Z82.49 Family history of ischemic heart disease and other diseases of the circulatory system; Z83.3 Family history of diabetes mellitus
CPT/HCPCS: 26055; 36416; 82962; J0690; J2250; J2704; J3010; J3490; J7030

== ENCOUNTER 2021-07-31 16:55 | Emergency (ER) | payer MEDICARE, SELFPAY ==
[2021-07-31 17:20] VITALS: BP 164/65; PULSE 62; RESP 18; TEMP 36.8; O2SAT 99; BMI 26.7
--- NOTE | 2021-07-31 18:06 | XRR_ITS ---
PROCEDURE INFORMATION: Exam: XR Chest Exam date and time: 07/31/2021 6:27 PM Age: 66 years old Clinical indication: Other: High blood preasure; Additional info: HTN, swelling feet TECHNIQUE: Imaging protocol: XR of the chest. Views: 1 view. COMPARISON: CR (CHEST, ) 11/18/2019 4:17 PM FINDINGS: Lungs: Lungs are clear. Pleural spaces: Unremarkable. No pleural effusion. No pneumothorax. Heart/Mediastinum: Heart is within normal limits of size. Bones/joints: There are degenerative changes in the thoracic spine. XR/XR chest 1V portable [id number] IMPRESSION: No acute infiltrate.
--- NOTE | 2021-07-31 18:06 | ECG_ITS ---
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 Measurements Intervals [place] Rate: 64 P: 38 [place]: 142 QRS: 51 QRSD: 94 T: 40 QT: 422 QTc: 436 Interpretive Statements SINUS RHYTHM Compared to ECG 06/11/2021 13:41:06 Ventricular premature complex(es) no longer present Electronically Signed On 07-31-2021 20:40:21 CDT by Anmol Gardiner M.D. [id number]
--- NOTE | 2021-07-31 18:06 | W.ED.GENADLT ---
HPI - General Adult General: Chief complaint: General Medical Stated complaint: High Blood Pressure all day and hasn't went down Time Seen by Provider: 07/31/21 18:05 History of Present Illness: 66-year-old female comes in today for complaints of headache, visual changes, and elevated blood pressure throughout the day. Patient appears nontoxic. Patient appears in no pain. Patient has recently had a back surgery and hand surgery and has been using some ibuprofen in between her pain medication for better control of her pain. Patient does have a history of coronary artery disease, hypertension, diabetes mellitus besides her orthopedic surgeries. Associated symptoms: Reports headache(s) and nausea; Deny chest pain, dyspnea or rash Review of Systems General: Reports: 10 or more systems reviewed and unremarkable except in HPI and below Const: Denies: fever(s) Eyes: Reports: change in vision Card: Denies: chest pain Resp: Denies: dyspnea GI: Reports: nausea Musc: Reports: back pain Skin/Breast: Denies: rash Neuro: Reports: headache(s) PFSH ED PFSH: Medical History Arteriosclerosis of coronary artery -Had PCI of the Diagonal and OM1 on 10/23/[address] Verdin -On aspirin, Plavix, statin, BB BPPV (benign paroxysmal positional vertigo) Chest pain Colon polyp Diabetes History of colitis Hyperglycemia due to type 2 diabetes mellitus -A1c-10.5 -Noted hyperglycemia, continue Accu-Cheks, ISS. Add mealtime and long-acting insulin for better control -Consistent carb diet as tolerated -Hypoglycemia precautions -Has had good oral intake so off IVF Hyperlipemia Hypertension Surgical History H/O abdominal hysterectomy H/O dilation and curettage H/O foot surgery H/O laparoscopy H/O shoulder surgery S/P colonoscopic polypectomy Stented coronary artery Family History Father CAD (coronary artery disease), Onset Age: 60 Diabetes Mother Cancer Denies family history of Clotting disorder Dementia Chronic kidney disease (CKD) Suicide Anesthesia complication Bleeding disorder Lung disease Stroke Social History Smoking and tobacco status: never smoked Alcohol intake: never Household members: spouse Marital status: Current occupational status: employed History of recent travel: Yes Details: Went to [place] Out of state: Yes Physical Exam Const: COMMON NORMALS: alert HENMT: COMMON NORMALS: normocephalic HEAD & SCALP: normocephalic THROAT: posterior oropharynx normal Neck/C-Spine: COMMON NORMALS: full ROM Resp: COMMON NORMALS: normal respiratory effort and clear to auscultation bilaterally AUSCULTATION: clear to auscultation bilaterally Cardio: COMMON NORMALS: regular rate and regular rhythm RATE: regular rate RHYTHM: regular rhythm GI: COMMON NORMALS: Soft to palpation and non-tender PALPATION: Yes Soft to palpation Back/Pelvis: LUMBAR SPINE/LOWER BACK: Yes paraspinal muscle tenderness Lumbar paraspinal muscle tenderness: left Extremity: COMMON NORMALS: no pedal edema Neuro: SENSORIUM/ORIENTATION: Yes alert Skin: COMMON NORMALS: no rashes or lesions noted GENERAL SKIN EXAM: no rashes or lesions noted Course Vital Signs: Vital signs: Vital Signs Temperature 98.3 F 07/31/21 17:20 Pulse Rate 62 07/31/21 17:20 Respiratory Rate 18 07/31/21 17:20 Blood Pressure 148/59 07/31/21 19:24 Pulse Oximetry 99 07/31/21 17:20 [facility] - General Adult Medical Decision Making 66-year-old female comes in today with concerns of elevated blood pressure. Patient states that she normally runs in the 130s systolic but today she is ran in the 160s. On exam patient appears in no acute distress. Respirations are even lungs are clear to auscultation. Skin is warm and dry. No significant peripheral edema is noted. Patient did report some significant edema the past 2 days but today it seems better. Differential diagnosis includes but not limited to congestive heart failure, electrolyte imbalance, ACS. CBC and CMP had no significant abnormalities. Patient's troponin was 15 but due to patient's history of coronary artery disease most likely is her baseline. BNP was 240. Patient was given a 0.1 clonidine for her blood pressure control. Recommend trying to decrease her ibuprofen intake as this may be what is elevating her blood pressure as she has been using them more frequently due to her back pain. Recommended using acetaminophen and her other pain medications as prescribed. Due to patient's peripheral edema recommended furosemide 20 mg 1/2 tablet daily for the next 3 to 5 days. Patient should follow-up with primary care for further evaluation of blood pressure and consideration of other treatment options. Patient reported understanding and agreed to plan. Lab Data : 07/31/21 18:07/31/21 Radiology Impressions Chest X-Ray 07/31/21 18:06 IMPRESSION: No acute infiltrate. Head CT 07/31/21 IMPRESSION: No acute intracranial abnormality. Laboratory Results WBC 8.9 10^3/uL (4.0-10.0) 07/31/21 RBC 4.89 10^6/uL (4.1-5.3) 07/31/21: Hgb 14.2 g/dL (11.5-15.3) 07/31/21 Hct 44.5 % (37.0-47.0) 07/31/21 MCV 91.0 fl (81-99) 07/31/21 MCH 29.0 pg (28.0-34.0) 07/31/21 MCHC 31.9 g/dL (30.0-36.0) 07/31/21 RDW 13.7 % (12.1-15.1) 07/31/21 Plt Count 314 10^3/cmm (130-400) 07/31/21 MPV 11.3 fL (7.4-10.4) H 07/31/21 Neut % (Auto) 58.6 % 07/31/21 Lymph % (Auto) 29.3 % 07/31/21 Garza % (Auto) 6.3 % 07/31/21 Eos % (Auto) 4.6 % 07/31/21 Baso % (Auto) 0.9 % 07/31/21 Neut # (Auto) 5.19 10^3/uL (1.8-7.7) 07/31/21 Lymph # (Auto) 2.6 10^3/uL (0.8-4.8) 07/31/21 Garza # (Auto) 0.6 10^3/uL (0.2-0.9) 07/31/21 18: Eos # (Auto) 0.4 10^3/uL (0.0-0.8) 07/31/21 18: Baso # (Auto) 0.1 10^3/uL (0.0-0.1) 07/31/21 18 Nucleated RBC % (auto) 0 % 07/31/21 Nucleated RBCs # 0.0 /100WBC 07/31/21 Sodium 133 mmol/L (136-145) L 07/31/21: Potassium 3.9 mmol/L (3.5-5.1) 07/31/21: Chloride 99 mmol/L (98-107) 07/31/21: Carbon Dioxide 20 mmol/L (22-29) L 07/31/21 Anion Gap 17.9 (5-19) 07/31/21: BUN 12 mg/dL (8-23) 07/31/21: Creatinine 0.6 mg/dL (0.5-0.9) 07/31/21 GFR Calculation 100.0 mL/min (90-130) 07/31/21 Glucose 179 mg/dL (65-115) H 07/31/21 Calculated Osmolality 280 mOsm/kg (285-295) L 07/31/21 Calcium 9.4 mg/dL (8.5-10.5) 07/31/21: Total Bilirubin 0.2 mg/dL (0.15-1.2) 07/31/21 AST 21 U/L (0-32) 07/31/21 18: ALT 13 U/L (0-33) 07/31/21 18: Alkaline Phosphatase 124 IU/L (35-105) H 07/31/21: Troponin T Gen 5 ng/L 15 ng/L (0-10) H 07/31/21 18: NT-Pro-B Natriuret Pep 292 pg/mL (0-125) H 07/31/21 18: Total Protein 7.8 g/dL (6.6-8.7) 07/31/21 Albumin 3.9 g/dL (3.5-5.2) 07/31/21 18:27 Globulin 3.9 g/dL (1.3-4.6) 07/31/21 18:27 EKG Data EKG 1: EKG interpretation date: 07/31/21 EKG interpretation time: 18:50 Interpretation: EKG shows a sinus rhythm with a regular rate at [address] elevation or ectopy is noted. No prior exam was available for me to compare. Computer generated interpretation: Chest X-Ray 07/31/21 18:06 IMPRESSION: No acute infiltrate. Head CT 07/31/21 18:13 IMPRESSION: No acute intracranial abnormality. Discharge Plan Discharge Patient Disposition: Home Clinical Impression: Peripheral edema Hypertension Qualifiers: Hypertension type: unspecified Qualified Code(s): I10 - Essential (primary) hypertension Condition: Stable Prescriptions: New furosemide 20 mg tablet 10 mg PO DAILY Qty: 3 0RF No Action ibuprofen 800 mg tablet 800 mg PO Q8H PRN (Reason: Pain) Qty: 15 0RF Hold Instructions: Resume on 12/10/19. citalopram 40 mg tablet 40 mg PO DAILY 0RF Coreg 3.125 mg tablet 6.25 mg PO BID 90 Days Qty: 360 3RF Rx Instructions: must administer with a meal/food clopidogrel 75 mg tablet 75 mg PO DAILY 0RF Hold Instructions: Resume on 12/10/19. nitroglycerin 0.4 mg tablet, sublingual 0.4 mg SUBLINGUAL Q5M PRN (Reason: Chest Pain) 0RF lovastatin 40 mg tablet 80 mg PO DAILY 0RF glipizide 10 mg tablet extended release 24hr 10 mg PO BID 0RF aspirin 81 mg tablet,delayed release (DR/EC) 81 mg PO DAILY 0RF Hold Instructions: Resume on 12/10/19. pregabalin [Lyrica] 50 mg capsule 50 mg PO TID 30 Days Qty: 90 0RF hydrocodone-acetaminophen 5-325 mg tablet 1 - 2 tab PO .Q4-6H PRN (Reason: pain) 5 Days Qty: 40 0RF cyanocobalamin (vitamin B-12) [Vitamin B-12] 1,000 mcg Tablet 1,000 mcg PO DAILY PRN (Reason: UNKNOWN) 0RF Rx Instructions: PT STATES SHE TAKES PRN Lantus Solostar U-100 Insulin 100 unit/mL (3 mL) Insulin Pen 15 unit SUBCUT QPM PRN (Reason: high blood sugar) 0RF Rx Instructions: as needed for bs over 150 multivitamin [Multiple Vitamins] Tablet 1 tab PO DAILY 0RF meclizine 25 mg Tablet 25 mg PO QID PRN (Reason: DIZZY) 0RF promethazine 25 mg Tablet 25 mg PO Q4H PRN (Reason: Nausea) 0RF omeprazole 20 mg Tablet,Delayed Release (Dr/Ec) 20 mg PO DAILY 0RF vitamin E 1 cap PO DAILY 0RF Humulin 70/30 U-100 KwikPen 100 unit/mL (70-30) insulin pen See Rx Instructions .ROUTE .COMPLEX Qty: 15 0RF Rx Instructions: 50 UNITS subcutaneously QAM AND 25 UNITS QPM tramadol 50 mg tablet 50 mg PO Q6H PRN (Reason: pain) Qty: 14 0RF hydrocodone-acetaminophen 5-325 mg tablet 1 tab PO Q4H Qty: 15 0RF Discharge Orders: Discharge ED (Routine); Ordered 07/31/21 Ordered By: Kyle Merrill Referrals: Desean Conteh DO [Primary Care Provider] - Discharge Diet: Usual diet Discharge Activity: Increase activity as tolerated Patient Instructions: Opioid Safety Activity Restrictions/Additional Instructions: Home and rest. Continue with routine care. Follow-up with primary care in 3 to 5 days for recheck of blood pressure. Return to ER for new concerns such as shortness of breath, chest pain, or high fever greater than 100.4. 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
--- NOTE | 2021-07-31 18:13 | CTR_ITS ---
PROCEDURE INFORMATION: Exam: CT Head Without Contrast Exam date and time: 07/31/2021 7:04 PM Age: 66 years old Clinical indication: Patient HX: C/O dizziness and HTN; Additional info: Dizziness, elevated blood pressure TECHNIQUE: Imaging protocol: Computed tomography of the head without contrast. Radiation optimization: All CT scans at this facility use at least one of these dose optimization techniques: automated exposure control; mA and/or kV adjustment per patient size (includes targeted exams where dose is matched to clinical indication); or iterative reconstruction. COMPARISON: CT head wo con* [id number] 05/27/2021 6:40 PM RADIATION DOSE METRICS: Total DLP (mGy-cm): 754.71 FINDINGS: Brain: Normal. No hemorrhage. Unremarkable white matter. No mass effect. Cerebral ventricles: No ventriculomegaly. Paranasal sinuses: Visualized sinuses are unremarkable. No fluid levels. Mastoid air cells: Visualized mastoid air cells are well aerated. Bones/joints: Unremarkable. No acute fracture. Soft tissues: Unremarkable. CT/CT head wo con* [id number] IMPRESSION: No acute intracranial abnormality.
[2021-07-31 18:23] VITALS: BP 148/59; PULSE 66; RESP 15; O2SAT 98
[2021-07-31 18:44] LABS: Basophils # 0.1 10^3/uL (0.0-0.1); Basophils % 0.9 %; Eosinophils # 0.4 10^3/uL (0.0-0.8); Eosinophils % 4.6 %; Hematocrit 44.5 % (37.0-47.0); Hemoglobin 14.2 g/dL (11.5-15.3); Lymphocytes # 2.6 10^3/uL (0.8-4.8); Lymphocytes % 29.3 %; Mean Corpuscular HGB Conc 31.9 g/dL (30.0-36.0); Mean Platelet Volume 11.3 fL (7.4-10.4); Monocytes # 0.6 10^3/uL (0.2-0.9); Monocytes % 6.3 %; Neutrophils # 5.19 10^3/uL (1.8-7.7); Neutrophils % 58.6 %; Nucleated Red Blood Cells % 0 %; Platelet Count 314 10^3/cmm (130-400); Red Blood Count 4.89 10^6/uL (4.1-5.3); Red Cell Distribution Width 13.7 % (12.1-15.1); White Blood Count 8.9 10^3/uL (4.0-10.0)
[2021-07-31 19:18] LABS: Alanine Aminotransferase 13 U/L (0-33); Albumin Level 3.9 g/dL (3.5-5.2); Alkaline Phosphatase 124 IU/L (35-105); Anion Gap 17.9 (5-19); Aspartate Amino Transferase 21 U/L (0-32); Blood Urea Nitrogen 12 mg/dL (8-23); Calcium 9.4 mg/dL (8.5-10.5); Carbon Dioxide 20 mmol/L (22-29); Chloride 99 mmol/L (98-107); Globulin 3.9 g/dL (1.3-4.6); Glucose 179 mg/dL (65-115); NT Pro B Type Natriuretic Pept 292 pg/mL (0-125); Osmolality Calculated 280 mOsm/kg (285-295); Potassium 3.9 mmol/L (3.5-5.1); Sodium 133 mmol/L (136-145); Total Bilirubin 0.2 mg/dL (0.15-1.2); Total Protein 7.8 g/dL (6.6-8.7)
[2021-07-31 19:24] VITALS: BP 148/59
[2021-07-31] MEDS: cloNIDine 0.1 mg Tablet PO (19:24)
[2021-07-31 19:34] LABS: Troponin T (5th) Once 15 ng/L (0-10)
[2021-07-31 20:00] VITALS: BP 148/58; PULSE 64; RESP 15; O2SAT 97
[2021-07-31 20:20] VITALS: BP 148/58; PULSE 64; RESP 15; O2SAT 97
== END 2021-07-31 20:00 | disposition home or self-care (01) ==
PROVIDERS: Emergency Provider Nurse Practitioner Family; PCP Family Medicine
DX: I10 Essential (primary) hypertension (principal); R60.9 Edema, unspecified
CPT/HCPCS: 70450; 71045; 80053; 83880; 84484; 85025; 93005; 99285

== ENCOUNTER → 2021-08-04 08:27 | Outpatient (BNVA) | payer MEDICARE, SELFPAY | PROVIDERS: PCP Family Medicine; Visit Provider Orthopaedic Surgery | DX: Z47.89 Encounter for other orthopedic aftercare (principal); Z98.890 Other specified postprocedural states; Z98.1 Arthrodesis status | CPT/HCPCS: 72100; 99024 ==

== ENCOUNTER → 2021-08-07 14:34 | Outpatient (BNVA) | payer MEDICARE, SELFPAY | PROVIDERS: PCP Family Medicine; Visit Provider Family Medicine | DX: R60.9 Edema, unspecified (principal); E11.9 Type 2 diabetes mellitus without complications; I10 Essential (primary) hypertension | CPT/HCPCS: 80048 ==

== ENCOUNTER 2021-08-16 00:08 | Emergency (ER) | payer MEDICARE, SELFPAY ==
[2021-08-16 00:44] VITALS: BP 125/71; PULSE 74; RESP 18; TEMP 36.7; O2SAT 98; BMI 31.8
--- NOTE | 2021-08-16 01:04 | USR_ITS ---
PROCEDURE INFORMATION: Exam: US Duplex Left Lower Extremity Veins, Limited Exam date and time: 08/16/2021 1:17 AM Age: 66 years old Clinical indication: Pain; Leg, lower; Left; Additional info: Left calf tenderness TECHNIQUE: Imaging protocol: Real-time Duplex ultrasound of the Left Lower Extremity with 2-D tejada scale, color Doppler flow and spectral waveform analysis with image documentation. Limited exam focused on the left lower extremity veins. COMPARISON: CT abdomen pelvis w con* [id number] 11/09/2020 12:58 AM FINDINGS: Left deep veins: Unremarkable. The common femoral, femoral, proximal profunda femoral and popliteal veins are patent without thrombus. Normal Doppler waveforms. Normal compressibility and/or augmentation response. Left superficial veins: Unremarkable. Saphenofemoral junction is patent without thrombus. Soft tissues: Unremarkable. US/CV venous duplex [facility] [id number] IMPRESSION: No evidence of deep vein thrombosis.
--- NOTE | 2021-08-16 01:07 | W.ED.BACK ---
HPI - Back Pain/Injury General: Chief Complaint: Back Pain/Injury Stated Complaint: left abd pain Time Seen by Provider: 08/16/21 00:15 History of Present Illness: Patient is a 66-year-old female who comes to the ED with back pain. Patient has chronic back pain and sees Dr. Nascimento currently to help manage back pain. She had a surgery by him 3 months ago and since then she has had lower back pain that radiates down into left leg. She says the pain radiates all the way down to her left foot. Rates the pain currently a 9 out of 10. Denies any cauda equina symptoms. She stated that she was having some left calf pain as well and noticed that some of her superficial varicose veins in her left calf had gotten larger. She has follow-up with Dr. Nascimento in the next couple months and is currently in the process of getting an outpatient CT of lumbar spine scheduled. Associated symptoms: Deny abdominal pain, chills, dysuria, fatigue, fever(s), hematuria, nausea or vomiting Review of Systems Const: Denies: fever(s), chills or fatigue Eyes: Denies: change in vision or eye discomfort ENMT: Denies: throat pain, odynophagia, nasal discharge or nasal congestion Card: Denies: chest pain, palpitations, edema, swelling of feet/ankles, dyspnea on exertion or orthopnea Resp: Denies: dyspnea, productive cough or non-productive cough GI: Denies: abdominal pain, nausea, vomiting, diarrhea, constipation or hematochezia : Denies: flank pain, dysuria or hematuria Musc: Reports: back pain; Denies: neck pain or extremity swelling Skin/Breast: Denies: rash or new lesions Neuro: Denies: headache(s), numbness in extremities or weakness in extremities PFSH ED PFSH: Medical History Arteriosclerosis of coronary artery -Had PCI of the Diagonal and OM1 on 10/23/[address] Verdin -On aspirin, Plavix, statin, BB BPPV (benign paroxysmal positional vertigo) Chest pain Colon polyp Diabetes History of colitis Hyperglycemia due to type 2 diabetes mellitus -A1c-10.5 -Noted hyperglycemia, continue Accu-Cheks, ISS. Add mealtime and long-acting insulin for better control -Consistent carb diet as tolerated -Hypoglycemia precautions -Has had good oral intake so off IVF Hyperlipemia Hypertension Surgical History H/O abdominal hysterectomy H/O dilation and curettage H/O foot surgery H/O laparoscopy H/O shoulder surgery S/P colonoscopic polypectomy Stented coronary artery Family History Father CAD (coronary artery disease), Onset Age: 60 Diabetes Mother Cancer Denies family history of Clotting disorder Dementia Chronic kidney disease (CKD) Suicide Anesthesia complication Bleeding disorder Lung disease Stroke Social History Smoking and tobacco status: never smoked Alcohol intake: never Household members: spouse Marital status: Current occupational status: employed History of recent travel: Yes Details: Went to [place] Out of state: Yes Physical Exam Const: COMMON NORMALS: patient oriented x3 and alert GENERAL APPEARANCE: cooperative HENMT: COMMON NORMALS: normocephalic HEAD & SCALP: normocephalic MOUTH: Normal oral and palatal mucosa present THROAT: posterior oropharynx normal and uvula midline Eye: COMMON NORMALS: Equal, round and reactive pupils present and conjunctivae normal CONJUNCTIVA: Yes conjunctivae normal PUPIL: Yes Equal, round and reactive pupils present Neck/C-Spine: COMMON NORMALS: supple GENERAL: Yes normal visual inspection Resp: COMMON NORMALS: normal respiratory effort, No retractions, No use of accessory muscles and clear to auscultation bilaterally AUSCULTATION: clear to auscultation bilaterally Cardio: COMMON NORMALS: regular rate, regular rhythm, S1 normal heart sound present, S2 normal heart sound present, No gallops present (Cardio), No clicks present (Cardio), No murmurs present (Cardio) and Peripheral pulses 2+ throughout RATE: regular rate RHYTHM: regular rhythm HEART SOUNDS: S1 normal heart sound present and S2 normal heart sound present PERIPHERAL PULSES: Peripheral pulses 2+ throughout GI: COMMON NORMALS: Normal to inspection, nondistended, normoactive bowel sounds present, Soft to palpation, non-tender and no masses PALPATION: Yes Soft to palpation : COMMON NORMALS: Yes no CVA tenderness BLADDER/KIDNEY EXAM: Yes no CVA tenderness Back/Pelvis: COMMON NORMALS: no CVA tenderness LUMBAR SPINE/LOWER BACK: No lumbar spinal tenderness and No paraspinal muscle tenderness Extremity: COMMON NORMALS: normal to inspection GENERAL: Yes calf tenderness (Left calf tenderness) and No edema Neuro: COMMON NORMALS: patient oriented x3 and moves all extremities SENSORIUM/ORIENTATION: Yes alert Skin: GENERAL SKIN EXAM: dry skin Course Vital Signs: Vital signs: Vital Signs Temperature 98.0 F 08/16/21 00:44 Pulse Rate 70 08/16/21 01:43 Respiratory Rate 18 08/16/21 01:43 Blood Pressure 134/70 08/16/21 01:43 Pulse Oximetry 96 08/16/21 01:43 MDM - Back Pain/Injury Medical Decision Making Patient is a 66-year-old female comes to the ED with worsening chronic lower back pain. Patient sees Dr. Nascimento and has had multiple lumbar spine surgeries. For the past 3 months since her last back surgery she has had pain that radiates down her left leg. Dr. Nascimento is currently getting her scheduled for a CT of her lumbar spine in the next couple weeks. She is also complaining of some left calf pain and some enlarged varicose veins in the left calf. Denies any cauda equina symptoms. Vitals are stable. Exam showed some left calf tenderness but no other acute findings. The rest of exam was benign. Ultrasound venous duplex was performed on the left leg that showed no DVTs. Patient was given some pain meds here in the ED and her pain improved. She was diagnosed with lumbar radiculopathy and was discharged home with a prescription for steroid, muscle relaxer and a few hydrocodone's to take for acute pain. She was told to follow-up with Dr. Nascimento at her next scheduled appointment. Return to ED precautions given. Patient understood and agreed with plan. Labs Radiology Impressions Venous Duplex 08/16/21 01:04 IMPRESSION: No evidence of deep vein thrombosis. Discharge Plan Discharge Patient Disposition: Home Clinical Impression: Lumbar radiculopathy Condition: Stable Prescriptions: New methocarbamol 750 mg tablet 750 mg PO Q8H PRN (Reason: Back spasms and pain) Qty: 20 0RF prednisone 20 mg tablet 20 mg PO BID 7 Days Qty: 14 0RF ondansetron 4 mg tablet,disintegrating 4 mg PO Q8H PRN (Reason: nausea and vomiting) Qty: 12 0RF No Action ibuprofen 800 mg tablet 800 mg PO Q8H PRN (Reason: Pain) Qty: 15 0RF Hold Instructions: Resume on 12/10/19. citalopram 40 mg tablet 40 mg PO DAILY 0RF Coreg 3.125 mg tablet 6.25 mg PO BID 90 Days Qty: 360 3RF Rx Instructions: must administer with a meal/food clopidogrel 75 mg tablet 75 mg PO DAILY 0RF Hold Instructions: Resume on 12/10/19. nitroglycerin 0.4 mg tablet, sublingual 0.4 mg SUBLINGUAL Q5M PRN (Reason: Chest Pain) 0RF lovastatin 40 mg tablet 80 mg PO DAILY 0RF glipizide 10 mg tablet extended release 24hr 10 mg PO BID 0RF aspirin 81 mg tablet,delayed release (DR/EC) 81 mg PO DAILY 0RF Hold Instructions: Resume on 12/10/19. pregabalin [Lyrica] 50 mg capsule 50 mg PO TID 30 Days Qty: 90 0RF hydrocodone-acetaminophen 5-325 mg tablet 1 - 2 tab PO .Q4-6H PRN (Reason: pain) 5 Days Qty: 40 0RF cyanocobalamin (vitamin B-12) [Vitamin B-12] 1,000 mcg Tablet 1,000 mcg PO DAILY PRN (Reason: UNKNOWN) 0RF Rx Instructions: PT STATES SHE TAKES PRN Lantus Solostar U-100 Insulin 100 unit/mL (3 mL) Insulin Pen 15 unit SUBCUT QPM PRN (Reason: high blood sugar) 0RF Rx Instructions: as needed for bs over 150 multivitamin [Multiple Vitamins] Tablet 1 tab PO DAILY 0RF meclizine 25 mg Tablet 25 mg PO QID PRN (Reason: DIZZY) 0RF promethazine 25 mg Tablet 25 mg PO Q4H PRN (Reason: Nausea) 0RF omeprazole 20 mg Tablet,Delayed Release (Dr/Ec) 20 mg PO DAILY 0RF vitamin E 1 cap PO DAILY 0RF Humulin 70/30 U-100 KwikPen 100 unit/mL (70-30) insulin pen See Rx Instructions .ROUTE .COMPLEX Qty: 15 0RF Rx Instructions: 50 UNITS subcutaneously QAM AND 25 UNITS QPM tramadol 50 mg tablet 50 mg PO Q6H PRN (Reason: pain) Qty: 14 0RF furosemide 20 mg tablet 10 mg PO DAILY Qty: 3 0RF hydrocodone-acetaminophen 5-325 mg tablet 1 tab PO Q4H Qty: 15 0RF Discharge Orders: Discharge ED (Routine); Ordered 08/16/21 Ordered By: Emeka Overton Referrals: Desean Conteh, [Primary Care Provider] - Discharge Diet: Regular Discharge Activity: Increase activity as tolerated Patient Instructions: Lumbar Radiculopathy (ED), Opioid Safety Activity Restrictions/Additional Instructions: Follow-up with Dr. Nascimento at your next scheduled appointment for further evaluation. Take medications as prescribed. Methocarbamol is a muscle relaxer and can cause some drowsiness so take at night before going to bed.Return to the ER or your medical provider if condition worsens. Please read and understand discharge instructions. Thank you for choosing [facility] for your healthcare needs today. Please realize this is an emergency room and that we are providing you with a medical screening exam and this may not be complete and all inclusive of all the testing and or work up that you may need to determine your ailment or severity of your illness. It is very important that you follow up as instructed or that you return to the Emergency Department should you have concerns or if your condition changes or worsens in any way. 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
[2021-08-16 01:34] VITALS: RESP 18
[2021-08-16] MEDS: orphenadrine 30 mg/mL Inj 2 mL 60 MG IM (01:34)
[2021-08-16] MEDS: predniSONE 20 mg Tablet PO (01:34)
[2021-08-16] MEDS: ondansetron 4 MG Tablet PO (01:34)
[2021-08-16] MEDS: morphine 4 mg/mL SDV 1 mL IM (01:34)
[2021-08-16 01:43] VITALS: BP 134/70; PULSE 70; RESP 18; O2SAT 96
[2021-08-16 03:01] VITALS: BP 134/84; PULSE 80; RESP 18
== END 2021-08-16 03:04 | disposition home or self-care (01) ==
PROVIDERS: Emergency Provider Physician Assistant; PCP Family Medicine
DX: M54.16 Radiculopathy, lumbar region (principal); M79.662 Pain in left lower leg
CPT/HCPCS: 93971; 96372; 99284; J2270; J2360; J7512; Q0162

== ENCOUNTER 2021-08-21 20:21 | Inpatient (IN) | payer MEDICARE, SELFPAY ==
[2021-08-21 20:48] VITALS: BP 153/68; PULSE 93; RESP 18; TEMP 36.8; O2SAT 98; BMI 31.4
[2021-08-21 21:49] VITALS: BP 161/70; PULSE 92; RESP 18; TEMP 36.9; O2SAT 98
--- NOTE | 2021-08-21 22:00 | PC.NURSE ---
while in waiting room patient c/o intermittent palpitations. patient brought into triage room and full set of vitals obtained and ekg done. ekg shown to dr. dukes. patient in no obvious distress . VSS. patient placed back in waiting room at this time.
[2021-08-22] VITALS (26 sets, daily range): BP systolic 122–176; BP diastolic 51–85; PULSE 66–102; RESP 13–25; TEMP 36.9–37; O2SAT 92–100
[2021-08-22] MEDS: sodium chloride 0.9% 1,000 ML 999 ML IV ×2 (00:04→02:42)
[2021-08-22] MEDS: ondansetron 2 mg/ML SDV 2 mL 4 MG IVP ×3 (00:04→18:31)
[2021-08-22 00:08] LABS: Basophils % 0.1 %; Hematocrit 50.9 % (37.0-47.0); Hemoglobin 16.6 g/dL (11.5-15.3); Lymphocytes # 0.5 10^3/uL (0.8-4.8); Lymphocytes % 5.4 %; Mean Corpuscular HGB Conc 32.6 g/dL (30.0-36.0); Mean Corpuscular Hemoglobin 28.3 pg (28.0-34.0); Mean Corpuscular Volume 86.9 fl (81-99); Mean Platelet Volume 10.7 fL (7.4-10.4); Monocytes # 0.6 10^3/uL (0.2-0.9); Neutrophils # 8.67 10^3/uL (1.8-7.7); Nucleated Red Blood Cells % 0 %; Platelet Count 389 10^3/cmm (130-400); Red Blood Count 5.86 10^6/uL (4.1-5.3); Red Cell Distribution Width 13.6 % (12.1-15.1); White Blood Count 9.9 10^3/uL (4.0-10.0)
[2021-08-22 01:06] LABS: Alanine Aminotransferase 16 U/L (0-33); Alkaline Phosphatase 110 IU/L (35-105); Anion Gap 24.2 (5-19); Aspartate Amino Transferase 14 U/L (0-32); Blood Urea Nitrogen 33 mg/dL (8-23); Calcium 9.5 mg/dL (8.5-10.5); Carbon Dioxide 20 mmol/L (22-29); Chloride 91 mmol/L (98-107); Globulin 3.1 g/dL (1.3-4.6); Glomerular Filtration Rate 55.5 mL/min (90-130); Osmolality Calculated 307 mOsm/kg (285-295); Potassium 3.2 mmol/L (3.5-5.1); Sodium 132 mmol/L (136-145); Total Bilirubin 0.4 mg/dL (0.15-1.2); Total Protein 7.1 g/dL (6.6-8.7)
--- NOTE | 2021-08-22 01:19 | CTR_ITS ---
PROCEDURE INFORMATION: Exam: CT Head Without Contrast Exam date and time: 08/22/2021 1:39 AM Age: 66 years old Clinical indication: Patient HX: C/O severe dizziness with n/v. History of vertigo. ; Additional info: Dizzy, vomiting, ataxia TECHNIQUE: Imaging protocol: Computed tomography of the head without contrast. Radiation optimization: All CT scans at this facility use at least one of these dose optimization techniques: automated exposure control; mA and/or kV adjustment per patient size (includes targeted exams where dose is matched to clinical indication); or iterative reconstruction. COMPARISON: CT head wo con* [id number] 07/31/2021 7:04 PM RADIATION DOSE METRICS: Total DLP (mGy-cm): 1694.19 FINDINGS: Brain: No acute intracranial hemorrhage or mass effect. No definite acute infarct by CT. MRI could be more sensitive/specific for detection, as clinically directed. Cerebral ventricles: Ventricle size is normal for age. Paranasal sinuses: Included paranasal sinuses are essentially clear. Mastoid air cells: No significant acute finding. Bones/joints: No definite acute skull fracture. Soft tissues: No significant acute finding. Vasculature: Vascular calcifications in the internal carotid arteries. CT/CT head wo con* [id number] IMPRESSION: 1. No acute intracranial hemorrhage or mass effect. 2. No definite acute infarct by CT, see above. 3. Other findings discussed above.
[2021-08-22 01:27] LABS: Glucose 570 mg/dL (65-115)
[2021-08-22] MEDS: haloperidol inj 5 mg/mL INJ 1 mL 2 MG IVP (02:13)
[2021-08-22] MEDS: potassium chloride premix 100 ML 25 MEQ IV (02:41)
[2021-08-22] MEDS: insulin regular-human 250 UNIT in sodium chloride 0.9% 250 ML 13.84 UNIT IV (02:51)
[2021-08-22 03:15] LABS: Ketone (Acetest) Serum Positive (Negative)
[2021-08-22 03:29] LABS: Glucose Point of Care 448 mg/dL (70-110)
[2021-08-22 03:29] LABS: Glucose Point of Care 514 mg/dL (70-110)
[2021-08-22 04:05] LABS: Glucose Point of Care 417 mg/dL (70-110)
[2021-08-22 04:50] LABS: Glucose Point of Care 335 mg/dL (70-110)
--- NOTE | 2021-08-22 05:16 | ECG_ITS ---
[facility] Test Date: 2021-08-22 Pat Name: Judy Rincon Department: Room: [facility] Gender: Female Ophthalmic Technologist: : 1955 Requested By: Dayron Crouch Order Number: [id number] Yolanda MD: Jean-Paul Felton M.D. Measurements Intervals [place] Rate: 86 P: 84 W[place]: 109 QRS: 83 QRSD: 111 T: 71 QT: 352 QTc: 422 Interpretive Statements SINUS RHYTHM WITH SHORT WY INTERVAL MODERATE INTRAVENTRICULAR CONDUCTION DELAY [110+ ms QRS DURATION] NONSPECIFIC ST & T-WAVE ABNORMALITY Compared to ECG 08/19/2021 14:34:24 Short [place] interval now present Intraventricular conduction delay now present T-wave abnormality now present Electronically Signed On 08-22-2021 9:24:03 CDT by Jean-Paul Felton M.D. [id number]
--- NOTE | 2021-08-22 05:16 | P.HP_ITS ---
Providers/Chief Complaint Admitting Physician: Dayron Crouch MD Primary Care Provider: Desean Conteh DO Chief Complaint: N\V History of Present Illness Judy Rincon is a 66 year old female with a past medical history of CAD status post PCI, history of insulin-dependent type 2 diabetes mellitus, hypertension, hyperlipidemia, history of back surgery, who presents to [facility] due to fatigue, malaise, nausea, vomiting. Patient tells me for the last 2 days she has not felt well, she does not know why, just having nausea, vomiting. No abdominal pain. No diarrhea. No dysuria. No hematuria. No flank pain. No cough. No fevers. No shortness of breath. No chest pain. She is not sure why she has been sick for the last 2 days she has not been taking her insulin. No sick contacts, no recent travel Review of Systems Const: Denies: fever(s) Eyes: Denies: change in vision Card: Denies: chest pain, palpitations or syncope Resp: Denies: dyspnea, productive cough, non-productive cough or wheezing GI: Denies: abdominal pain, hematemesis, diarrhea, hematochezia or melena : Denies: flank pain, dysuria or urinary frequency Skin/Breast: Denies: rash Neuro: Denies: headache(s) Medications/Allergies Home Medications Medication Instructions Recorded Confirmed Last Taken Type aspirin 81 mg tablet,delayed 81 mg PO DAILY tab 03/28/19 08/20/21 2 Days Ago History release ~07/14/21 clopidogrel 75 mg tablet 75 mg PO DAILY tab 03/28/19 08/20/21 07/13/21 History glipizide 10 mg tablet, extended 10 mg PO BID 03/28/19 08/20/21 2 Days Ago History release 24 hr ~07/14/21 lovastatin 40 mg tablet 80 mg PO DAILY 03/28/19 08/20/21 1 Day Ago History ~07/15/21 nitroglycerin 0.4 mg sublingual 0.4 mg SUBLINGUAL Q5M PRN 03/28/19 08/20/21 Unknown History tablet cyanocobalamin (vitamin B-12) 1,000 mcg PO DAILY PRN 04/23/19 08/20/21 1 Month Ago History 1,000 mcg tablet (Vitamin B-12) ~05/18/21 meclizine 25 mg tablet 25 mg PO QID PRN 11/18/19 08/20/21 06/14/21 History multivitamin (Multiple Vitamins) 1 tab PO DAILY 11/18/19 08/20/21 1 Day Ago History ~07/15/21 omeprazole 20 mg tablet,delayed 20 mg PO DAILY 11/18/19 08/20/21 1 Day Ago History release ~07/15/21 vitamin E 200 unit capsule 200 unit PO DAILY #0 11/18/19 08/20/21 1 Month Ago History ~05/18/21 insulin NPH-regular 70-30 U-100 See Rx Instructions .ROUTE 11/20/19 08/20/21 1 Day Ago Rx insulin 100 unit/mL subcutaneous .COMPLEX #15 ml ~07/15/21 pen (Humulin 70/30 U-100 KwikPen) insulin glargine 100 unit/mL (3 15 unit SUBCUT QPM PRN 12/03/19 08/20/21 4 Days Ago History mL) subcutaneous pen (Lantus ~07/12/21 Solostar U-100 Insulin) tramadol 50 mg tablet 50 mg PO Q6H PRN #14 tab 04/08/20 08/20/21 1 Day Ago Rx ~07/15/21 carvedilol 3.125 mg tablet (Coreg) 6.25 mg PO BID 90 Days #360 tab 02/17/21 08/20/21 07/16/21 06:30 Rx citalopram 40 mg tablet 40 mg PO DAILY tab 02/17/21 08/20/21 1 Day Ago History ~07/15/21 hydrocodone 5 mg-acetaminophen 325 1 - 2 tab PO .Q4-6H PRN 5 Days #40 08/04/21 08/20/21 Unknown Rx mg tablet tab methocarbamol 750 mg tablet 750 mg PO Q8H PRN #20 tab 08/16/21 08/20/21 Unknown Rx ondansetron 4 mg disintegrating 4 mg PO Q8H PRN #12 tab 08/16/21 08/20/21 Unknown Rx tablet prednisone 20 mg tablet 20 mg PO BID 7 Days #14 tab 08/16/21 08/20/21 Unknown Rx ondansetron HCl 4 mg tablet 4 mg PO Q6H PRN #20 tab 08/19/21 08/20/21 Unknown Rx promethazine 25 mg tablet 25 mg PO TID PRN #30 tab 08/20/21 08/20/21 Unknown Rx Allergies Allergy/AdvReac Type Severity Reaction Status Date / Time lisinopril Allergy Severe difficulty Verified 08/20/21 11:42 breathing amoxicillin Allergy rash Verified 08/20/21 11:42 canagliflozin [From Invokana] AdvReac Mild ADR-Dizzine Verified 08/20/21 11:42 ss Corticosteroids AdvReac nausea Verified 08/20/21 11:42 (Glucocorticoids) vomiting levofloxacin [From Levaquin] AdvReac dizziness Verified 08/20/21 11:42 nausea propoxyphene AdvReac ADR-Dizzine Verified 08/20/21 11:42 [From Darvocet-N] ss tizanidine AdvReac ADR-Dizzine Verified 08/20/21 11:42 ss STEROIDS AdvReac ADR-Dizzine Uncoded 08/20/21 11:42 ss PFSH Acute PFSH: Medical History Arteriosclerosis of coronary artery -Had PCI of the Diagonal and OM1 on 10/23/[address] Verdin -On aspirin, Plavix, statin, BB BPPV (benign paroxysmal positional vertigo) Chest pain Colon polyp Diabetes History of colitis Hyperglycemia due to type 2 diabetes mellitus -A1c-10.5 -Noted hyperglycemia, continue Accu-Cheks, ISS. Add mealtime and long-acting insulin for better control -Consistent carb diet as tolerated -Hypoglycemia precautions -Has had good oral intake so off IVF Hyperlipemia Hypertension Surgical History H/O abdominal hysterectomy H/O dilation and curettage H/O foot surgery H/O laparoscopy H/O shoulder surgery S/P colonoscopic polypectomy Stented coronary artery Family History Father CAD (coronary artery disease), Onset Age: 60 Diabetes Mother Cancer Denies family history of Clotting disorder Dementia Chronic kidney disease (CKD) Suicide Anesthesia complication Bleeding disorder Lung disease Stroke Social History Smoking and tobacco status: current every day smoker Alcohol intake: never Household members: spouse Marital status: Current occupational status: employed History of recent travel: Yes Details: Went to [place] Out of state: Yes Vitals/I&O/Wt Last Vital Signs Temp 98.4 F 08/21/21 21:49 Pulse 98 08/22/21 04:49 Resp 18 08/22/21 04:49 BP 129/85 08/22/21 04:49 Pulse Ox 98 08/22/21 04:49 08/21/21 08/21/21 08/22/21 14:59 22:59 06:59 Intake Total Balance Weight last 48 hrs Weight 73.028 kg Physical Exam Const: COMMON NORMALS: no acute distress and patient oriented x3 HENMT: COMMON NORMALS: normocephalic HEAD & SCALP: normocephalic Eye: COMMON NORMALS: Equal, round and reactive pupils present and EOMs intact bilaterally Neck/C-Spine: COMMON NORMALS: no JVD Resp: COMMON NORMALS: normal respiratory effort, No retractions, No use of accessory muscles and clear to auscultation bilaterally AUSCULTATION: clear to auscultation bilaterally Cardio: COMMON NORMALS: no JVD, regular rate, regular rhythm, S1 normal heart sound present and S2 normal heart sound present RATE: regular rate RHYTHM: regular rhythm HEART SOUNDS: S1 normal heart sound present and S2 normal heart sound present GI: COMMON NORMALS: Normal to inspection, nondistended, normoactive bowel sounds present, Soft to palpation, non-tender, No hepatosplenomegaly present, no masses and no bruits PALPATION: Yes Soft to palpation and Yes No hepatosplenomegaly present Extremity: COMMON NORMALS: capillary refill normal, no clubbing, cyanosis or edema, no calf tenderness and no pedal edema Neuro: COMMON NORMALS: patient oriented x3, CN's II-XII intact bilaterally, moves all extremities and no focal motor deficits Psych: COMMON NORMALS: mental status grossly normal Data : 08/21/21 23:55 08/22/21 00:43 A&P Assessment and plan (1) DKA (diabetic ketoacidosis): Status: Acute Plan Diabetic ketoacidosis -ER visit on August 19 for nausea, vomiting -Now repeat nausea vomiting, -Follow UA, chest x-ray, inflammatory markers, troponin, lipase -We will consider CT of the abdomen -However she had a CT of the abdomen 08/20/2019 which was normal limits, she has nonspecific abdominal pain on exam -DKA protocol -Maintain potassium greater than 4.5 -Hold insulin drip until potassium is repleted greater than 4.5 -Insulin drip -Normal saline with 40 KCl at 125 -BMP, mag, Phos every 4 hours -If blood sugar drops below 200, start D5 normal saline with 40 KCl -Stop drip once anion gap less than 12 -Full code -Lovenox for DVT prophylaxis Attestations Medical Necessity Statement*: Patient requires hospitalization, inpatient, greater than 2 minutes, for diabetic ketoacidosis Coding Level of Care Code Acute Hospital Unit Coordinator for [facility] Fwd Diagnoses DKA (diabetic ketoacidosis) E11.10
--- NOTE | 2021-08-22 05:19 | XRR_ITS ---
PROCEDURE INFORMATION: Exam: XR Chest Exam date and time: 08/22/2021 6:13 AM Age: 66 years old Clinical indication: Shortness of breath; Additional info: SOB TECHNIQUE: Imaging protocol: XR of the chest. Views: 1 view. COMPARISON: CR XR chest 1V portable [id number] 08/19/2021 8:18 AM FINDINGS: Lungs: No CHF/pulmonary edema. Visible lungs appear essentially clear. Pleural spaces: No visible pneumothorax. No definite pleural fluid. Heart/Mediastinum: Heart size is within normal limits. Vasculature: Mild aortic arch calcification. Bones/joints: No significant acute finding. XR/XR chest 1V portable [id number] IMPRESSION: 1. No definite CHF or pneumonia. 2. Other findings discussed above.
--- NOTE | 2021-08-22 05:22 | USR_ITS ---
PROCEDURE INFORMATION: Exam: US Abdomen, Limited; Right Upper Quadrant Exam date and time: 08/22/2021 6:56 AM Age: 66 years old Clinical indication: Nausea and vomiting; Patient HX: H/o hyst; Additional info: Ruq US TECHNIQUE: Imaging protocol: US abdomen. Real time ultrasound with image documentation. Limited exam focused on the right upper quadrant. COMPARISON: CT abdomen pelvis wo con [id number] 08/19/2021 9:48 AM FINDINGS: Liver: The liver is unremarkable. Gallbladder: The gallbladder is nondistended. No stones. No pericholecystic fluid. There is discontinuous thickening of the gallbladder wall with echogenic nonshadowing foci along the hepatic surface of the gallbladder wall. Biliary ducts: The common bile duct is nondilated measuring 4 mm. Pancreas: The visible portion of the pancreas is unremarkable. Right kidney: The right kidney is unremarkable. No hydronephrosis. Aorta: The abdominal aorta is unremarkable. Inferior vena cava: The IVC is unremarkable. Portal venous: The portal vein is patent. US/US abdomen limited [id number] IMPRESSION: 1. No acute findings. No sign of acute cholecystitis. 2. Questionable adenomyomatosis of the gallbladder.
[2021-08-22] MEDS: pantoprazole 40 mg SDV IVP (05:40)
[2021-08-22] MEDS: sodium chlor 0.9% + KCl 40 mEq 40 MEQ/1,000 ML BAG 125 MEQ IV (05:40)
[2021-08-22] MEDS: enoxaparin 40 mg/0.4 mL Syringe SUBCUT (05:40)
[2021-08-22 05:44] LABS: Troponin(5th) Baseline 22 ng/L (0-10)
[2021-08-22 05:59] LABS: NT Pro B Type Natriuretic Pept 855 pg/mL (0-125); Procalcitonin 0.14 ng/mL (0-0.5); Thyroid Stimulating Hormone 1.05 uIU/mL (0.27-4.20)
[2021-08-22 06:30] LABS: Estmated Average Glucose 180; Hemoglobin A1C 7.9 % (4.0-6.0)
[2021-08-22 06:37] LABS: Lactic Sepsis W/Reflex 2.4 mmol/L (0.5-2.2)
[2021-08-22 06:38] LABS: Alanine Aminotransferase 18 U/L (0-33); Albumin Level 4.1 g/dL (3.5-5.2); Alkaline Phosphatase 116 IU/L (35-105); Aspartate Amino Transferase 20 U/L (0-32); Blood Urea Nitrogen 30 mg/dL (8-23); C Reactive Protein 9.1 mg/L (0.0-4.9); Calcium 9.8 mg/dL (8.5-10.5); Carbon Dioxide 16 mmol/L (22-29); Chloride 99 mmol/L (98-107); Chol HDL Ratio 4.42 mg/dL (0.0-4.40); Cholesterol 212 mg/dL (0-200); Globulin 3.3 g/dL (1.3-4.6); Glomerular Filtration Rate 62.6 mL/min (90-130); Glucose 289 mg/dL (65-115); HDL Cholesterol 48 mg/dL (60-100); LDL Cholesterol Calculated 116 mg/dL (50-129); LDL HDL Ratio 2.42 RATIO (0.00-3.22); Lipase 15 U/L (13-60); Magnesium 1.6 mg/dL (1.7-2.3); Osmolality Calculated 299 mOsm/kg (285-295); Phosphorus 1.5 mg/dL (2.5-4.5); Sodium 136 mmol/L (136-145); Total Bilirubin 0.5 mg/dL (0.15-1.2); Total Protein 7.4 g/dL (6.6-8.7); Triglycerides 240 mg/dL (0-150)
[2021-08-22 06:41] LABS: Anion Gap 23.9 (5-19); Potassium 2.9 mmol/L (3.5-5.1)
[2021-08-22 06:43] LABS: Glucose Point of Care 291 mg/dL (70-110)
[2021-08-22 07:06] LABS: Reflex Lactate Order REFLEX LACTIC ORDERD
--- NOTE | 2021-08-22 07:15 | ECG_ITS ---
[facility] Test Date: 2021-08-21 Pat Name: Judy Rincon Department: Room: ICU03 Gender: Female Sap Architect: : 1955 Requested By: Dayron Crouch Order Number: [id number] Yolanda MD: Jean-Paul Felton M.D. Measurements Intervals [place] Rate: 91 P: 81 KY: 110 QRS: 77 QRSD: 105 T: 76 QT: 379 QTc: 467 Interpretive Statements SINUS RHYTHM WITH SHORT [place] INTERVAL POSSIBLE LEFT ATRIAL ENLARGEMENT [-0.1mV P-WAVE IN V1/V2] MODERATE ST DEPRESSION [0.05+ mV ST DEPRESSION] Compared to ECG 08/19/2021 14:34:24 Short [place] interval now present ST (T wave) deviation now present Electronically Signed On 08-22-2021 9:24:14 CDT by Jean-Paul Felton M.D. [id number]
[2021-08-22 07:29] LABS: Glucose Point of Care 325 mg/dL (70-110)
[2021-08-22] MEDS: lidocaine 1% 5 ML in potassium chloride premix 100 ML 25 ML IV (07:35)
[2021-08-22 08:35] LABS: Troponin 5 2HR 27.02 ng/L (0-10); Troponin 5 2HR Delta 5.02 ABS# (0-10)
[2021-08-22 08:37] LABS: Anion Gap 22.8 (5-19); Blood Urea Nitrogen 32 mg/dL (8-23); Carbon Dioxide 17 mmol/L (22-29); Chloride 101 mmol/L (98-107); Glomerular Filtration Rate 71.8 mL/min (90-130); Glucose 325 mg/dL (65-115); Magnesium 1.5 mg/dL (1.7-2.3); Osmolality Calculated 303 mOsm/kg (285-295); Phosphorus 1.9 mg/dL (2.5-4.5); Potassium 3.8 mmol/L (3.5-5.1); Sodium 137 mmol/L (136-145)
[2021-08-22 08:38] LABS: Lactic Acid level (Lactate) 1.1 mmol/L (0.5-2.2)
[2021-08-22 08:44] LABS: Glucose Point of Care 317 mg/dL (70-110)
[2021-08-22] MEDS: aspirin 81 mg EC Tablet PO (08:50)
[2021-08-22] MEDS: carvedilol 6.25 mg Tablet PO ×2 (08:50→17:22)
[2021-08-22] MEDS: clopidogrel 75 mg Tablet PO (08:50)
[2021-08-22] MEDS: citalopram 20 mg Tablet 40 MG PO (08:50)
[2021-08-22] MEDS: atorvastatin 40 mg Tablet 20 MG PO (08:50)
[2021-08-22 09:52] LABS: Glucose Point of Care 314 mg/dL (70-110)
[2021-08-22 10:37] LABS: Glucose Point of Care 229 mg/dL (70-110)
--- NOTE | 2021-08-22 10:43 | PC.NURSE ---
Dr. Rojas at bedside, gave v.o. to start 1/2 ns D5 20 k once glucose less than 250
--- NOTE | 2021-08-22 11:15 | ECG_ITS ---
[facility] Test Date: 2021-08-22 Pat Name: Judy Rincon Department: Room: [facility] Gender: Female Equal Employment Opportunity Officer: : 1955 Requested By: Dayron Crouch Order Number: [id number] Yolanda MD: Jean-Paul Felton M.D. Measurements Intervals [place] Rate: 77 P: 69 VA: 123 QRS: 80 QRSD: 86 T: 65 QT: 341 QTc: 386 Interpretive Statements SINUS RHYTHM NONSPECIFIC ST & T-WAVE ABNORMALITY Compared to ECG 08/22/2021 05:33:57 Short [place] interval no longer present Intraventricular conduction delay no longer present T-wave abnormality still present Electronically Signed On 08-23-2021 9:25:15 CDT by Jean-Paul Felton M.D. [id number]
[2021-08-22 11:21] LABS: Glucose Point of Care 169 mg/dL (70-110)
[2021-08-22 11:38] LABS: Anion Gap 18.9 (5-19); Blood Urea Nitrogen 27 mg/dL (8-23); Calcium 9.5 mg/dL (8.5-10.5); Carbon Dioxide 20 mmol/L (22-29); Chloride 104 mmol/L (98-107); Glomerular Filtration Rate 71.8 mL/min (90-130); Glucose 175 mg/dL (65-115); Magnesium 1.5 mg/dL (1.7-2.3); Osmolality Calculated 299 mOsm/kg (285-295); Sodium 140 mmol/L (136-145)
[2021-08-22 11:39] LABS: Troponin 5 6HR 26.12 ng/L (0-10)
[2021-08-22] MEDS: D5-NS 0.45% + KCL 20 mEq 20 MEQ/1,000 ML BAG 125 MEQ IV (11:41)
[2021-08-22 12:21] LABS: Troponin 5 6HR Delta 4.12 ng/L (0-12)
[2021-08-22 12:52] LABS: Phosphorus 0.9 mg/dL (2.5-4.5); Potassium 2.9 mmol/L (3.5-5.1)
--- NOTE | 2021-08-22 13:03 | PM.MISC ---
Miscellaneous Note Note: Patient examined this morning Patient is stating that she has been noncompliant with her insulin, she was taking Lantus on a as needed basis I did eap counselor her and requested her to take Lantus a daily basis Gap has closed Electrolyte imbalance noted I will give her Lantus 15 units, start sliding scale continue normal saline She is awake and alert Nonfocal neuro exam No active chest pain or shortness of breath She is resting well on room air No abdominal pain Looks slightly dehydrated Plan Resume her diet Lantus 15 units to be given now Sliding scale Potassium and phosphorus supplementation She can be transferred out of ICU if ICU bed is needed She is full code Hypomagnesemia: Repleted
[2021-08-22] MEDS: sodium chloride 0.9% 1,000 ML 75 ML IV (13:25)
[2021-08-22] MEDS: insulin glargine 100 units/1 mL 15 UNIT SUBCUT (13:42)
--- NOTE | 2021-08-22 13:58 | PC.NURSE ---
Critical potassium and phosphorus reported to Dr. Rojas, and Anion gap turned off, HCP to put in orders
[2021-08-22 15:09] LABS: Glucose Point of Care 44 mg/dL (70-110)
[2021-08-22 15:36] LABS: Glucose Point of Care 77 mg/dL (70-110)
--- NOTE | 2021-08-22 16:13 | PC.NURSE ---
Glucose 44 patient AO and asymptomatic, Carbon juice and crackers given, glucose currently 77 patient remains asymptomatic and not wanting to eat anymore at this time
--- NOTE | 2021-08-22 16:57 | ED_ITS ---
HPI - Nausea/Vomiting/Diarrhea General: Chief complaint: Nausea/Vomiting/Diarrhea Stated complaint: N\V Time Seen by Provider: 08/22/21 00:47 Source: patient and family History of Present Illness: 66-year-old female with a history of uncontrolled diabetes. This is her third visit to the ER in the past week or so related to nausea and vomiting. She states that she still cannot keep any food or liquids down. She has been vomiting multiple times, particularly within the past 24 hours. She has not had any diarrhea. She denies significant belly pain. She denies fever. She states I am so thirsty. MD elicited complaint: nausea and vomiting Pertinent past history: other Onset (ago): day(s) Description of vomiting: watery Associated nausea: Yes Associated abdominal pain: Yes (minmal) Location of pain: None and Diffuse Severity: mild Exacerbating factors: eating and vomiting Relieving factors: none Associated symtoms: Reports dizziness, fatigue, headache(s), anorexia, nausea and weakness; Denies altered mental status, chest pain, cough, fecal incontinence, fevers/chills, numbness, short of breath or syncope Review of Systems Const: Reports: fatigue; Denies: fever(s) ENMT: Denies: throat pain Card: Denies: chest pain or syncope Resp: Denies: dyspnea, productive cough or non-productive cough GI: Reports: nausea; Denies: fecal incontinence Neuro: Reports: headache(s), lack of coordination, difficulty walking and dizziness PFSH ED PFSH: Medical History Arteriosclerosis of coronary artery -Had PCI of the Diagonal and OM1 on 10/23/[address] Verdin -On aspirin, Plavix, statin, BB BPPV (benign paroxysmal positional vertigo) Chest pain Colon polyp Diabetes History of colitis Hyperglycemia due to type 2 diabetes mellitus -A1c-10.5 -Noted hyperglycemia, continue Accu-Cheks, ISS. Add mealtime and long-acting insulin for better control -Consistent carb diet as tolerated -Hypoglycemia precautions -Has had good oral intake so off IVF Hyperlipemia Hypertension Surgical History H/O abdominal hysterectomy H/O dilation and curettage H/O foot surgery H/O laparoscopy H/O shoulder surgery S/P colonoscopic polypectomy Stented coronary artery Family History Father CAD (coronary artery disease), Onset Age: 60 Diabetes Mother Cancer Denies family history of Clotting disorder Dementia Chronic kidney disease (CKD) Suicide Anesthesia complication Bleeding disorder Lung disease Stroke Social History Smoking and tobacco status: current every day smoker Alcohol intake: never Household members: spouse Marital status: Current occupational status: employed History of recent travel: Yes Details: Went to [place] Out of state: Yes Physical Exam Const: EXAM LIMITATIONS: no altered mental status HENMT: COMMON NORMALS: normocephalic, atraumatic and Normal external nose present HEAD & SCALP: normocephalic and atraumatic NOSE: Normal external nose present Eye: COMMON NORMALS: Equal, round and reactive pupils present and EOMs intact bilaterally PUPIL: Yes Equal, round and reactive pupils present Neck/C-Spine: GENERAL: Yes trachea midline Chest: CHEST: Yes Symmetrical chest wall rise Resp: COMMON NORMALS: clear to auscultation bilaterally EFFORT & INSPECTION: Yes tachypneic AUSCULTATION: clear to auscultation bilaterally Cardio: COMMON NORMALS: regular rhythm RATE: tachycardic RHYTHM: regular rhythm GI: COMMON NORMALS: Soft to palpation PALPATION: Yes Soft to palpation, Yes Tenderness to palpation present (GI) (diffuse) and Yes Guarding due to palpation present (GI) Extremity: COMMON NORMALS: no pedal edema Neuro: DESIREE COMA SCALE: document GCS findings Desiree coma scale eye opening: To sound Desiree coma scale verbal response: Orientated Justice coma sc angelina motor response: Obey commands Justice coma scale total score: 14 Skin: COMMON NORMALS: no jaundice Course Vital Signs: Vital signs: Vital Signs Temperature 98.6 F 08/22/21 04:45 Pulse Rate 66 08/22/21 16:00 Respiratory Rate 13 08/22/21 16:00 Blood Pressure 125/51 08/22/21 16:00 Pulse Oximetry 96 08/22/21 16:00 MDM - Nausea/Vomiting/Diarrhea Medical Decision Making 56-year-old female with uncontrolled diabetes. She presents with vomiting. She appears quite dry. She is mildly tachycardic. Her potassium is 3.2. Her chloride is 91. She has a blood sugar of 570 on serum testing. Ketones are positive. Her pH is 7.35. She has received 2 L, and potassium here. She is no longer vomiting. She is placed on insulin drip. She will go to the ICU. Lab Data : 08/21/21 23:55 08/22/21 11:[address] 08/22/21 01:19 IMPRESSION: 1. No acute intracranial hemorrhage or mass effect. 2. No definite acute infarct by CT, see above. 3. Other findings discussed above. Chest X-Ray 08/22/21 05:19 IMPRESSION: 1. No definite CHF or pneumonia. 2. Other findings discussed above. Abdomen Ultrasound 08/22/21 05:22 IMPRESSION: 1. No acute findings. No sign of acute cholecystitis. 2. Questionable adenomyomatosis of the gallbladder. Laboratory Results WBC 9.9 10^3/uL (4.0-10.0) 08/21/21 23:55 RBC 5.86 10^6/uL (4.1-5.3) H 08/21/21 23:55 Hgb 16.6 g/dL (11.5-15.3) H 08/21/21 23:55 Hct 50.9 % (37.0-47.0) H 08/21/21 23:55 MCV 86.9 fl (81-99) 08/21/21 23:55 MCH 28.3 pg (28.0-34.0) 08/21/21 23:55 MCHC 32.6 g/dL (30.0-36.0) 08/21/21 23:55 RDW 13.6 % (12.1-15.1) 08/21/21 23:55 Plt Count 389 10^3/cmm (130-400) 08/21/21 23:55 MPV 10.7 fL (7.4-10.4) H 08/21/21 23:55 Neut % (Auto) 88.0 % 08/21/21 23:55 Lymph % (Auto) 5.4 % 08/21/21 23:55 Lamb % (Auto) 6.0 % 08/21/21 23:55 Eos % (Auto) 0.0 % 08/21/21 23:55 Baso % (Auto) 0.1 % 08/21/21 23:55 Neut # (Auto) 8.67 10^3/uL (1.8-7.7) H 08/21/21 23:55 Lymph # (Auto) 0.5 10^3/uL (0.8-4.8) L 08/21/21 23:55 Lamb # (Auto) 0.6 10^3/uL (0.2-0.9) 08/21/21 23:55 Eos # (Auto) 0.0 10^3/uL (0.0-0.8) 08/21/21 23:55 Baso # (Auto) 0.0 10^3/uL (0.0-0.1) 08/21/21 23:55 Nucleated RBC % (auto) 0 % 08/21/21 23:55 Nucleated RBCs # 0.0 /100WBC 08/21/21 23:55 Sodium 132 mmol/L (136-145) L 08/22/21 00:43 Potassium 3.2 mmol/L (3.5-5.1) L 08/22/21 00:43 Chloride 91 mmol/L (98-107) L 08/22/21 00:43 Carbon Dioxide 20 mmol/L (22-29) L 08/22/21 00:43 Anion Gap 24.2 (5-19) H 08/22/21 00:43 BUN 33 mg/dL (8-23) H 08/22/21 00:43 Creatinine 1.0 mg/dL (0.5-0.9) H 08/22/21 00:43 GFR Calculation 55.5 mL/min (90-130) L 08/22/21 00:43 Glucose 570 mg/dL (65-115) H* 08/22/21 00:43 POC Glucose 448 mg/dL (70-110) H 08/22/21 03:26 Estimat Average Glucose 180 08/21/21 23:55 Hemoglobin A1c 7.9 % (4.0-6.0) H 08/21/21 23:55 Calculated Osmolality 307 mOsm/kg (285-295) H 08/22/21 00:43 Calcium 9.5 mg/dL (8.5-10.5) 08/22/21 00:43 Total Bilirubin 0.4 mg/dL (0.15-1.2) 08/22/21 00:43 AST 14 U/L (0-32) 08/22/21 00:43 ALT 16 U/L (0-33) 08/22/21 00:43 Alkaline Phosphatase 110 IU/L (35-105) H 08/22/21 00:43 Total Protein 7.1 g/dL (6.6-8.7) 08/22/21 00:43 Albumin 4.0 g/dL (3.5-5.2) 08/22/21 00:43 Globulin 3.1 g/dL (1.3-4.6) 08/22/21 00:43 Serum Ketones Positive (Negative) H 08/22/21 02:54 Critical Care Time Critical Care Time: Critical Care Time: Yes Total Critical Care Time: 35 Attestation: This case had a high probability of a clinically significant, sudden, or life threatening deterioration of this patient's condition which required my full and direct attention, intervention and personal management. Discharge Plan Discharge Patient Disposition: Admitted As Inpatient Admit Provider: Dayron Crouch Clinical Impression: DKA (diabetic ketoacidosis) Condition: Serious Coding Level of Care Code ED Transportation Superintendent for Chg Fwd Exam Comprehensive
[2021-08-22 18:30] LABS: Glucose Point of Care 280 mg/dL (70-110)
[2021-08-22] MEDS: metoclopramide 5 mg/mL SDV 2 mL IVP (20:38)
[2021-08-22 20:53] LABS: Glucose Urine UA 4+ (Normal); Protein Urine 2+ (Negative); Specific Gravity, Urine 1.015 (1.005-1.030); Urine Appearance Clear (CLEAR); Urine Color Yellow (Yellow); pH Urine 5 (5-7)
[2021-08-22 20:54] LABS: Add Urine Culture? No; Add Urine Microscopic? YES; Bacteria Urine 1+ /hpf; Bilirubin Urine Neg (Negative); Blood Urine Trace (Negative); Ketones Urine 1+ (Negative); Leukocyte Esterase Urine Trace (Negative); Nitrate Urine Negative (Negative); RBC Urine 0-4 /hpf (0-2); Squamous Epithelial Cell Urine 0-4 /hpf (0-5); Urobilinogen Urine Norm (Negative)
[2021-08-22 21:17] LABS: Glucose Point of Care 382 mg/dL (70-110)
[2021-08-22] MEDS: insulin lispro 100 unit/1 mL 10 UNIT SUBCUT (21:36)
[2021-08-22] MEDS: hyDROXYzine 25 mg Capsule PO (21:36)
[2021-08-22 22:48] LABS: Glucose Point of Care 325 mg/dL (70-110)
--- NOTE | 2021-08-22 23:05 | PC.NURSE ---
2013 -- Notified Dr. Crouch of patients continued nausea with zofran being given at 1830. Order given for Reglan 5mg IV ever 4 hours prn 2123 -- Notified Dr. Crouch of blood glucose of 382, Order to give 10 units humalog insulin SQ x 1 dose and recheck blood glucose in 1 hour. 2242 -- Blood glucose 325, Notified Dr. Crouch, no new orders given
[2021-08-23] VITALS (10 sets, daily range): BP systolic 136–179; BP diastolic 68–85; PULSE 64–80; RESP 12–19; TEMP 36.4–37; O2SAT 94–97
[2021-08-23] MEDS: metoclopramide 5 mg/mL SDV 2 mL IVP ×4 (00:49→21:01)
[2021-08-23] MEDS: sodium chloride 0.9% 1,000 ML 75 ML IV (03:25)
[2021-08-23] MEDS: ondansetron 2 mg/ML SDV 2 mL 4 MG IVP ×2 (03:42→13:56)
[2021-08-23 05:25] LABS: Basophils % 0.2 %; Eosinophils # 0.1 10^3/uL (0.0-0.8); Eosinophils % 0.5 %; Hematocrit 43.8 % (37.0-47.0); Hemoglobin 14.6 g/dL (11.5-15.3); Lymphocytes % 17.3 %; Mean Corpuscular HGB Conc 33.3 g/dL (30.0-36.0); Mean Corpuscular Hemoglobin 28.9 pg (28.0-34.0); Mean Corpuscular Volume 86.7 fl (81-99); Mean Platelet Volume 10.9 fL (7.4-10.4); Monocytes # 1.2 10^3/uL (0.2-0.9); Monocytes % 10.3 %; Neutrophils # 8.21 10^3/uL (1.8-7.7); Neutrophils % 71.3 %; Nucleated Red Blood Cells % 0 %; Platelet Count 288 10^3/cmm (130-400); Red Blood Count 5.05 10^6/uL (4.1-5.3); Red Cell Distribution Width 13.7 % (12.1-15.1); White Blood Count 11.5 10^3/uL (4.0-10.0)
[2021-08-23] MEDS: pantoprazole 40 mg SDV IVP (05:44)
[2021-08-23] MEDS: enoxaparin 40 mg/0.4 mL Syringe SUBCUT (05:44)
[2021-08-23] MEDS: potassium chloride ER 20 mEq Tablet PO ×2 (06:12→09:37)
[2021-08-23 06:37] LABS: Alanine Aminotransferase 18 U/L (0-33); Albumin Level 3.3 g/dL (3.5-5.2); Alkaline Phosphatase 95 IU/L (35-105); Anion Gap 13.4 (5-19); Aspartate Amino Transferase 19 U/L (0-32); Blood Urea Nitrogen 18 mg/dL (8-23); Calcium 8.5 mg/dL (8.5-10.5); Carbon Dioxide 23 mmol/L (22-29); Chloride 100 mmol/L (98-107); Globulin 2.8 g/dL (1.3-4.6); Glucose 274 mg/dL (65-115); Magnesium 1.4 mg/dL (1.7-2.3); Osmolality Calculated 288 mOsm/kg (285-295); Phosphorus 2.4 mg/dL (2.5-4.5); Potassium 3.4 mmol/L (3.5-5.1); Sodium 133 mmol/L (136-145); Total Bilirubin 0.7 mg/dL (0.15-1.2); Total Protein 6.1 g/dL (6.6-8.7)
[2021-08-23] MEDS: insulin lispro 100 unit/1 mL SUBCUT ×3 (07:38→17:34)
[2021-08-23 07:45] LABS: Glucose Point of Care 270 mg/dL (70-110)
[2021-08-23] MEDS: citalopram 20 mg Tablet 40 MG PO (09:36)
[2021-08-23] MEDS: atorvastatin 40 mg Tablet 20 MG PO (09:36)
[2021-08-23] MEDS: aspirin 81 mg EC Tablet PO (09:36)
[2021-08-23] MEDS: carvedilol 6.25 mg Tablet PO ×2 (09:36→17:33)
[2021-08-23] MEDS: clopidogrel 75 mg Tablet PO (09:37)
[2021-08-23 11:56] LABS: Glucose Point of Care 193 mg/dL (70-110)
--- NOTE | 2021-08-23 14:17 | PM.PN ---
Subjective Subjective: This morning patient is endorsing feeling better, low potassium, magnesium and phosphorus noted Vitals/I&O/Wt Last Vital Signs Temp 98.0 F 08/23/21 12:00 Pulse 69 08/23/21 12:00 Resp 12 08/23/21 12:00 BP 179/68 08/23/21 12:00 Pulse Ox 96 08/23/21 12:00 08/22/21 08/23/21 08/23/21 22:59 06:59 14:59 Intake Total 352.0079 / 1865.2579 1200 / 3065.2579 240 / 240 Output Total 800 / 800 750 / 1550 600 / 600 Balance -447.9921 / 1065.2579 450 / 1515.2579 -360 / -360 Weight last 48 hrs Weight 74.979 kg Weight 73.028 kg Physical Exam Narrative: Patient is feeling better No active chest pain Saturating well on room air Abdomen soft No active emesis Nonfocal neuro exam Looks well-hydrated Data : 08/23/21 04:32 08/23/21 06:10 A&P Assessment and plan (1) DKA (diabetic ketoacidosis): Status: Acute (2) Viral gastroenteritis: Status: Acute Plan DKA: Resolved Patient has been noncompliant with her insulin I did crisis counselor her extensively I will schedule her insulin Transfer out of ICU Plan to discharge her tomorrow Hypomagnesemia, hypokalemia, hypo phosphatemia: Repleted Consistent carb diet Full code DVT prophylaxis on board Attestations Medical Necessity Statement*: Discharge tomorrow Time Spent in Patient Care: 20 Coding Level of Care Code Acute Licensed Therapist for [facility] Diagnoses DKA (diabetic ketoacidosis) E11.10 Viral gastroenteritis A08.4
--- NOTE | 2021-08-23 15:33 | PC.NURSE ---
1530 Transfered patient via wheelchair to [facility] with at bedside. Belongings of a watch and upper and lower dentures taken with patient. Still some nausea, but medicated recently with Zofran. Helped patient into bed, made comfortable and gave call button, and at bedside.
[2021-08-23 17:14] LABS: Glucose Point of Care 117 mg/dL (70-110)
[2021-08-23] MEDS: magnesium oxide 400 mg tablet PO (17:33)
[2021-08-23 21:15] LABS: Glucose Point of Care 123 mg/dL (70-110)
[2021-08-24 02:22] VITALS: PULSE 68
[2021-08-24] MEDS: ondansetron 2 mg/ML SDV 2 mL 4 MG IVP (02:50)
[2021-08-24 04:00] VITALS: BP 111/62; PULSE 74; RESP 16; TEMP 36.6; O2SAT 93
[2021-08-24] MEDS: pantoprazole 40 mg SDV IVP (04:55)
[2021-08-24] MEDS: enoxaparin 40 mg/0.4 mL Syringe SUBCUT (04:55)
[2021-08-24 05:31] LABS: Basophils % 0.2 %; Eosinophils # 0.1 10^3/uL (0.0-0.8); Eosinophils % 0.9 %; Hematocrit 46.3 % (37.0-47.0); Hemoglobin 15.5 g/dL (11.5-15.3); Lymphocytes # 1.5 10^3/uL (0.8-4.8); Lymphocytes % 15.7 %; Mean Corpuscular HGB Conc 33.5 g/dL (30.0-36.0); Mean Corpuscular Volume 86.7 fl (81-99); Mean Platelet Volume 10.5 fL (7.4-10.4); Monocytes # 0.8 10^3/uL (0.2-0.9); Monocytes % 8.5 %; Neutrophils # 7.12 10^3/uL (1.8-7.7); Neutrophils % 74.3 %; Nucleated Red Blood Cells % 0 %; Platelet Count 264 10^3/cmm (130-400); Red Blood Count 5.34 10^6/uL (4.1-5.3); Red Cell Distribution Width 13.3 % (12.1-15.1); White Blood Count 9.6 10^3/uL (4.0-10.0)
[2021-08-24 05:46] LABS: Anion Gap 18.7 (5-19); Blood Urea Nitrogen 16 mg/dL (8-23); Calcium 8.3 mg/dL (8.5-10.5); Carbon Dioxide 21 mmol/L (22-29); Chloride 97 mmol/L (98-107); Glomerular Filtration Rate 123.4 mL/min (90-130); Glucose 248 mg/dL (65-115); Magnesium 1.3 mg/dL (1.7-2.3); Osmolality Calculated 285 mOsm/kg (285-295); Phosphorus 3.3 mg/dL (2.5-4.5); Potassium 3.7 mmol/L (3.5-5.1); Sodium 133 mmol/L (136-145)
[2021-08-24] MEDS: insulin lispro 100 unit/1 mL SUBCUT ×4 (06:25→11:55)
[2021-08-24 06:26] LABS: Glucose Point of Care 251 mg/dL (70-110)
[2021-08-24 06:44] VITALS: PULSE 83
[2021-08-24 07:53] VITALS: BP 133/69; PULSE 77; RESP 16; TEMP 36.4; O2SAT 96
[2021-08-24] MEDS: clopidogrel 75 mg Tablet PO (08:22)
[2021-08-24] MEDS: magnesium oxide 400 mg tablet PO (08:22)
[2021-08-24] MEDS: potassium chloride ER 20 mEq Tablet PO (08:22)
[2021-08-24] MEDS: aspirin 81 mg EC Tablet PO (08:23)
[2021-08-24] MEDS: citalopram 20 mg Tablet 40 MG PO (08:23)
[2021-08-24] MEDS: atorvastatin 40 mg Tablet 20 MG PO (08:23)
[2021-08-24] MEDS: carvedilol 6.25 mg Tablet PO (08:23)
[2021-08-24] MEDS: docusate sodium 100 mg Capsule PO (08:23)
[2021-08-24] MEDS: metoclopramide 5 mg/mL SDV 2 mL IVP (09:55)
[2021-08-24 10:02] LABS: Glucose Point of Care 279 mg/dL (70-110)
[2021-08-24 11:10] LABS: Glucose Point of Care 214 mg/dL (70-110)
--- NOTE | 2021-08-24 11:35 | P.DS_ITS ---
Discharge Providers Date of Admission: 08/22/21 03:56 Date of Discharge: August 24, 2021 Attending Provider at Admission: Dayron Crouch MD Attending Provider at Discharge: Kristin Rojas MD Primary Care Provider: Desean Conteh DO Diagnoses at Discharge Discharge Diagnosis (1) DKA (diabetic ketoacidosis): Status: Acute (2) Viral gastroenteritis: Status: Acute Reason for Visit Reason for Visit: N\V Hospital Course Hospital Course 66-year-old female who was admitted for management of DKA. Patient has been noncompliant with her Lantus. Patient is stating that she takes Lantus on a as needed basis depending on her blood sugar. I reinforced the importance of continuous use of Lantus overnight and Premeal sugar. She is taking 5 units of hemoglobin before her meals on top of her sliding scale and Lantus at night. Her DKA resolved, no active signs of infection, no signs of chest pain or shortness of breath. Her sugar has been consistently high I requested patient to stay 1 more day in the hospital to adjust her insulin, on 08/24 she is adamant that she wants to go home, I have given her referral to see Dr. Howard added Lantus 70 units at night and 5 units Premeal. She might benefit from metformin, I have discontinued glipizide. Her hemoglobin A1c has worsened to 7.9 from 6.9. Physical Exam Narrative: Pleasant cooperative female Abdomen soft S1, S2 Nonfocal neuro exam Saturating well on room air Discharge Data Studies Completed and Pending Completed Studies During Hospitalization Category Date Time Status CT head wo con* [id number] Urgent Cat Scan 08/22/21 01:19 Completed XR chest 1V portable [id number] Routine Exams 08/22/21 05:19 Completed US abdomen limited [id number] Routine Ultrasound 08/22/21 05:22 Completed Pending at discharge Category Date Time Status Arterial Blood Gas W/O Coox Stat Lab 08/22/21 02:56 Received Radiology Impressions Head CT 08/22/21 01:19 IMPRESSION: 1. No acute intracranial hemorrhage or mass effect. 2. No definite acute infarct by CT, see above. 3. Other findings discussed above. Chest X-Ray 08/22/21 05:19 IMPRESSION: 1. No definite CHF or pneumonia. 2. Other findings discussed above. Abdomen Ultrasound 08/22/21 05:22 IMPRESSION: 1. No acute findings. No sign of acute cholecystitis. 2. Questionable adenomyomatosis of the gallbladder. Laboratory Results WBC 9.6 10^3/uL (4.0-10.0) 08/24/21 04:15 RBC 5.34 10^6/uL (4.1-5.3) H 08/24/21 04:15 Hgb 15.5 g/dL (11.5-15.3) H 08/24/21 04:15 Hct 46.3 % (37.0-47.0) 08/24/21 04:15 MCV 86.7 fl (81-99) 08/24/21 04:15 MCH 29.0 pg (28.0-34.0) 08/24/21 04:15 MCHC 33.5 g/dL (30.0-36.0) 08/24/21 04:15 RDW 13.3 % (12.1-15.1) 08/24/21 04:15 Plt Count 264 10^3/cmm (130-400) 08/24/21 04:15 MPV 10.5 fL (7.4-10.4) H 08/24/21 04:15 Neut % (Auto) 74.3 % 08/24/21 04:15 Lymph % (Auto) 15.7 % 08/24/21 04:15 [place] % (Auto) 8.5 % 08/24/21 04:15 Eos % (Auto) 0.9 % 08/24/21 04:15 Baso % (Auto) 0.2 % 08/24/21 04:15 Neut # (Auto) 7.12 10^3/uL (1.8-7.7) 08/24/21 04:15 Lymph # (Auto) 1.5 10^3/uL (0.8-4.8) 08/24/21 04:15 [place] # (Auto) 0.8 10^3/uL (0.2-0.9) 08/24/21 04:15 Eos # (Auto) 0.1 10^3/uL (0.0-0.8) 08/24/21 04:15 Baso # (Auto) 0.0 10^3/uL (0.0-0.1) 08/24/21 04:15 Nucleated RBC % (auto) 0 % 08/24/21 04:15 Nucleated RBCs # 0.0 /100WBC 08/24/21 04:15 Sodium 133 mmol/L (136-145) L 08/24/21 04:15 Potassium 3.7 mmol/L (3.5-5.1) 08/24/21 04:15 Chloride 97 mmol/L (98-107) L 08/24/21 04:15 Carbon Dioxide 21 mmol/L (22-29) L 08/24/21 04:15 Anion Gap 18.7 (5-19) 08/24/21 04:15 BUN 16 mg/dL (8-23) 08/24/21 04:15 Creatinine 0.5 mg/dL (0.5-0.9) 08/24/21 04:15 GFR Calculation 123.4 mL/min (90-130) 08/24/21 04:15 Glucose 248 mg/dL (65-115) H 08/24/21 04:15 POC Glucose 214 mg/dL (70-110) H 08/24/21 10:45 Estimat Average Glucose 180 08/21/21 23:55 Hemoglobin A1c 7.9 % (4.0-6.0) H 08/21/21 23:55 Calculated Osmolality 285 mOsm/kg (285-295) 08/24/21 04:15 Lactic Acid 2.4 mmol/L (0.5-2.2) H 08/22/21 06:05 Lactic Acid (Sepsis) 1.1 mmol/L (0.5-2.2) 08/22/21 08:07 Calcium 8.3 mg/dL (8.5-10.5) L 08/24/21 04:15 Phosphorus 3.3 mg/dL (2.5-4.5) 08/24/21 04:15 Magnesium 1.3 mg/dL (1.7-2.3) L 08/24/21 04:15 Total Bilirubin 0.7 mg/dL (0.15-1.2) 08/23/21 06:10 AST 19 U/L (0-32) 08/23/21 06:10 ALT 18 U/L (0-33) 08/23/21 06:10 Alkaline Phosphatase 95 IU/L (35-105) 08/23/21 06:10 Troponin T Baseline 22 ng/L (0-10) H 08/22/21 05:15 Troponin T 120 Minute 27.02 ng/L (0-10) H 08/22/21 08:07 Delta Troponin T 5.02 ABS# (0-10) 08/22/21 08:07 Troponin T Hi Sens 6Hr 26.12 ng/L (0-10) H 08/22/21 11:09 Troponin T Hi Sens 6Hr Delta 4.12 ng/L (0-12) 08/22/21 11:09 C-Reactive Protein 9.1 mg/L (0.0-4.9) H 08/22/21 05:15 C-Reactive Protein Cancelled 08/22/21 05:15 NT-Pro-B Natriuret Pep 855 pg/mL (0-125) H 08/22/21 05:15 NT-Pro-B Natriuret Pep Cancelled 08/22/21 05:15 Total Protein 6.1 g/dL (6.6-8.7) L 08/23/21 06:10 Albumin 3.3 g/dL (3.5-5.2) L 08/23/21 06:10 Globulin 2.8 g/dL (1.3-4.6) 08/23/21 06:10 Triglycerides 240 mg/dL (0-150) H 08/22/21 05:15 Triglycerides Cancelled 08/22/21 05:15 Cholesterol 212 mg/dL (0-200) H 08/22/21 05:15 Cholesterol Cancelled 08/22/21 05:15 LDL Cholesterol, Calc 116 mg/dL (50-129) 08/22/21 05:15 LDL Cholesterol, Calc Cancelled 08/22/21 05:15 HDL Cholesterol 48 mg/dL (60-100) L 08/22/21 05:15 HDL Cholesterol Cancelled 08/22/21 05:15 LDL/HDL Ratio 2.42 RATIO (0.00-3.22) 08/22/21 05:15 LDL/HDL Ratio Cancelled 08/22/21 05:15 Cholesterol/HDL Ratio 4.42 mg/dL (0.0-4.40) H 08/22/21 05:15 Cholesterol/HDL Ratio Cancelled 08/22/21 05:15 Lipase 15 U/L (13-60) 08/22/21 05:15 Lipase Cancelled 08/22/21 05:15 Procalcitonin 0.14 ng/mL (0-0.5) 08/22/21 05:15 TSH 1.05 uIU/mL (0.27-4.20) 08/22/21 05:15 Urine Color Yellow (Yellow) 08/22/21 20:30 Urine Appearance Clear (CLEAR) 08/22/21 20:30 Urine pH 5 (5-7) 08/22/21 20:30 Ur Specific [place] 1.015 (1.005-1.030) 08/22/21 20:30 Urine Protein 2+ (Negative) H 08/22/21 20:30 Urine Glucose (UA) 4+ (Normal) H 08/22/21 20:30 Urine Ketones 1+ (Negative) H 08/22/21 20:30 Urine Blood Trace (Negative) H 08/22/21 20:30 Urine Nitrate Negative (Negative) 08/22/21 20:30 Urine Bilirubin Neg (Negative) 08/22/21 20:30 Urine Urobilinogen Norm mg/dL (Negative) 08/22/21 20:30 Ur Leukocyte Esterase Trace (Negative) H 08/22/21 20:30 Urine RBC 0-4 /hpf (0-2) H 08/22/21 20:30 Urine WBC 10-15 /hpf (0-5) H 08/22/21 20:30 Ur Squamous Epith Cells 0-4 /hpf (0-5) H 08/22/21 20:30 Amorphous Sediment Not Reportable 08/22/21 20:30 Urine Bacteria 1+ /hpf (NONE) H 08/22/21 20:30 Serum Ketones Positive (Negative) H 08/22/21 02:54 Vitals Last Vital Signs Temp 97.5 F L 08/24/21 07:53 Pulse 77 08/24/21 07:53 Resp 16 08/24/21 07:53 BP 133/69 08/24/21 07:53 Pulse Ox 96 08/24/21 07:53 Discharge Plan Discharge Patient Disposition: Home Condition: Serious Prescriptions: New magnesium 200 mg tablet 200 mg PO DAILY Qty: 10 0RF potassium chloride 10 mEq tablet,ER particles/crystals 10 meq PO DAILY Qty: 4 0RF Humulin 70/30 U-100 KwikPen 100 unit/mL (70-30) insulin pen 5 unit SUBCUT AC Qty: 3 0RF Continued citalopram 40 mg tablet 40 mg PO DAILY 0RF Coreg 3.125 mg tablet 6.25 mg PO BID 90 Days Qty: 360 3RF Rx Instructions: must administer with a meal/food clopidogrel 75 mg tablet 75 mg PO DAILY 0RF Hold Instructions: Resume on 12/10/19. nitroglycerin 0.4 mg tablet, sublingual 0.4 mg SUBLINGUAL Q5M PRN (Reason: Chest Pain) 0RF lovastatin 40 mg tablet 80 mg PO DAILY 0RF aspirin 81 mg tablet,delayed release (DR/EC) 81 mg PO DAILY 0RF Hold Instructions: Resume on 12/10/19. promethazine 25 mg tablet 25 mg PO TID PRN (Reason: nausea and vomiting) Qty: 30 0RF hydrocodone-acetaminophen 5-325 mg tablet 1 - 2 tab PO .Q4-6H PRN (Reason: pain) 5 Days Qty: 40 0RF cyanocobalamin (vitamin B-12) [Vitamin B-12] 1,000 mcg Tablet 1,000 mcg PO DAILY 0RF multivitamin [Multiple Vitamins] Tablet 1 tab PO DAILY 0RF vitamin E 200 unit Capsule 200 unit PO DAILY Qty: 0 0RF meclizine 25 mg Tablet 25 mg PO QID PRN (Reason: DIZZY) 0RF omeprazole 20 mg Tablet,Delayed Release (Dr/Ec) 20 mg PO DAILY 0RF tramadol 50 mg tablet 50 mg PO Q6H PRN (Reason: pain) Qty: 14 0RF methocarbamol 750 mg tablet 750 mg PO Q8H PRN (Reason: Back spasms and pain) Qty: 20 0RF ondansetron 4 mg tablet,disintegrating 4 mg PO Q8H PRN (Reason: nausea and vomiting) Qty: 12 0RF gabapentin 300 mg Capsule 300 mg PO TID 0RF loratadine 10 mg Tablet 10 mg PO DAILY 0RF Lyrica 50 mg Capsule 50 mg PO TID 0RF Changed Lantus Solostar U-100 Insulin 100 unit/mL (3 mL) Insulin Pen 17 unit SUBCUT QPM PRN (Reason: high blood sugar) Qty: 3 3RF Rx Instructions: as needed for bs over 150 Held glipizide 10 mg tablet extended release 24hr 10 mg PO BID 0RF Hold Instructions: Resume on 09/21/21. until see oral and maxillofacial surgeon Discontinued Humulin 70/30 U-100 KwikPen 100 unit/mL (70-30) insulin pen See Rx Instructions .ROUTE .COMPLEX Qty: 15 0RF Rx Instructions: 50 UNITS subcutaneously QAM AND 25 UNITS QPM prednisone 20 mg tablet 20 mg PO BID 7 Days Qty: 14 0RF Discharge Orders: Discharge Order (Routine); Ordered 08/24/21 Ordered By: Kristin Rojas Referrals: Delaney Howard MD [Physician] - 09/02/21 11:15 am (THE OFFICE WILL CALL WITH APPOINTMENT) Discharge Diet: Diabetic Discharge Activity: Increase activity as tolerated Patient Instructions: Potassium Chloride (By mouth), Magnesium Oxide (By mouth), Diabetic Ketoacidosis (DC), Opioid Safety Discharge Attestations Time Spent in Discharge Care*: less than 30 min Status at Discharge: Cognitive status at discharge: cognitively intact , Behavioral status at discharge: cooperative , Quality Metrics Clinical Quality Measures [ No reported AMI, CVA or VTE this stay] Coding Level of Care Code Acute Chg FW DC note Diagnoses DKA (diabetic ketoacidosis) E11.10 Viral gastroenteritis A08.4
[2021-08-24 11:42] VITALS: BP 117/66; PULSE 73; RESP 16; TEMP 36.3; O2SAT 96
[2021-08-24 14:02] VITALS: BP 117/66; PULSE 73; RESP 16; TEMP 36.7; O2SAT 96
--- NOTE | 2021-08-24 14:06 | PC.NURSE ---
IV removed intact. Patient tolerated well. Patient is A&Ox3. Respirations even and non-labored on room air. Reviewed patient's discharge with patient. Patient repeated that she take 5 units before each meal and her Lantus at night. Patient verbalized understanding of the magnesium and potassium that was added as well. Patient assisted into a wheel chair and pushed to private car.
[2021-08-27 09:26] LABS: ABG PCO2 37.5 mmHg (35-45); ABG PH Result 7.36 (7.35-7.45); Arterial Blood Gas Hematocrit 47.8 % (37-47); Base Excess ABG -4.1 mmol/L (-2.0-2.0); Blood Gas Allen Test Pos; Blood Gas Sample Site Radial, right; Blood Gas Sample Type Arterial; HCO3 ABG 20.9 mmol/L (22-26); PO2 ABG 41.7 mmHg (80.0-100.0)
== END 2021-08-24 13:30 | disposition home or self-care (01) | DRG 639 ==
LOC: ER 08-22 02:59 → ICU 08-22 04:04 → MEDSURG 08-23 15:20
PROVIDERS: Admitting Provider Family Medicine; Emergency Provider Emergency Medicine; PCP Family Medicine; Visit Provider Internal Medicine
DX: E11.10 Type 2 diabetes mellitus with ketoacidosis without coma (principal); I25.10 Atherosclerotic heart disease of native coronary artery without angina pectoris; Z95.5 Presence of coronary angioplasty implant and graft; Z79.4 Long term (current) use of insulin; I10 Essential (primary) hypertension; E78.5 Hyperlipidemia, unspecified; T38.3X6A Underdosing of insulin and oral hypoglycemic [antidiabetic] drugs, initial encounter; Z91.128 Patient's intentional underdosing of medication regimen for other reason; H81.10 Benign paroxysmal vertigo, unspecified ear; F17.200 Nicotine dependence, unspecified, uncomplicated; E83.42 Hypomagnesemia; A08.4 Viral intestinal infection, unspecified; E87.6 Hypokalemia; Z79.02 Long term (current) use of antithrombotics/antiplatelets; Z79.82 Long term (current) use of aspirin; Z79.891 Long term (current) use of opiate analgesic
CPT/HCPCS: 36415; 36416; 36600; 70450; 71045; 74176; 76705; 80048; 80053; 80061; 81001; 82009; 82803; 82962; 83036; 83605; 83690; 83735; 83880; 84100; 84145; 84443; 84484; 85025; 86140; 87086; 93005; 96365; 96366; 96372; 96374; 96375; 99285; C9113; J1630; J1650; J1815 ×2; J2060; J2405; J2765; J3475; J3480; J7030; J7050

== ENCOUNTER 2021-08-25 11:38 | Emergency (ER) | payer MEDICARE, SELFPAY ==
[2021-08-25 11:40] VITALS: BP 166/60; PULSE 73; RESP 15; TEMP 36.8; O2SAT 99
--- NOTE | 2021-08-25 11:41 | ECG_ITS ---
[facility] Test Date: 2021-08-25 Pat Name: Judy Rincon Department: Room: Gender: Female Clinical Lab Assistant: : 1955 Requested By: Rosas Nunes Order Number: [id number] Yolanda MD: Anmol Gardiner M.D. Measurements Intervals [place] Rate: 72 P: 54 UT: 115 QRS: 63 QRSD: 85 T: 52 QT: 412 QTc: 453 Interpretive Statements SINUS RHYTHM WITH SHORT UT INTERVAL Compared to ECG 08/22/2021 11:22:18 Short UT interval now present T-wave abnormality no longer present Electronically Signed On 08-25-2021 17:52:19 CDT by Anmol Gardiner M.D. [id number]
--- NOTE | 2021-08-25 11:41 | XRR_ITS ---
PROCEDURE INFORMATION: Exam: XR Chest Exam date and time: 08/25/2021 11:48 AM Age: 66 years old Clinical indication: Pain; Angina pectoris; Additional info: Chest pain TECHNIQUE: Imaging protocol: XR of the chest. Views: 1 view. COMPARISON: CR (CHEST, ) 08/22/2021 6:13 AM FINDINGS: Lungs: Unremarkable. No consolidation. Pleural spaces: Unremarkable. No pleural effusion. No pneumothorax. Heart/Mediastinum: Unremarkable. No cardiomegaly. Bones/joints: Unremarkable. XR/XR chest 1V portable [id number] IMPRESSION: No acute findings.
--- NOTE | 2021-08-25 11:55 | W.ED.CHESTPA ---
HPI - Chest Pain General: Chief Complaint: Chest Pain Stated Complaint: chest pain Time Seen by Provider: 08/25/21 11:41 Source: patient Mode of arrival: EMS Limitations: no limitations History of Present Illness: 66-year-old female presents emergency room with complaint of chest discomfort that began while she was laying in bed at home. She had associated nausea with it. She has a known history of coronary artery disease she has been taking all her medications also diabetic and smokes no other medication changes recently. In the ER the pain is reproducible with palpation across her chest movement and with deep inspiration. She did also trigger significant nausea. She was recently hospitalized for DKA and mild gastroenteritis. MD complaint: chest pain Onset (ago): hour(s) Timing of current episode: episodic Quality: tightness and aching Relieving factors: nothing Exacerbating factors: nothing Context: recent illness (Only hospitalized for DKA) Associated symptoms: Reports abdominal pain and nausea; Deny diaphoresis, dyspnea, fever(s), leg edema, palpitations, sense of impending doom, syncope or vomiting Treatment prior to arrival: none Review of Systems Const: Reports: fatigue and malaise; Denies: fever(s), chills or diaphoresis ENMT: Denies: throat pain, ear or mastoid pain, nasal discharge or nasal congestion Card: Reports: chest pain (Vague); Denies: palpitations or syncope Resp: Denies: dyspnea GI: Reports: abdominal pain, nausea and GI cramping; Denies: vomiting : Denies: flank pain, difficulty voiding, dysuria, urinary frequency or urinary urgency Skin/Breast: Denies: rash or pruritus PFSH ED PFSH: Medical History Arteriosclerosis of coronary artery -Had PCI of the Diagonal and OM1 on 10/23/[address] Verdin -On aspirin, Plavix, statin, BB BPPV (benign paroxysmal positional vertigo) Chest pain Colon polyp Diabetes History of colitis Hyperglycemia due to type 2 diabetes mellitus -A1c-10.5 -Noted hyperglycemia, continue Accu-Cheks, ISS. Add mealtime and long-acting insulin for better control -Consistent carb diet as tolerated -Hypoglycemia precautions -Has had good oral intake so off IVF Hyperlipemia Hypertension Surgical History H/O abdominal hysterectomy H/O dilation and curettage H/O foot surgery H/O laparoscopy H/O shoulder surgery S/P colonoscopic polypectomy Stented coronary artery Family History Father CAD (coronary artery disease), Onset Age: 60 Diabetes Mother Cancer Denies family history of Clotting disorder Dementia Chronic kidney disease (CKD) Suicide Anesthesia complication Bleeding disorder Lung disease Stroke Social History Smoking and tobacco status: current every day smoker Alcohol intake: never Household members: spouse Marital status: Current occupational status: employed History of recent travel: Yes Details: Went to [place] Out of state: Yes Physical Exam Const: COMMON NORMALS: no acute distress GENERAL APPEARANCE: cooperative and comfortable ORIENTATION/CONSCIOUSNESS: Yes awake, Yes oriented to person, Yes oriented to place and Yes oriented to time HENMT: COMMON NORMALS: normocephalic, atraumatic and hearing grossly normal bilaterally HEAD & SCALP: normocephalic and atraumatic Neck/C-Spine: COMMON NORMALS: no JVD Resp: COMMON NORMALS: normal respiratory effort, No retractions, No use of accessory muscles and clear to auscultation bilaterally AUSCULTATION: clear to auscultation bilaterally Cardio: COMMON NORMALS: no JVD, regular rate, regular rhythm and No murmurs present (Cardio) RATE: regular rate RHYTHM: regular rhythm GI: COMMON NORMALS: Soft to palpation and No hepatosplenomegaly present AUSCULTATION: Yes normoactive bowel sounds PALPATION: Yes Soft to palpation, No Tenderness to palpation present (GI), No Guarding due to palpation present (GI) and Yes No hepatosplenomegaly present Extremity: COMMON NORMALS: normal to inspection, capillary refill normal, no clubbing, cyanosis or edema, no calf tenderness and no pedal edema Neuro: SENSORIUM/ORIENTATION: Yes oriented to person, Yes oriented to place and Yes oriented to time Skin: COMMON NORMALS: no rashes or lesions noted GENERAL SKIN EXAM: no rashes or lesions noted Course Vital Signs: Vital signs: Vital Signs Temperature 98.3 F 08/25/21 11:40 Pulse Rate 83 08/25/21 14:37 Respiratory Rate 15 08/25/21 14:37 Blood Pressure 136/81 08/25/21 14:37 Pulse Oximetry 98 08/25/21 14:37 MDM - Chest Pain Medical Decision Making Serial troponins negative EKG shows nothing acute improved after GI cocktail discharge home continue to monitor blood sugars blood sugar was elevated today but looking back at her sugars before its about unfortunately her baseline which she endorsed. Have her follow-up with her primary care doc continue her basal and sliding scale insulins. Medical Records I reviewed the patient's medical records. Lab Data I reviewed the patient's lab results. : 08/25/21 15:30 08/25/21 12:55 Radiology Impressions Chest X-Ray 08/25/21 11:41 IMPRESSION: No acute findings. Laboratory Results WBC 9.6 10^3/uL (4.0-10.0) 08/25/21 15:30 Corrected WBC Cancelled 08/25/21 12:55 RBC 5.42 10^6/uL (4.1-5.3) H 08/25/21 15:30 Hgb 15.5 g/dL (11.5-15.3) H 08/25/21 15:30 Hct 46.5 % (37.0-47.0) 08/25/21 15:30 MCV 85.8 fl (81-99) 08/25/21 15:30 MCH 28.6 pg (28.0-34.0) 08/25/21 15:30 MCHC 33.3 g/dL (30.0-36.0) 08/25/21 15:30 RDW 13.3 % (12.1-15.1) 08/25/21 15:30 Plt Count 271 10^3/cmm (130-400) 08/25/21 15:30 MPV 10.8 fL (7.4-10.4) H 08/25/21 15:30 Gran % Cancelled 08/25/21 12:55 Neut % (Auto) 81.4 % 08/25/21 15:30 Lymph % (Auto) 11.6 % 08/25/21 15:30 [place] % (Auto) 6.1 % 08/25/21 15:30 Eos % (Auto) 0.5 % 08/25/21 15:30 Baso % (Auto) 0.1 % 08/25/21 15:30 Neut # (Auto) 7.84 10^3/uL (1.8-7.7) H 08/25/21 15:30 Lymph # (Auto) 1.1 10^3/uL (0.8-4.8) 08/25/21 15:30 [place] # (Auto) 0.6 10^3/uL (0.2-0.9) 08/25/21 15:30 Eos # (Auto) 0.1 10^3/uL (0.0-0.8) 08/25/21 15:30 Baso # (Auto) 0.0 10^3/uL (0.0-0.1) 08/25/21 15:30 Absolute Gran (auto) Cancelled 08/25/21 12:55 Nucleated RBC % (auto) 0 % 08/25/21 15:30 Nucleated RBCs # 0.0 /100WBC 08/25/21 15:30 Sodium 136 mmol/L (136-145) 08/25/21 12:55 Potassium 3.8 mmol/L (3.5-5.1) 08/25/21 12:55 Chloride 99 mmol/L (98-107) 08/25/21 12:55 Carbon Dioxide 26 mmol/L (22-29) 08/25/21 12:55 Anion Gap 14.8 (5-19) 08/25/21 12:55 BUN 22 mg/dL (8-23) 08/25/21 12:55 Creatinine 0.7 mg/dL (0.5-0.9) 08/25/21 12:55 GFR Calculation 83.7 mL/min (90-130) L 08/25/21 12:55 Glucose 315 mg/dL (65-115) H 08/25/21 12:55 Calculated Osmolality 297 mOsm/kg (285-295) H 08/25/21 12:55 Calcium 8.9 mg/dL (8.5-10.5) 08/25/21 12:55 Total Bilirubin 0.6 mg/dL (0.15-1.2) 08/25/21 12:55 AST 18 U/L (0-32) 08/25/21 12:55 ALT 22 U/L (0-33) 08/25/21 12:55 Alkaline Phosphatase 119 IU/L (35-105) H 08/25/21 12:55 Troponin T Baseline 20 ng/L (0-10) H 08/25/21 12:55 Troponin T 120 Minute 19.91 ng/L (0-10) H 08/25/21 15:30 Delta Troponin T -0.09 ABS# (0-10) L 08/25/21 15:30 Total Protein 7.0 g/dL (6.6-8.7) 08/25/21 12:55 Albumin 3.7 g/dL (3.5-5.2) 08/25/21 12:55 Globulin 3.3 g/dL (1.3-4.6) 08/25/21 12:55 Serum Ketones Negative (Negative) 08/25/21 12:55 Discharge Plan Discharge Patient Disposition: Home Clinical Impression: Nausea & vomiting, Diabetes Condition: Stable Prescriptions: No Action citalopram 40 mg tablet 40 mg PO DAILY 0RF Coreg 3.125 mg tablet 6.25 mg PO BID 90 Days Qty: 360 3RF Rx Instructions: must administer with a meal/food clopidogrel 75 mg tablet 75 mg PO DAILY 0RF Hold Instructions: Resume on 12/10/19. nitroglycerin 0.4 mg tablet, sublingual 0.4 mg SUBLINGUAL Q5M PRN (Reason: Chest Pain) 0RF lovastatin 40 mg tablet 80 mg PO DAILY 0RF glipizide 10 mg tablet extended release 24hr 10 mg PO BID 0RF Hold Instructions: Resume on 09/21/21. until see furniture cleaner aspirin 81 mg tablet,delayed release (DR/EC) 81 mg PO DAILY 0RF Hold Instructions: Resume on 12/10/19. promethazine 25 mg tablet 25 mg PO TID PRN (Reason: nausea and vomiting) Qty: 30 0RF hydrocodone-acetaminophen 5-325 mg tablet 1 - 2 tab PO .Q4-6H PRN (Reason: pain) 5 Days Qty: 40 0RF cyanocobalamin (vitamin B-12) [Vitamin B-12] 1,000 mcg Tablet 1,000 mcg PO DAILY 0RF multivitamin [Multiple Vitamins] Tablet 1 tab PO DAILY 0RF vitamin E 200 unit Capsule 200 unit PO DAILY Qty: 0 0RF meclizine 25 mg Tablet 25 mg PO QID PRN (Reason: DIZZY) 0RF omeprazole 20 mg Tablet,Delayed Release (Dr/Ec) 20 mg PO DAILY 0RF tramadol 50 mg tablet 50 mg PO Q6H PRN (Reason: pain) Qty: 14 0RF methocarbamol 750 mg tablet 750 mg PO Q8H PRN (Reason: Back spasms and pain) Qty: 20 0RF ondansetron 4 mg tablet,disintegrating 4 mg PO Q8H PRN (Reason: nausea and vomiting) Qty: 12 0RF gabapentin 300 mg Capsule 300 mg PO TID 0RF loratadine 10 mg Tablet 10 mg PO DAILY 0RF Lyrica 50 mg Capsule 50 mg PO TID 0RF magnesium 200 mg tablet 200 mg PO DAILY Qty: 10 0RF potassium chloride 10 mEq tablet,ER particles/crystals 10 meq PO DAILY Qty: 4 0RF Lantus Solostar U-100 Insulin 100 unit/mL (3 mL) Insulin Pen 17 unit SUBCUT QPM PRN (Reason: high blood sugar) Qty: 3 3RF Rx Instructions: as needed for bs over 150 Humulin 70/30 U-100 KwikPen 100 unit/mL (70-30) insulin pen 5 unit SUBCUT AC Qty: 3 0RF Discharge Orders: Discharge ED (Routine); Ordered 08/25/21 Ordered By: Rosas Ortiz Referrals: Desean Conteh DO [Primary Care Provider] - Discharge Diet: Clear Liquid Discharge Activity: Increase activity as tolerated Patient Instructions: Opioid Safety Activity Restrictions/Additional Instructions: Check blood sugars at least 4 times daily use sliding scale insulin to adjust. Clear liquid diet for 24 to 48 hours and advance as tolerated follow-up with primary care doctor within the week. Coding Level of Care Code ED Agency Director for Brady Gu
[2021-08-25] MEDS: lidocaine 2% viscous 15 ML, aluminum-mag hydrox-simethicon 30 ML, sucralfate oral liq 1 GM PO (13:18)
[2021-08-25] MEDS: promethazine 25 mg/mL SDV 1 mL IM (13:19)
[2021-08-25 13:29] LABS: Troponin(5th) Baseline 20 ng/L (0-10)
[2021-08-25 13:30] LABS: Alanine Aminotransferase 22 U/L (0-33); Albumin Level 3.7 g/dL (3.5-5.2); Alkaline Phosphatase 119 IU/L (35-105); Anion Gap 14.8 (5-19); Aspartate Amino Transferase 18 U/L (0-32); Blood Urea Nitrogen 22 mg/dL (8-23); Calcium 8.9 mg/dL (8.5-10.5); Carbon Dioxide 26 mmol/L (22-29); Chloride 99 mmol/L (98-107); Globulin 3.3 g/dL (1.3-4.6); Glomerular Filtration Rate 83.7 mL/min (90-130); Glucose 315 mg/dL (65-115); Osmolality Calculated 297 mOsm/kg (285-295); Potassium 3.8 mmol/L (3.5-5.1); Sodium 136 mmol/L (136-145); Total Bilirubin 0.6 mg/dL (0.15-1.2)
[2021-08-25 13:32] LABS: Ketone (Acetest) Serum Negative (Negative)
[2021-08-25 13:38] VITALS: BP 157/68; PULSE 82; RESP 14; O2SAT 97
--- NOTE | 2021-08-25 13:41 | ECG_ITS ---
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 Measurements Intervals [place] Rate: 76 P: 65 [place]: 116 QRS: 69 QRSD: 86 T: 59 QT: 378 QTc: 426 Interpretive Statements SINUS RHYTHM WITH SHORT [place] INTERVAL NONSPECIFIC T-WAVE ABNORMALITY Compared to ECG 08/25/2021 11:56:54 T-wave abnormality now present Electronically Signed On 08-25-2021 17:58:27 CDT by Anmol Gardiner M.D. [id number]
[2021-08-25 14:37] VITALS: BP 136/81; PULSE 83; RESP 15; O2SAT 98
[2021-08-25] MEDS: ondansetron 2 mg/ML SDV 2 mL 4 MG IVP (15:44)
[2021-08-25 15:45] LABS: Basophils % 0.1 %; Eosinophils # 0.1 10^3/uL (0.0-0.8); Eosinophils % 0.5 %; Hematocrit 46.5 % (37.0-47.0); Hemoglobin 15.5 g/dL (11.5-15.3); Lymphocytes # 1.1 10^3/uL (0.8-4.8); Lymphocytes % 11.6 %; Mean Corpuscular HGB Conc 33.3 g/dL (30.0-36.0); Mean Corpuscular Hemoglobin 28.6 pg (28.0-34.0); Mean Corpuscular Volume 85.8 fl (81-99); Mean Platelet Volume 10.8 fL (7.4-10.4); Monocytes # 0.6 10^3/uL (0.2-0.9); Monocytes % 6.1 %; Neutrophils # 7.84 10^3/uL (1.8-7.7); Neutrophils % 81.4 %; Nucleated Red Blood Cells % 0 %; Platelet Count 271 10^3/cmm (130-400); Red Blood Count 5.42 10^6/uL (4.1-5.3); Red Cell Distribution Width 13.3 % (12.1-15.1); White Blood Count 9.6 10^3/uL (4.0-10.0)
[2021-08-25 16:40] LABS: Troponin 5 2HR 19.91 ng/L (0-10)
[2021-08-25 16:44] LABS: Troponin 5 2HR Delta -0.09 ABS# (0-10)
[2021-08-25 17:58] VITALS: BP 145/75; PULSE 76; RESP 15; TEMP 36.8; O2SAT 98
[2021-08-25 17:59] VITALS: BP 145/75; PULSE 76; RESP 15; TEMP 36.8; O2SAT 98
== END 2021-08-25 18:01 | disposition home or self-care (01) ==
PROVIDERS: Emergency Provider Family Medicine; PCP Family Medicine
DX: E11.9 Type 2 diabetes mellitus without complications (principal); I10 Essential (primary) hypertension; R11.2 Nausea with vomiting, unspecified; Z79.84 Long term (current) use of oral hypoglycemic drugs; Z79.4 Long term (current) use of insulin
CPT/HCPCS: 71045; 80053; 82009; 84484; 85025; 93005; 96372; 96374; 99285; J2405; J2550

== ENCOUNTER → 2021-09-02 11:04 | Outpatient (BNVA) | payer MEDICARE, SELFPAY | PROVIDERS: PCP Family Medicine; Visit Provider Internal Medicine | DX: E13.9 Other specified diabetes mellitus without complications (principal); E78.2 Mixed hyperlipidemia; Z80.9 Family history of malignant neoplasm, unspecified; F17.200 Nicotine dependence, unspecified, uncomplicated; Z79.84 Long term (current) use of oral hypoglycemic drugs | CPT/HCPCS: 80061; 82947; 83519; 84681; 86337; 86341; 99204 ==

== ENCOUNTER → 2021-09-07 10:18 | Outpatient (BNVA) | payer MEDICARE, SELFPAY | PROVIDERS: PCP Family Medicine; Visit Provider Internal Medicine Cardiovascular Disease | DX: I25.10 Atherosclerotic heart disease of native coronary artery without angina pectoris (principal); I95.1 Orthostatic hypotension; E78.2 Mixed hyperlipidemia; E11.9 Type 2 diabetes mellitus without complications; F17.200 Nicotine dependence, unspecified, uncomplicated; Z79.84 Long term (current) use of oral hypoglycemic drugs; I10 Essential (primary) hypertension | CPT/HCPCS: 99214 ==

== ENCOUNTER → 2021-09-14 14:02 | Outpatient (BNVA) | payer MEDICARE, SELFPAY | PROVIDERS: PCP Family Medicine; Visit Provider Internal Medicine | DX: E13.9 Other specified diabetes mellitus without complications (principal); E78.2 Mixed hyperlipidemia; Z79.4 Long term (current) use of insulin; Z87.891 Personal history of nicotine dependence | CPT/HCPCS: 99214 ==

== ENCOUNTER 2021-10-07 11:09 | Outpatient (CLI) | payer MEDICARE, SELFPAY ==
--- NOTE | 2021-10-07 11:17 | MM_ITS ---
WS: [id number] SCREENING DIGITAL BREAST TOMOSYNTHESIS MAMMOGRAM WITH CAD HISTORY: SCREENING COMPARISON: 02/05/2020, 08/24/2017 Bilateral CC and MLO with tomosynthesis views submitted. Synthetic mammography reviewed. Computer aid ed detection analyzed. Breast composition: There are scattered areas of fibroglandular density. No suspicious masses, microc alcifications or architectural distortion. MM/[place] [id number] IMPRESSION: BI-RADS: 1-Negative FOLLOW UP: 1 Year Follow-up
== END 2021-10-07 11:10 | disposition home or self-care (01) ==
LOC: RAD 11:11
PROVIDERS: PCP Family Medicine; Visit Provider Family Medicine
DX: Z12.31 Encounter for screening mammogram for malignant neoplasm of breast (principal)
CPT/HCPCS: 77063; 77067

== ENCOUNTER 2021-10-26 11:24 | Outpatient (CLI) | payer MEDICARE, SELFPAY ==
--- NOTE | 2021-10-26 12:00 | CT_ITS ---
WS: [id number] CT LUMBAR SPINE, noncontrast. HISTORY: LEFT leg pain. Numbness, pain and tingling for 6 months involving the LEFT toes. TECHNIQUE: Contiguous 2.5 mm axial imaging are performed. Sagittal and coronal reformats are submitte d and reviewed. All CT scans at [facility] use at least one of these dose optimization techni ques: automated exposure control; mA and/or kV adjustment per patient size (includes targeted exams w here dose is matched to clinical indication); or iterative reconstruction. IV contrast: None DLP: 1580.28 mGy.cm COMPARISON: Prior CT 08/19/2021 Posterior lumbar fusion at L4-5. No interbody spacer is present at this time. L4 anterolisthesis by 5 .2 mm. Loss of the normal cortex involving the inferior endplate of L4 and the superior endplate of L 5 in the midline. This is at the site of the prior disc space which has been removed. Increased lucen cy surrounding the RIGHT L4 pedicle screw. Empty lucent tracts on the LEFT at L4 and L5 from screw re moval. LEFT L4 pedicle screw is probably in good position. The LEFT L5 pedicle screw extends through the subarticular recess and may be contacting the LEFT S1 and or the L5 nerve roots. Large posterior laminectomy defect at L4 and 5. Nonfused bone graft. Nondisplaced fracture in the L5 vertebral body. Fracture line best seen along the posterior surface of L5. L1-2: Normal. L2-3: Normal. L3-4: Mild disc bulging. RIGHT paracentral disc protrusion contacts the RIGHT lateral thecal sac. Sli ght posterior displacement of the traversing LEFT L4 nerve root. L4-5: Postoperative changes. No stenosis identified. Distention of the thecal sac and the nerve roots is difficult due to the postoperative soft tissue changes. L5-S1: Diffuse disc bulging. Atherosclerosis aorta. CT/CT lumbar spine wo con* [id number] IMPRESSION: 1. Posterior lumbar fusion at L4-5. Previously described disc spacer is no humberto khushboo present. Empty pedicle screw tracts on the LEFT at L4 and L5. 2. The LEFT L5 pedicle screw extends through the LEFT subarticular recess and proximal foramen and could be contacting the LEFT L5 and S1 nerve root. 3. Abnormal appearance of the endplates of L4 and L5 may be related to the int erbody spacer removal. There is also a nondisplaced fracture in the mid L5 vert ebral body which extends to the posterior vertebral body. 4. Extensive postsurgical changes of laminectomy defects at the L4-5 level. 5. Lucency around the RIGHT L4 pedicle screw concerning for loosening.
== END 2021-10-26 11:25 | disposition home or self-care (01) ==
LOC: RAD 11:30
PROVIDERS: PCP Family Medicine; Visit Provider Orthopaedic Surgery
DX: Z98.1 Arthrodesis status (principal); M79.605 Pain in left leg; R20.0 Anesthesia of skin; M96.1 Postlaminectomy syndrome, not elsewhere classified
CPT/HCPCS: 72131

== ENCOUNTER → 2021-11-24 11:04 | Outpatient (BNVA) | payer MEDICARE, SELFPAY | PROVIDERS: PCP Family Medicine; Visit Provider Orthopaedic Surgery | DX: M54.9 Dorsalgia, unspecified (principal); Z98.1 Arthrodesis status | CPT/HCPCS: 99214 ==

== ENCOUNTER → 2021-12-14 09:06 | Outpatient (BNVA) | payer MEDICARE, SELFPAY | PROVIDERS: PCP Family Medicine; Visit Provider Internal Medicine | DX: E78.2 Mixed hyperlipidemia (principal); E13.9 Other specified diabetes mellitus without complications; Z79.4 Long term (current) use of insulin; Z79.84 Long term (current) use of oral hypoglycemic drugs; Z87.891 Personal history of nicotine dependence | CPT/HCPCS: 99214 ==

== ENCOUNTER → 2021-12-17 09:42 | Outpatient (BNVA) | payer MEDICARE, SELFPAY | PROVIDERS: PCP Family Medicine; Visit Provider Internal Medicine Cardiovascular Disease | DX: I25.10 Atherosclerotic heart disease of native coronary artery without angina pectoris (principal); I10 Essential (primary) hypertension; E78.2 Mixed hyperlipidemia; E11.9 Type 2 diabetes mellitus without complications; Z79.4 Long term (current) use of insulin; I95.1 Orthostatic hypotension; Z87.891 Personal history of nicotine dependence | CPT/HCPCS: 99214 ==

== ENCOUNTER → 2022-02-24 11:18 | Outpatient (BNVA) | payer MEDICARE, SELFPAY | PROVIDERS: PCP Family Medicine; Visit Provider Internal Medicine | DX: E13.9 Other specified diabetes mellitus without complications (principal); E78.2 Mixed hyperlipidemia; Z79.4 Long term (current) use of insulin; Z79.84 Long term (current) use of oral hypoglycemic drugs | CPT/HCPCS: 80053; 80061; 83036; 99214 ==

== ENCOUNTER 2022-05-27 14:14 | Outpatient (CLI) | payer MEDICARE, SELFPAY ==
--- NOTE | 2022-05-27 15:00 | XR_ITS ---
WS: [id number] DEXA (DUAL ENERGY X-RAY ABSORPTIOMETRY) Bone mineral density was performed using a [employer] machine. HISTORY: advancing age, comorbid conditions that cause bone mineral l COMPARISON: None available. Total hip BMD: Left: 0.943 g/cm2. T score: -0.5 Z score: 0.6 Right: 0.965 g/cm2. T score: -0.3 Z score: 0.7 10 year probability of a major osteoporotic fracture is 8%. Prior lumbar fusion. XR/XR DEXA axial skeleton* [id number] IMPRESSION: NORMAL BONE MINERAL DENSITY based upon the WHO classification for females.
== END 2022-05-27 14:15 | disposition home or self-care (01) ==
LOC: RAD 14:18
PROVIDERS: PCP Family Medicine; Visit Provider Family Medicine
DX: E13.9 Other specified diabetes mellitus without complications (principal); M51.37 Other intervertebral disc degeneration, lumbosacral region; Z98.1 Arthrodesis status
CPT/HCPCS: 77080

== ENCOUNTER 2022-06-04 14:32 | Outpatient (CLI) | payer MEDICARE, SELFPAY ==
[2022-06-04 15:18] LABS: Creatinine Urine, Random 115 mg/dL (28-217); Microalbum Creatinine Ratio Ur 9 mg/dL (0-20); Microalbumin Random Urine 1 ug/dL (0-20)
[2022-06-04 15:32] LABS: Estmated Average Glucose 197; Hemoglobin A1C 8.5 % (4.0-6.0)
== END 2022-06-04 14:33 | disposition home or self-care (01) ==
LOC: LAB 14:34
PROVIDERS: PCP Family Medicine; Visit Provider Internal Medicine
DX: E13.9 Other specified diabetes mellitus without complications (principal); E78.2 Mixed hyperlipidemia
CPT/HCPCS: 36415; 82044; 83036

== ENCOUNTER → 2022-06-08 08:12 | Outpatient (BNVA) | payer MEDICARE, SELFPAY | PROVIDERS: PCP Family Medicine; Visit Provider Internal Medicine | DX: E11.9 Type 2 diabetes mellitus without complications (principal); Z79.4 Long term (current) use of insulin; Z79.84 Long term (current) use of oral hypoglycemic drugs; E78.2 Mixed hyperlipidemia | CPT/HCPCS: 99214 ==

== ENCOUNTER → 2022-06-24 09:31 | Outpatient (BNVA) | payer MEDICARE, SELFPAY | PROVIDERS: PCP Family Medicine; Visit Provider Internal Medicine Cardiovascular Disease | DX: I25.10 Atherosclerotic heart disease of native coronary artery without angina pectoris (principal); E78.2 Mixed hyperlipidemia; I10 Essential (primary) hypertension; E11.9 Type 2 diabetes mellitus without complications; Z87.891 Personal history of nicotine dependence; Z79.82 Long term (current) use of aspirin; Z79.4 Long term (current) use of insulin | CPT/HCPCS: 99214 ==

== ENCOUNTER → 2022-07-22 14:33 | Outpatient (BNVA) | payer MEDICARE, SELFPAY | PROVIDERS: PCP Family Medicine; Visit Provider Physician Assistant | DX: M54.50 Low back pain, unspecified (principal) | CPT/HCPCS: 72110; 99213 ==

== ENCOUNTER 2022-08-02 11:57 | Outpatient (CLI) | payer MEDICARE, SELFPAY ==
--- NOTE | 2022-08-02 12:30 | CTR_ITS ---
PROCEDURE INFORMATION: Exam: CT Lumbar Spine Without Contrast Exam date and time: 08/02/2022 12:25 PM Age: 67 years old Clinical indication: Low back pain; Prior surgery; Surgery date: 6+ months; Surgery type: Back, 2 years ago; Additional info: Continued lower back pain TECHNIQUE: Imaging protocol: Computed tomography of the lumbar spine without contrast. Total images: 1 Radiation optimization: All CT scans at this facility use at least one of these dose optimization techniques: automated exposure control; mA and/or kV adjustment per patient size (includes targeted exams where dose is matched to clinical indication); or iterative reconstruction. REPORTING DATA: Count of CT and Cardiac NM exams in prior 12 months: This patient has received 3 known CTs and 0 known cardiac nuclear medicine studies in the 12 months prior to the current study. COMPARISON: CT lumbar spine wo con* [id number] 10/26/2021 12:01 PM RADIATION DOSE METRICS: Total DLP (mGy-cm): 606.79 FINDINGS: Bones/joints: L4-L5 Posterior spinal fusion with laminectomy is noted. Rods and pedicle screws are in place and there is no evidence of hardware failure. Left pedicle screw at L5 passes through superior aspect of left neural foramina. Right pedicle screw at L4 passes through superior endplate. Findings are unchanged from prior exam. L5-S1 Facet joint degenerative changes are present. Soft tissues: Unremarkable. CT/CT lumbar spine wo con* [id number] IMPRESSION: 1. L4-L5 Posterior spinal fusion with laminectomy is noted. Rods and pedicle screws are in place and there is no evidence of hardware failure. Left pedicle screw at L5 passes through superior aspect of left neural foramina. Right pedicle screw at L4 passes through superior endplate. Findings are unchanged from prior exam. 2. No new pathology detected.
== END 2022-08-02 11:58 | disposition home or self-care (01) ==
PROVIDERS: PCP Family Medicine; Visit Provider Physician Assistant
DX: M47.812 Spondylosis without myelopathy or radiculopathy, cervical region (principal); Z98.1 Arthrodesis status
CPT/HCPCS: 72131

== ENCOUNTER 2022-08-10 11:00 | Outpatient (CLI) | payer MEDICARE, SELFPAY ==
[2022-08-10 12:40] LABS: Alanine Aminotransferase 15 U/L (0-33); Albumin Level 3.9 g/dL (3.5-5.2); Alkaline Phosphatase 126 U/L (35-105); Anion Gap 15.5 (5-19); Aspartate Amino Transferase 19 U/L (0-32); Blood Urea Nitrogen 13 mg/dL (8-23); Calcium 9.2 mg/dL (8.5-10.5); Carbon Dioxide 25 mmol/L (22-29); Chloride 103 mmol/L (98-107); Chol HDL Ratio 3.97 mg/dL (0.0-4.40); Cholesterol 143 mg/dL (0-200); Globulin 3.1 g/dL (1.3-4.6); Glomerular Filtration Rate 83.5 mL/min (90-130); Glucose 142 mg/dL (65-115); HDL Cholesterol 36 mg/dL (60-100); LDL Cholesterol Calculated 67 mg/dL (50-129); LDL HDL Ratio 1.86 RATIO (0.00-3.22); Osmolality Calculated 291 mOsm/kg (285-295); Potassium 4.5 mmol/L (3.5-5.1); Sodium 139 mmol/L (136-145); Total Bilirubin 0.2 mg/dL (0.15-1.2); Triglycerides 202 mg/dL (0-150)
[2022-08-10 12:51] LABS: Creatinine Urine, Random 60 mg/dL (28-217); Microalbum Creatinine Ratio Ur 17 mg/dL (0-20); Microalbumin Random Urine 1 ug/dL (0-20)
[2022-08-10 13:06] LABS: Estmated Average Glucose 206; Hemoglobin A1C 8.8 % (4.0-6.0)
== END 2022-08-10 11:01 | disposition home or self-care (01) ==
PROVIDERS: PCP Family Medicine; Visit Provider Internal Medicine
DX: E13.9 Other specified diabetes mellitus without complications (principal); E78.2 Mixed hyperlipidemia
CPT/HCPCS: 36415; 80053; 80061; 82044; 83036

== ENCOUNTER → 2022-08-19 09:44 | Outpatient (BNVA) | payer MEDICARE, MEDICAID, SELFPAY | PROVIDERS: PCP Family Medicine; Visit Provider Physician Assistant | DX: M47.818 Spondylosis without myelopathy or radiculopathy, sacral and sacrococcygeal region (principal); Z98.1 Arthrodesis status | CPT/HCPCS: 99213 ==

== ENCOUNTER → 2022-09-08 08:35 | Outpatient (BNVA) | payer MEDICARE, MEDICAID, SELFPAY | PROVIDERS: PCP Family Medicine; Visit Provider Internal Medicine | DX: E13.9 Other specified diabetes mellitus without complications (principal); E78.2 Mixed hyperlipidemia; Z79.4 Long term (current) use of insulin; Z79.84 Long term (current) use of oral hypoglycemic drugs | CPT/HCPCS: 99214 ==

== ENCOUNTER 2022-11-02 09:03 | Outpatient (CLI) | payer MEDICARE, SELFPAY ==
[2022-11-02 10:21] LABS: Basophils # 0.1 10^3/uL (0.0-0.1); Basophils % 1.2 %; Eosinophils # 0.3 10^3/uL (0.0-0.8); Eosinophils % 2.8 %; Hematocrit 43.2 % (37.0-47.0); Hemoglobin 13.6 g/dL (11.5-15.3); Lymphocytes % 21.7 %; Mean Corpuscular HGB Conc 31.5 g/dL (30.0-36.0); Mean Corpuscular Hemoglobin 30.5 pg (28.0-34.0); Mean Corpuscular Volume 96.9 fl (81-99); Mean Platelet Volume 10.9 fL (7.4-10.4); Monocytes # 0.6 10^3/uL (0.2-0.9); Neutrophils # 6.37 10^3/uL (1.8-7.7); Neutrophils % 67.9 %; Nucleated Red Blood Cells % 0 %; Platelet Count 274 10^3/cmm (130-400); Red Blood Count 4.46 10^6/uL (4.1-5.3); Red Cell Distribution Width 13.3 % (12.1-15.1); White Blood Count 9.4 10^3/uL (4.0-10.0)
[2022-11-02 10:32] LABS: Add Urine Microscopic? YES; Bilirubin Urine Neg (Negative); Blood Urine Neg (Negative); Glucose Urine UA Norm (Normal); Ketones Urine Negative (Negative); Leukocyte Esterase Urine 1+ (Negative); Nitrate Urine Negative (Negative); Protein Urine Neg (Negative); Specific Gravity, Urine 1.005 (1.005-1.030); Urine Appearance Hazy (CLEAR); Urine Color Yellow (Yellow); Urobilinogen Urine Norm (Negative); pH Urine 6.5 (5-7)
[2022-11-02 10:39] LABS: Bacteria Urine 1+ /hpf; RBC Urine 0-4 /hpf (0-2); WBC Urine 0-4 /hpf (0-5)
[2022-11-02 10:48] LABS: Alanine Aminotransferase 14 U/L (0-33); Albumin Level 3.8 g/dL (3.5-5.2); Alkaline Phosphatase 134 U/L (35-105); Blood Urea Nitrogen 17 mg/dL (8-23); Calcium 9.2 mg/dL (8.5-10.5); Carbon Dioxide 23 mmol/L (22-29); Chloride 101 mmol/L (98-107); Globulin 3.2 g/dL (1.3-4.6); Glomerular Filtration Rate 83.5 mL/min (90-130); Glucose 131 mg/dL (65-115); Osmolality Calculated 285 mOsm/kg (285-295); Sodium 136 mmol/L (136-145); Total Bilirubin 0.2 mg/dL (0.15-1.2)
[2022-11-02 10:50] LABS: Anion Gap 16.2 (5-19); Potassium 4.2 mmol/L (3.5-5.1)
[2022-11-02 10:51] LABS: Aspartate Amino Transferase 24 U/L (0-32)
[2022-11-02 10:56] LABS: Estmated Average Glucose 203; Hemoglobin A1C 8.7 % (4.0-6.0)
== END 2022-11-02 09:04 | disposition home or self-care (01) ==
LOC: LAB 09:07
PROVIDERS: PCP Family Medicine; Visit Provider Orthopaedic Surgery
DX: M47.818 Spondylosis without myelopathy or radiculopathy, sacral and sacrococcygeal region (principal)
CPT/HCPCS: 36415; 80053; 81001; 83036; 85025

== ENCOUNTER → 2022-11-04 10:30 | Outpatient (BNVA) | payer MEDICARE, SELFPAY | PROVIDERS: PCP Family Medicine; Visit Provider Clinical Nurse Specialist Adult Health | DX: R82.71 Bacteriuria (principal); Z01.818 Encounter for other preprocedural examination | CPT/HCPCS: 81000; 87086 ==

== ENCOUNTER 2022-12-07 08:50 | Outpatient (CLI) | payer MEDICARE, SELFPAY ==
[2022-12-07 09:53] LABS: Estmated Average Glucose 180; Hemoglobin A1C 7.9 % (4.0-6.0)
[2022-12-07 10:00] LABS: Alanine Aminotransferase 10 U/L (0-33); Albumin Level 4.1 g/dL (3.5-5.2); Alkaline Phosphatase 198 U/L (35-105); Anion Gap 14.7 (5-19); Aspartate Amino Transferase 15 U/L (0-32); Blood Urea Nitrogen 19 mg/dL (8-23); Carbon Dioxide 26 mmol/L (22-29); Chloride 101 mmol/L (98-107); Chol HDL Ratio 4.05 mg/dL (0.0-4.40); Cholesterol 150 mg/dL (0-200); Globulin 3.6 g/dL (1.3-4.6); Glomerular Filtration Rate 71.5 mL/min (90-130); Glucose 169 mg/dL (65-115); HDL Cholesterol 37 mg/dL (60-100); LDL Cholesterol Calculated 73 mg/dL (50-129); LDL HDL Ratio 1.97 RATIO (0.00-3.22); Osmolality Calculated 292 mOsm/kg (285-295); Potassium 3.7 mmol/L (3.5-5.1); Sodium 138 mmol/L (136-145); Total Bilirubin 0.3 mg/dL (0.15-1.2); Total Protein 7.7 g/dL (6.6-8.7); Triglycerides 201 mg/dL (0-150)
[2022-12-07 10:11] LABS: Creatinine Urine, Random 53 mg/dL (28-217); Microalbum Creatinine Ratio Ur 38 mg/dL (0-20); Microalbumin Random Urine 2 ug/dL (0-20)
== END 2022-12-07 08:51 | disposition home or self-care (01) ==
PROVIDERS: PCP Family Medicine; Visit Provider Internal Medicine
DX: E78.2 Mixed hyperlipidemia (principal); E13.9 Other specified diabetes mellitus without complications
CPT/HCPCS: 36415; 80053; 80061; 82044; 83036

== ENCOUNTER 2022-12-14 12:12 | Outpatient (CLI) | payer MEDICARE, SELFPAY ==
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
== END 2022-12-14 12:13 | disposition home or self-care (01) ==
PROVIDERS: PCP Family Medicine; Visit Provider Family Medicine
DX: S62.318A Displaced fracture of base of other metacarpal bone, initial encounter for closed fracture (principal); S93.401A Sprain of unspecified ligament of right ankle, initial encounter; E13.9 Other specified diabetes mellitus without complications; E78.2 Mixed hyperlipidemia; Z79.4 Long term (current) use of insulin; X58.XXXA Exposure to other specified factors, initial encounter
CPT/HCPCS: 73130; 73610; 99214

== ENCOUNTER 2022-12-29 13:30 | Outpatient (CLI) | payer MEDICARE, SELFPAY ==
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
== END 2022-12-29 13:31 | disposition home or self-care (01) ==
LOC: RAD 13:32
PROVIDERS: PCP Family Medicine; Visit Provider Family Medicine
DX: I60.9 Nontraumatic subarachnoid hemorrhage, unspecified (principal); S06.0XAA Concussion with loss of consciousness status unknown, initial encounter; X58.XXXA Exposure to other specified factors, initial encounter; I67.89 Other cerebrovascular disease
CPT/HCPCS: 70450

== ENCOUNTER → 2023-01-04 07:57 | Outpatient (BNVA) | payer MEDICARE, SELFPAY | PROVIDERS: PCP Family Medicine; Visit Provider Nurse Practitioner Family | DX: L89.312 Pressure ulcer of right buttock, stage 2 (principal); Z09 Encounter for follow-up examination after completed treatment for conditions other than malignant neoplasm | CPT/HCPCS: 97597; 99213; A6212 ×2 ==

== ENCOUNTER → 2023-01-11 07:47 | Outpatient (BNVA) | payer MEDICARE, SELFPAY | PROVIDERS: PCP Family Medicine; Visit Provider Nurse Practitioner Family | DX: I96 Gangrene, not elsewhere classified (principal); L89.312 Pressure ulcer of right buttock, stage 2 | CPT/HCPCS: 97597; A6210; A6212 ==

== ENCOUNTER → 2023-01-18 07:50 | Outpatient (BNVA) | payer MEDICARE, SELFPAY | PROVIDERS: PCP Family Medicine; Visit Provider Nurse Practitioner Family | DX: Z09 Encounter for follow-up examination after completed treatment for conditions other than malignant neoplasm (principal); Z87.2 Personal history of diseases of the skin and subcutaneous tissue | CPT/HCPCS: 99212 ==

== ENCOUNTER → 2023-01-25 08:48 | Outpatient (BNVA) | payer MEDICARE, SELFPAY | PROVIDERS: PCP Family Medicine; Visit Provider Podiatrist Foot & Ankle Surgery | DX: B35.1 Tinea unguium (principal); I73.9 Peripheral vascular disease, unspecified; G62.9 Polyneuropathy, unspecified; E11.42 Type 2 diabetes mellitus with diabetic polyneuropathy; Z79.4 Long term (current) use of insulin | CPT/HCPCS: 11721; 99203 ==

== ENCOUNTER → 2023-02-22 13:01 | Outpatient (BNVA) | payer MEDICARE, SELFPAY | PROVIDERS: PCP Family Medicine; Visit Provider Orthopaedic Surgery | DX: Z98.1 Arthrodesis status (principal); M54.50 Low back pain, unspecified | CPT/HCPCS: 72100; 99214 ==

== ENCOUNTER 2023-02-23 08:45 | Outpatient (CLI) | payer MEDICARE, SELFPAY ==
--- NOTE | 2023-02-23 08:49 | MM_ITS ---
WS: [email or web address] BILATERAL SCREENING DIGITAL TOMOSYNTHESIS MAMMOGRAM WITH CAD HISTORY: Z12.39 - Encounter for other screening for malignant neop... COMPARISON: 10/07/2021 and 02/05/2020 Bilateral CC and MLO views with tomosynthesis and synthetic mammography submitted. Computer aided det ection analyzed. Breast composition: There are scattered areas of fibroglandular density. No suspicious masses, microc alcifications or architectural distortion. IMPRESSION: MM/[place] [id number] BI-RADS: 2-Benign FOLLOW UP: 1 Year Follow-up
== END 2023-02-23 08:46 | disposition home or self-care (01) ==
LOC: RAD 08:45
PROVIDERS: PCP Family Medicine; Visit Provider Family Medicine
DX: Z12.31 Encounter for screening mammogram for malignant neoplasm of breast (principal)
CPT/HCPCS: 77063; 77067

== ENCOUNTER 2023-03-11 11:00 | Outpatient (CLI) | payer MEDICARE, SELFPAY ==
[2023-03-11 11:40] LABS: Estmated Average Glucose 183
[2023-03-11 11:46] LABS: Alanine Aminotransferase 13 U/L (0-33); Alkaline Phosphatase 166 U/L (35-105); Anion Gap 15.4 (5-19); Aspartate Amino Transferase 18 U/L (0-32); Blood Urea Nitrogen 15 mg/dL (8-23); Calcium 9.6 mg/dL (8.5-10.5); Carbon Dioxide 26 mmol/L (22-29); Chloride 100 mmol/L (98-107); Chol HDL Ratio 4.43 mg/dL (0.0-4.40); Cholesterol 164 mg/dL (0-200); Globulin 3.4 g/dL (1.3-4.6); Glomerular Filtration Rate 83.5 mL/min (90-130); Glucose 198 mg/dL (65-115); HDL Cholesterol 37 mg/dL (60-100); LDL Cholesterol Calculated 77 mg/dL (50-129); LDL HDL Ratio 2.08 RATIO (0.00-3.22); Osmolality Calculated 290 mOsm/kg (285-295); Potassium 4.4 mmol/L (3.5-5.1); Sodium 137 mmol/L (136-145); Total Bilirubin 0.2 mg/dL (0.15-1.2); Total Protein 7.4 g/dL (6.6-8.7); Triglycerides 248 mg/dL (0-150)
[2023-03-11 11:52] LABS: Creatinine Urine, Random 88 mg/dL (28-217); Microalbum Creatinine Ratio Ur 34 mg/dL (0-20); Microalbumin Random Urine 3 ug/dL (0-20)
== END 2023-03-11 11:01 | disposition home or self-care (01) ==
LOC: LAB 11:02
PROVIDERS: PCP Family Medicine; Visit Provider Internal Medicine
DX: E13.9 Other specified diabetes mellitus without complications (principal); E78.2 Mixed hyperlipidemia
CPT/HCPCS: 36415; 80053; 80061; 82044; 83036

== ENCOUNTER → 2023-03-16 10:39 | Outpatient (BNVA) | payer MEDICARE, SELFPAY | PROVIDERS: PCP Family Medicine; Visit Provider Internal Medicine | DX: E13.9 Other specified diabetes mellitus without complications (principal); E78.2 Mixed hyperlipidemia; Z79.4 Long term (current) use of insulin; Z79.84 Long term (current) use of oral hypoglycemic drugs | CPT/HCPCS: 99214 ==

== ENCOUNTER 2023-03-28 11:29 | Outpatient (CLI) | payer MEDICARE, SELFPAY ==
--- NOTE | 2023-03-28 12:15 | CT_ITS ---
WS: [id number] CT LUMBAR SPINE TECHNIQUE: Noncontrast CT of the lumbar spine with coronal and sagittal reformatted images. CLINICAL INFORMATION: lumbar screw loose COMPARISON: CT 08/02/2022 DLP: 935.[address] scans at [facility] use at least one of these dose optimization techniques: automated e xposure control; mA and/or kV adjustment per patient size (includes targeted exams where dose is matc hed to clinical indication); or iterative reconstruction. FINDINGS: Mild lumbar curve. Grade 1 anterolisthesis L4 on L5. Interconnecting rods appear intact. Lucency abou t the LEFT L5 pedicle screw. LEFT L5 pedicle screw passes through the superior neural foramen unchang ed. RIGHT L4 pedicle screw extends into the superior endplate. This is also unchanged. L1-L2: Normal. L2-L3: Slight retrolisthesis. Mild disc bulging. Slight effacement of the ventral thecal sac. Moderat e facet arthropathy. Foramen are patent. L3-L4: Slight retrolisthesis L3 on L4. Mild disc bulging with mild central canal stenosis. Narrowing of the subarticular recess bilaterally. This appears unchanged from previous. Mild RIGHT greater than LEFT foraminal narrowing. L4-L5: Pedicle screw fixation. Laminectomy defects. Mild to moderate bilateral foraminal narrowing. S ale canal is patent. Moderate facet arthropathy. L5-S1: Slight anterolisthesis. Mild disc bulging. Slight effacement of the ventral thecal sac. Advanc ed facet arthropathy. Mild to moderate LEFT and no significant RIGHT foraminal narrowing. Adrenal glands are normal. Visualized pelvic bony structures: Normal. Paravertebral soft tissues: Normal. IMPRESSION: 1. Pedicle screw fixation L4-5 with interconnecting rods. 2. Loosening of the LEFT L5 pedicle screw. LEFT L5 pedicle screw traverses the upper neural foramen. 3. RIGHT L4 pedicle screw traverses the L4 superior end plate unchanged. 4. No other significant change compared to previous. 5. Mild central canal stenosis L3-4 with narrowing of the RIGHT subarticular recess. Mild bilateral foraminal narrowing. 6. Mild to moderate bilateral L4-5 and LEFT L5-S1 foraminal narrowing unchanged.
== END 2023-03-28 11:30 | disposition home or self-care (01) ==
LOC: RAD 11:29
PROVIDERS: PCP Family Medicine; Visit Provider Orthopaedic Surgery
DX: M54.9 Dorsalgia, unspecified (principal); T84.226A Displacement of internal fixation device of vertebrae, initial encounter; Y79.3 Surgical instruments, materials and orthopedic devices (including sutures) associated with adverse incidents; M48.061 Spinal stenosis, lumbar region without neurogenic claudication
CPT/HCPCS: 72131

== ENCOUNTER → 2023-03-30 10:22 | Outpatient (BNVA) | payer MEDICARE, SELFPAY | PROVIDERS: PCP Family Medicine; Visit Provider Family Medicine | DX: Z01.818 Encounter for other preprocedural examination (principal); Z79.899 Other long term (current) drug therapy; R82.71 Bacteriuria | CPT/HCPCS: 81003; 85025; 87077; 87086; 87184 ==

== ENCOUNTER 2023-04-13 14:59 | Observation (INO) | payer MEDICARE, SELFPAY ==
[2023-04-13] VITALS (21 sets, daily range): BP systolic 93–132; BP diastolic 51–79; PULSE 61–86; RESP 14–16; TEMP 35.9–36.6; O2SAT 91–98; BMI 33.2
[2023-04-13 09:26] LABS: Glucose Point of Care 175 mg/dL (70-110)
--- NOTE | 2023-04-13 09:30 | XR_ITS ---
WS: [id number] XR lumbar spine 2-3V* [id number] REASON FOR EXAM: OR PICS; L2-S1 FUSION FINDINGS: Previous bilateral pedicle screws with interconnecting rods L4-L5. Currently: Posterior decompression with bilateral pedicle screws L2-S1. Oblique pelvic screws at S2. Interconnec ting rods S2-L2. Interbody fusion device L5-S1. Surgical appliances are intact and in proper position and alignment. Moderate anterolisthesis of L4 and L5 persists. IMPRESSION: Posterior lumbar fusion without abnormality.
[2023-04-13] MEDS: sodium chloride 0.9% 1,000 ML 30 ML IV (09:31)
[2023-04-13 09:35] LABS: Basophils # 0.1 10^3/uL (0.0-0.1); Basophils % 0.7 %; Eosinophils # 0.4 10^3/uL (0.0-0.8); Eosinophils % 4.3 %; Hematocrit 40.3 % (36-47); Lymphocytes % 20.2 %; Mean Corpuscular HGB Conc 32.8 g/dL (30-55); Mean Corpuscular Volume 88.6 fl (85-98); Mean Platelet Volume 11.2 fL (7.4-10.4); Monocytes # 0.7 10^3/uL (0.2-0.9); Monocytes % 6.8 %; Neutrophils # 6.71 10^3/uL (1.8-7.7); Neutrophils % 67.6 %; Nucleated Red Blood Cells % 0 %; Platelet Count 258 10^3/cmm (157-399); Red Blood Count 4.55 10^6/uL (3.85-5.65); Red Cell Distribution Width 14.6 % (12.1-15.1); White Blood Count 9.94 10^3/uL (3.29-11.43)
[2023-04-13 09:57] LABS: Anion Gap 15.1 (5-19); Blood Urea Nitrogen 17 mg/dL (8-23); Calcium 9.3 mg/dL (8.5-10.5); Carbon Dioxide 24 mmol/L (22-29); Chloride 102 mmol/L (98-107); Creatinine Clr Calc Pharmacy 61.7784; Glomerular Filtration Rate 83.2 mL/min (90-130); Glucose 179 mg/dL (65-115); Osmolality Calculated 290 mOsm/kg (285-295); Potassium 4.1 mmol/L (3.5-5.1); Sodium 137 mmol/L (136-145)
--- NOTE | 2023-04-13 09:58 | ECG_ITS ---
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 Measurements Intervals Eagle Rate: 80 P: 53 CO: 129 QRS: 49 QRSD: 94 T: 66 QT: 415 QTc: 481 Interpretive Statements SINUS RHYTHM Compared to ECG 08/25/2021 13:42:25 Short CO interval no longer present T-wave abnormality no longer present Electronically Signed On 04-13-2023 21:43:08 LEAD NET SOFTWARE DEVELOPER by Kathryn Barksdale M.D. [id number]
--- NOTE | 2023-04-13 10:07 | W.PM.OPSUD ---
Surgery/Procedure H&P Update DATE OF PROCEDURE: April 13, 2023 DATE H&P PERFORMED: 03/30/23 H&P UPDATE INFORMATION: I have reviewed H&P completed within last 30 days, I have examined patient prior to procedure and No changes to prior documentation PREOP DIAGNOSIS: Lumbar stenosis with neurogenic claudication PLANNED PROCEDURE: Operation Date: 04/13/23 09:25 Proposed Procedures p Spinal Fusion PSF(L3/4,L4/5,L5/S1)(Not Applicable) - Luis Alberto Nascimento DO
--- NOTE | 2023-04-13 10:19 | ANES.PREANE2 ---
Pre-Anesthetic Assessment Height/Weight: Height 1.52 m Weight 77.111 kg Temp Pulse Resp BP Pulse Ox O2 Del Method 96.6 F L 78 16 116/64 97 Room Air 04/13/23 08:39 04/13/23 08:39 04/13/23 08:39 04/13/23 08:39 04/13/23 08:39 04/13/23 08:40 Preop Diagnosis: Lumbar stenosis with neurogenic claudication Operation Date: 04/13/23 09:25 Proposed Procedures p Spinal Fusion PSF(L3/4,L4/5,L5/S1)(Not Applicable) - Luis Alberto Nascimento, DO Familial anesthetic complications: none Was Beta Chip taken within 24 hours: Yes Was Clonidine taken within 24 hours: N/A Last intake: Intake Last Liquid Date 04/12/23 Last Liquid Time 22:00 Last Solid Date 04/12/23 Last Solid Time 16:00 Social Tobacco and No alcohol Exam alert, oriented x 3, clear to auscultation bilaterally and regular rate & rhythm Airway Submandibular: within normal limits Cervical ROM: within normal limits Mallampati: Class II Pulmonary Chronic Obstructive Pulmonary Disease CV/HEM Coronary Artery Disease, Hypertension and Peripheral Vascular Disease Metabolic Diabetes Mellitus, Hyperlipidemia and Morbid Obesity Musc/[facility] Lower Back Pain and Osteoarthritis/DJD Neuropsych Neuropathy Anesthetic Plan ASA status: 3 Anesthesia: General Other: Discussed blood transfusion, a.line and ICU postop. Medications/Allergies Home Medications Medication Instructions Recorded Confirmed Last Taken Type aspirin 81 mg tablet,delayed 81 mg PO DAILY 03/28/19 04/12/23 04/05/23 History release multivitamin (Multiple Vitamins 1 tab PO DAILY 11/18/19 04/12/23 04/12/23 History tablet) lovastatin 40 mg tablet 40 mg PO DAILY #180 tabs 07/12/22 04/12/23 04/12/23 Rx furosemide 20 mg tablet 20 mg PO DAILY #30 tabs 07/13/22 04/12/23 04/12/23 Rx meclizine 25 mg tablet 25 mg PO QID PRN DIZZY #60 tabs 07/13/22 04/12/23 Unknown Rx nitroglycerin 0.4 mg sublingual 0.4 mg sublingual Q5M PRN Chest 07/13/22 04/12/23 Unknown Rx tablet Pain #30 tabs insulin NPH-regular 70-30 U-100 45 unit (0.45 mL) SUBCUT DAILY 30 09/13/22 04/12/23 04/12/23 Rx insulin 100 unit/mL subcutaneous days #18 mL pen (Novolin 70-30 FlexPen U-100 Insulin) Wedge pillow #1 ea 12/02/22 03/16/23 Unknown Rx cyclobenzaprine 10 mg tablet 10 mg PO BID PRN neck muscle pain 12/28/22 04/12/23 04/12/23 Rx #60 tabs clopidogrel 75 mg tablet See Rx Instructions .Route 02/23/23 04/12/23 04/05/23 Rx .COMPLEX #90 tabs carvedilol 3.125 mg tablet (Coreg) 3.125 mg PO BID 90 days #180 tabs 03/03/23 04/12/23 04/13/23 07:00 Rx citalopram 40 mg tablet 40 mg PO DAILY #30 tabs 03/03/23 04/12/23 04/12/23 Rx omeprazole 20 mg tablet,delayed 20 mg PO DAILY #90 tabs 03/08/23 04/12/23 04/13/23 07:00 Rx release hydrocodone 5 mg-acetaminophen 325 1 tab PO Q6H PRN pain 30 days #100 03/17/23 04/12/23 04/13/23 07:00 Rx mg tablet tabs insulin syringes (disposable) 1 mL #500 ea 03/30/23 Unknown Rx pen needle, diabetic 32 gauge x #100 ea 03/30/23 Unknown Rx 1/4 (BD Ultra-Fine Micro Pen Needle) potassium chloride 10 mEq 10 meq PO DAILY 04/12/23 04/12/23 04/12/23 History tablet,extended release(part/cryst) Allergies Allergy/AdvReac Type Severity Reaction Status Date / Time CHANDLER Inhibitors Allergy Severe angioedema Verified 04/13/23 08:30 lisinopril Allergy Severe difficulty Verified 04/13/23 08:30 breathing amoxicillin Allergy rash Verified 04/13/23 08:30 canagliflozin [From Invokana] AdvReac Mild ADR-Dizzine Verified 04/13/23 08:30 ss Corticosteroids AdvReac nausea Verified 04/13/23 08:30 (Glucocorticoids) vomiting levofloxacin [From Levaquin] AdvReac dizziness Verified 04/13/23 08:30 nausea propoxyphene AdvReac ADR-Dizzine Verified 04/13/23 08:30 [From Prince-N] ss tizanidine AdvReac ADR-Dizzine Verified 04/13/23 08:30 ss percocet Allergy Severe Unknown Uncoded 04/13/23 08:30 Current Medications Generic Name Dose Route Start Last Admin Trade Name Tammie PRN Reason Stop Dose Admin Sodium Chloride 1,000 mls @ 30 mls/hr 04/13/23 08:15 04/13/23 09:31 Sodium Chloride 0.9% IV 04/14/23 08:14 30 mls/hr .Q24H TOMAS Administration PFSH Anesthesia Medical History Colon polyp Hyperglycemia due to type 2 diabetes mellitus -A1c-10.5 -Noted hyperglycemia, continue Accu-Cheks, ISS. Add mealtime and long-acting insulin for better control -Consistent carb diet as tolerated -Hypoglycemia precautions -Has had good oral intake so off IVF BPPV (benign paroxysmal positional vertigo) History of colitis Hypertension Hyperlipemia Chest pain Diabetes Arteriosclerosis of coronary artery -Had PCI of the Diagonal and OM1 on 10/23/[address] Verdin -On aspirin, Plavix, statin, BB Surgical History Hx of spinal surgery Status post lumbar spinal fusion S/P colonoscopic polypectomy H/O abdominal hysterectomy H/O foot surgery H/O laparoscopy Stented coronary artery H/O dilation and curettage H/O shoulder surgery Family History Father CAD (coronary artery disease), Onset Age: 60 Diabetes Mother Cancer Denies family history of Clotting disorder Dementia Chronic kidney disease (CKD) Suicide Anesthesia complication Bleeding disorder Lung disease Stroke Social History Smoking and tobacco/nicotine status: current some day tobacco/nicotine user Alcohol intake: never Substance/Drug Use: never Household members: spouse Marital status: Current occupational status: employed Data Anesthesia 04/13/23 09:19 04/13/23 09:19 Short CBC 04/13/23 Range/Units 09:19 WBC 9.94 (3.29-11.43) 10^3/uL Hgb 13.20 (11.27-16.99) g/dL Hct 40.3 (36-47) % MCV 88.6 (85-98) fl Plt Count 258 (157-399) 10^3/cmm Neut % (Auto) 67.6 % Neut # (Auto) 6.71 (1.8-7.7) 10^3/uL BMP 04/13/23 09:19 Sodium 137 Potassium 4.1 Chloride 102 Carbon Dioxide 24 BUN 17 Creatinine 0.7 Glucose 179 H Calcium 9.3 Cardiac Studies: No Data to Display
[2023-04-13] MEDS: ceFAZolin 2,000 MG in sodium chloride 0.9% (plus) 50 ML 100 MG IV ×2 (10:35→19:04)
[2023-04-13] MEDS: lidocaine-epi 1% 20 mL INJ INJECTION (11:14)
[2023-04-13] MEDS: heparin, porcine 1,000 unit/mL INJ 10 mL 10000 UNIT IRRIGATION (11:40)
[2023-04-13] MEDS: vancomycin 1,000 MG SDV 1000 MG XX (11:42)
[2023-04-13] MEDS: thrombin 5,000 unit SDV 5000 UNIT XX (11:43)
--- NOTE | 2023-04-13 14:31 | P.OP_ITS ---
Operative Report Date of procedure: April 13, 2023 Pre-op diagnosis: 1. Lumbar stenosis with neurogenic claudication 2. Loosening of hardware from fall Post-op diagnosis: same Procedure done: 1.?L5/S1 interbody fusion with posterolateral fusion 2. Cage at L5/S1 3. Posterior fusion L2-pelvis 4.? Instrumentation L2-S1 5.? Lumbopelvic instrumentation 6. open right Sacral iliac fusion 7. open left sacral iliac fusion 8. use of computer navigation / stereotactic spine 9. use of autograft from same incision 10. allograft 11. Bone marrow aspirate from right iliac crest 12. Removal of deep hardware from spine Surgeon: Luis Alberto Nascimento DO Estimated blood loss (mL): 500 Procedure: 1.?L5/S1 interbody fusion with posterolateral fusion 2. Cage at L5/S1 3. Posterior fusion L2-pelvis 4.? Instrumentation L2-S1 5.? Lumbopelvic instrumentation 6. open right Sacral iliac fusion 7. open left sacral iliac fusion 8. use of computer navigation / stereotactic spine 9. use of autograft from same incision 10. allograft 11. Bone marrow aspirate from right iliac crest 12. Removal of deep hardware from spine Patient is brought to the operative suite.? After undergoing anesthesia, the patient had neuro monitoring attached.? Patient was then placed in the prone position on the Devan table.? All areas of impingement were well-padded.? Patient was then prepped and draped in the normal sterile fashion.? Skin incision was then made over the L3 to the sacrum.? Subperiosteal dissection was made out to the transverse processes of L2 bilaterally, L3 bilaterally,?L4 bilaterally L5 bilaterally and sacral ala bilaterally.? The L4-5 pedicle screws were identified caps remove rods were removed and then the screws were removed. The [employer] bone marrow aspirate kit was used to aspirate bone marrow aspirate.? This was done by using the sharp probe to open up the bone.? Aspiration was performed and then the blunt probe was then used to dissect down to through the bone tunnel.? An aspirating well drawn back a millimeter approximately 20 cc of bone marrow aspirate was used.? Admixed with the a llograft and autograft bone that will be used. Next tension was brought to placing the fiducial for the computer navigation.? 2 pins were placed into the right iliac crest.? The fiducial was attached.? The C- arm was brought in and information from the C arm was then linked to the computer used for placing the screws.? Next attention was brought to placing the pedicle screws.? This was done by us ing the gearshift probe.? The probe was used to identify the pedicle.? Then the pedicle feeler was used followed by placement of screw.? This was done at L2 bilaterally, L3 bilaterally L4 bilaterally, L5 bilaterally and S1 bilaterally. Next attension was brought to placing the iliac screws.? This was done using the sacral ala iliac technique.? The gearshift probe linked to computer navigation was then placed through the sacral ala into the sacroiliac joint into the iliac crest.? Next the pedicle feeler was used followed by the computer navigated tap.? And then the screw was passed a 90 mm screw was placed on the right side and a 80 mm screw was placed on the left side.? Both the screws were 9.5 mm in diameter. Next attension was brought to performing the open and sacral iliac fusion.? This was done by again using the gearshift probe linked to computer navigation.? Followed by pedicle feeler followed by placing a wire and then the drill drilled over the wire and then bone graft was packed into the sacroiliac joint and into the drill hole.? And the sacroiliac screw was then placed.? This technique was done on both the right and left side. Attention was then brought to attaching the rods to the screws placed in the L2 bilaterally, L3 bilaterally, L4 bilaterally, L5 bilaterally and S1 bilaterally.? This was then attached to the sacroiliac screw providing the lumbopelvic fixatio n.? Caps were torqued into position. Locking the construct in place. Wound was copiously irrigated and then attention was brought to decorticating the facets and transverse processes laterally.? Bone that was taken down from the lamina was used along with osteoamp fibers and sponges were packed into the lateral gutters along the facet joints.? This was done bilaterally. Wound was then closed in a layered fashion starting with the thoracolumbar fascia.? 0-vicryl was used the sub cutaneous tissue was closed with 2-0 vicryl and skin with 4-0 monocryl.? Glue was then used to seal the skin and a steril dressing was applied.? Patient was then placed in the supine position. The endotracheal tube was removed and patient was transferred to the PACU in stable condition.
--- NOTE | 2023-04-13 15:08 | USCV_ITS ---
Judy Rincon Age: 68 Gender: F : 1955 Exam Date: 04/13/2023 18:06 Ordering Phys: Sagar Ayon MD Technologist: TEENA Exam Location: [facility] [place] Indication: hx CAD s/p 2 cardiac stents. DM-1, s/p lumbar fusion, patient cannot be moved. BP: 121 / 64 HR: 80 Rhythm: Sinus Technical Quality: Adequate MEASUREMENTS (Male / Female) Normal Values 2D ECHO LV Diastolic Diameter PLAX 3.3 cm 4.2 - 5.9 / 3.9 - 5.3 cm LV Systolic Diameter PLAX 2.4 cm IVS Diastolic Thickness 1.5 cm 0.6 - 1.0 / 0.6 - 0.9 cm IVS Systolic Thickness 1.3 cm LVPW Diastolic Thickness 1.3 cm 0.6 - 1.0 / 0.6 - 0.9 cm LVPW Systolic Thickness 1.5 cm LVOT Diameter 1.9 cm LV Ejection Fraction 2D Teich 53.3 % LV Ejection Fraction MOD 2C 62.4 % LV Ejection Fraction 2C AL 61.3 % LA Diameter 3.0 cm LA Width 3.4 cm LA Height 4.4 cm RA Width 1.8 cm RA Height 3.1 cm Aorta at Sinotubular Diameter 2.9 cm IVC Diameter 1.9 cm M-MODE Aortic Annulus Diameter 2.7 cm LA Ao Ratio MM 1.3 MV E Point Septal Separation 0.4 cm DOPPLER AV Peak Velocity 155.0 cm/s LVOT Peak Velocity 88.0 cm/s AV Area Cont Eq vti 1.7 cm squared AV Area Cont Eq pk 1.6 cm squared MV Peak Velocity 125.0 cm/s MV Area PHT 2.8 cm squared Mitral E to A Ratio 0.8 MV E' Velocity 51.5 cm/s Mitral E to MV E' Ratio 13.7 Mitral E to LV E' Lateral Ratio 10.9 Mitral E to LV E' Septal Ratio 18.9 TV Peak E Velocity 71.0 cm/s PV Peak Velocity 83.0 cm/s RV Acceleration Time 0.1 s RV Ejection Time 0.4 s RV AcT/ET 0.3 FINDINGS Left Ventricle Normal left ventricular cavity size. Mild left ventricular hypertrophy. Normal left ventricular systolic function. Grade I/IV diastolic dysfunction (abnormal relaxation filling pattern), normal to mildly elevated filling pressures. Left ventricular ejection fraction is estimated at 65 %. Right Ventricle Normal right ventricular size and systolic function. Right Atrium The right atrium is normal in size. Left Atrium The left atrium is normal in size. Mitral Valve Structurally normal mitral valve without significant stenosis or prolapse. There is no mitral regurgitation. Aortic Valve Structurally normal aortic valve without significant sclerosis or stenosis. There is no aortic regurgitation. Tricuspid Valve Structurally normal tricuspid valve without significant stenosis or regurgitation. Pulmonary artery systolic pressure is normal. Pulmonic Valve Pulmonic valve not well visualized. Pericardium Normal pericardium without effusion. Aorta Normal ascending aorta dimension. IVC The inferior vena cava appears normal. CONCLUSIONS Normal left ventricular cavity size. Mild left ventricular hypertrophy. Normal left ventricular systolic function. Grade I/IV diastolic dysfunction (abnormal relaxation filling pattern), normal to mildly elevated filling pressures. Left ventricular ejection fraction is estimated at 65 %. No change from 05/21/2016 Dr. Jean-Paul Felton MD (Electronically Signed) Final Date: 14 April 2023 08:33 S
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
[2023-04-13 16:01] LABS: Thyroid Stimulating Hormone 2.15 uIU/mL (0.27-4.20)
--- NOTE | 2023-04-13 16:58 | ANE.PACU2 ---
Inpatient post-anesthesia follow up: Airway intact: Yes Vital signs: Temperature 97 F Pulse Rate 82 Respiratory Rate 16 Blood Pressure 112/62 Pulse Oximetry 93 Oxygen Delivery Me thod Simple Mask Oxygen Flow Rate 6 Fraction of Inspir ed Oxygen Hydration adequate: Yes Nausea and vomiting: No Pain level: 3 Mental status: Baseline (mildly sedated)
[2023-04-13] MEDS: lactated ringers 1,000 ML 90 ML IV (18:57)
[2023-04-13 19:00] LABS: Iron 51 ug/dL (37-145); Percent Saturation 18.4 % (20-50); Total Iron Binding Capacity 276 mcg/dl; Unsaturated Iron Binding 225 ug/dL (112-347)
[2023-04-13 19:16] LABS: Vitamin B12 407 pg/mL (232-1245)
[2023-04-13 19:52] LABS: Glucose Point of Care 273 mg/dL (70-110)
[2023-04-13] MEDS: insulin lispro 100 unit/1 mL SUBCUT (20:46)
[2023-04-13] MEDS: insulin glargine 100 units/1 mL 30 UNIT SUBCUT (20:46)
[2023-04-13] MEDS: ketorolac 30 mg/mL INJ IVP (21:16)
[2023-04-14] VITALS (7 sets, daily range): BP systolic 94–120; BP diastolic 46–78; PULSE 82–114; RESP 14–17; TEMP 36.5–37; O2SAT 90–99
[2023-04-14 00:34] LABS: Urine Appearance Hazy (CLEAR); Urine Color Light yellow (Yellow); pH Urine 5 (5-7)
[2023-04-14 00:35] LABS: Add Urine Culture? Yes; Add Urine Microscopic? YES; Bacteria Urine 1+ /hpf; Bilirubin Urine Neg (Negative); Blood Urine 2+ (Negative); Glucose Urine UA 2+ (Normal); Ketones Urine 1+ (Negative); Leukocyte Esterase Urine Negative (Negative); Nitrate Urine Negative (Negative); Protein Urine Neg (Negative); Urobilinogen Urine Neg (Negative)
[2023-04-14] MEDS: HYDROcodone-acetaminophen 10-325 mg Tablet PO ×3 (01:53→20:42)
[2023-04-14] MEDS: ceFAZolin 2,000 MG in sodium chloride 0.9% (plus) 50 ML 100 MG IV ×2 (01:53→11:48)
[2023-04-14 04:12] LABS: Magnesium 1.7 mg/dL (1.7-2.3)
[2023-04-14] MEDS: lactated ringers 1,000 ML 90 ML IV ×2 (06:24→18:17)
[2023-04-14 06:44] LABS: Glucose Point of Care 188 mg/dL (70-110)
[2023-04-14 06:53] LABS: Hematocrit 31.6 % (36-47)
--- NOTE | 2023-04-14 07:33 | PC.PHAR ---
Addendum entered by Olive Gardner 04/14/23 09:11: PTS' RECORDS TRANSFERED TO [facility] WHEN [facility] CLOSED. LOCATED CLOPIDOGREL 75MG DAILY LAST FILLED 12/14/22, CYCLOBENZAPRINE 10 MG TWICE DAILY PRN LASTT FILL 02/21/23, AND NTG 0.4 #25 LAST FILL 07/11/22. Addendum entered by Olive Gardner 04/14/23 08:14: NO HISTORY OF CLOPIDOGREL OR CYCLOBENZAPRINE AT [facility]. WILL CALL [facility] AT 9AM )STILL SEARCHING FOR THESE ORIGINAL ORDERS. 8:16AM Original Note: MADE CORRECTIONS ON SEVERAL MEDS. CALLING PHARMACY ON CLOPIDOGREL 75 MG AND CYCLOBENZAPRINE 10 MG DUE TO NO EXTERNAL MED HISTORY. 04/14/23. PT FINISHED MACROBID 100 MG TWICE DAILY 5 DS LAST FILL 04/05/23 AND SEPTRA DS TWICE DAILY 5DS LAST FILL 03/31/23.
[2023-04-14] MEDS: insulin lispro 100 unit/1 mL SUBCUT ×4 (07:39→21:55)
[2023-04-14] MEDS: docusate sodium 100 mg Capsule PO ×2 (08:43→18:17)
[2023-04-14] MEDS: pantoprazole DR 40 mg Tablet PO (08:44)
[2023-04-14] MEDS: citalopram 20 mg Tablet 40 MG PO (08:44)
[2023-04-14] MEDS: atorvastatin 40 mg Tablet PO (08:44)
[2023-04-14] MEDS: multivitamin therapeutic Tablet 1 TAB PO (08:44)
[2023-04-14] MEDS: potassium chloride ER 10 mEq Tablet PO (08:44)
[2023-04-14 09:07] LABS: Alanine Aminotransferase 16 U/L (0-33); Albumin Level 3.5 g/dL (3.5-5.2); Alkaline Phosphatase 138 U/L (35-105); Anion Gap 17.8 (5-19); Aspartate Amino Transferase 34 U/L (0-32); Blood Urea Nitrogen 23 mg/dL (8-23); Calcium 8.7 mg/dL (8.5-10.5); Carbon Dioxide 20 mmol/L (22-29); Chloride 106 mmol/L (98-107); Globulin 2.1 g/dL (1.3-4.6); Glomerular Filtration Rate 55.1 mL/min (90-130); Glucose 196 mg/dL (65-115); Osmolality Calculated 297 mOsm/kg (285-295); Potassium 4.8 mmol/L (3.5-5.1); Sodium 139 mmol/L (136-145); Total Bilirubin 0.2 mg/dL (0.15-1.2); Total Protein 5.6 g/dL (6.6-8.7)
--- NOTE | 2023-04-14 09:32 | P.PN_ITS ---
Subjective 2 Subjective: Patient doing well pain controlled sitting up in the chair drain had about 235 out of it Vitals/I&O/Wt Last Vital Signs Temp 98.3 F 04/14/23 07:54 Pulse 97 04/14/23 07:54 Resp 15 04/14/23 07:54 BP 100/60 04/14/23 07:54 Pulse Ox 90 04/14/23 07:54 O2 Del Method Room Air 04/14/23 07:54 O2 Flow Rate 1 04/14/23 04:16 04/13/23 04/14/23 04/14/23 22:59 06:59 14:59 Intake Total 1050 / 2500 1050 / 3550 240 / 240 Output Total 500 / 1150 260 / 1410 Balance 550 / 1350 790 / 2140 240 / 240 Weight last 48 hrs Weight 189 lb Weight 170 lb Weight 170 lb Physical Exam 2 Narrative: Pain control doing well sitting up. At this point will reevaluate the drain later today to see if she can be discharged Urinary Catheter Management: Leonardo: Cath Placed During This Visit: yes, but has since been removed by the nurse Reason for Continuing Indwelling Catheter: Perioperative Use in Selected Surgeries Urinary Catheter Date of Insertion: 04/13/23 Urinary Catheter Time of Insertion: 11:00 Date Urinary Catheter Removed: 04/14/23 Time Urinary Catheter Discontinued: 06:43 Data 04/14/23 03:00 04/14/23 03:00 A&P Assessment and plan (1) Status post lumbar spinal fusion: Postop day #1 L2 to pelvis fusion. At this point patient is doing well mild concern for discharge repeat drainage may keep her here 1 more day to keep the drain in. Otherwise pain is controlled. Attestations 2 Medical Necessity Statement*: Hemovac drain Coding Level of Care Code Acute Code for Chg Fwd Diagnoses Status post lumbar spinal fusion Z98.1
--- NOTE | 2023-04-14 10:25 | PC.CHAP ---
Pastoral Care Encounter/Spiritual Assessment Type of Contact [] Declined predator control trapper visit [] Patient/Family/Request visit [] Outpatient visit [] Follow-up visit [] Physician referral [] Code/Alert [x] Routine visit [] Staff referral [] Actively dying [] Patient sleeping [] Family support [] [] Out of room [] Palliative care [] [x] Receiving care in room [] Pre-surgical visit [] Trauma [] Long length of stay [] ICU visit [] Other: Relational/Emotional Strength [x] Patient feels connected with others/family/visitors/staff [] Distress [] Loneliness/isolation [] Abandonment Spirituality of Patient [x] Person of [place] [] Attends Anabaptism of their [place] [x] Believes in Prayer [] Reads Bible or Gnosticist materials [] There are Spiritual issues to be addressed Mobile Sales Assistant Interventions [x] Prayer [x] Active listening [x] Non-anxious presence [x] Spiritual/emotional support [] Crisis/trauma care [x] Spiritual counseling [] Bereavement support [] Provided bereavement packet [] Provided Bible/devotional materials [] Provided toy/stuffed animal, coloring book to patient or family member [] Provided Communion [] Anointing/[place] [] Salvation [x] Completed spiritual assessment [] Other: Impact on Illness or Injury [] Angry [] Fearful [] Anxious [] Often cries [] Exhaustion [] Unable to work [] Unable to attend evangelical [] Unable to walk/stand [] Unable to read [] Unable to drive [] Unable to eat/drink [] Unable to sleep [] Unable to be with family [] Patient intubated [] Other: Summary senior dealing with the hear waiting on the results of the tests beforew she will go home has a good attitude Time spent with patient 10 mins
--- NOTE | 2023-04-14 11:35 | PC.SOCIAL ---
Walker Order Received walker order on patient. Choice sheet completed and placed in chart. Walker order faxed to HOME @ this time.
[2023-04-14 11:36] LABS: Glucose Point of Care 374 mg/dL (70-110)
--- NOTE | 2023-04-14 11:45 | P.PN_ITS ---
Subjective 2 Subjective: No acute events overnight. Today patient seen sitting up in chair. Pain is well-controlled. Denies any nausea, vomiting, headache. Hemodynamically has remained stable. Drain in place. Vitals/I&O/Wt Last Vital Signs Temp 98.0 F 04/14/23 11:30 Pulse 93 04/14/23 11:30 Resp 16 04/14/23 11:30 BP 94/59 04/14/23 11:30 Pulse Ox 90 04/14/23 11:30 O2 Del Method Room Air 04/14/23 11:30 O2 Flow Rate 1 04/14/23 04:16 04/13/23 04/14/23 04/14/23 22:59 06:59 14:59 Intake Total 1050 / 2500 1050 / 3550 240 / 240 Output Total 500 / 1150 260 / 1410 Balance 550 / 1350 790 / 2140 240 / 240 Weight last 48 hrs Weight 85.729 kg Weight 77.111 kg Weight 77.111 kg Physical Exam 2 Narrative: General: No acute distress, drowsy postanesthetic in facemask HEENT: PERRLA, pupils bilaterally equal and reactive Chest: Normal vesicular breath sounds, no added sounds, equal good air entry bilaterally CVS: S1-S2 regular, no murmurs, no tachycardia, no gallops, no rubs Abdomen: Soft, nontender, no organomegaly, bowel sounds present Neuro: No focal deficits, no facial deformity, power could not be assessed Urinary Catheter Management: Leonardo: Cath Placed During This Visit: yes, but has since been removed by the nurse Reason for Continuing Indwelling Catheter: Perioperative Use in Selected Surgeries Urinary Catheter Date of Insertion: 04/13/23 Urinary Catheter Time of Insertion: 11:00 Date Urinary Catheter Removed: 04/14/23 Time Urinary Catheter Discontinued: 06:43 Data 04/14/23 03:00 04/14/23 03:00 Micro: Microbiology 04/13/23 23:40 Bacterial Antigens - Final Urine Kidney A&P Assessment and plan (1) Encounter for Postoperative Care: S/p lumbar fusion. Recheck CBC. Monitor hemoglobin. Postoperative anticoagulation, PT, pain medication as per primary team. (2) Status post lumbar spinal fusion: (3) Arteriosclerosis of coronary artery: Post PCI to LAD and intermedius artery. Last cath in 2019. Restart Plavix when okay with primary team continue with aspirin and statin for now. Check echocardiogram. Last known EF of 55% on LV gram from cath in 2020. (4) Orthostatic hypotension: (5) PAD (peripheral artery disease): (6) Hyperlipemia, mixed: Appreciate recent A1c, lipid panel. (7) Diabetes 1.5, managed as type 1: Last A1c 8. Insulin sliding scale at moderate dose protocol. Started on Lantus 20 units nightly. Carb consistent diet. Plan Hypertension: Goal blood pressure less than 140/90 mmHg with mean over 65. Patient has a history of orthostatic hypotension in past. Hold off on antihypertensives for now. Monitor blood pressures and will restart medications accordingly. Continue other chronic medications including citalopram, statin. Protonix OPD prophylaxis Anticoagulation as per primary team, Carb consistent diet Full code Plan for the day: Hemoglobin stable. Tolerating diet well. Continue with physical therapy. Drain management as per primary team. Blood pressures continue to remain soft. Patient does have history of orthostatic hypotension. Hold off on antihypertensives for now. Continue to monitor blood pressures and will add antihypertensives accordingly. Patient denies any dizziness currently. Blood sugars well-controlled. Will continue to follow. Patient's care discussed in detail with patient's RN at bedside. All the questions were answered. Attestations 2 Medical Necessity Statement*: As per primary team. Diagnoses Encounter for Postoperative Care Z48.89 Status post lumbar spinal fusion Z98.1 Arteriosclerosis of coronary artery I25.10 Orthostatic hypotension I95.1 PAD (peripheral artery disease) I73.9 Hyperlipemia, mixed E78.2 Diabetes 1.5, managed as type 1 E13.9
[2023-04-14 16:41] LABS: Glucose Point of Care 336 mg/dL (70-110)
[2023-04-14] MEDS: carvedilol 3.125 mg Tablet PO (18:17)
[2023-04-14 21:40] LABS: Glucose Point of Care 302 mg/dL (70-110)
[2023-04-14] MEDS: insulin glargine 100 units/1 mL 30 UNIT SUBCUT (21:56)
[2023-04-15] VITALS: BP 109/69; PULSE 109; RESP 17; TEMP 37.2; O2SAT 93
[2023-04-15] MEDS: HYDROcodone-acetaminophen 10-325 mg Tablet PO (01:20)
[2023-04-15 04:00] VITALS: BP 153/81; PULSE 112; RESP 18; TEMP 36.5; O2SAT 92
[2023-04-15 05:35] LABS: Basophils # 0.1 10^3/uL (0.0-0.1); Basophils % 0.5 %; Eosinophils # 0.3 10^3/uL (0.0-0.8); Eosinophils % 2.4 %; Hematocrit 27.2 % (36-47); Lymphocytes # 1.3 10^3/uL (0.8-4.8); Lymphocytes % 12.3 %; Mean Corpuscular HGB Conc 31.6 g/dL (30-55); Mean Corpuscular Hemoglobin 29.2 pg (27-33); Mean Corpuscular Volume 92.2 fl (85-98); Mean Platelet Volume 10.9 fL (7.4-10.4); Monocytes # 0.8 10^3/uL (0.2-0.9); Monocytes % 7.4 %; Neutrophils % 76.8 %; Nucleated Red Blood Cells % 0 %; Platelet Count 204 10^3/cmm (157-399); Red Blood Count 2.95 10^6/uL (3.85-5.65); Red Cell Distribution Width 15.1 % (12.1-15.1); White Blood Count 10.93 10^3/uL (3.29-11.43)
[2023-04-15 05:54] LABS: Magnesium 1.5 mg/dL (1.7-2.3)
[2023-04-15 06:36] LABS: Glucose Point of Care 319 mg/dL (70-110)
--- NOTE | 2023-04-15 06:45 | P.DS_ITS ---
Discharge Providers Date of Admission: 04/13/23 14:59 Date of Discharge: April 15, 2023 Attending Provider at Admission: Luis Alberto Nascimento DO Attending Provider at Discharge: Luis Alberto Nascimento DO Primary Care Provider: Maria Del Carmen Lee MD Diagnoses at Discharge Discharge Diagnosis (1) Encounter for Postoperative Care: Status: Acute (2) Status post lumbar spinal fusion: Status: Acute (3) Arteriosclerosis of coronary artery: Status: Acute Permanent problem details: -Had PCI of the Diagonal and OM1 on 10/23/[address] Verdin -On aspirin, Plavix, statin, BB (4) Orthostatic hypotension: Status: Acute (5) PAD (peripheral artery disease): Status: Acute (6) Hyperlipemia, mixed: Status: Acute (7) Diabetes 1.5, managed as type 1: Status: Acute Reason for Visit Reason for Visit: M54.9, M48.062 Physical Exam Narrative: Drain with minimal output Urinary Catheter Management: Leonardo: Cath Placed During This Visit: yes, but has since been removed by the nurse Reason for Continuing Indwelling Catheter: Perioperative Use in Selected Surgeries Urinary Catheter Date of Insertion: 04/13/23 Urinary Catheter Time of Insertion: 11:00 Date Urinary Catheter Removed: 04/14/23 Time Urinary Catheter Discontinued: 06:43 Discharge Data Studies Completed and Pending Completed Studies During Hospitalization Category Date Time Status XR lumbar spine 2-3V* [id number] Routine Exams 04/13/23 09:30 Completed CV. echo complete* [id number] Routine Ultrasound 04/13/23 15:08 Completed Pending at discharge Category Date Time Status MAG [Magnesium] AM LABS Lab 04/16/23 04:00 Ordered Urine Culture Routine Lab 04/13/23 23:40 Received Laboratory Results WBC 10.93 10^3/uL (3.29-11.43) 04/15/23 04:00 RBC 2.95 10^6/uL (3.85-5.65) L 04/15/23 04:00 Hgb 8.60 g/dL (11.27-16.99) L 04/15/23 04:00 Hct 27.2 % (36-47) L 04/15/23 04:00 MCV 92.2 fl (85-98) 04/15/23 04:00 MCH 29.2 pg (27-33) 04/15/23 04:00 MCHC 31.6 g/dL (30-55) 04/15/23 04:00 RDW 15.1 % (12.1-15.1) 04/15/23 04:00 Plt Count 204 10^3/cmm (157-399) 04/15/23 04:00 MPV 10.9 fL (7.4-10.4) H 04/15/23 04:00 Neut % (Auto) 76.8 % 04/15/23 04:00 Lymph % (Auto) 12.3 % 04/15/23 04:00 [place] % (Auto) 7.4 % 04/15/23 04:00 Eos % (Auto) 2.4 % 04/15/23 04:00 Baso % (Auto) 0.5 % 04/15/23 04:00 Neut # (Auto) 8.40 10^3/uL (1.8-7.7) H 04/15/23 04:00 Lymph # (Auto) 1.3 10^3/uL (0.8-4.8) 04/15/23 04:00 [place] # (Auto) 0.8 10^3/uL (0.2-0.9) 04/15/23 04:00 Eos # (Auto) 0.3 10^3/uL (0.0-0.8) 04/15/23 04:00 Baso # (Auto) 0.1 10^3/uL (0.0-0.1) 04/15/23 04:00 Nucleated RBC % (auto) 0 % 04/15/23 04:00 Nucleated RBCs # 0.0 /100WBC 04/15/23 04:00 Sodium 139 mmol/L (136-145) 04/14/23 03:00 Potassium 4.8 mmol/L (3.5-5.1) 04/14/23 03:00 Chloride 106 mmol/L (98-107) 04/14/23 03:00 Carbon Dioxide 20 mmol/L (22-29) L 04/14/23 03:00 Anion Gap 17.8 (5-19) 04/14/23 03:00 BUN 23 mg/dL (8-23) 04/14/23 03:00 Creatinine 1.0 mg/dL (0.5-0.9) H 04/14/23 03:00 GFR Calculation 55.1 mL/min (90-130) L 04/14/23 03:00 Glucose 196 mg/dL (65-115) H 04/14/23 03:00 POC Glucose 319 mg/dL (70-110) H 04/15/23 06:28 Calculated Osmolality 297 mOsm/kg (285-295) H 04/14/23 03:00 Calcium 8.7 mg/dL (8.5-10.5) 04/14/23 03:00 Magnesium 1.5 mg/dL (1.7-2.3) L 04/15/23 04:00 Iron 51 ug/dL (37-145) 04/13/23 09:19 TIBC 276 mcg/dl 04/13/23 09:19 % Saturation 18.4 % (20-50) L 04/13/23 09:19 Unsat Iron Binding 225 ug/dL (112-347) 04/13/23 09:19 Total Bilirubin 0.2 mg/dL (0.15-1.2) 04/14/23 03:00 AST 34 U/L (0-32) H 04/14/23 03:00 ALT 16 U/L (0-33) 04/14/23 03:00 Alkaline Phosphatase 138 U/L (35-105) H 04/14/23 03:00 Total Protein 5.6 g/dL (6.6-8.7) L 04/14/23 03:00 Albumin 3.5 g/dL (3.5-5.2) 04/14/23 03:00 Globulin 2.1 g/dL (1.3-4.6) 04/14/23 03:00 Vitamin B12 407 pg/mL (232-1245) 04/13/23 09:19 Folate 19.0 ng/mL (4.8-37.3) 04/14/23 03:00 TSH 2.15 uIU/mL (0.27-4.20) 04/13/23 09:19 Urine Color Light yellow (Yellow) 04/13/23 23:40 Urine Appearance Hazy (CLEAR) A 04/13/23 23:40 Urine pH 5 (5-7) 04/13/23 23:40 Ur Specific [place] 1.020 (1.005-1.030) 04/13/23 23:40 Urine Protein Neg (Negative) 04/13/23 23:40 Urine Glucose (UA) 2+ (Normal) H 04/13/23 23:40 Urine Ketones 1+ (Negative) H 04/13/23 23:40 Urine Blood 2+ (Negative) H 04/13/23 23:40 Urine Nitrate Negative (Negative) 04/13/23 23:40 Urine Bilirubin Neg (Negative) 04/13/23 23:40 Urine Urobilinogen Neg mg/dL (Negative) 04/13/23 23:40 Ur Leukocyte Esterase Negative (Negative) 04/13/23 23:40 Urine RBC 10-15 /hpf (0-2) H 04/13/23 23:40 Urine WBC None /hpf (0-5) 04/13/23 23:40 Ur Squamous Epith Cells None /hpf (0-5) 04/13/23 23:40 Amorphous Sediment Not Reportable 04/13/23 23:40 Urine Bacteria 1+ /hpf (NONE) H 04/13/23 23:40 Urine Yeast 1+ /hpf H 04/13/23 23:40 Blood Type O Positive 04/13/23 09:19 Rho(D) Type Rh positive 04/13/23 09:19 Antibody Screen Negative 04/13/23 09:19 Vitals Last Vital Signs Temp 97.7 F 04/15/23 04:00 Pulse 112 H 04/15/23 04:00 Resp 18 04/15/23 04:00 BP 153/81 04/15/23 04:00 Pulse Ox 92 04/15/23 04:00 O2 Del Method Nasal Cannula 04/15/23 04:00 O2 Flow Rate 2 04/14/23 20:00 Discharge Plan Discharge Patient Disposition: Home Condition: Stable Prescriptions: New hydrocodone-acetaminophen 10-325 mg tablet 1 tab PO Q4H PRN (Reason: pain) 7 Days Qty: 40 0RF Continued aspirin 81 mg tablet,delayed release (DR/EC) 81 mg PO DAILY Hold Instructions: Resume on 12/10/19. cyclobenzaprine 10 mg tablet 10 mg PO BID PRN (Reason: neck muscle pain) Qty: 60 1RF furosemide 20 mg tablet 20 mg PO DAILY Qty: 30 7RF meclizine 25 mg tablet 25 mg PO QID PRN (Reason: DIZZY) Qty: 60 3RF nitroglycerin 0.4 mg tablet, sublingual 0.4 mg SUBLINGUAL Q5M PRN (Reason: Chest Pain) Qty: 30 1RF citalopram 40 mg tablet 40 mg PO DAILY Qty: 30 0RF Coreg 3.125 mg tablet 3.125 mg PO BID 90 Days Qty: 180 3RF Rx Instructions: must administer with a meal/food lovastatin 40 mg tablet 40 mg PO DAILY Qty: 180 3RF (DME) Wedge pillow See Rx Instructions .Route .MEDSUPPLY Qty: 1 0RF Rx Instructions: As directed omeprazole 20 mg tablet,delayed release (DR/EC) 20 mg PO DAILY Qty: 90 3RF hydrocodone-acetaminophen 5-325 mg tablet 1 tab PO Q6H PRN (Reason: pain) 30 Days Qty: 100 0RF (DME) insulin syringes (disposable) 1 mL syringe See Rx Instructions .Route Qty: 500 0RF Rx Instructions: As directed (DME) pen needle, diabetic [BD Ultra-Fine Micro Pen Needle] 32 gauge x 1/4 needle See Rx Instructions .ROUTE .MEDSUPPLY Qty: 100 3RF Rx Instructions: As directed multivitamin [Multiple Vitamins] Tablet 1 tab PO DAILY potassium chloride 10 mEq tablet,ER particles/crystals 10 meq PO DAILY clopidogrel 75 mg Tablet 75 mg PO DAILY Novolin 70-30 FlexPen U-100 100 unit/mL (70-30) insulin pen See Rx Instructions .ROUTE .COMPLEX Rx Instructions: Prior TO meals, inject 30 units in THE morning THEN 15 units at night. Discharge Orders: Discharge Order (Routine); Ordered 04/15/23 Ordered By: Luis Alberto Nascimento Other Ambulatory Orders: DME: Walker (Order) Location: None Selected Ordered By: Sagar Ayon Discharge Diet: Advance as tolerated Discharge Activity: Limit activity as instructed Patient Instructions: Opioid Safety Activity Restrictions/Additional Instructions: Thank you for [facility] for your care! The following is a list of instructions, from your provider, to follow upon your discharge to ensure you have the optimal recovery from your recent injury orsurgery. Follow-up care is a yepez part of your treatment and safety. Be sure to make and go to all appointments, and call your doctor if you are having problems. If you do not already have a follow-up appointment made, call Dr. Nascimento office in the next 1-3 days to make follow up appointment for 1 weeks at [phone]. It is also a good idea to know your test results and keep a list of the medicines you take. Medications will be prescribed for you at your provider's discretion. These med ications are to be used as instructed; if they are taken more often that prescribed they will not be refilled early and in most cases will not be refilled at all. > When a refill is needed,you should contact mikhail pedersen 2-3 business days before your prescription runs out. Medications will NOT be refilled by carton stenciler providers after hours! > Many pain medications contain Tylenol (Acetaminophen). Do not consume more than 4,000 mg of Tylenol per day in total with any combination ofmedications. > Pain medications can cause constipation. Please use an over the counter stool softener as directed, while taking pain medications. Consulty our local pharmacist with questions or recommendations on stool softeners. If constipation persists, contact our office or your primary care provider. > While under our care,you are not to receive pain medications or other controlled substances from any other provider unless our office is notified and approves. Any attempts to do so will result in refusal to prescribe any further pain medications and possible dismissal from our practice. ? Your wound and/or dressing should remain clean and dry for [address] surgery. Will change dressing in the office in 1 week ? Showering is permitted, however we ask that you do not take a bath, sit in a whirlpool / Jacuzzi, or go swimming for 1 month. For only the first 2 days after surgery, lt wilt be necessary for you to cover your wound/dressing with plastic and tape to keep it dry. ? Walking is essential for the healing process after surgery. We would like you to slowly advance your walking. This should be done on relatively flat clear ground (inside or out) or can be done on a treadmill. Remember this goal does not have to happen all at once, slowly increase your distance and duration. This can be broken into more more than one walk per day as tolerated. Patients who walk as directed after surgery rarely require Physical Therapy. In the unlikely event this issue arises your provider will direct hospital staff to make the appropriate arrangements. ? No lifting over 5 pounds {a gallon of milk) or bending/twisting until further notice. Each of these activities places an unnecessary amount of stress onto the body and can impede the delicate healing process. > Instead of bending at the waist, keep your back straight and bend at the knees. > Instead of twisting your torso, keep your back straight and turn your entire body with your feet. ? You may sleep in any position which makes you comfortable. Many patients find comfort sleeping in a reclining chair. It is not abnormal to have difficulty sleeping for the first several weeks following your surgery. We recommend trying Benadry! or Tylenol PM as directed to help with your sleeping difficulties. Both medications are over the counter and available withoutprescription. ? NO SMOKING!!! Smoking dramatically increases the probability of developing postoperative wound infections. ? Common complaints after lumbar and/or thoracic spine surgery include, but are not limited to: numbness and/or tingling in the legs, pain around the incision and surrounding tissues, muscle spasms, or stiffness of the middle to low back. Contact our office if these symptoms persist or if an acute change occurs. ? No driving for the first 3-5days, and not while taking narcotics [] until seen at your follow-up appointment and cleared. There are no restrictions for riding on short trips, however if you take a longer trip, arrangements sh ould be made to make regular stops to get out of the vehicle and stretch . ? Swelling is an unfortunate event that will take place with any surgery and is the primary source of your postoperative discomfort. While walking and regular approved activities helps control inflammation, there are additional steps you can take to minimizeswelling. > Place ice over the surgical site and surrounding tissue for twenty minutes, followed by applying a low/medium heat (heating pad) for an additional twenty minutes every 1-2 hours as needed for painrelief. > You may use of over the counter anti-inflammatory medications (Ibuprofen, Motrin, Aleve, Advil, etc) as directed on the package label. These types of medicines wm significantly reduce the amount of discomfort you experience after surgery from swelling. It should be noted that if you have and allergy to any of these medications, or a history of ulcers or kidney disease you should consult you primary care provider prior to starting these medications. Discharge Attestations Time Spent in Discharge Care*: less than 30 min Status at Discharge: Cognitive status at discharge: cognitively intact , Behavioral status at discharge: cooperative , Quality Metrics Clinical Quality Measures [ No reported AMI, CVA or VTE this stay] Coding Level of Care Code Acute Code for Chg Fwd Diagnoses Encounter for Postoperative Care Z48.89 Status post lumbar spinal fusion Z98.1 Arteriosclerosis of coronary artery I25.10 Orthostatic hypotension I95.1 PAD (peripheral artery disease) I73.9 Hyperlipemia, mixed E78.2 Diabetes 1.5, managed as type 1 E13.9
[2023-04-15 08:00] VITALS: BP 105/67; PULSE 98; RESP 17; TEMP 36.9; O2SAT 98
[2023-04-15] MEDS: insulin lispro 100 unit/1 mL SUBCUT (08:32)
[2023-04-15] MEDS: carvedilol 3.125 mg Tablet PO (08:33)
[2023-04-15] MEDS: atorvastatin 40 mg Tablet PO (08:33)
[2023-04-15] MEDS: potassium chloride ER 10 mEq Tablet PO (08:33)
[2023-04-15] MEDS: citalopram 20 mg Tablet 40 MG PO (08:33)
[2023-04-15] MEDS: pantoprazole DR 40 mg Tablet PO (08:33)
[2023-04-15] MEDS: multivitamin therapeutic Tablet 1 TAB PO (08:33)
[2023-04-15 08:40] VITALS: PULSE 90; RESP 18; O2SAT 95
[2023-04-15 08:43] VITALS: O2SAT 86; O2SAT 95
--- NOTE | 2023-04-15 09:59 | P.PN_ITS ---
Subjective 2 Subjective: Documents overnight. Patient seen sitting up in bed again today. Denies any nausea, vomiting and headache. Wanting to go home today. States pain is well- controlled. Drain still in place. Vitals/I&O/Wt Last Vital Signs Temp 98.4 F 04/15/23 08:00 Pulse 90 04/15/23 08:40 Resp 18 04/15/23 08:40 BP 105/67 04/15/23 08:00 Pulse Ox 86 L 04/15/23 08:43 O2 Del Method Nasal Cannula 04/15/23 08:40 O2 Flow Rate 2 04/15/23 08:43 04/14/23 04/15/23 04/15/23 22:59 06:59 14:59 Intake Total 1490 / 1730 0 / 1730 Output Total 70 / 270 95 / 365 Balance 1420 / 1460 -95 / 1365 Weight last 48 hrs Weight 85.729 kg Weight 77.111 kg Physical Exam 2 Narrative: General: No acute distress, drowsy postanesthetic in facemask HEENT: PERRLA, pupils bilaterally equal and reactive Chest: Normal vesicular breath sounds, no added sounds, equal good air entry bilaterally CVS: S1-S2 regular, no murmurs, no tachycardia, no gallops, no rubs Abdomen: Soft, nontender, no organomegaly, bowel sounds present Neuro: No focal deficits, no facial deformity, power could not be assessed Urinary Catheter Management: Leonardo: Cath Placed During This Visit: yes, but has since been removed by the nurse Reason for Continuing Indwelling Catheter: Perioperative Use in Selected Surgeries Urinary Catheter Date of Insertion: 04/13/23 Urinary Catheter Time of Insertion: 11:00 Date Urinary Catheter Removed: 04/14/23 Time Urinary Catheter Discontinued: 06:43 Data 04/15/23 04:00 04/14/23 03:00 Micro: Microbiology 04/13/23 23:40 Bacterial Antigens - Final Urine Kidney A&P Assessment and plan (1) Encounter for Postoperative Care: S/p lumbar fusion. Recheck CBC. Monitor hemoglobin. Postoperative anticoagulation, PT, pain medication as per primary team. (2) Status post lumbar spinal fusion: (3) Arteriosclerosis of coronary artery: Post PCI to LAD and intermedius artery. Last cath in 2019. Restart Plavix when okay with primary team continue with aspirin and statin for now. Check echocardiogram. Last known EF of 55% on LV gram from cath in 2020. (4) Orthostatic hypotension: (5) PAD (peripheral artery disease): (6) Hyperlipemia, mixed: Appreciate recent A1c, lipid panel. (7) Diabetes 1.5, managed as type 1: Last A1c 8. Insulin sliding scale at moderate dose protocol. Started on Lantus 20 units nightly. Carb consistent diet. Plan Hypertension: Goal blood pressure less than 140/90 mmHg with mean over 65. Patient has a history of orthostatic hypotension in past. Hold off on antihypertensives for now. Monitor blood pressures and will restart medications accordingly. Continue other chronic medications including citalopram, statin. Protonix OPD prophylaxis Anticoagulation as per primary team, Carb consistent diet Full code Plan for the day: Hemoglobin down to 8.6 today. Most likely equilibrating postoperatively. Along with mildly dilute as well given patient being on IV fluids. Patient has remained hemodynamically stable with blood pressures improving. Hold off on antihypertensives. If patient is to discharge today will advise to hold off on antihypertensives including Lasix other than Coreg for next 1 week. Will also advised to hold off on Plavix for next 1 week. Recheck hemoglobin in 1 week with primary care provider. Continue taking oral iron supplementation on discharge Continue taking antidiabetic medications as before. Discharge med rec completed from medical standpoint. Patient's care discussed in detail with patient's RN at bedside. All the questions were answered. Attestations 2 Medical Necessity Statement*: As per primary team. Diagnoses Encounter for Postoperative Care Z48.89 Status post lumbar spinal fusion Z98.1 Arteriosclerosis of coronary artery I25.10 Orthostatic hypotension I95.1 PAD (peripheral artery disease) I73.9 Hyperlipemia, mixed E78.2 Diabetes 1.5, managed as type 1 E13.9
[2023-04-15 10:08] VITALS: PULSE 90; RESP 18; O2SAT 95
[2023-04-15 11:20] LABS: Glucose Point of Care 344 mg/dL (70-110)
--- NOTE | 2023-04-15 11:25 | PC.SOCIAL ---
Oxygen orders faxed to HOME. Patient qualified for 2L of oxygen.
== END 2023-04-15 11:15 | disposition home or self-care (01) | DRG 454 ==
LOC: MEDSURG 15:10
PROVIDERS: Student in an Organized Health Care Education/Training Program; Admitting Provider Orthopaedic Surgery; PCP Family Medicine; Visit Provider Orthopaedic Surgery
PROC: (CPT 20930; principal; 2023-04-13 09:25)
DX: M48.062 Spinal stenosis, lumbar region with neurogenic claudication (principal); T84.226A Displacement of internal fixation device of vertebrae, initial encounter; Y82.8 Other medical devices associated with adverse incidents; E10.51 Type 1 diabetes mellitus with diabetic peripheral angiopathy without gangrene; Z79.4 Long term (current) use of insulin; H81.10 Benign paroxysmal vertigo, unspecified ear; I10 Essential (primary) hypertension; E78.2 Mixed hyperlipidemia; I25.10 Atherosclerotic heart disease of native coronary artery without angina pectoris; Z95.5 Presence of coronary angioplasty implant and graft; F17.210 Nicotine dependence, cigarettes, uncomplicated; I95.1 Orthostatic hypotension; Y83.1 Surgical operation with implant of artificial internal device as the cause of abnormal reaction of the patient, or of later complication, without mention of misadventure at the time of the procedure
CPT/HCPCS: 20930; 20936; 20939; 22633; 22634; 22842; 22848; 22853; 27280; 61783; 63052; 36415; 36416; 51702; 72100; 76000; 80048; 80053; 81001; 82607; 82746; 82962; 83540; 83550; 83735; 84443; 85014; 85018; 85025; 86403; 86850; 86900; 87086; 93005; 93306; 94760; 96372; 97116; 97161; C1713; C1762; G0378; J0131; J0690; J1100; J1170; J1200; J1644; J1815; J1885; J2250; J2405; J2704; J2710; J3010; J3370; J3475; J3490; J7030; J7120; P9045

== ENCOUNTER → 2023-04-20 13:26 | Outpatient (BNVA) | payer MEDICARE, SELFPAY | PROVIDERS: PCP Family Medicine; Visit Provider Family Medicine | DX: E11.65 Type 2 diabetes mellitus with hyperglycemia (principal); E78.2 Mixed hyperlipidemia; I73.9 Peripheral vascular disease, unspecified; D50.8 Other iron deficiency anemias; G62.9 Polyneuropathy, unspecified | CPT/HCPCS: 80053; 85025 ==

== ENCOUNTER → 2023-04-29 15:12 | Outpatient (BNVA) | payer MEDICARE, SELFPAY | PROVIDERS: PCP Family Medicine; Visit Provider Orthopaedic Surgery | DX: Z98.1 Arthrodesis status (principal); Z47.89 Encounter for other orthopedic aftercare; G89.18 Other acute postprocedural pain | CPT/HCPCS: 99024 ==

== ENCOUNTER → 2023-05-05 07:48 | Outpatient (BNVA) | payer MEDICARE, SELFPAY | PROVIDERS: PCP Family Medicine; Visit Provider Podiatrist Foot & Ankle Surgery | DX: B35.1 Tinea unguium (principal); E11.65 Type 2 diabetes mellitus with hyperglycemia; I73.9 Peripheral vascular disease, unspecified; G62.9 Polyneuropathy, unspecified; Z79.4 Long term (current) use of insulin | CPT/HCPCS: 11721 ==

== ENCOUNTER → 2023-05-23 11:43 | Outpatient (BNVA) | payer MEDICARE, SELFPAY | PROVIDERS: PCP Family Medicine; Visit Provider Internal Medicine Cardiovascular Disease | DX: I25.10 Atherosclerotic heart disease of native coronary artery without angina pectoris (principal); I10 Essential (primary) hypertension; I95.1 Orthostatic hypotension; E78.2 Mixed hyperlipidemia; F17.200 Nicotine dependence, unspecified, uncomplicated | CPT/HCPCS: 99214 ==

== ENCOUNTER → 2023-05-26 13:19 | Outpatient (BNVA) | payer MEDICARE, SELFPAY | PROVIDERS: PCP Family Medicine; Visit Provider Orthopaedic Surgery | DX: Z98.1 Arthrodesis status (principal) | CPT/HCPCS: 72100; 99024 ==

== ENCOUNTER 2023-06-03 13:27 | Outpatient (CLI) | payer MEDICARE, SELFPAY ==
--- NOTE | 2023-06-03 13:30 | CT_ITS ---
WS: [id number] CT HEAD NONCONTRAST HISTORY: right facial nerve palsey x 4 days without change TECHNIQUE: Contiguous axial imaging performed through the brain in 2.5 mm imaging. Bone and soft tiss ue windows. Sagittal and coronal reformats reviewed. All CT scans at [facility] use at least one of these dose optimization techniques: automated exposure control; mA and/or kV adjustment per pa tient size (includes targeted exams where dose is matched to clinical indication); or iterative recon struction. DLP: 1036.88 mGy.cm COMPARISON: 12/29/2022 No acute intracranial hemorrhage, midline shift or mass effect. Mild atrophy and small vessel ischemic disease. There is a prior lacunar infarct in the LEFT centrum semiovale that was not present on 12/29/2022. Ventricles: Normal size with no hydrocephalus. No inferior displacement of the cerebellar tonsils. Paranasal sinuses: As visualized are clear. Mastoid air cells: Well pneumatized. Calvarium and scalp: Skull is intact with no soft tissue edema or swelling. IMPRESSION: 1. No acute intracranial hemorrhage or edema. 2. Mild atrophy and small vessel ischemic disease. 3. Small remote lacunar infarct in the LEFT centrum semiovale but new since 12/29/2022.
== END 2023-06-03 13:28 | disposition home or self-care (01) ==
LOC: RAD 13:27
PROVIDERS: PCP Family Medicine; Visit Provider Family Medicine
DX: G51.0 Bell's palsy (principal); I67.89 Other cerebrovascular disease; I60.9 Nontraumatic subarachnoid hemorrhage, unspecified; R47.01 Aphasia; R27.0 Ataxia, unspecified; Z86.73 Personal history of transient ischemic attack (TIA), and cerebral infarction without residual deficits; Z87.828 Personal history of other (healed) physical injury and trauma
CPT/HCPCS: 70450

== ENCOUNTER → 2023-06-07 11:44 | Outpatient (BNVA) | payer MEDICARE, SELFPAY | PROVIDERS: PCP Family Medicine; Visit Provider Family Medicine | DX: Z87.19 Personal history of other diseases of the digestive system (principal); E11.65 Type 2 diabetes mellitus with hyperglycemia; E78.2 Mixed hyperlipidemia; I10 Essential (primary) hypertension; N18.9 Chronic kidney disease, unspecified; E13.9 Other specified diabetes mellitus without complications; Z98.1 Arthrodesis status; G51.0 Bell's palsy | CPT/HCPCS: 80053; 83036; 85025 ==

== ENCOUNTER → 2023-06-13 10:33 | Outpatient (BNVA) | payer MEDICARE, SELFPAY | PROVIDERS: PCP Family Medicine; Visit Provider Internal Medicine | DX: E13.9 Other specified diabetes mellitus without complications (principal); E78.2 Mixed hyperlipidemia; Z79.4 Long term (current) use of insulin; Z86.73 Personal history of transient ischemic attack (TIA), and cerebral infarction without residual deficits | CPT/HCPCS: 99214 ==

== ENCOUNTER → 2023-07-05 08:21 | Outpatient (BNVA) | payer MEDICARE, SELFPAY | PROVIDERS: PCP Family Medicine; Visit Provider Podiatrist Foot & Ankle Surgery | DX: B35.1 Tinea unguium (principal); E11.65 Type 2 diabetes mellitus with hyperglycemia; I73.9 Peripheral vascular disease, unspecified; G62.9 Polyneuropathy, unspecified; M72.0 Palmar fascial fibromatosis [Dupuytren]; M65.342 Trigger finger, left ring finger | CPT/HCPCS: 73130; 99204; 99213 ==

== ENCOUNTER → 2023-07-21 12:58 | Outpatient (BNVA) | payer MEDICARE, SELFPAY | PROVIDERS: PCP Family Medicine; Visit Provider Orthopaedic Surgery | DX: Z98.1 Arthrodesis status (principal) | CPT/HCPCS: 72100; 99024 ==

== ENCOUNTER 2023-07-28 08:09 | Day surgery (SDC) | payer MEDICARE, SELFPAY ==
[2023-07-28] VITALS (8 sets, daily range): BP systolic 92–150; BP diastolic 55–80; PULSE 75–83; RESP 14–17; TEMP 36.3–36.6; O2SAT 92–95; BMI 32.1
[2023-07-28 08:45] LABS: Glucose Point of Care 367 mg/dL (70-110)
[2023-07-28] MEDS: ketorolac 30 mg/mL INJ IVP (08:45)
[2023-07-28] MEDS: sodium chloride 0.9% 1,000 ML 30 ML IV (08:47)
[2023-07-28] MEDS: acetaminophen 1,000 MG/100 ML PIGGYBACK 400 MG IV (08:47)
[2023-07-28] MEDS: scopolamine 1.5 Patch 1 PATCH TRANSDERMA (08:52)
--- NOTE | 2023-07-28 08:59 | P.HPUD_ITS ---
Surgery/Procedure H&P Update DATE OF PROCEDURE: July 28, 2023 DATE H&P PERFORMED: 07/05/23 H&P UPDATE INFORMATION: I have reviewed H&P completed within last 30 days, I have examined patient prior to procedure and No changes to prior documentation CHANGES TO PREVIOUS DOCUMENTATION: Patient's had Ancef with Dr. Dr. Nascimento in the past we will give her this for her preoperative antibiotic. She understands and agrees with current plan. Questi ons answered. Proceed with surgery today for left ring finger trigger release PREOP DIAGNOSIS: Left ring finger trigger PRIMARY INDICATION FOR PROCEDURE: Left ring finger trigger PLANNED PROCEDURE: Operation Date: 07/28/23 09:45 Proposed Procedures p Trigger Finger Release(Left) - Karlo Overton DO
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
[2023-07-28] MEDS: ceFAZolin 2,000 MG in sodium chloride 0.9% (plus) 50 ML 100 MG IV (09:49)
[2023-07-28] MEDS: ROPivacaine 0.5% SDV 30 mL 150 MG INJECTION (10:19)
[2023-07-28] MEDS: BUPivacaine 0.5% INJ 10 mL INJECTION (10:20)
--- NOTE | 2023-07-28 10:22 | W.PM.BPON ---
Date of Procedure: 07/28/2023 Surgeon: Karlo Overton DO Transcript Evaluator(s): OBI Ivey Procedure(s) performed: Left ring finger trigger release Findings of the procedure(s): Patient found to have left ring finger trigger underwent procedure as planned without issues or complications Estimated blood loss: 2 mL Specimen(s) removed: None Post-operative diagnosis: Left ring finger trigger
--- NOTE | 2023-07-28 10:23 | P.OP_ITS ---
Operative Report Date of procedure: July 28, 2023 Surgeon: Karlo Overton DO Supervisor [place]: OBI Ivey?FA necessary for assistance in this case with hand positioning to execute the procedure, retraction and protection of neurovascular structures as well as to assist with wound closure and dressing application. Procedure: Preoperative diagnosis: Left ring finger trigger post-op diagnosis: Same Procedure done: Left Ring finger?trigger?release Surgeon: Karlo Overton DO Estimated blood loss: 2cc Tourniquet time 7mins Complications: None Condition: stable Disposition: same day Brief History: Patient's been seen and worked up in the outpatient setting and findings consistent with preoperative diagnosis of Left Ring finger?trigger.?Continues to have mechanical locking and catching.? Severe pain as well.? We talked about treatment options nonoperative versus operative intervention.? ?Patient understands the risk benefits complication alternatives of surgical nonsurgical treatment options.? Understanding risks with surgery patient elects proceed with surgical intervention.? Consent obtained in the office.? Here today to proceed with surgical intervention.? All questions answered. Procedure: Patient was seen and evaluated in the preoperative holding area.? Consent was reviewed and signed with patient.? Seen evaluated by Anesthesia Department.? Once cleared for surgery was brought back to the operative suite.? Placed in supine position on the OR table all bony prominences well-padded patient properly secured to the bed.? Patient's Left arm was then placed to the armboard.? A nonsterile tourniquet applied to the Left upper arm.? Patient's Left upper extremity was then prepped and draped in standard orthopedic fashion.? Final timeout performed.? Patient received appropriate preoperative antibiotics. Esmarch tourniquet was used exsanguinate the Left upper extremity tourniquet insufflated to 250 mmHg. Under sterile aseptic technique local digital block was performed to the Left Ring finger.? Once appropriately anesthetized a standard oblique incision was made centering over the A1 jeannie following patient's flexor crease.? Sharp scalpel incision was made only through skin and then switched to Littler dissection scissors and spread longitudinally directly over the flexor tendon sheath.? I then mobilized both radially and ulnarly and Kasdan retractors were used and placed by my virtual assistant to protect neurovascular bundle.? Next I visualized the A1 jeannie and this was incised with a scalpel.? I then switched t o dissection scissors and released the A1 jeannie both proximally as well as distally to its entirety.? Significant tendon sheath fluid was noted consistent with inflammation.? Mild fraying of the flexor tendons noted but no tear.? At this point I utilized a rag nail and pulled the tendons FDS and FDP out of the incision and no?triggering was noted.? I then had anesthesia wake up the patient and patient was able to actively flex and extend with no?triggering.? This point thorough irrigation was performed.? Tourniquet deflated hemostasis satisfactory with bipolar.? I then subsequently closed the incision with interrupted nylon suture.? Xeroform 4 x 4's, Kerlix and an Dario wrap was applied for a bulky soft dressing.? Patient was then subsequently awakened from anesthesia and taken to PACU in stable condition tolerated procedure without issues. Disposition: Patient taken back in stable condition recovering well.? Patient will receive appropriate discharge instruction as well as pain medication postoperatively.? Patient to follow-up with me in the office in 2 weeks for repeat evaluation and incision check.? Patient understands that any questions or concerns and contact the office.? All questions answered.
--- NOTE | 2023-07-28 11:20 | ANE.PACU2 ---
Inpatient post-anesthesia follow up: Airway intact: Yes Vital signs: Temperature 97.9 F Pulse Rate 75 Respiratory Rate 17 Blood Pressure 150/70 Pulse Oximetry 93 Oxygen Delivery Me thod Room Air Oxygen Flow Rate Fraction of Inspir ed Oxygen Hydration adequate: Yes Nausea and vomiting: No Pain level: 1 Mental status: Baseline
== END 2023-07-28 11:24 | disposition home or self-care (01) ==
PROVIDERS: Visit Provider Student in an Organized Health Care Education/Training Program
PROC: (CPT 26055; principal; 2023-07-28 09:45)
DX: M65.342 Trigger finger, left ring finger (principal); E11.9 Type 2 diabetes mellitus without complications
CPT/HCPCS: 26055; 36416; 82962; J0131; J0690; J1885; J2704; J2795; J3010; J3490; J7030

== ENCOUNTER 2023-08-02 10:24 | Outpatient (RCR) | payer MEDICARE, SELFPAY | END 2023-08-19 23:59 | disposition home or self-care (01) | LOC: SPT 10:24 | PROVIDERS: Visit Provider Orthopaedic Surgery | DX: Z98.1 Arthrodesis status (principal) | CPT/HCPCS: 97161 ==

== ENCOUNTER → 2023-10-31 08:30 | Outpatient (BNVA) | payer MEDICARE, MEDICAID, SELFPAY | PROVIDERS: PCP Family Medicine; Visit Provider Podiatrist Foot & Ankle Surgery | DX: B35.1 Tinea unguium (principal); E11.65 Type 2 diabetes mellitus with hyperglycemia; I73.9 Peripheral vascular disease, unspecified; G62.9 Polyneuropathy, unspecified; E11.42 Type 2 diabetes mellitus with diabetic polyneuropathy; Z79.4 Long term (current) use of insulin | CPT/HCPCS: 11721 ==

== ENCOUNTER → 2023-12-08 09:57 | Outpatient (BNVA) | payer MEDICARE, MEDICAID, SELFPAY | PROVIDERS: PCP Family Medicine; Visit Provider Nurse Practitioner Family | DX: I25.10 Atherosclerotic heart disease of native coronary artery without angina pectoris (principal); I10 Essential (primary) hypertension | CPT/HCPCS: 99214 ==

== ENCOUNTER 2024-01-03 11:59 | Outpatient (CLI) | payer MEDICARE, SELFPAY ==
[2024-01-03 12:29] LABS: Basophils # 0.1 10^3/uL (0.0-0.1); Eosinophils # 0.4 10^3/uL (0.0-0.8); Eosinophils % 3.2 %; Hematocrit 43.5 % (36-47); Lymphocytes # 2.3 10^3/uL (0.8-4.8); Lymphocytes % 20.3 %; Mean Corpuscular HGB Conc 31.5 g/dL (30-55); Mean Corpuscular Volume 95.4 fl (85-98); Mean Platelet Volume 10.9 fL (7.4-10.4); Monocytes # 0.7 10^3/uL (0.2-0.9); Monocytes % 6.3 %; Neutrophils % 68.6 %; Nucleated Red Blood Cells % 0 %; Platelet Count 272 10^3/cmm (157-399); Red Blood Count 4.56 10^6/uL (3.85-5.65); Red Cell Distribution Width 13.9 % (12.1-15.1)
[2024-01-03 12:43] LABS: Estmated Average Glucose 163; Hemoglobin A1C 7.3 % (4.0-6.0)
[2024-01-03 12:50] LABS: Alanine Aminotransferase 12 U/L (0-33); Alkaline Phosphatase 154 U/L (35-105); Anion Gap 12.9 (5-19); Aspartate Amino Transferase 14 U/L (0-32); Blood Urea Nitrogen 17 mg/dL (8-23); Carbon Dioxide 27 mmol/L (22-29); Chloride 102 mmol/L (98-107); Chol HDL Ratio 4.82 mg/dL (0.0-4.40); Cholesterol 164 mg/dL (0-200); Globulin 3.4 g/dL (1.3-4.6); Glomerular Filtration Rate 71.3 mL/min (90-130); Glucose 132 mg/dL (65-115); HDL Cholesterol 34 mg/dL (60-100); LDL Cholesterol Calculated 82 mg/dL (50-129); LDL HDL Ratio 2.41 RATIO (0.00-3.22); Osmolality Calculated 289 mOsm/kg (285-295); Potassium 3.9 mmol/L (3.5-5.1); Sodium 138 mmol/L (136-145); Total Bilirubin 0.2 mg/dL (0.15-1.2); Total Protein 7.4 g/dL (6.6-8.7); Triglycerides 241 mg/dL (0-150)
== END 2024-01-03 12:00 | disposition home or self-care (01) ==
LOC: LAB 12:01
PROVIDERS: PCP Family Medicine; Visit Provider Family Medicine
DX: I10 Essential (primary) hypertension (principal); E78.2 Mixed hyperlipidemia; E11.65 Type 2 diabetes mellitus with hyperglycemia
CPT/HCPCS: 36415; 80053; 80061; 83036; 85025

== ENCOUNTER → 2024-01-16 15:32 | Outpatient (BNVA) | payer MEDICARE, SELFPAY | PROVIDERS: PCP Family Medicine; Visit Provider Podiatrist Foot & Ankle Surgery | DX: B35.1 Tinea unguium (principal); E11.65 Type 2 diabetes mellitus with hyperglycemia; I73.9 Peripheral vascular disease, unspecified; G62.9 Polyneuropathy, unspecified; Z79.4 Long term (current) use of insulin | CPT/HCPCS: 11721 ==

== ENCOUNTER → 2024-02-01 08:47 | Outpatient (BNVA) | payer MEDICARE, SELFPAY | PROVIDERS: PCP Family Medicine; Visit Provider Podiatrist Foot & Ankle Surgery | DX: B35.1 Tinea unguium (principal); E11.65 Type 2 diabetes mellitus with hyperglycemia; I73.9 Peripheral vascular disease, unspecified; G62.9 Polyneuropathy, unspecified; Z79.4 Long term (current) use of insulin | CPT/HCPCS: 11750 ==

== ENCOUNTER → 2024-02-15 09:47 | Outpatient (BNVA) | payer MEDICARE, SELFPAY | PROVIDERS: PCP Family Medicine; Visit Provider Podiatrist Foot & Ankle Surgery | DX: L60.0 Ingrowing nail (principal); B35.1 Tinea unguium; E11.65 Type 2 diabetes mellitus with hyperglycemia; I73.9 Peripheral vascular disease, unspecified; G62.9 Polyneuropathy, unspecified; Z79.4 Long term (current) use of insulin | CPT/HCPCS: 99213 ==

== ENCOUNTER 2024-03-16 10:56 | Outpatient (CLI) | payer MEDICARE, SELFPAY ==
--- NOTE | 2024-03-16 10:58 | MM_ITS ---
WS: [id number] BILATERAL SCREENING DIGITAL TOMOSYNTHESIS MAMMOGRAM WITH CAD HISTORY: SCREENING COMPARISON: 02/23/2023, 10/07/2021 Bilateral CC and MLO views with tomosynthesis and synthetic mammography submitted. Computer aided det ection analyzed. Breast composition: There are scattered areas of fibroglandular density. No suspicious masses, microc alcifications or architectural distortion. Benign calcification anterior RIGHT breast. MM/MM scr BI tomosynthesis [id number] IMPRESSION: BI-RADS: 2 - Benign. FOLLOW UP: 1 Year Follow-up
== END 2024-03-16 10:57 | disposition home or self-care (01) ==
LOC: RAD 10:57
PROVIDERS: PCP Family Medicine; Visit Provider Family Medicine
DX: Z12.31 Encounter for screening mammogram for malignant neoplasm of breast (principal); R92.323 Mammographic fibroglandular density, bilateral breasts; R92.1 Mammographic calcification found on diagnostic imaging of breast
CPT/HCPCS: 77063; 77067

== ENCOUNTER → 2024-03-28 15:41 | Outpatient (BNVA) | payer MEDICARE, SELFPAY | PROVIDERS: PCP Family Medicine; Visit Provider Podiatrist Foot & Ankle Surgery | DX: L60.0 Ingrowing nail (principal); B35.1 Tinea unguium; E11.65 Type 2 diabetes mellitus with hyperglycemia; I73.9 Peripheral vascular disease, unspecified; G62.9 Polyneuropathy, unspecified; Z79.4 Long term (current) use of insulin | CPT/HCPCS: 11721; 99213 ==

== ENCOUNTER 2024-04-09 11:05 | Outpatient (CLI) | payer MEDICARE, SELFPAY ==
--- NOTE | 2024-04-09 11:07 | XRR_ITS ---
PROCEDURE INFORMATION: Exam: XR Right Hip Exam date and time: 04/09/2024 11:25 AM Age: 69 years old Clinical indication: Hip pain; Right hip; Additional info: Pain right hip and si joint TECHNIQUE: Imaging protocol: Radiologic exam of the right hip. Views: 1 view hip with pelvis when performed. COMPARISON: CT abdomen pelvis wo con [id number] 08/19/2021 9:48 AM FINDINGS: Bones/joints: Transpedicular screws and Daugherty rods overlie the lower lumbar spine, lumbar sacral spine. Long and short screws course through the sacroiliac joints bilaterally. Mild to moderate generalized bony degenerative changes. The visualized sacral arches appear intact. No visualized evidence for acute bony fracture or dislocation. Bony structures appear otherwise unremarkable. Soft tissues: Unremarkable. Notes: If there is further concern, recommend follow-up radiographs or MRI for complete assessment. XR/XR hip RT 2-3V wo/w pel* [id number] IMPRESSION: 1. No acute bony abnormality identified. 2. Degenerative and postsurgical changes are demonstrated, as described above.
== END 2024-04-09 11:06 | disposition home or self-care (01) ==
LOC: RAD 11:06
PROVIDERS: PCP Family Medicine; Visit Provider Family Medicine
DX: M16.11 Unilateral primary osteoarthritis, right hip (principal); Z98.1 Arthrodesis status; M47.9 Spondylosis, unspecified
CPT/HCPCS: 73502; 83036

== ENCOUNTER → 2024-09-10 14:00 | Outpatient (BNVA) | payer MEDICARE, SELFPAY | PROVIDERS: PCP Family Medicine; Visit Provider Family Medicine | DX: E11.65 Type 2 diabetes mellitus with hyperglycemia (principal) | CPT/HCPCS: 80053; 83036; 85025 ==

== ENCOUNTER 2024-09-26 12:14 | Outpatient (CLI) | payer MEDICARE, SELFPAY ==
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
[2024-09-26] MEDS: iohexol 350 mg/mL 500 mL Btl (per mL) IV (13:40)
== END 2024-09-26 12:15 | disposition home or self-care (01) ==
LOC: RAD 12:15
PROVIDERS: PCP Family Medicine; Visit Provider Family Medicine
DX: I62.03 Nontraumatic chronic subdural hemorrhage (principal); R26.89 Other abnormalities of gait and mobility; R41.0 Disorientation, unspecified
CPT/HCPCS: 70470

== ENCOUNTER → 2025-01-04 06:53 | Outpatient (BNVA) | payer MEDICARE, SELFPAY | PROVIDERS: PCP Family Medicine; Visit Provider Podiatrist Foot & Ankle Surgery | DX: E11.65 Type 2 diabetes mellitus with hyperglycemia (principal); B35.1 Tinea unguium; L60.0 Ingrowing nail; I73.9 Peripheral vascular disease, unspecified; R09.89 Other specified symptoms and signs involving the circulatory and respiratory systems; G62.9 Polyneuropathy, unspecified; Z79.4 Long term (current) use of insulin | CPT/HCPCS: 11721; 99214 ==

== ENCOUNTER → 2025-01-14 15:03 | Outpatient (BNVA) | payer MEDICARE, SELFPAY | PROVIDERS: PCP Family Medicine; Visit Provider Family Medicine | DX: E11.65 Type 2 diabetes mellitus with hyperglycemia (principal); M47.818 Spondylosis without myelopathy or radiculopathy, sacral and sacrococcygeal region | CPT/HCPCS: 80053; 83036; 85025 ==

== ENCOUNTER 2025-01-16 12:04 | Outpatient (CLI) | payer MEDICARE, SELFPAY ==
--- NOTE | 2025-01-16 12:15 | USR_ITS ---
PROCEDURE INFORMATION: Exam: US Duplex Bilateral Lower Extremity Arteries Exam date and time: 01/16/2025 12:28 PM Age: 69 years old Clinical indication: Screening exam; Assess blood flow; Additional info: Check blood flow, for toenail removal, (please preform: Bilateral lower extremity ayesha/tbi's with US TECHNIQUE: Imaging protocol: Real-time ultrasound scan of the arteries of the bilateral lower extremities with 2-D tejada scale, color Doppler flow and spectral waveform analysis. Images documented and saved. COMPARISON: CT abdomen pelvis wo con [id number] 08/19/2021 9:48 AM FINDINGS: Right common femoral artery: No occlusion or significant stenosis. Normal waveform. Right superficial femoral artery: No occlusion or significant stenosis. Normal waveform. Right popliteal artery: No occlusion or significant stenosis. Normal waveform. Right calf/foot arteries: No occlusion or significant stenosis in the visualized arteries. Normal waveforms. Dorsalis pedis artery is patent. Right ankle-brachial index is 0.8. Left common femoral artery: No occlusion or significant stenosis. Normal waveform. Left superficial femoral artery: No occlusion or significant stenosis. Normal waveform. Left popliteal artery: No occlusion or significant stenosis. Normal waveform. Left calf/foot arteries: No occlusion or significant stenosis in the visualized arteries. Normal waveforms. Dorsalis pedis artery is patent. Left ankle-brachial index is 0.8. US/CV arterial duplex [facility] [id number] IMPRESSION: 1. No lower extremity stenosis or occlusion. 2. Source of mildly reduced ankle-brachial indices is undetermined, possibly secondary to elevated upper extremity pressures.
== END 2025-01-16 12:05 | disposition home or self-care (01) ==
PROVIDERS: PCP Family Medicine; Visit Provider Podiatrist Foot & Ankle Surgery
DX: R09.89 Other specified symptoms and signs involving the circulatory and respiratory systems (principal); E11.65 Type 2 diabetes mellitus with hyperglycemia
CPT/HCPCS: 93925

== ENCOUNTER → 2025-02-05 12:54 | Outpatient (BNVA) | payer MEDICARE, SELFPAY | PROVIDERS: PCP Family Medicine; Visit Provider Podiatrist Foot & Ankle Surgery | DX: L60.8 Other nail disorders (principal); B35.1 Tinea unguium; E11.65 Type 2 diabetes mellitus with hyperglycemia; I73.9 Peripheral vascular disease, unspecified; G62.9 Polyneuropathy, unspecified; L60.0 Ingrowing nail; R09.89 Other specified symptoms and signs involving the circulatory and respiratory systems; Z79.4 Long term (current) use of insulin | CPT/HCPCS: 99213 ==

== ENCOUNTER 2025-03-18 12:29 | Outpatient (CLI) | payer MEDICARE, SELFPAY ==
--- NOTE | 2025-03-18 13:20 | MM_ITS ---
WS: [id number] Bilateral screening 3D tomosynthesis digital mammogram, 03/18/2025 12:50 PM Clinical Data: Z12.39 - Encounter for other screening for malignant neop... Comparison: 03/16/2024, 02/23/2023, 10/07/2021, 02/05/2020, 11/02/2017, 08/24/2017, 07/30/2016, 03/20/2015, 02/28/2013, 12/05/2009, 12/09/2008, 05/27/2008, 05/11/2006. Findings: No spiculated masses or clustered calcifications are seen. There are no secondary signs of carcinoma. MM/MM scr BI tomosynthesis [id number] Impression: Negative bilateral mammogram unchanged. Recommend annual screening mammograms. BIRADS: 1 - Negative. FOLLOW UP: 1 Year Follow-up DENSITY: There are scattered areas of fibroglandular density. The CAD grocery checker was used
== END 2025-03-18 12:30 | disposition home or self-care (01) ==
LOC: RAD 12:30
PROVIDERS: PCP Family Medicine; Visit Provider Family Medicine
DX: Z12.31 Encounter for screening mammogram for malignant neoplasm of breast (principal); R92.323 Mammographic fibroglandular density, bilateral breasts
CPT/HCPCS: 77063; 77067